=== PATIENT | male | born 1965 | race American Indian/Alaskan Native ===

== ENCOUNTER 2016-11-20 08:35 | Emergency (ER) | payer MEDICARE, OTHER ==
[2016-11-20 08:35] VITALS: BMI 3319.7
--- NOTE | 2016-11-20 09:48 | RAD ---
HISTORY: r/o infiltrate COMPARISON: Comparison is made to 09/11/2016 TECHNIQUE: Chest PA and lateral FINDINGS: LUNGS: Mild pulmonary vascular congestion. PLEURA: Small bilateral pleural effusions larger on the right. CARDIOVASCULAR: Moderate cardiomegaly is again noted. OSSEOUS STRUCTURES: No significant abnormalities. VISUALIZED UPPER ABDOMEN: Normal. OTHER FINDINGS: None. IMPRESSION: Cardiomegaly and mild pulmonary vascular congestion. Small bilateral pleural effusions.
--- NOTE | 2016-11-20 09:53 | C.PDOC ---
History Of Present Illness 51-year-old male, PMHx includes ESRD (last dialysis two days ago), presents to the emergency department with complaints of intermittent cough x3 weeks, that is mildly productive at times and associated with occasional post-tussive vomiting. Denies fevers, chills, chest pain or shortness of breath. No other complaints at this time. Chief Complaint (Nursing): GI Problem History Per: Patient History/Exam Limitations: no limitations Onset/Duration Of Symptoms: Days Current Symptoms Are (Timing): Still Present Severity: Moderate Past Medical History Reviewed: Historical Data, Nursing Documentation, Vital Signs Vital Signs: Last Vital Signs Temp 98 F 11/20/16 08:47 Pulse 86 11/20/16 08:47 Resp 22 11/20/16 09:07 BP 123/83 11/20/16 08:47 Pulse Ox 95 11/20/16 09:53 - Medical History PMH: Anemia, Anxiety, HTN, Hyperthyroidism, End Stage Renal Disease Surgical History: Appendectomy Family History: States: Unknown Family Hx - Social History Hx Tobacco Use: No Hx Alcohol Use: No Hx Substance Use: No - Immunization History Hx Tetanus Toxoid Vaccination: No Hx Influenza Vaccination: Yes Hx Pneumococcal Vaccination: Yes Review Of Systems Except As Marked, All Systems Reviewed And Found Negative. Constitutional: Negative for: Fever, Chills Cardiovascular: Negative for: Chest Pain, Palpitations Respiratory: Positive for: Cough, Sputum Gastrointestinal: Positive for: Vomiting Genitourinary: Negative for: Dysuria, Frequency Musculoskeletal: Negative for: Back Pain Skin: Negative for: Rash Neurological: Negative for: Weakness, Numbness, Headache, Dizziness Physical Exam - Physical Exam Appears: Non-toxic, No Acute Distress Skin: Warm, Dry, No Rash Head: Atraumatic, Normacephalic Eye(s): bilateral: Normal Inspection, PERRL Nose: Normal Oral Mucosa: Moist Lips: Normal Appearing Neck: Normal ROM Chest: Symmetrical Cardiovascular: Rhythm Regular Respiratory: No Accessory Muscle Use, Rales (bases B/L) Gastrointestinal/Abdominal: Soft, No Tenderness Extremity: Normal ROM, Other ((+) Bruit Left upper extremity) Neurological/Psych: Oriented x3, Normal Speech ED Course And Treatment O2 Sat by Pulse Oximetry: 95 Medical Decision Making Medical Decision Making: Plan: * Chest X-Ray * Reassess/Disposition Disposition - Disposition Referrals: [facility], [Non-Staff] - Disposition: HOME/ ROUTINE Disposition Time: 10:00 Condition: GOOD Additional Instructions: Thank you for letting us take care of you today. Your provider was Dr. Padilla. You were treated for a persistent cough. The emergency medical care you received today was directed at your acute symptoms. If you were prescribed any medication, please fill it and take as directed. It may take several days for your symptoms to resolve. Return to the Emergency Department if your symptoms worsen, do not improve, or if you have any other problems. Please contact your doctor or call one of the physicians/clinics you have been referred to that are listed on the Patient Visit Information form that is included in your discharge packet. Bring any paperwork you were given at discharge with you along with any medications you are taking to your follow up visit. Our treatment cannot replace ongoing medical care by a primary care provider (PCP) outside of the emergency department. Thank you for allowing the [facility] team to be part of your care today. Follow up with your doctor in 2-3 days for re-evaluation. Prescriptions: levoFLOXacin [Levaquin] 750 mg PO DAILY #5 tab Acetaminophen/Codeine NO 2 [Tylenol/Cod 300 MG-15 MG] 1 tab PO Q6 PRN #15 tab PRN Reason: Cough Instructions: Upper Respiratory Infection (ED) - Clinical Impression Clinical Impression: Bronchitis - Scribe Statement The provider has reviewed the documentation as recorded by the Muna Mathews All medical record entries made by the Tresibmargie were at my direction and personally dictated by me. I have reviewed the chart and agree that the record accurately reflects my personal performance of the history, physical exam, medical decision making, and the department course for this patient. I have also personally directed, reviewed, and agree with the discharge instructions and disposition.
[2016-11-20 10:33] VITALS: BP 130/76; PULSE 78; RESP 18; TEMP 99.1; O2SAT 96
== END 2016-11-20 10:45 | disposition home or self-care (01) ==
LOC: C.ER 08:35
DX: J40 Bronchitis, not specified as acute or chronic (principal)

== ENCOUNTER 2016-11-24 04:35 | Inpatient (IN) | payer MEDICARE, OTHER ==
[2016-11-24 04:36] VITALS: BMI 3319.7
--- NOTE | 2016-11-24 05:43 | C.PDOC ---
History Of Present Illness <Renetta Mayorga - Last Filed: 11/24/16 06:54> <Alan Cleary Jr. 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 S/P hemodialysis 11/23 pt states " it went fine". Pt is unable to coordinate hands, walk, nor dress himself due to weakness and poor coordination. Pt denies dizziness, headache, change in speech , visual changes, nausea, vomiting, diarrhea, fever, chills, or any other complaints. 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 ON LEVAQUIN X 3 DAYS, ONSET 3 HRS AFTER TAKING DOSE. S/P HD 11/23 "IT WENT FINE". PS UNABLE TO COORDINATE HANDS , WALK, DRESS HIMSELF DUE TO GEN WEAKNESS AND POOR COORDINATION. NO FEVER, NV EXAM HEENT NEG LUNGS CLEAR NEURO GEN WEAKNESS, NO SUSTAINED DYSKINESIA (DISTRACTABLE) PSYCH ANXIOUS (MukeshRenetta) History Per: Patient History/Exam Limitations: no limitations Onset/Duration Of Symptoms: Hrs Current Symptoms Are (Timing): Still Present Severity: Mild <Renetta Mayorga - Last Filed: 11/24/16 06:54> <Alan Cleary Jr. - Last Filed: 11/24/16 07:47> Time Seen by Provider: 11/24/16 05:17 Chief Complaint (Nursing): Weakness/Neurological Deficit Past Medical History Reviewed: Historical Data, Nursing Documentation, Vital Signs - Medical History PMH: Anemia, Anxiety, HTN, Hyperthyroidism, End Stage Renal Disease (on Hemodialysis), Chronic Kidney Disease Surgical History: Appendectomy Family History: States: Unknown Family Hx - Social History Hx Tobacco Use: No Hx Alcohol Use: No Hx Substance Use: No - Immunization History Hx Tetanus Toxoid Vaccination: No Hx Influenza Vaccination: Yes Hx Pneumococcal Vaccination: Yes <Renetta Mayorga - Last Filed: 11/24/16 06:54> Vital Signs: Last Vital Signs Temp 99.7 F H 11/24/16 05:00 Pulse 79 11/24/16 07:20 Resp 18 11/24/16 07:20 BP 112/74 11/24/16 07:20 Pulse Ox 99 11/24/16 07:25 Review Of Systems Except As Marked, All Systems Reviewed And Found Negative. Constitutional: Negative for: Fever, Chills Eyes: Negative for: Vision Change Gastrointestinal: Negative for: Nausea, Vomiting, Diarrhea Neurological: Positive for: Weakness, Incoordination (Abnormal movements). Negative for: Change in Speech, Headache, Dizziness <Renetta Mayorga - Last Filed: 11/24/16 06:54> Physical Exam - Physical Exam Appears: Non-toxic, No Acute Distress Skin: Warm, Dry Head: Atraumatic, Normacephalic Eye(s): bilateral: Normal Inspection, PERRL, EOMI Ear(s): Bilateral: Normal Nose: Normal, No Discharge Throat: Normal, No Erythema, No Exudate Respiratory: Normal Breath Sounds, No Rales, No Rhonchi, No Wheezing Gastrointestinal/Abdominal: Soft, No Tenderness Neurological/Psych: Oriented x3, No Normal Motor (General weakness), No Other ( No sustained dyskinesia (distractable) ) Other Neurological Findings: Other (Anxious) <Renetta Mayorga - Last Filed: 11/24/16 06:54> ED Course And Treatment - Laboratory Results Result Diagrams: 11/24/16 05:54 11/24/16 05:54 Lab Interpretation: No Acute Changes O2 Sat by Pulse Oximetry: 97 (Room air) Pulse Ox Interpretation: Normal <Renetta Mayorga - Last Filed: 11/24/16 06:54> - Laboratory Results Result Diagrams: 11/24/16 05:54 11/24/16 05:54 <Alan Cleary Jr. - Last Filed: 11/24/16 07:47> Progress - Data Reviewed Data Reviewed: Lab, Diagnostic imaging, EKG, Old records <MukeshRenetta - Last Filed: 11/24/16 06:54> - Time Time: 07:28 <Alan Cleary Jr. - Last Filed: 11/24/16 07:47> - Re-Evaluation Re-evaluation Note: 11/24/16 06:21 VSS NARD. NO OBSERVED DYSKINETIC MOVEMENTS. (Renetta Mayorga) 11/24/16 07:28 Pt s/o to me by Dr. Renetta Mayorga. Pt is c/o losing coordination of his muscles in his UE and LE about 3-4 hrs after taking Levaquin. I called [place] [facility] and they state that Levaquin traditionally does not cause these symptoms but that anything is possible. Poison Control recommends supportive care and to send CPK level and LFTs. (Alan Cleary Jr.) Medical Decision Making <Renetta aMyorga - Last Filed: 11/24/16 06:54> <Alan Cleary Jr. - Last Filed: 11/24/16 07:47> Medical Decision Making: Plans: -CT head -EKG -Blood labs -CXR -IV fluids -Reassess and disposition (Renetta Mayorga) 7:46 AM - Case d/w Dr. Silver. He agrees with need for additional work up and for hospitalization. Pt has been endorsed to Dr. Alan Silver. (Alan Cleary Jr. ) Disposition <Renetta Mayorga - Last Filed: 11/24/16 06:54> - Disposition Disposition Time: 07:47 <Alan Cleary Jr. - Last Filed: 11/24/16 07:47> - Disposition Disposition: HOSPITALIZED Condition: FAIR - Clinical Impression Clinical Impression: Muscle weakness, Pneumonia, Muscle spasms of both lower extremities, Muscle spasm, Weakness of limb - Scribe Statement The provider has reviewed the documentation as recorded by the Scribe <Renetta Mayorga - Last Filed: 11/24/16 06:54> <Alan Cleary Jr. - Last Filed: 11/24/16 07:47> - Scribe Statement Ann guadalupe All medical record entries made by the Scribe were at my direction and personally dictated by me. I have reviewed the chart and agree that the record accurately reflects my personal performance of the history, physical exam, medical decision making, and the department course for this patient. I have also personally directed, reviewed, and agree with the discharge instructions and disposition. (Renetta Mayorga) Physician Patient Turnover Patient Signed Over To: Alan Cleary Jr. Handoff Comments: fu ct, dispo <Renetta Mayorga - Last Filed: 11/24/16 06:54> Decision To Admit <Renetta Mayorga - Last Filed: 11/24/16 06:54> - Pt Status Changed To: Hospital Disposition Of: Inpatient - Admit Certification Admit to Inpatient:: After my assessment, the patient will require hospitalization for at least two midnights. This is because of the severity of symptoms shown, intensity of services needed, and/or the medical risk in this patient being treated as an outpatient. - InPatient: Physician Admission Certification: I certify that this patient requires 2 or more midnights of care for the following reason:: Patient has lost coordination of his muscles and this will require an extensive inpatient work up. - . Bed Request Type: Regular Admitting Physician: Alan Silver <Alan Cleary Jr. - Last Filed: 11/24/16 07:47> - . Patient Diagnosis: Muscle weakness, Pneumonia, Muscle spasms of both lower extremities, Muscle spasm
[2016-11-24 05:58] LABS: BASO % 0.8 % (0.0-2.0); EOS % 0.3 % (0.0-4.0); HEMATOCRIT 33.8 % (35.0-51.0); LYMPH % 21.6 % (20.0-40.0); MEAN CELL VOLUME 86.6 fL (80.0-94.0); MEAN CORPUSCULAR HEMOGLOBIN 26.6 pg (27.0-31.0); MEAN CORPUSCULAR HGB CONC 30.7 g/dL (33.0-37.0); MEAN PLATELET VOLUME 7.9 fL (7.2-11.7); MONO # 0.5 K/uL (0.0-0.8); MONO % 11.2 % (0.0-10.0); NRBC % 0.1 % (0.0-2.0); RED CELL DISTRIBUTION WIDTH 18.3 % (11.5-14.5); WHITE BLOOD COUNT 4.6 K/uL (4.8-10.8)
[2016-11-24 06:05] LABS: POTASSIUM 4.3 mmol/L (3.6-5.2)
[2016-11-24 06:09] LABS: CALCIUM 8.2 mg/dl (8.6-10.4); MAGNESIUM 2.1 mg/dL (1.6-2.3)
--- NOTE | 2016-11-24 06:53 | CT ---
EXAM: CT Head Without Intravenous Contrast CLINICAL HISTORY: 51 years old, male; Pain; Headache; Additional info: Dyskinesia TECHNIQUE: Axial computed tomography images of the head/brain without intravenous contrast. This CT exam was performed using one or more of the following dose reduction techniques: automated exposure control, adjustment of the mA and/or kV according to patient size, and/or use of iterative reconstruction technique. EXAM DATE/TIME: 11/24/2016 5:44 AM COMPARISON: No relevant prior studies available. FINDINGS: There are tiny punctate subcutaneous calcifications in the frontal region. Trace mucosal thickening of the ethmoid sinuses. There is atrophy. There is chronic small vessel ischemic disease. Small pineal calcification is noted. There is no hemorrhage or edema. IMPRESSION: No acute findings.
--- NOTE | 2016-11-24 07:07 | CT ---
EXAM: CT Chest Without Intravenous Contrast CLINICAL HISTORY: 51 years old, male; Pain; Other: SOB, ho. Upper chest infection as per patient; Additional info: Abnormal cxr TECHNIQUE: Axial computed tomography images of the chest without intravenous contrast. This CT exam was performed using one or more of the following dose reduction techniques: automated exposure control, adjustment of the mA and/or kV according to patient size, and/or use of iterative reconstruction technique. Coronal and sagittal reformatted images were created and reviewed. EXAM DATE/TIME: 11/24/2016 6:17 AM COMPARISON: CR - CHEST TWO VIEWS (PA/LAT) 11/03/2015 10:39:51 AM FINDINGS: There is a moderate right pleural effusion and small left pleural effusion. There is a paracardial effusion measuring up to 20 mm in width. There is a septated air collection to the right of the trachea esophagus and the lower neck/upper chest. I do not see a tract extending from either the trachea or esophagus to the complex septated air collection. Scattered faint hazy peripheral opacities are present in the upper lungs. There is a moderate-sized area of consolidation in the right lower lung and a small area of consolidation in the left lower lung. Pulmonary nodule image 96 in the right lower lung measuring 4 mm. Recommend correlation with prior study to assess for stability and followup based on Fleischner criteria. Multiple mediastinal lymph nodes are present. The ascending aorta measures up to 4 cm in diameter. The liver appears enlarged and heterogeneous although is incompletely imaged. There is periportal edema and a small amount of perihepatic fluid. A small amount of perisplenic fluid is present. Kidneys are incompletely imaged however. Hypotrophic with areas of calcification as well as perinephric stranding. Possible hyper attenuating lesion left upper kidney. IMPRESSION: Bilateral pleural effusions greater on the right. Bilateral lower lung consolidations greater on the right. Pericardial effusion. Complex septated air collection to the right of the trachea and esophagus as discussed above. Small ascites upper abdomen. Suboptimal evaluation of enlarged heterogeneous liver. Hypotrophic kidneys incompletely imaged as discussed above.
[2016-11-24 08:07] LABS: VENOUS BLOOD GAS BASE EXCESS 9.3 mmol/L (0.0-2.0); VENOUS BLOOD GAS PCO2 55 mmHg (40-60); VENOUS BLOOD PH 7.42 (7.32-7.43)
[2016-11-24 08:18] LABS: ALB/GLOB RATIO 0.9 (1.0-2.1); BILIRUBIN,TOTAL 0.9 mg/dL (0.2-1.3); TOTAL PROTEIN 6.4 g/dL (6.3-8.3)
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
--- NOTE | 2016-11-24 10:55 | RAD ---
PROCEDURE: CHEST RADIOGRAPH, 1 VIEW HISTORY: Shortness of breath COMPARISON: 11/20/2016 FINDINGS: LUNGS: Worsening somewhat ill-defined airspace opacifications in the right mid to lower lung zone with associated moderate loculated right pleural effusion. Venous congestion. Milder patchy left basilar airspace opacity with trace left pleural effusion. Linear consolidative changes in the left midlung zone. PLEURA: As above. CARDIOVASCULAR: Cardiomegaly. Calcification at the aortic knob. OSSEOUS STRUCTURES: No significant abnormalities. VISUALIZED UPPER ABDOMEN: Normal. OTHER FINDINGS: None. IMPRESSION: Worsening somewhat ill-defined airspace opacifications in the right mid to lower lung zone with associated moderate loculated right pleural effusion. Venous congestion. Milder patchy left basilar airspace opacity with trace left pleural effusion. Linear consolidative changes in the left midlung zone.
--- NOTE | 2016-11-24 10:58 | CP.PCM.CON ---
History of Present Illness - History of Present Illness History of Present Illness: CC: 51 year old male pt presents with a c/o new onset general weakness and "abnormal movements" [employer]. 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 S/P hemodialysis / pt states " it went fine". Pt is unable to coordinate hands, walk, nor dress himself due to weakness and poor coordination. Pt denies dizziness, headache, change in speech , visual changes, nausea, vomiting, diarrhea, fever, chills, or any other complaints. HPI:As above; XRs consistent with likely pneumonia, possible fluid overload PMHx: Anemia, Anxiety, HTN, End Stage Renal Disease (on Hemodialysis), DM 2, DL , failed renal transplant, 2008 to 2015 PSHx: Appendectomy, renal transplant, AV fistula Meds:see MAR Allergies: Penicillin FamHx: Father ; h/o CKD Sco hx:neg for smoking, ETOH, illicits CONSULT DICTATED WILL ARRANGE FOR DIALYSIS WILL NEED ECHO, EVALUATION OF NEW PLEURAL EFFUSIONS Past Patient History - Past Social History Smoking Status: Never Smoked - CARDIAC Hx Hypertension: Yes - PULMONARY Hx Respiratory Disorders: No - NEUROLOGICAL Hx Neurological Disorder: No - HEENT Hx HEENT Problems: No - RENAL Hx Chronic Kidney Disease: Yes - ENDOCRINE/METABOLIC Hx Hyperthyroidism: Yes - HEMATOLOGICAL/ONCOLOGICAL Hx Anemia: Yes - INTEGUMENTARY Hx Dermatological Problems: No - MUSCULOSKELETAL/RHEUMATOLOGICAL Hx Musculoskeletal Disorders: Yes Hx Back Pain: Yes Hx Herniated Disk: Yes Other/Comment: TORN ROTATOR CUFF LEFT-REPAIRED - GASTROINTESTINAL Hx Gastrointestinal Disorders: No - GENITOURINARY/GYNECOLOGICAL Hx Genitourinary Disorders: Yes Other/Comment: HAD LEFT KIDNEY TRANSPLANT 2009 - PSYCHIATRIC Hx Anxiety: Yes Hx Substance Use: No - SURGICAL HISTORY Hx Appendectomy: Yes - ANESTHESIA Hx Anesthesia: Yes Hx Anesthesia Reactions: No Hx Malignant Hyperthermia: No Meds Allergies/Adverse Reactions: Allergies Allergy/AdvReac Type Severity Reaction Status Date / Time Penicillins Allergy Verified 11/24/16 04:53 - Medications Medications: Current Medications Calcium Acetate (Phoslo) 667 mg PO ACTID JOSE Carvedilol (Coreg) 2 mg PO BID [facility] Home Med (Hydralazine Hcl [Hydralazine Hcl]) 50 mg PO BID [facility] Azithromycin 500 mg/ Sodium (Chloride) 250 mls @ 250 mls/hr IVPB Q24H JOSE Insulin Aspart (Novolog) 0 unit SC ACHS JOSE PRN Reason: Protocol Rosuvastatin Calcium (Crestor) 20 mg PO HS JOSE Results - Vital Signs Recent Vital Signs: Last Vital Signs Temp 99.7 F H 11/24/16 05:00 Pulse 79 11/24/16 07:20 Resp 18 11/24/16 07:20 BP 112/74 11/24/16 07:20 Pulse Ox 99 11/24/16 08:34 - Labs Result Diagrams: 11/24/16 05:54 11/24/16 05:54 Labs: Laboratory Results - last 24 hr 11/24/16 11/24/16 07:53 08:02 pO2 25 L VBG pH 7.42 VBG pCO2 55 VBG HCO3 30.8 VBG Total CO2 37.4 H VBG O2 Sat (Calc) 41.0 VBG Base Excess 9.3 H VBG Potassium 4.6 Sodium 137.0 Chloride 101.0 Glucose 89 Lactate 1.1 Total Bilirubin 0.9 Direct Bilirubin 0.0 AST 88 H D ALT 45 Alkaline Phosphatase 127 H D Total Creatine Kinase 174 H Total Protein 6.4 Albumin 3.0 L D Globulin 3.4 Albumin/Globulin Ratio 0.9 L Venous Blood Potassium 4.6
--- NOTE | 2016-11-24 11:33 | CON ---
DATE: 11/24/2016 The patient is a 51-year-old man who presents to the wanted of general weakness, thien bility to stand due to shakes. He was felt to have a reaction to a new medication, and he was sent t o the ER and was admitted. He was found to have new pleural effusion due to possible pneumonia, and he is being admitted for treatment of pneumonia and evaluation of inability to ambulate. The patient has a past medical history of end-stage renal disease, has been on maintenance hemodialys is for several years prior to his kidney transplant in 2008. His kidney transplant eventually failed in 2015. He had had a good kidney function up to the failure of his transplant, for approximately 7 years. His past medical history therefore is that of hypertension, nephrosclerosis, diabetes mellit us type 2, dyslipidemia, and a failed kidney transplant. PAST SURGICAL HISTORY: AV fistula in the left arm, appendectomy in the remote past, and kidney trans plant in 2008. MEDICATIONS: Include hydralazine, carvedilol for hypertension, Crestor, PhosLo, and now he is on Zit hromax for the possible pneumonia. SOCIAL HISTORY: Negative for smoking, alcohol abuse, or illicit drug use. He claims he exposure to secondhand smoke. FAMILY HISTORY: Significant for father with chronic kidney disease. REVIEW OF SYSTEMS: Significant for, as mentioned, inability to walk in the last day approximately, a bnormal tremors and shakes. He has been more short of breath, dyspneic on exertion approximately a b lock, and only the last few days he had a dry cough. He had no weight changes, though he had gained weight previously after starting dialysis. He had fevers several days ago, and he has had chills. N o nausea, vomiting, no diarrhea. No new rashes. No hearing deficits or visual disturbances. No akila st pain. Other review of systems are negative. On physical exam he is a well-developed man in no acute distress. His blood pressure was 112/74, pulse 79, temperature was 99.7 on admission. Anicteric. Mouth was clear. No JVD. LUNG ORTIZ: Clear; had decreased breath sounds at the bases. HEART: Regular rhythm, no murmur appreciated. ABDOMEN: Soft, benign. He had an allograft right lower quadrant which was nontender. There are no masses or organomegaly. No peripheral edema. NEUROLOGICALLY: He has no focal deficits. He had tremors in the left upper extremity. AV fistula w as patent with a thrill. BLOOD WORK: Showed hemoglobin 10.4, white count 4.6. Sodium 136, potassium 4.3, creatinine 8.1, alb umin of 3.0. CT of the chest showed bilateral effusions--moderate on the right, small on the left, and pericardial effusion as well. There was a right complex septated air collection paratracheal and paraesophageal . IMPRESSION: The patient has probable pneumonia, possible fluid overload, end-stage renal disease, hy pertension, nephrosclerosis, diabetes mellitus type 2, dyslipidemia, and secondary hyperparathyroidis m. PLAN: He is getting IV antibiotics. For the pneumonia he would need an echocardiogram and evaluatio n of the new pleural effusions. We will schedule for dialysis in the a.m. as is his regular schedule . Will follow up. Man Joyce MD cc: [id number] TT: 11/24/2016 11:33:15 Confirmation # [id number] Dictation # [id number] jn
[2016-11-24] MEDS: (Novolog) Insulin Aspart, Recombinant 100 u/ml 10 ml vial SC SCH ×3 (13:02→22:25)
[2016-11-24 15:33] LABS: THYROID STIMULATING HORMONE 2.58 mIU/L (0.46-4.68)
[2016-11-24] MEDS ORDERED: Azithromycin 500 MG in Sodium Chloride 0.9% 250 ML IVPB SCH (17:39)
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
--- NOTE | 2016-11-25 07:42 | CP.PCM.PN ---
Addendum entered and electronically signed by Alan Morgan DO 11/25/16 20:07: Added Lisinopril 2.5mg PO daily Original Note: <Alan Morgan - Last Filed: 11/25/16 20:07> Subjective - Date & Time of Evaluation Date of Evaluation: 11/25/16 Time of Evaluation: 07:40 - Subjective Subjective: PGY1 Medicine Note - Dr. Silver Patient seen and examined. No acute overnight events, resting comfortably. He feels better today but notes that his movements are still uncoordinated and this causes his anxiety to increase. He had difficulty sleeping last night and did not respond to benadryl but fell asleep after getting restoril. Currently he denies fever, abdominal pain, nausea, vomiting, diarrhea, constipation, and any other acute complaints at this time. Objective - Vital Signs/Intake and Output Vital Signs (last 24 hours): Temp Pulse Resp BP Pulse Ox 98.4 F 79 20 113/75 96 11/25/16 01:50 11/25/16 01:50 11/25/16 01:50 11/25/16 01:50 11/25/16 01:50 Intake and Output: 11/25/16 11/25/16 06:59 18:59 Intake Total 120 Balance 120 - Medications Medications: Current Medications Alprazolam (Xanax) 0.25 mg PO TID PRN PRN Reason: Anxiety Stop: 12/01/16 17:39 Last Admin: 11/24/16 18:51 Dose: 0.25 mg Calcium Acetate (Phoslo) 667 mg PO ACTID [facility] Last Admin: 11/24/16 17:14 Dose: 667 mg Carvedilol (Coreg) 25 mg PO BID [facility] Last Admin: 11/24/16 17:18 Dose: Not Given Hydralazine HCl (Apresoline) 50 mg PO BID [facility] Last Admin: 11/24/16 17:17 Dose: Not Given Azithromycin 500 mg/ Sodium (Chloride) 250 mls @ 250 mls/hr IVPB Q24H [facility] Last Admin: 11/24/16 19:28 Dose: 250 mls/hr Insulin Aspart (Novolog) 0 unit SC ACHS [facility] PRN Reason: Protocol Last Admin: 11/24/16 22:25 Dose: Not Given Rosuvastatin Calcium (Crestor) 10 mg PO HS [facility] Last Admin: 11/24/16 21:26 Dose: 10 mg - Additional Findings Additional findings: - Constitutional Appears: Non-toxic, No Acute Distress - Head Exam Head Exam: ATRAUMATIC, NORMAL INSPECTION - Eye Exam Eye Exam: EOMI, Normal appearance, PERRL - ENT Exam ENT Exam: Mucous Membranes Moist - Neck Exam Neck exam: Negative for: Tenderness - Respiratory Exam Respiratory Exam: Clear to Auscultation Bilateral, NORMAL BREATHING PATTERN. absent: Wheezes - Cardiovascular Exam Cardiovascular Exam: REGULAR RHYTHM, +S1, +S2. absent: Gallop, Rubs Additional comments: +murmur - GI/Abdominal Exam GI & Abdominal Exam: Normal Bowel Sounds, Soft. absent: Tenderness - Extremities Exam Extremities exam: Positive for: normal inspection, pedal pulses present. Negative for: pedal edema, tenderness - Back Exam Back exam: paraspinal tenderness (improving) absent: CVA tenderness (L), CVA tenderness (R) - Neurological Exam Neurological exam: Alert, CN II-XII Intact, Oriented x3 Additional comments: -Sensation intact b/l; gait instability; coordinated movements improving today ( able to use his phone); generalized weakness (persists) - Psychiatric Exam Psychiatric exam: Normal mood, Normal Affect - Skin Skin Exam: Dry, Intact, Normal Color, Warm Assessment and Plan - Assessment and Plan (Free Text) Assessment: Muscle weakness, acute -CT head negative -Stop home med Levaquin 500mg PO daily -> pt may be having a reaction. -CPK 174 H -f/u repeat CPK in am Influenza Type B swab for influenza B positive Administer Tamiflu on dialysis days. Pneumonia, acute 11/25: Dr. Reynolds consulted. recommended IR for thoracentesis. f/u pleural fluid results. -Patient recently in ED 11/20 for Bronchitis - CT chest- b/l pleural effusions, lower lung consolidation, pericardial effusion (20mm), ascites of abdomen. see full report. -Stop home med Levaquin 500mg PO daily -> pt may be having a reaction. -Start Azithromycin 500mg IVPB Q24H -ProBNP 394,000 -f/u BC negative x1d ESRD on HD, chronic -Consult Nephrology, Dr. Joyce, f/u recs -HD schedule MWF -awaiting kidney transplant. -Phoslo 667 mg PO ACTID [facility] Pericardial Effusion, acute 11/25: Dr. Pierce does not recommend draining pericardial effusion as it is mild and risks outweight benefits. Recs-> Add ACEI or ARBs to the regimen; Can add Lasix may benefit by decreasing the pre load - CT chest- b/l pleural effusions, lower lung consolidation, pericardial effusion (20mm), ascites of abdomen. see full report. - Pulm/Crit Care consult - Dr. Reynolds -> for possible thoracentesis. Will evaluate patient in am. - Cardiology consult, Dr. Pierce, f/u recs - EKG: Normal sinus rhythm; Left axis deviation;Anterior infarct, age undetermined; No QT prolongation. - f/u repeat EKG on 4/6 pm (not performed) - monitor for QT prolongation -f/u echo (pending read) HTN, chronic Coreg 25 mg PO BID [facility] Apresoline 50 mg PO BID [facility] Crestor 10 mg PO HS [facility] Diabetes, chronic Novolog ACHS - ISS Hx of Anxiety Xanax 0.25 mg PO TID PRN -pt only uses Xanax 0.5mg 1-2x per week. Hx of Hyperthyroidism -untreated -monitor -TSH/free T4 - WNL Prophylaxis SCDs PT/OT <Alan Silver - Last Filed: 11/26/16 08:27> Objective - Vital Signs/Intake and Output Vital Signs (last 24 hours): Temp Pulse Resp BP Pulse Ox 98.2 F 75 20 119/77 97 11/26/16 07:54 11/26/16 07:54 11/26/16 07:54 11/26/16 07:54 11/26/16 07:54 - Medications Medications: Current Medications Alprazolam (Xanax) 0.25 mg PO TID PRN PRN Reason: Anxiety Stop: 12/01/16 17:39 Last Admin: 11/25/16 18:38 Dose: 0.25 mg Calcium Acetate (Phoslo) 667 mg PO ACTID [facility] Last Admin: 11/25/16 15:49 Dose: 667 mg Carvedilol (Coreg) 6.25 mg PO BID [facility] Last Admin: 11/25/16 18:34 Dose: Not Given Hydralazine HCl (Apresoline) 25 mg PO BID [facility] Last Admin: 11/25/16 18:34 Dose: Not Given Moxifloxacin HCl (Avelox Iv 400mg/250ml Ns) 250 mls @ 167 mls/hr IVPB Q24H [facility] Last Admin: 11/25/16 15:47 Dose: 167 mls/hr Insulin Aspart (Novolog) 0 unit SC ACHS [facility] PRN Reason: Protocol Last Admin: 11/25/16 22:01 Dose: Not Given Lisinopril (Zestril) 2.5 mg PO DAILY [facility] Last Admin: 11/25/16 10:40 Dose: Not Given Oseltamivir Phosphate (Tamiflu Susp) 30 mg PO MWF [facility] Stop: 12/02/16 09:01 Last Admin: 11/25/16 15:45 Dose: 30 mg Rosuvastatin Calcium (Crestor) 10 mg PO HS [facility] Last Admin: 11/25/16 21:35 Dose: 10 mg - Labs Labs: 11/26/16 07:29 11/25/16 07:37 PT 13.6 SECONDS (9.7-12.2) H 11/25/16 20:01 INR 1.2 11/25/16 20:01 APTT 39 SECONDS (21-34) H 11/25/16 20:01 Attending/Attestation - Attestation I have personally seen and examined this patient.: Yes I have fully participated in the care of the patient.: Yes I have reviewed all pertinent clinical information, including history, physical exam and plan: Yes Notes (Text): 11/26/16 08:24 Medical attending: Patient was seen and examined by me, agrees the above note by medical transcription. The patient reported that he wasn't feeling as terrible as he was before, however he still does feel exhausted week and some body aches he is now with isolation contact precaution due to positive flu study. Regular try to give the Tamiflu with dialysis while the patient is here. I discussed with cardiology with regards to the pericardial effusion, as per cardiology nothing needs to be done at this time will have to watch and monitor. Also need to touch base again with pulmonology with regards to the bilateral pleural effusions, one side is greater than the other. He may or he may not need a thoracentesis. Alan Silver
[2016-11-25 08:06] LABS: BASO % 0.5 % (0.0-2.0); EOS # 0.1 K/uL (0.0-0.7); EOS % 2.4 % (0.0-4.0); HEMATOCRIT 33.4 % (35.0-51.0); LYMPH # 1.4 K/uL (1.0-4.3); LYMPH % 35.9 % (20.0-40.0); MEAN CORPUSCULAR HEMOGLOBIN 26.8 pg (27.0-31.0); MEAN CORPUSCULAR HGB CONC 31.2 g/dL (33.0-37.0); MEAN PLATELET VOLUME 8.5 fL (7.2-11.7); MONO # 0.4 K/uL (0.0-0.8); MONO % 10.1 % (0.0-10.0); NRBC % 0.5 % (0.0-2.0); RED CELL DISTRIBUTION WIDTH 18.2 % (11.5-14.5); WHITE BLOOD COUNT 3.8 K/uL (4.8-10.8)
[2016-11-25] MEDS: (Novolog) Insulin Aspart, Recombinant 100 u/ml 10 ml vial SC SCH ×4 (08:10→22:01)
[2016-11-25 08:28] LABS: POTASSIUM 4.8 mmol/L (3.6-5.2)
[2016-11-25 08:30] LABS: ALB/GLOB RATIO 0.9 (1.0-2.1); BILIRUBIN,TOTAL 0.9 mg/dL (0.2-1.3); TOTAL PROTEIN 6.4 g/dL (6.3-8.3)
[2016-11-25 08:31] LABS: CALCIUM 8.2 mg/dl (8.6-10.4); MAGNESIUM 2.1 mg/dL (1.6-2.3)
[2016-11-25] MEDS ORDERED: Azithromycin 500 MG in Sodium Chloride 0.9% 250 ML IVPB SCH (11:00)
--- NOTE | 2016-11-25 14:03 | CP.PCM.CON ---
History of Present Illness - History of Present Illness History of Present Illness: 51 y/o male with pmhx significant for HTN and ERSD on HD presented to hospital for inability to coordinate muscle movements. He was here previously on Monday for complaint of URI and was discharged home on levaquin and Tylenol w/ codeine. He returned to hospital when he lost the ability hold fork to feed himself. He s/p kidney transplant in 2008 which failed in 2016 and he was restarted on HD. He reports that he is compliant with dialysis, medications, and fluid restriction. He believes that his kidney failure was secondary to hypertension. Pulmonology was consulted for pericardial effusion, large pleural effusion and thoracentesis evaluation. Reports associated cough, runny nose, glassy eyes with associated shortness of breath and orthopnea starting last week. He denies ever smoking and has no prior diagnosis of COPD or pleural effusions. Pmhx: HTN, ESRD on HD, hyperthyroidism, anemia, anxiety, and DMII PSHx: appendectomy, kidney transplant (2008) FamHx: father from ESRD Socialhx: denies smoking history, drugs, alcohol. 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 [facility] Aide: Dr. Joyce Review of Systems - Constitutional Constitutional: absent: Chills, Fever - Cardiovascular Cardiovascular: Dyspnea, Orthopnea. absent: Chest Pain - Respiratory Respiratory: Cough, Dyspnea, Dyspnea on Exertion - Gastrointestinal Gastrointestinal: Diarrhea. absent: Constipation - Genitourinary Genitourinary: absent: Urinary Incontinence, Urinary Frequency - Neurological Neurological: Abnormal Gait, Abnormal Movements - Endocrine Endocrine: absent: Fatigue Past Patient History - Past Medical History & Family History Past Medical History?: Yes - Past Social History Smoking Status: Never Smoked - CARDIAC Hx Hypertension: Yes - PULMONARY Hx Respiratory Disorders: No - NEUROLOGICAL Hx Neurological Disorder: No - HEENT Hx HEENT Problems: No - RENAL Hx Chronic Kidney Disease: Yes - ENDOCRINE/METABOLIC Hx Hyperthyroidism: Yes - HEMATOLOGICAL/ONCOLOGICAL Hx Anemia: Yes - INTEGUMENTARY Hx Dermatological Problems: No - MUSCULOSKELETAL/RHEUMATOLOGICAL Hx Musculoskeletal Disorders: Yes Hx Back Pain: Yes Hx Herniated Disk: Yes Other/Comment: TORN ROTATOR CUFF LEFT-REPAIRED - GASTROINTESTINAL Hx Gastrointestinal Disorders: No - GENITOURINARY/GYNECOLOGICAL Hx Genitourinary Disorders: Yes Other/Comment: HAD LEFT KIDNEY TRANSPLANT 2009 - PSYCHIATRIC Hx Anxiety: Yes Hx Substance Use: No - SURGICAL HISTORY Hx Appendectomy: Yes - ANESTHESIA Hx Anesthesia: Yes Hx Anesthesia Reactions: No Hx Malignant Hyperthermia: No Meds Allergies/Adverse Reactions: Allergies Allergy/AdvReac Type Severity Reaction Status Date / Time Penicillins Allergy Verified 11/24/16 04:53 - Medications Medications: Current Medications Alprazolam (Xanax) 0.25 mg PO TID PRN PRN Reason: Anxiety Stop: 12/01/16 17:39 Last Admin: 11/24/16 18:51 Dose: 0.25 mg Calcium Acetate (Phoslo) 667 mg PO ACTID [facility] Last Admin: 11/25/16 12:40 Dose: Not Given Carvedilol (Coreg) 25 mg PO BID [facility] Last Admin: 11/25/16 10:41 Dose: Not Given Hydralazine HCl (Apresoline) 50 mg PO BID [facility] Last Admin: 11/25/16 10:41 Dose: Not Given Moxifloxacin HCl (Avelox Iv 400mg/250ml Ns) 250 mls @ 167 mls/hr IVPB Q24H [facility] Insulin Aspart (Novolog) 0 unit SC ACHS [facility] PRN Reason: Protocol Last Admin: 11/25/16 12:40 Dose: Not Given Lisinopril (Zestril) 2.5 mg PO DAILY [facility] Last Admin: 11/25/16 10:40 Dose: Not Given Oseltamivir Phosphate (Tamiflu Susp) 30 mg PO MWF [facility] Stop: 12/02/16 09:01 Rosuvastatin Calcium (Crestor) 10 mg PO HS [facility] Last Admin: 11/24/16 21:26 Dose: 10 mg Physical Exam - Head Exam Head Exam: ATRAUMATIC, NORMOCEPHALIC - Eye Exam Eye Exam: Normal appearance, PERRL Pupil Exam: NORMAL ACCOMODATION - ENT Exam ENT Exam: Mucous Membranes Moist - Neck Exam Neck exam: Positive for: Normal Inspection - Respiratory Exam Respiratory Exam: Decreased Breath Sounds, NORMAL BREATHING PATTERN. absent: Rales, Rhonchi, Wheezes - Cardiovascular Exam Cardiovascular Exam: REGULAR RHYTHM, +S1, +S2, Systolic Murmur (heard best 3 intercostal on left ). absent: JVD - GI/Abdominal Exam GI & Abdominal Exam: Normal Bowel Sounds, Soft. absent: Tenderness - Back Exam Back exam: NORMAL INSPECTION Additional comments: tenderness of posterior rib 7 on left - Neurological Exam Neurological exam: Alert, Oriented x3 - Psychiatric Exam Psychiatric exam: Anxious, Normal Affect, Normal Mood - Skin Skin Exam: Dry, Intact, Warm Results - Vital Signs Recent Vital Signs: Last Vital Signs Temp 98.8 F 11/25/16 10:25 Pulse 75 11/25/16 10:00 Resp 20 11/25/16 10:00 BP 121/79 11/25/16 12:55 Pulse Ox 98 11/25/16 10:25 - Labs Result Diagrams: 11/25/16 07:37 11/25/16 07:37 Labs: Laboratory Results - last 24 hr 11/24/16 11/24/16 11/24/16 14:26 16:39 21:15 WBC RBC Hgb Hct MCV MCH MCHC RDW Plt Count MPV Neut % (Auto) Lymph % (Auto) Blount % (Auto) Eos % (Auto) Baso % (Auto) Neut # Lymph # Blount # Eos # Baso # Sodium Potassium Chloride Carbon Dioxide Anion Gap BUN Creatinine Est GFR ( Amer) Est GFR (Non-Af Amer) POC Glucose (mg/dL) 123 H Random Glucose Calcium Phosphorus Magnesium Total Bilirubin AST ALT Alkaline Phosphatase Total Creatine Kinase NT-Pro-B Natriuret Pep 912879 H Total Protein Albumin Globulin Albumin/Globulin Ratio Free T4 1.63 TSH 3rd Generation 2.58 Influenza Typ A,B (EIA) Pos for influenza b H 11/24/16 11/25/16 11/25/16 21:43 06:56 07:37 WBC 3.8 L RBC 3.89 L Hgb 10.4 L Hct 33.4 L MCV 86.0 MCH 26.8 L MCHC 31.2 L RDW 18.2 H Plt Count 136 MPV 8.5 Neut % (Auto) 51.1 Lymph % (Auto) 35.9 Blount % (Auto) 10.1 H Eos % (Auto) 2.4 Baso % (Auto) 0.5 Neut # 1.9 Lymph # 1.4 Blount # 0.4 Eos # 0.1 Baso # 0.0 Sodium 134 Potassium 4.8 Chloride 92 L Carbon Dioxide 27 Anion Gap 20 BUN 71 H Creatinine 10.6 H* D Est GFR ( Amer) 6 Est GFR (Non-Af Amer) 5 POC Glucose (mg/dL) 111 H 81 Random Glucose 76 Calcium 8.2 L Phosphorus 5.0 H Magnesium 2.1 Total Bilirubin 0.9 AST 80 H ALT 52 Alkaline Phosphatase 124 Total Creatine Kinase 134 NT-Pro-B Natriuret Pep Total Protein 6.4 Albumin 3.0 L Globulin 3.4 Albumin/Globulin Ratio 0.9 L Free T4 TSH 3rd Generation Influenza Typ A,B (EIA) Assessment & Plan - Assessment and Plan (Free Text) Assessment: Bilateral pleural effusion greater on right than left Plan: Thoracentesis recommended for right pleural effusion. In setting of large unilateral pleural effusion, thoracentesis is recommended to assess pleural fluid. Element of severe systolic heart failure as source of pleural effusion. BNP = 394,000 Optimize CHF as per cardiology Pericardial effusion management as per cardiology. Not currently recommended for drainage per Dr. Pierce. Consult placed to IR for thoracentesis. Influenza type B serology positive. Start tamiflu and supportive management. F/u pleural fluid results
--- NOTE | 2016-11-25 14:03 | CP.PCM.PN ---
Subjective - Date & Time of Evaluation Date of Evaluation: 11/25/16 Time of Evaluation: 14:01 - Subjective Subjective: Seen on dialysis- finishing now UF 1800ml- well tolerated Positive test for influenza B BP well controlled- patient refusing BP meds Motor skills improving Consideration for thoracentesis noted Less dyspneic; no other complaints Objective - Vital Signs/Intake and Output Vital Signs (last 24 hours): Temp Pulse Resp BP Pulse Ox 98.8 F 75 20 121/79 98 11/25/16 10:25 11/25/16 10:00 11/25/16 10:00 11/25/16 12:55 11/25/16 10:25 Intake and Output: 11/25/16 11/25/16 06:59 18:59 Intake Total 120 Balance 120 - Medications Medications: Current Medications Alprazolam (Xanax) 0.25 mg PO TID PRN PRN Reason: Anxiety Stop: 12/01/16 17:39 Last Admin: 11/24/16 18:51 Dose: 0.25 mg Calcium Acetate (Phoslo) 667 mg PO ACTID [facility] Last Admin: 11/25/16 12:40 Dose: Not Given Carvedilol (Coreg) 25 mg PO BID [facility] Last Admin: 11/25/16 10:41 Dose: Not Given Moxifloxacin HCl (Avelox Iv 400mg/250ml Ns) 250 mls @ 167 mls/hr IVPB Q24H [facility] Insulin Aspart (Novolog) 0 unit SC ACHS [facility] PRN Reason: Protocol Last Admin: 11/25/16 12:40 Dose: Not Given Lisinopril (Zestril) 2.5 mg PO DAILY [facility] Last Admin: 11/25/16 10:40 Dose: Not Given Oseltamivir Phosphate (Tamiflu Susp) 30 mg PO MWF [facility] Stop: 12/02/16 09:01 Rosuvastatin Calcium (Crestor) 10 mg PO HS [facility] Last Admin: 11/24/16 21:26 Dose: 10 mg - Labs Labs: 11/25/16 07:37 11/25/16 07:37 - Constitutional Appears: No Acute Distress, Chronically Ill - Head Exam Head Exam: ATRAUMATIC, NORMAL INSPECTION - Eye Exam Eye Exam: EOMI, Normal appearance - Neck Exam Neck Exam: Normal Inspection. absent: Tenderness - Respiratory Exam Respiratory Exam: Decreased Breath Sounds, NORMAL BREATHING PATTERN - Cardiovascular Exam Cardiovascular Exam: REGULAR RHYTHM, +S1 - GI/Abdominal Exam GI & Abdominal Exam: Soft. absent: Tenderness - Extremities Exam Extremities Exam: Normal Inspection. absent: Tenderness - Neurological Exam Neurological Exam: Awake, CN II-XII Intact - Skin Skin Exam: Dry, Warm Assessment and Plan - Assessment and Plan (Free Text) Assessment: ESRD HTN DM 2 Acute influenza Viral pneumonia Plan: Dialysis MWF Tamiflu Possible thoracentesis Monitor BP
--- NOTE | 2016-11-25 15:08 | PCM.SURG1 ---
Surgeon's Initial Post Op Note - Surgeon's Notes Surgeon: Bayron Moise MD Cruise Director: NONE Type of Anesthesia: Local Pre-Operative Diagnosis: Right pleural effusion, pneumonia Operative Findings: US showed moderate right effusion. Post-Operative Diagnosis: Right pleural effusion, pneumonia Operation Performed: US guided right thoracentesis. Specimen/Specimens Removed: 800 cc of clear fluid. Estimated Blood Loss: EBL {In ML}: 0 Blood Products Given: N/A Drains Used: No Drains Post-Op Condition: Fair Date of Surgery/Procedure: 11/25/16 Time of Surgery/Procedure: 15:05
[2016-11-25] MEDS: Oseltamivir 6 MG/ML PO SCH (15:45)
[2016-11-25] MEDS: Moxifloxacin IV 400mg/250ml NS 250 ML IVPB SCH (15:47)
--- NOTE | 2016-11-25 16:07 | US ---
PROCEDURE: Date of procedure: 11/25/2016 Procedure: 1. Ultrasound-guided Right thoracentesis, CPT 93804 Medications: 1% Lidocaine HISTORY: Right pleural effusion, shortness of breath TECHNIQUE: Following informed consent ,the Patients' right chest was marked. Procedure time-out was called, and the patient was placed in the sitting position and limited ultrasound showed a large right effusion. The patient's right back was prepped and draped in the usual sterile fashion. After the skin was anesthetized with lidocaine, a drainage catheter was advanced under ultrasound guidance into the pleural space. Ultrasound-guided thoracentesis was performed. A total of 800 cubic centimeters of straw-colored fluid removed without complication. A Xeroform dressing was applied. IMPRESSION: Ultrasound guided Right thoracentesis. There were no immediate complications.
--- NOTE | 2016-11-25 16:17 | RAD ---
HISTORY: Status post right thoracentesis. COMPARISON: 11/24/2016 FINDINGS: LUNGS: Linear atelectasis at right base adjacent to left PLEURA: Hilum. Small bilateral pleural effusion with decreased on right compared to prior chest radiograph. No pneumothorax. CARDIOVASCULAR: Cardiomegaly. OSSEOUS STRUCTURES: No significant abnormalities. VISUALIZED UPPER ABDOMEN: Normal. OTHER FINDINGS: None. IMPRESSION: No pneumothorax status post right thoracentesis. Small bilateral pleural effusion. Bilateral linear atelectasis.
[2016-11-25 20:17] LABS: INR 1.2
[2016-11-26 07:42] LABS: BASO % 0.7 % (0.0-2.0); EOS # 0.1 K/uL (0.0-0.7); EOS % 2.4 % (0.0-4.0); HEMATOCRIT 33.7 % (35.0-51.0); LYMPH # 1.1 K/uL (1.0-4.3); LYMPH % 32.3 % (20.0-40.0); MEAN CELL VOLUME 85.2 fL (80.0-94.0); MEAN CORPUSCULAR HEMOGLOBIN 26.6 pg (27.0-31.0); MEAN CORPUSCULAR HGB CONC 31.2 g/dL (33.0-37.0); MEAN PLATELET VOLUME 8.4 fL (7.2-11.7); MONO # 0.3 K/uL (0.0-0.8); MONO % 8.6 % (0.0-10.0); NRBC % 0.5 % (0.0-2.0); RED CELL DISTRIBUTION WIDTH 18.5 % (11.5-14.5); WHITE BLOOD COUNT 3.5 K/uL (4.8-10.8)
[2016-11-26 08:31] LABS: POTASSIUM 4.6 mmol/L (3.6-5.2)
[2016-11-26 08:33] LABS: ALB/GLOB RATIO 0.8 (1.0-2.1)
[2016-11-26 08:34] LABS: CALCIUM 7.9 mg/dl (8.6-10.4); MAGNESIUM 1.9 mg/dL (1.6-2.3); PHOSPHOROUS 4.2 mg/dL (2.5-4.5)
[2016-11-26] MEDS: (Novolog) Insulin Aspart, Recombinant 100 u/ml 10 ml vial SC SCH ×4 (08:48→22:48)
--- NOTE | 2016-11-26 09:24 | CP.PCM.PN ---
<Alan Morgan - Last Filed: 11/26/16 22:03> Subjective - Date & Time of Evaluation Date of Evaluation: 11/26/16 Time of Evaluation: 07:10 - Subjective Subjective: PGY1 Medicine Note - Dr. Silver Patient seen and examined. No acute overnight events, resting comfortably. He feels much better today, his much strength has improved, and he is able to perform coordinated movements. Currently he denies fever, abdominal pain, nausea , vomiting, diarrhea, constipation, and any other acute complaints at this time. Objective - Vital Signs/Intake and Output Vital Signs (last 24 hours): Temp Pulse Resp BP Pulse Ox 98.2 F 75 20 119/77 97 11/26/16 07:54 11/26/16 08:30 11/26/16 07:54 11/26/16 07:54 11/26/16 07:54 - Medications Medications: Current Medications Alprazolam (Xanax) 0.25 mg PO TID PRN PRN Reason: Anxiety Stop: 12/01/16 17:39 Last Admin: 11/25/16 18:38 Dose: 0.25 mg Calcium Acetate (Phoslo) 667 mg PO ACTID [facility] Last Admin: 11/26/16 08:47 Dose: 667 mg Carvedilol (Coreg) 6.25 mg PO BID [facility] Last Admin: 11/25/16 18:34 Dose: Not Given Hydralazine HCl (Apresoline) 25 mg PO BID [facility] Last Admin: 11/25/16 18:34 Dose: Not Given Moxifloxacin HCl (Avelox Iv 400mg/250ml Ns) 250 mls @ 167 mls/hr IVPB Q24H [facility] Last Admin: 11/25/16 15:47 Dose: 167 mls/hr Insulin Aspart (Novolog) 0 unit SC ACHS [facility] PRN Reason: Protocol Last Admin: 11/26/16 08:48 Dose: Not Given Lisinopril (Zestril) 2.5 mg PO DAILY [facility] Last Admin: 11/25/16 10:40 Dose: Not Given Oseltamivir Phosphate (Tamiflu Susp) 30 mg PO MWF [facility] Stop: 12/02/16 09:01 Last Admin: 11/25/16 15:45 Dose: 30 mg Rosuvastatin Calcium (Crestor) 10 mg PO HS [facility] Last Admin: 11/25/16 21:35 Dose: 10 mg - Labs Labs: 11/26/16 07:29 11/26/16 07:29 PT 13.6 SECONDS (9.7-12.2) H 11/25/16 20:01 INR 1.2 11/25/16 20:01 APTT 39 SECONDS (21-34) H 11/25/16 20:01 - Additional Findings Additional findings: - Constitutional Appears: Non-toxic, No Acute Distress - Head Exam Head Exam: ATRAUMATIC, NORMAL INSPECTION - Eye Exam Eye Exam: EOMI, Normal appearance, PERRL - ENT Exam ENT Exam: Mucous Membranes Moist - Neck Exam Neck exam: Negative for: Tenderness - Respiratory Exam Respiratory Exam: Clear to Auscultation Bilateral, NORMAL BREATHING PATTERN. absent: Wheezes - Cardiovascular Exam Cardiovascular Exam: REGULAR RHYTHM, +S1, +S2. absent: Gallop, Rubs Additional comments: +murmur - GI/Abdominal Exam GI & Abdominal Exam: Normal Bowel Sounds, Soft. absent: Tenderness - Extremities Exam Extremities exam: Positive for: normal inspection, pedal pulses present. Negative for: pedal edema, tenderness - Back Exam Back exam: absent: CVA tenderness (L), CVA tenderness (R) - Neurological Exam Neurological exam: Alert, CN II-XII Intact, Oriented x3 Additional comments: -Sensation intact b/l; coordinated movements further improving today (able to use his phone); generalized weakness (much improved) - Psychiatric Exam Psychiatric exam: Normal mood, Normal Affect - Skin Skin Exam: Dry, Intact, Normal Color, Warm Assessment and Plan - Assessment and Plan (Free Text) Assessment: Muscle weakness, acute -CT head negative -Stop home med Levaquin 500mg PO daily -> pt may be having a reaction. -CPK 174 H -> 134 N Influenza Type B swab for influenza B positive Administer Tamiflu on dialysis days. Pneumonia, acute 11/26: pleural fluid results - no organisms, +WBC, f/u body fluid pending 11/25: Dr. Reynolds consulted. recommended IR for thoracentesis - 800cc of straw colored fluid drawn. -Patient recently in ED 11/20 for Bronchitis - CT chest- b/l pleural effusions, lower lung consolidation, pericardial effusion (20mm), ascites of abdomen. see full report. -Stop home med Levaquin 500mg PO daily -> pt may be having a reaction. -Start Azithromycin 500mg IVPB Q24H -ProBNP 394,000 -f/u BC negative x1d ESRD on HD, chronic -Consult Nephrology, Dr. Joyce, f/u recs -HD schedule MWF -awaiting kidney transplant. -Phoslo 667 mg PO ACTID [facility] Pericardial Effusion, acute 11/26: Echo - EF 15%, Diastolic dysfunction, L/R atrium mod dilated, mod/severe MR , mild TR, PA dilated, IVC dilated. 11/25: Dr. Pierce does not recommend draining pericardial effusion as it is mild and risks outweight benefits. Recs-> Add ACEI or ARBs to the regimen; Can add Lasix may benefit by decreasing the pre load - CT chest- b/l pleural effusions, lower lung consolidation, pericardial effusion (20mm), ascites of abdomen. see full report. - Pulm/Crit Care consult - Dr. Reynolds -> for possible thoracentesis. Will evaluate patient in am. - Cardiology consult, Dr. Pierce, f/u recs - EKG: Normal sinus rhythm; Left axis deviation;Anterior infarct, age undetermined; No QT prolongation. - f/u repeat EKG on 4/6 pm (not performed) - monitor for QT prolongation HTN, chronic Coreg 25 mg PO BID [facility] Apresoline 50 mg PO BID [facility] Crestor 10 mg PO HS [facility] Lisinopril 2.5mg PO daily Diabetes, chronic Novolog ACHS - ISS Hx of Anxiety Xanax 0.25 mg PO TID PRN -pt only uses Xanax 0.5mg 1-2x per week. Hx of Hyperthyroidism -untreated -monitor -TSH/free T4 - WNL Prophylaxis SCDs PT/OT <Alan Silver - Last Filed: 11/27/16 07:52> Objective - Vital Signs/Intake and Output Vital Signs (last 24 hours): Temp Pulse Resp BP Pulse Ox 99.3 F 84 20 123/76 98 11/27/16 00:00 11/27/16 00:00 11/27/16 00:00 11/27/16 00:00 11/27/16 00:00 - Medications Medications: Current Medications Alprazolam (Xanax) 0.25 mg PO TID PRN PRN Reason: Anxiety Stop: 12/01/16 17:39 Last Admin: 11/26/16 23:59 Dose: 0.25 mg Benzocaine/Menthol (Cepacol Sore Throat) 1 [place] MT Q4H PRN PRN Reason: Sore Throat Last Admin: 11/27/16 02:09 Dose: 1 asia Calcium Acetate (Phoslo) 667 mg PO ACTID [facility] Last Admin: 11/26/16 17:34 Dose: 667 mg Carvedilol (Coreg) 6.25 mg PO BID [facility] Last Admin: 11/26/16 17:35 Dose: 6.25 mg Guaifenesin (Robitussin) 200 mg PO Q8H PRN PRN Reason: Cough and congestion Last Admin: 11/26/16 17:35 Dose: 200 mg Moxifloxacin HCl (Avelox Iv 400mg/250ml Ns) 250 mls @ 167 mls/hr IVPB Q24H [facility] Last Admin: 11/26/16 12:22 Dose: 167 mls/hr Insulin Aspart (Novolog) 0 unit SC ACHS [facility] PRN Reason: Protocol Last Admin: 11/26/16 22:48 Dose: Not Given Oseltamivir Phosphate (Tamiflu Susp) 30 mg PO MWF [facility] Stop: 12/02/16 09:01 Last Admin: 11/25/16 15:45 Dose: 30 mg Rosuvastatin Calcium (Crestor) 10 mg PO HS [facility] Last Admin: 11/26/16 21:01 Dose: 10 mg - Labs Labs: 11/26/16 07:29 11/26/16 07:29 PT 13.6 SECONDS (9.7-12.2) H 11/25/16 20:01 INR 1.2 11/25/16 20:01 APTT 39 SECONDS (21-34) H 11/25/16 20:01 Attending/Attestation - Attestation I have personally seen and examined this patient.: Yes I have fully participated in the care of the patient.: Yes I have reviewed all pertinent clinical information, including history, physical exam and plan: Yes Notes (Text): 11/27/16 07:44 Medical attending: Patient was seen and examined by me, agrees the above note by medical field representative. The patient reports that he's feeling somewhat better than when he came in. As documented before and as well as in the resident note above the patient has tested positive for flu and were currently administering the Tamiflu whenever he gets dialysis. He also had 800 mL removed via IR from the left pleural effusion. Her currently waiting on some of the cultures and studies from that fluid sample. Also of note is the very low ejection fraction, the echo returned suggested that EF 15-20% a lot of hypokinesis. Will mention this to the patient's artist suspect very likely the patient will need an EP evaluation to device such as a AICD or BiV device. At this time most of what we are doing is supportive care, in the meantime should continue to monitor his blood work and also his blood cultures as well. Thank you very much, Alan Silver
--- NOTE | 2016-11-26 10:21 | CP.PCM.PN ---
Subjective - Date & Time of Evaluation Date of Evaluation: 11/19/16 Time of Evaluation: 10:19 - Subjective Subjective: Feels much better- ambulating now; eating well s/p thoracentesis- 800ml fluid drained stable dialysis 11/25 No fevers, N, V, diarrhea, dyspnea Objective - Vital Signs/Intake and Output Vital Signs (last 24 hours): Temp Pulse Resp BP Pulse Ox 98.2 F 75 20 119/77 97 11/26/16 07:54 11/26/16 08:30 11/26/16 07:54 11/26/16 07:54 11/26/16 07:54 - Medications Medications: Current Medications Alprazolam (Xanax) 0.25 mg PO TID PRN PRN Reason: Anxiety Stop: 12/01/16 17:39 Last Admin: 11/25/16 18:38 Dose: 0.25 mg Calcium Acetate (Phoslo) 667 mg PO ACTID [facility] Last Admin: 11/26/16 08:47 Dose: 667 mg Carvedilol (Coreg) 6.25 mg PO BID [facility] Last Admin: 11/26/16 09:50 Dose: 6.25 mg Hydralazine HCl (Apresoline) 25 mg PO BID [facility] Last Admin: 11/26/16 09:48 Dose: Not Given Moxifloxacin HCl (Avelox Iv 400mg/250ml Ns) 250 mls @ 167 mls/hr IVPB Q24H [facility] Last Admin: 11/25/16 15:47 Dose: 167 mls/hr Insulin Aspart (Novolog) 0 unit SC ACHS [facility] PRN Reason: Protocol Last Admin: 11/26/16 08:48 Dose: Not Given Lisinopril (Zestril) 2.5 mg PO DAILY [facility] Last Admin: 11/26/16 09:48 Dose: Not Given Oseltamivir Phosphate (Tamiflu Susp) 30 mg PO MWF [facility] Stop: 12/02/16 09:01 Last Admin: 11/25/16 15:45 Dose: 30 mg Rosuvastatin Calcium (Crestor) 10 mg PO HS [facility] Last Admin: 11/25/16 21:35 Dose: 10 mg - Labs Labs: 11/26/16 07:29 11/26/16 07:29 PT 13.6 SECONDS (9.7-12.2) H 11/25/16 20:01 INR 1.2 11/25/16 20:01 APTT 39 SECONDS (21-34) H 11/25/16 20:01 - Constitutional Appears: No Acute Distress, Chronically Ill - Head Exam Head Exam: ATRAUMATIC, NORMAL INSPECTION - Eye Exam Eye Exam: EOMI, Normal appearance - Neck Exam Neck Exam: Normal Inspection. absent: Tenderness - Respiratory Exam Respiratory Exam: Decreased Breath Sounds, NORMAL BREATHING PATTERN - Cardiovascular Exam Cardiovascular Exam: REGULAR RHYTHM, +S1 - GI/Abdominal Exam GI & Abdominal Exam: Soft. absent: Tenderness - Extremities Exam Extremities Exam: Normal Inspection. absent: Tenderness - Neurological Exam Neurological Exam: Alert, CN II-XII Intact - Skin Skin Exam: Dry, Warm Assessment and Plan (1) ESRD (end stage renal disease) on dialysis Status: Acute (2) HTN (hypertension) Status: Acute (3) Influenza Status: Acute (4) Pneumonia and influenza Status: Acute - Assessment and Plan (Free Text) Plan: Continue dialysis MWF IV ABs await pleural fluid results
[2016-11-26] MEDS: Moxifloxacin IV 400mg/250ml NS 250 ML IVPB SCH (12:22)
--- NOTE | 2016-11-26 17:28 | CARD ---
APPROVED REPORT EXAM: Two-dimensional and M-mode echocardiogram with Doppler and color Doppler. Other Information Quality : GoodRhythm : NSR INDICATION Pericardial Effusion Dyspnea Chest Pain ESRD, DIALYSIS, PNEUMONIA LOSS OF MUSCLE COORD POSS SIDE RISK FACTORS Hypertension Hyperlipidemia M-Mode DIMENSIONS RVDd2.52 (2.1-3.2cm)Left Atrium (MM)3.77 (2.5-4.0cm) IVSd1.56 (0.7-1.1cm)Aortic Root3.73 (2.2-3.7cm) LVDd7.12 (4.0-5.6cm)Aortic Cusp Exc.2.30 (1.5-2.0cm) PWd1.08 (0.7-1.1cm)FS (%) 13 % LVDs6.16 (2.0-3.8cm)LVEF (%)28 (>50%) Mitral Valve MV E Vmmxcurt136.5cm/sMV A Rlbmgnzr87.3cm/sE/A ratio3.5 TDI E/Lateral E'0.0E/Medial E'0.0 Tricuspid Valve TR Peak [id number]/sTR Peak Gr.[id number] LEFT VENTRICLE The Left Ventricle is mildly dilated. There is normal left ventricular wall thickness. The ejection fraction is severely impaired. There is global hypokinesis of the left ventricle. Transmitral Doppler flow pattern is Grade IV-fixed restrictive diastolic dysfunction. No left ventricle thrombus noted on this study. There is no ventricular septal defect visualized. There is no left ventricular aneurysm. RIGHT VENTRICLE The right ventricle is normal size. There is normal right ventricular wall thickness. The right ventricular systolic function is normal. ATRIA The left atrium is moderately dilated. The right atrium is moderately dilated. The interatrial septum is intact with no evidence for an atrial septal defect. AORTIC VALVE The aortic valve is normal in structure. No aortic regurgitation is present. There is no aortic valvular stenosis. There is no aortic valvular vegetation. MITRAL VALVE The mitral valve is normal in structure. There is no evidence of mitral valve prolapse. There is no mitral valve stenosis. Mitral regurgitation is moderate to severe. TRICUSPID VALVE The tricuspid valve is normal in structure. There is mild tricuspid regurgitation. PAP is 45-50 mmHg There is no tricuspid valve prolapse or vegetation. PULMONIC VALVE The pulmonary valve is normal in structure. There is mild pulmonic valvular regurgitation. GREAT VESSELS The aortic root is normal in size. The ascending aorta is normal in size. The PA is dilated The IVC is dilated with no collapse with inspiration. RAP of 20 or greater. PERICARDIAL EFFUSION There is are multiple large loculated pericardial effusions, both anteriorly and posteriorly. There is no evidence of systolic atrial collapse, however elevated RAP and PAP may preclude this finding. <Conclusion> The Left Ventricle is mildly dilated. The ejection fraction is severely impaired. Estimated EF of 15% Transmitral Doppler flow pattern is Grade IV-fixed restrictive diastolic dysfunction. There is global hypokinesis of the left ventricle. The left atrium is moderately dilated. The right atrium is moderately dilated. Mitral regurgitation is moderate to severe. There is mild tricuspid regurgitation. PAP is 45-50 mmHg The PA is dilated The IVC is dilated with no collapse with inspiration. RAP of 20 or greater. There is are multiple large loculated pericardial effusions, both anteriorly and posteriorly. There is no evidence of systolic atrial collapse, however elevated RAP and PAP may preclude this finding.
[2016-11-26] MEDS: guaiFENesin 200 mg/10 ml Syrup UD PO PRN (17:35)
--- NOTE | 2016-11-26 19:12 | CP.PCM.PN ---
Subjective - Date & Time of Evaluation Date of Evaluation: 11/25/16 Time of Evaluation: 09:00 - Subjective Subjective: patient with improved breathing Acute CHF Continue current meds Review of Systems - Constitutional Constitutional: Weakness. absent: Chills, Excessive Sweating, Fever - EENT Eyes: absent: Blurred Vision, Change in Vision Ears: absent: Decreased Hearing Nose/Mouth/Throat: absent: Nasal Congestion, Nasal Discharge - Cardiovascular Cardiovascular: absent: Chest Pain, Dyspnea - Respiratory Respiratory: Cough, Dyspnea - Gastrointestinal Gastrointestinal: absent: Abdominal Pain, Constipation, Diarrhea, Nausea, Vomiting - Genitourinary Genitourinary: absent: Change in Urinary Stream, Difficulty Urinating, Dysuria - Musculoskeletal Musculoskeletal: Back Pain, Muscle Weakness. absent: Numbness, Radiating Pain into Limb, Stiffness, Tingling - Integumentary Integumentary: absent: Bleeding Lesions - Neurological Neurological: absent: Abnormal Gait, Abnormal Hearing Physical Exam - Constitutional Appears: Non-toxic, No Acute Distress - Head Exam Head Exam: ATRAUMATIC, NORMAL INSPECTION - Eye Exam Eye Exam: EOMI, Normal appearance, PERRL - ENT Exam ENT Exam: Mucous Membranes Moist - Neck Exam Neck exam: Negative for: Tenderness - Respiratory Exam Respiratory Exam: Clear to Auscultation Bilateral, NORMAL BREATHING PATTERN. absent: Wheezes - Cardiovascular Exam Cardiovascular Exam: REGULAR RHYTHM, +S1, +S2. absent: Gallop, Rubs Additional comments: +murmur - GI/Abdominal Exam GI & Abdominal Exam: Normal Bowel Sounds, Soft. absent: Tenderness - Extremities Exam Extremities exam: Positive for: normal inspection, pedal pulses present. Negative for: pedal edema, tenderness - Back Exam Back exam: paraspinal tenderness. absent: CVA tenderness (L), CVA tenderness (R ) - Neurological Exam Neurological exam: Alert, CN II-XII Intact, Oriented x3 Additional comments: -Sensation intact b/l; gait instability; difficulty with coordinated movements; generalized weakness. - Psychiatric Exam Psychiatric exam: Anxious, Normal Affect - Skin Skin Exam: Dry, Intact, Normal Color, Warm Objective - Vital Signs/Intake and Output Vital Signs (last 24 hours): Temp Pulse Resp BP Pulse Ox 98.4 F 74 20 114/70 100 11/26/16 15:27 11/26/16 15:27 11/26/16 15:27 11/26/16 15:27 11/26/16 15:27 Intake and Output: 11/26/16 11/27/16 18:59 06:59 Intake Total 480 Balance 480 - Medications Medications: Current Medications Alprazolam (Xanax) 0.25 mg PO TID PRN PRN Reason: Anxiety Stop: 12/01/16 17:39 Last Admin: 11/25/16 18:38 Dose: 0.25 mg Calcium Acetate (Phoslo) 667 mg PO ACTID [facility] Last Admin: 11/26/16 17:34 Dose: 667 mg Carvedilol (Coreg) 6.25 mg PO BID [facility] Last Admin: 11/26/16 17:35 Dose: 6.25 mg Guaifenesin (Robitussin) 200 mg PO Q8H PRN PRN Reason: Cough and congestion Last Admin: 11/26/16 17:35 Dose: 200 mg Moxifloxacin HCl (Avelox Iv 400mg/250ml Ns) 250 mls @ 167 mls/hr IVPB Q24H [facility] Last Admin: 11/26/16 12:22 Dose: 167 mls/hr Insulin Aspart (Novolog) 0 unit SC ACHS [facility] PRN Reason: Protocol Last Admin: 11/26/16 17:22 Dose: Not Given Oseltamivir Phosphate (Tamiflu Susp) 30 mg PO MWF [facility] Stop: 12/02/16 09:01 Last Admin: 11/25/16 15:45 Dose: 30 mg Rosuvastatin Calcium (Crestor) 10 mg PO HS [facility] Last Admin: 11/25/16 21:35 Dose: 10 mg - Labs Labs: 11/26/16 07:29 11/26/16 07:29 PT 13.6 SECONDS (9.7-12.2) H 11/25/16 20:01 INR 1.2 11/25/16 20:01 APTT 39 SECONDS (21-34) H 11/25/16 20:01 Assessment and Plan - Assessment and Plan (Free Text) Assessment: Acute Systolic CHF Acute Systolic CHF ? Viral cardiomyopathy Pneumonia, acute -Patient recently in ED 11/20 for Bronchitis - CT chest- b/l pleural effusions, lower lung consolidation, pericardial effusion (20mm), ascites of abdomen. see full report. -Stop home med Levaquin 500mg PO daily -> pt may be having a reaction. -Start Azithromycin 500mg IVPB Q24H -ProBNP 394,000 -f/u BC ESRD on HD, chronic -Consult Nephrology, Dr. Joyce, f/u recs -HD schedule MWF -awaiting kidney transplant. -Phoslo 667 mg PO ACTID [facility] HTN, chronic Coreg 25 mg PO BID [facility] Apresoline 50 mg PO BID [facility] Crestor 10 mg PO HS [facility] Diabetes, chronic Novolog ACHS - ISS Hx of Anxiety Xanax 0.25 mg PO TID PRN Hx of Hyperthyroidism -untreated -monitor -TSH/free T4 - WNL Prophylaxis SCDs PT/OT
--- NOTE | 2016-11-26 19:13 | CP.PCM.PN ---
Subjective - Date & Time of Evaluation Date of Evaluation: 11/26/16 Time of Evaluation: 18:00 - Subjective Subjective: Patient seen and evaluated In isolation room for flue Symptoms much better Acute CHF Review of Systems - Constitutional Constitutional: Weakness. absent: Chills, Excessive Sweating, Fever - EENT Eyes: absent: Blurred Vision, Change in Vision Ears: absent: Decreased Hearing Nose/Mouth/Throat: absent: Nasal Congestion, Nasal Discharge - Cardiovascular Cardiovascular: absent: Chest Pain, Dyspnea - Respiratory Respiratory: Cough, Dyspnea - Gastrointestinal Gastrointestinal: absent: Abdominal Pain, Constipation, Diarrhea, Nausea, Vomiting - Genitourinary Genitourinary: absent: Change in Urinary Stream, Difficulty Urinating, Dysuria - Musculoskeletal Musculoskeletal: Back Pain, Muscle Weakness. absent: Numbness, Radiating Pain into Limb, Stiffness, Tingling - Integumentary Integumentary: absent: Bleeding Lesions - Neurological Neurological: absent: Abnormal Gait, Abnormal Hearing Physical Exam - Constitutional Appears: Non-toxic, No Acute Distress - Head Exam Head Exam: ATRAUMATIC, NORMAL INSPECTION - Eye Exam Eye Exam: EOMI, Normal appearance, PERRL - ENT Exam ENT Exam: Mucous Membranes Moist - Neck Exam Neck exam: Negative for: Tenderness - Respiratory Exam Respiratory Exam: Clear to Auscultation Bilateral, NORMAL BREATHING PATTERN. absent: Wheezes - Cardiovascular Exam Cardiovascular Exam: REGULAR RHYTHM, +S1, +S2. absent: Gallop, Rubs Additional comments: +murmur - GI/Abdominal Exam GI & Abdominal Exam: Normal Bowel Sounds, Soft. absent: Tenderness - Extremities Exam Extremities exam: Positive for: normal inspection, pedal pulses present. Negative for: pedal edema, tenderness - Back Exam Back exam: paraspinal tenderness. absent: CVA tenderness (L), CVA tenderness (R ) - Neurological Exam Neurological exam: Alert, CN II-XII Intact, Oriented x3 Additional comments: -Sensation intact b/l; gait instability; difficulty with coordinated movements; generalized weakness. - Psychiatric Exam Psychiatric exam: Anxious, Normal Affect - Skin Skin Exam: Dry, Intact, Normal Color, Warm Objective - Vital Signs/Intake and Output Vital Signs (last 24 hours): Temp Pulse Resp BP Pulse Ox 98.4 F 74 20 114/70 100 11/26/16 15:27 11/26/16 15:27 11/26/16 15:27 11/26/16 15:27 11/26/16 15:27 Intake and Output: 11/26/16 11/27/16 18:59 06:59 Intake Total 480 Balance 480 - Medications Medications: Current Medications Alprazolam (Xanax) 0.25 mg PO TID PRN PRN Reason: Anxiety Stop: 12/01/16 17:39 Last Admin: 11/25/16 18:38 Dose: 0.25 mg Calcium Acetate (Phoslo) 667 mg PO ACTID [facility] Last Admin: 11/26/16 17:34 Dose: 667 mg Carvedilol (Coreg) 6.25 mg PO BID [facility] Last Admin: 11/26/16 17:35 Dose: 6.25 mg Guaifenesin (Robitussin) 200 mg PO Q8H PRN PRN Reason: Cough and congestion Last Admin: 11/26/16 17:35 Dose: 200 mg Moxifloxacin HCl (Avelox Iv 400mg/250ml Ns) 250 mls @ 167 mls/hr IVPB Q24H [facility] Last Admin: 11/26/16 12:22 Dose: 167 mls/hr Insulin Aspart (Novolog) 0 unit SC ACHS [facility] PRN Reason: Protocol Last Admin: 11/26/16 17:22 Dose: Not Given Oseltamivir Phosphate (Tamiflu Susp) 30 mg PO MWF [facility] Stop: 12/02/16 09:01 Last Admin: 11/25/16 15:45 Dose: 30 mg Rosuvastatin Calcium (Crestor) 10 mg PO HS [facility] Last Admin: 11/25/16 21:35 Dose: 10 mg - Labs Labs: 11/26/16 07:29 11/26/16 07:29 PT 13.6 SECONDS (9.7-12.2) H 11/25/16 20:01 INR 1.2 11/25/16 20:01 APTT 39 SECONDS (21-34) H 11/25/16 20:01 Assessment and Plan - Assessment and Plan (Free Text) Assessment: Acute Systolic CHF Acute Systolic CHF ? Viral cardiomyopathy Pneumonia, acute -Patient recently in ED 11/20 for Bronchitis - CT chest- b/l pleural effusions, lower lung consolidation, pericardial effusion (20mm), ascites of abdomen. see full report. -Stop home med Levaquin 500mg PO daily -> pt may be having a reaction. -Start Azithromycin 500mg IVPB Q24H -ProBNP 394,000 -f/u BC ESRD on HD, chronic -Consult Nephrology, Dr. Joyce, f/u recs -HD schedule MWF -awaiting kidney transplant. -Phoslo 667 mg PO ACTID [facility] HTN, chronic Coreg 25 mg PO BID [facility] Apresoline 50 mg PO BID [facility] Crestor 10 mg PO HS [facility] Diabetes, chronic Novolog ACHS - ISS Hx of Anxiety Xanax 0.25 mg PO TID PRN Hx of Hyperthyroidism -untreated -monitor -TSH/free T4 - WNL Prophylaxis SCDs PT/OT
--- NOTE | 2016-11-26 20:19 | CP.PCM.PN ---
Subjective - Date & Time of Evaluation Date of Evaluation: 11/26/16 Time of Evaluation: 20:15 - Subjective Subjective: Patient seen and examined. Remained in respiratory isolation for flu Complaining of slight cough and shortness of breath Objective - Vital Signs/Intake and Output Vital Signs (last 24 hours): Temp Pulse Resp BP Pulse Ox 98.4 F 74 20 114/70 100 11/26/16 15:27 11/26/16 15:27 11/26/16 15:27 11/26/16 15:27 11/26/16 15:27 Intake and Output: 11/26/16 11/27/16 18:59 06:59 Intake Total 480 Balance 480 - Medications Medications: Current Medications Alprazolam (Xanax) 0.25 mg PO TID PRN PRN Reason: Anxiety Stop: 12/01/16 17:39 Last Admin: 11/26/16 19:47 Dose: 0.25 mg Benzocaine/Menthol (Cepacol Sore Throat) 1 asia MT Q4H PRN PRN Reason: Sore Throat Calcium Acetate (Phoslo) 667 mg PO ACTID [facility] Last Admin: 11/26/16 17:34 Dose: 667 mg Carvedilol (Coreg) 6.25 mg PO BID [facility] Last Admin: 11/26/16 17:35 Dose: 6.25 mg Guaifenesin (Robitussin) 200 mg PO Q8H PRN PRN Reason: Cough and congestion Last Admin: 11/26/16 17:35 Dose: 200 mg Moxifloxacin HCl (Avelox Iv 400mg/250ml Ns) 250 mls @ 167 mls/hr IVPB Q24H [facility] Last Admin: 11/26/16 12:22 Dose: 167 mls/hr Insulin Aspart (Novolog) 0 unit SC ACHS [facility] PRN Reason: Protocol Last Admin: 11/26/16 17:22 Dose: Not Given Oseltamivir Phosphate (Tamiflu Susp) 30 mg PO MWF [facility] Stop: 12/02/16 09:01 Last Admin: 11/25/16 15:45 Dose: 30 mg Rosuvastatin Calcium (Crestor) 10 mg PO HS [facility] Last Admin: 11/25/16 21:35 Dose: 10 mg - Labs Labs: 11/26/16 07:29 11/26/16 07:29 PT 13.6 SECONDS (9.7-12.2) H 11/25/16 20:01 INR 1.2 11/25/16 20:01 APTT 39 SECONDS (21-34) H 11/25/16 20:01 - Head Exam Head Exam: ATRAUMATIC, NORMOCEPHALIC - Eye Exam Eye Exam: Normal appearance - ENT Exam ENT Exam: Mucous Membranes Moist - Neck Exam Neck Exam: Normal Inspection - Respiratory Exam Respiratory Exam: Decreased Breath Sounds - GI/Abdominal Exam GI & Abdominal Exam: Soft, Normal Bowel Sounds Assessment and Plan (1) Pneumonia Assessment & Plan: Pneumonia, acute -Patient recently in ED 11/20 for Bronchitis - CT chest- b/l pleural effusions, lower lung consolidation, pericardial effusion (20mm), ascites of abdomen. see full report. -Stop home med Levaquin 500mg PO daily -> pt may be having a reaction. -Start Azithromycin 500mg IVPB Q24H -ProBNP 394,000 Status: Acute (2) Cardiomyopathy Status: Acute
[2016-11-26] MEDS: Benzocaine/Menthol (Cepacol) Lozenge MT PRN (21:01)
[2016-11-27] MEDS: Benzocaine/Menthol (Cepacol) Lozenge MT PRN ×3 (02:09→21:35)
[2016-11-27 07:28] LABS: BASO % 0.4 % (0.0-2.0); EOS # 0.2 K/uL (0.0-0.7); EOS % 4.4 % (0.0-4.0); HEMATOCRIT 33.1 % (35.0-51.0); LYMPH # 1.2 K/uL (1.0-4.3); LYMPH % 34.1 % (20.0-40.0); MEAN CELL VOLUME 85.1 fL (80.0-94.0); MEAN CORPUSCULAR HEMOGLOBIN 26.8 pg (27.0-31.0); MEAN CORPUSCULAR HGB CONC 31.4 g/dL (33.0-37.0); MEAN PLATELET VOLUME 8.7 fL (7.2-11.7); MONO # 0.3 K/uL (0.0-0.8); MONO % 7.9 % (0.0-10.0); NRBC % 0.3 % (0.0-2.0); RED CELL DISTRIBUTION WIDTH 18.7 % (11.5-14.5); WHITE BLOOD COUNT 3.6 K/uL (4.8-10.8)
[2016-11-27 07:48] LABS: POTASSIUM 4.7 mmol/L (3.6-5.2)
[2016-11-27 07:50] LABS: ALB/GLOB RATIO 0.9 (1.0-2.1); BILIRUBIN,TOTAL 0.9 mg/dL (0.2-1.3); TOTAL PROTEIN 5.8 g/dL (6.3-8.3)
[2016-11-27 07:51] LABS: CALCIUM 7.8 mg/dl (8.6-10.4)
[2016-11-27] MEDS: (Novolog) Insulin Aspart, Recombinant 100 u/ml 10 ml vial SC SCH ×4 (08:55→21:35)
[2016-11-27] MEDS: Moxifloxacin IV 400mg/250ml NS 250 ML IVPB SCH (12:31)
--- NOTE | 2016-11-27 13:38 | CP.PCM.PN ---
<Alan Morgan - Last Filed: 11/27/16 16:46> Subjective - Date & Time of Evaluation Date of Evaluation: 11/27/16 Time of Evaluation: 07:10 - Subjective Subjective: PGY1 Medicine Note - Dr. Silver Patient seen and examined. No acute overnight events, resting comfortably. He continues to feel better, strength has improved, and he is able to perform coordinated movements with minimal trembling. He has been ambulating in his room today. Denies fever, abdominal pain, nausea, vomiting, diarrhea, constipation, and any other acute complaints at this time. Objective - Vital Signs/Intake and Output Vital Signs (last 24 hours): Temp Pulse Resp BP Pulse Ox 98.6 F 84 20 120/78 99 11/27/16 08:40 11/27/16 08:46 11/27/16 08:40 11/27/16 08:40 11/27/16 08:40 - Medications Medications: Current Medications Alprazolam (Xanax) 0.25 mg PO TID PRN PRN Reason: Anxiety Stop: 12/01/16 17:39 Last Admin: 11/26/16 23:59 Dose: 0.25 mg Aspirin (Aspirin Chewable) 81 mg PO DAILY [facility] Benzocaine/Menthol (Cepacol Sore Throat) 1 asia MT Q4H PRN PRN Reason: Sore Throat Last Admin: 11/27/16 02:09 Dose: 1 asia Calcium Acetate (Phoslo) 667 mg PO ACTID [facility] Last Admin: 11/27/16 12:29 Dose: 667 mg Carvedilol (Coreg) 6.25 mg PO BID [facility] Last Admin: 11/27/16 10:34 Dose: 6.25 mg Guaifenesin (Robitussin) 200 mg PO Q8H PRN PRN Reason: Cough and congestion Last Admin: 11/26/16 17:35 Dose: 200 mg Moxifloxacin HCl (Avelox Iv 400mg/250ml Ns) 250 mls @ 167 mls/hr IVPB Q24H [facility] Last Admin: 11/27/16 12:31 Dose: 167 mls/hr Insulin Aspart (Novolog) 0 unit SC ACHS [facility] PRN Reason: Protocol Last Admin: 11/27/16 12:30 Dose: Not Given Lisinopril (Zestril) 5 mg PO DAILY [facility] Oseltamivir Phosphate ([facility] Susp) [facility] Stop: 12/02/16 09:01 Last Admin: 11/25/16 15:45 Dose: 30 mg Rosuvastatin Calcium (Crestor) 10 mg PO [facility] Last Admin: 11/26/16 21:01 Dose: 10 mg - Labs Labs: 11/27/16 07:15 11/27/16 07:15 PT 13.6 SECONDS (9.7-12.2) H 11/25/16 20:01 INR 1.2 11/25/16 20:01 APTT 39 SECONDS (21-34) H 11/25/16 20:01 - Additional Findings Additional findings: - Constitutional Appears: Non-toxic, No Acute Distress - Head Exam Head Exam: ATRAUMATIC, NORMAL INSPECTION - Eye Exam Eye Exam: EOMI, Normal appearance, PERRL - ENT Exam ENT Exam: Mucous Membranes Moist - Neck Exam Neck exam: Negative for: Tenderness - Respiratory Exam Respiratory Exam: Clear to Auscultation Bilateral, NORMAL BREATHING PATTERN. absent: Wheezes - Cardiovascular Exam Cardiovascular Exam: REGULAR RHYTHM, +S1, +S2. absent: Gallop, Rubs Additional comments: +murmur - GI/Abdominal Exam GI & Abdominal Exam: Normal Bowel Sounds, Soft. absent: Tenderness - Extremities Exam Extremities exam: Positive for: normal inspection, pedal pulses present. Negative for: pedal edema, tenderness - Back Exam Back exam: absent: CVA tenderness (L), CVA tenderness (R) - Neurological Exam Neurological exam: Alert, CN II-XII Intact, Oriented x3 Additional comments: -Sensation intact b/l; coordinated movements further improving today (able to use his phone); generalized weakness (much improved) - Psychiatric Exam Psychiatric exam: Normal mood, Normal Affect - Skin Skin Exam: Dry, Intact, Normal Color, Warm Assessment and Plan - Assessment and Plan (Free Text) Assessment: Influenza Type B -swab for influenza B positive -Administer Tamiflu on dialysis days. Muscle weakness, acute 11/27: improved, patient seen ambulating in room today. -CT head negative -Stop home med Levaquin 500mg PO daily -> pt may be having a reaction. -CPK 174 H -> 134 N Pneumonia, acute 11/26-11/27: pleural fluid results: +WBC, no growth x2d; Blood culture negative x2d 4/7: Dr. Reynolds consulted. recommended IR for thoracentesis - 800cc of straw colored fluid drawn. -Patient recently in ED 11/20 for Bronchitis - CT chest- b/l pleural effusions, lower lung consolidation, pericardial effusion (20mm), ascites of abdomen. see full report. -Stop home med Levaquin 500mg PO daily -> pt may be having a reaction. -Start Azithromycin 500mg IVPB Q24H -ProBNP 394,000 ESRD on HD, chronic -HD schedule MWF -Consult Nephrology, Dr. Joyce, f/u recs -awaiting kidney transplant. 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 Dr. Pierce (cardio ) is considering EP consult for life vest. -2 runs of [place] today at 2pm and 4pm. Dr. Pierce notified. Patient stable, no chest pain, no acute distress. 11/26: Echo - EF 15%, Diastolic dysfunction, L/R atrium mod dilated, mod/severe MR , mild TR, PA dilated, IVC dilated. 11/25: Dr. Pierce does not recommend draining pericardial effusion as it is mild and risks outweight benefits. Recs-> Add ACEI or ARBs to the regimen; Can add Lasix may benefit by decreasing the pre load - CT chest- b/l pleural effusions, lower lung consolidation, pericardial effusion (20mm), ascites of abdomen. see full report. - Pulm/Crit Care consult - Dr. Reynolds -> for possible thoracentesis. Will evaluate patient in am. - Cardiology consult, Dr. Pierce, f/u recs - EKG: Normal sinus rhythm; Left axis deviation;Anterior infarct, age undetermined; No QT prolongation. - f/u repeat EKG on 4/6 pm (not performed) - monitor for QT prolongation Pericardial Effusion, acute 11/26: Echo - EF 15%, Diastolic dysfunction, L/R atrium mod dilated, mod/severe MR , mild TR, PA dilated, IVC dilated. 11/25: Dr. Pierce does not recommend draining pericardial effusion as it is mild and risks outweight benefits. Recs-> Add ACEI or ARBs to the regimen; Can add Lasix may benefit by decreasing the pre load - CT chest- b/l pleural effusions, lower lung consolidation, pericardial effusion (20mm), ascites of abdomen. see full report. - Cardiology consult, Dr. Pierce, f/u recs - EKG: Normal sinus rhythm; Left axis deviation;Anterior infarct, age undetermined; No QT prolongation. - f/u repeat EKG on 4/6 pm (not performed) - monitor for QT prolongation HTN, chronic Coreg 25 mg PO BID [facility] Apresoline 50 mg PO BID [facility] Crestor 10 mg PO HS [facility] Lisinopril 2.5mg PO daily Diabetes, chronic Novolog ACHS - ISS Hx of Anxiety Xanax 0.25 mg PO TID PRN -pt only uses Xanax 0.5mg 1-2x per week. Hx of Hyperthyroidism -untreated -monitor -TSH/free T4 - WNL Prophylaxis SCDs PT/OT <Alan Silver - Last Filed: 11/27/16 17:11> Objective - Vital Signs/Intake and Output Vital Signs (last 24 hours): Temp Pulse Resp BP Pulse Ox 97.9 F 70 20 125/81 97 11/27/16 15:00 11/27/16 16:21 11/27/16 15:00 11/27/16 15:00 11/27/16 15:00 Intake and Output: 11/27/16 11/27/16 06:59 18:59 Intake Total 480 Balance 480 - Medications Medications: Current Medications Alprazolam (Xanax) 0.25 mg PO TID PRN PRN Reason: Anxiety Stop: 12/01/16 17:39 Last Admin: 11/26/16 23:59 Dose: 0.25 mg Aspirin (Aspirin Chewable) 81 mg PO DAILY [facility] Benzocaine/Menthol (Cepacol Sore Throat) 1 asia MT Q4H PRN PRN Reason: Sore Throat Last Admin: 11/27/16 02:09 Dose: 1 asia Calcium Acetate (Phoslo) 667 mg PO ACTID [facility] Last Admin: 11/27/16 12:29 Dose: 667 mg Carvedilol (Coreg) 6.25 mg PO BID [facility] Last Admin: 11/27/16 10:34 Dose: 6.25 mg Guaifenesin (Robitussin) 200 mg PO Q8H PRN PRN Reason: Cough and congestion Last Admin: 11/26/16 17:35 Dose: 200 mg Moxifloxacin HCl (Avelox Iv 400mg/250ml Ns) 250 mls @ 167 mls/hr IVPB Q24H [facility] Last Admin: 11/27/16 12:31 Dose: 167 mls/hr Insulin Aspart (Novolog) 0 unit SC ACHS [facility] PRN Reason: Protocol Last Admin: 11/27/16 12:30 Dose: Not Given Lisinopril (Zestril) 5 mg PO DAILY [facility] Oseltamivir Phosphate (Tamiflu Susp) 30 mg PO MWF [facility] Stop: 12/02/16 09:01 Last Admin: 11/25/16 15:45 Dose: 30 mg Rosuvastatin Calcium (Crestor) 10 mg PO HS [facility] Last Admin: 11/26/16 21:01 Dose: 10 mg - Labs Labs: 11/27/16 07:15 11/27/16 07:15 PT 13.6 SECONDS (9.7-12.2) H 11/25/16 20:01 INR 1.2 11/25/16 20:01 APTT 39 SECONDS (21-34) H 11/25/16 20:01 Attending/Attestation - Attestation I have personally seen and examined this patient.: Yes I have fully participated in the care of the patient.: Yes I have reviewed all pertinent clinical information, including history, physical exam and plan: Yes Notes (Text): Medical Attending: Patient was seen and examined by me. Agree with the above note by the resident. The patient reported feeling better with his breathing as he has had HD as well as a thoracentesis, The pleural fluid from the thoracentesis has been negative for 48hrs and the serum blood cultures negative 72hrs. Afebrile, WBC stable. As mentioned before he is receiving Tamiflu during days he get HD. Overall he reports breathing is better. Also reports that the weakness and generalized malaise has resolved as well. However he was depressed about the recent echo results showing a very low EF. We explained to the patient that such a low EF does put him at risk for arrhythmias. Will need to restart telemetry monitoring. He explains he saw his solar sales rep several months ago and he believes at that time he had an echo done and his EF was not this low before. He says he has never worn a life vest before. Coreg, Lisinopril.
--- NOTE | 2016-11-27 21:02 | CP.PCM.PN ---
Subjective - Date & Time of Evaluation Date of Evaluation: 11/27/16 Time of Evaluation: 17:00 - Subjective Subjective: Patient had episodes of Non sustained runs V tach Continue current meds Acute systolic CHF likely secondary to viral illness CRF on HD Likely needs LifeVest Will consult Dr. Veloz for further cardiac management I will sign off for now Review of Systems - Constitutional Constitutional: Weakness. absent: Chills, Excessive Sweating, Fever - EENT Eyes: absent: Blurred Vision, Change in Vision Ears: absent: Decreased Hearing Nose/Mouth/Throat: absent: Nasal Congestion, Nasal Discharge - Cardiovascular Cardiovascular: absent: Chest Pain, Dyspnea - Respiratory Respiratory: Cough, Dyspnea - Gastrointestinal Gastrointestinal: absent: Abdominal Pain, Constipation, Diarrhea, Nausea, Vomiting - Genitourinary Genitourinary: absent: Change in Urinary Stream, Difficulty Urinating, Dysuria - Musculoskeletal Musculoskeletal: Back Pain, Muscle Weakness. absent: Numbness, Radiating Pain into Limb, Stiffness, Tingling - Integumentary Integumentary: absent: Bleeding Lesions - Neurological Neurological: absent: Abnormal Gait, Abnormal Hearing Physical Exam - Constitutional Appears: Non-toxic, No Acute Distress - Head Exam Head Exam: ATRAUMATIC, NORMAL INSPECTION - Eye Exam Eye Exam: EOMI, Normal appearance, PERRL - ENT Exam ENT Exam: Mucous Membranes Moist - Neck Exam Neck exam: Negative for: Tenderness - Respiratory Exam Respiratory Exam: Clear to Auscultation Bilateral, NORMAL BREATHING PATTERN. absent: Wheezes - Cardiovascular Exam Cardiovascular Exam: REGULAR RHYTHM, +S1, +S2. absent: Gallop, Rubs Additional comments: +murmur - GI/Abdominal Exam GI & Abdominal Exam: Normal Bowel Sounds, Soft. absent: Tenderness - Extremities Exam Extremities exam: Positive for: normal inspection, pedal pulses present. Negative for: pedal edema, tenderness - Back Exam Back exam: paraspinal tenderness. absent: CVA tenderness (L), CVA tenderness (R ) - Neurological Exam Neurological exam: Alert, CN II-XII Intact, Oriented x3 Additional comments: -Sensation intact b/l; gait instability; difficulty with coordinated movements; generalized weakness. - Psychiatric Exam Psychiatric exam: Anxious, Normal Affect - Skin Skin Exam: Dry, Intact, Normal Color, Warm Objective - Vital Signs/Intake and Output Vital Signs (last 24 hours): Temp Pulse Resp BP Pulse Ox 97.9 F 70 20 125/81 97 11/27/16 15:00 11/27/16 16:21 11/27/16 15:00 11/27/16 15:00 11/27/16 15:00 Intake and Output: 11/27/16 11/28/16 18:59 06:59 Intake Total 480 Balance 480 - Medications Medications: Current Medications Alprazolam (Xanax) 0.25 mg PO TID PRN PRN Reason: Anxiety Stop: 12/01/16 17:39 Last Admin: 11/26/16 23:59 Dose: 0.25 mg Aspirin (Aspirin Chewable) 81 mg PO DAILY [facility] Benzocaine/Menthol (Cepacol Sore Throat) 1 asia MT Q4H PRN PRN Reason: Sore Throat Last Admin: 11/27/16 02:09 Dose: 1 asia Calcium Acetate (Phoslo) 667 mg PO ACTID [facility] Last Admin: 11/27/16 17:53 Dose: 667 mg Carvedilol (Coreg) 6.25 mg PO BID [facility] Last Admin: 11/27/16 17:53 Dose: 6.25 mg Guaifenesin (Robitussin) 200 mg PO Q8H PRN PRN Reason: Cough and congestion Last Admin: 11/26/16 17:35 Dose: 200 mg Moxifloxacin HCl (Avelox Iv 400mg/250ml Ns) 250 mls @ 167 mls/hr IVPB Q24H [facility] Last Admin: 11/27/16 12:31 Dose: 167 mls/hr Insulin Aspart (Novolog) 0 unit SC ACHS [facility] PRN Reason: Protocol Last Admin: 11/27/16 17:54 Dose: Not Given Lisinopril (Zestril) 5 mg PO DAILY [facility] Oseltamivir Phosphate (Tamiflu Susp) 30 mg PO MWF [facility] Stop: 12/02/16 09:01 Last Admin: 11/25/16 15:45 Dose: 30 mg Rosuvastatin Calcium (Crestor) 10 mg PO HS [facility] Last Admin: 11/26/16 21:01 Dose: 10 mg - Labs Labs: 11/27/16 07:15 11/27/16 07:15 PT 13.6 SECONDS (9.7-12.2) H 11/25/16 20:01 INR 1.2 11/25/16 20:01 APTT 39 SECONDS (21-34) H 11/25/16 20:01 Assessment and Plan - Assessment and Plan (Free Text) Assessment: Acute Systolic CHF Acute Systolic CHF ? Viral cardiomyopathy Pneumonia, acute -Patient recently in ED 11/20 for Bronchitis - CT chest- b/l pleural effusions, lower lung consolidation, pericardial effusion (20mm), ascites of abdomen. see full report. -Stop home med Levaquin 500mg PO daily -> pt may be having a reaction. -Start Azithromycin 500mg IVPB Q24H -ProBNP 394,000 -f/u BC ESRD on HD, chronic -Consult Nephrology, Dr. Joyce, f/u recs -HD schedule MWF -awaiting kidney transplant. -Phoslo 667 mg PO ACTID [facility] HTN, chronic Coreg 25 mg PO BID [facility] Apresoline 50 mg PO BID [facility] Crestor 10 mg PO HS [facility] Diabetes, chronic Novolog ACHS - ISS Hx of Anxiety Xanax 0.25 mg PO TID PRN Hx of Hyperthyroidism -untreated -monitor -TSH/free T4 - WNL Prophylaxis SCDs PT/OT Patient had episodes of Non sustained runs V tach Continue current meds Acute systolic CHF likely secondary to viral illness CRF on HD Likely needs LifeVest Will consult Dr. Veloz for further cardiac management I will sign off for now
[2016-11-28 07:41] LABS: BASO # 0.1 K/uL (0.0-0.2); BASO % 2.3 % (0.0-2.0); EOS # 0.3 K/uL (0.0-0.7); EOS % 6.7 % (0.0-4.0); HEMATOCRIT 34.7 % (35.0-51.0); LYMPH # 1.2 K/uL (1.0-4.3); LYMPH % 29.3 % (20.0-40.0); MEAN CELL VOLUME 85.2 fL (80.0-94.0); MEAN CORPUSCULAR HEMOGLOBIN 26.1 pg (27.0-31.0); MEAN CORPUSCULAR HGB CONC 30.7 g/dL (33.0-37.0); MEAN PLATELET VOLUME 9.1 fL (7.2-11.7); MONO # 0.3 K/uL (0.0-0.8); MONO % 6.6 % (0.0-10.0); NRBC % 0.4 % (0.0-2.0); RED CELL DISTRIBUTION WIDTH 18.8 % (11.5-14.5); WHITE BLOOD COUNT 4.1 K/uL (4.8-10.8)
[2016-11-28 07:51] LABS: BILIRUBIN,TOTAL 0.7 mg/dL (0.2-1.3); TOTAL PROTEIN 5.7 g/dL (6.3-8.3)
[2016-11-28 07:52] LABS: CALCIUM 7.6 mg/dl (8.6-10.4); MAGNESIUM 2.1 mg/dL (1.6-2.3); PHOSPHOROUS 5.1 mg/dL (2.5-4.5)
--- NOTE | 2016-11-28 08:21 | CP.PCM.PN ---
<SebastienGinger ortiz - Last Filed: 11/28/16 13:57> Subjective - Date & Time of Evaluation Date of Evaluation: 11/28/16 Time of Evaluation: :17 - Subjective Subjective: Patient seen and examined at bedside. Per nursing, no acute events overnight. Patient states he feels improved but admits to mild weakness and fatigue. He denies fever, chills, chest pain, palpitations, shortness of breath, abdominal pain, nausea, vomiting, lower extremity edema, diarrhea, and dysuria. Patient states he was able to have a normal bowel movement today but was suffering from constipation over the weekend. Objective - Vital Signs/Intake and Output Vital Signs (last 24 hours): Temp Pulse Resp BP Pulse Ox 98.2 F 75 20 127/81 98 11/28/16 00:00 11/28/16 01:32 11/28/16 00:00 11/28/16 00:00 11/28/16 00:00 Intake and Output: 11/28/16 11/28/16 06:59 18:59 Intake Total 400 Balance 400 - Medications Medications: Current Medications Alprazolam (Xanax) 0.25 mg PO TID PRN PRN Reason: Anxiety Stop: 12/01/16 17:39 Last Admin: 11/28/16 00:29 Dose: 0.25 mg Aspirin (Aspirin Chewable) 81 mg PO DAILY [facility] Benzocaine/Menthol (Cepacol Sore Throat) 1 asia MT Q4H PRN PRN Reason: Sore Throat Last Admin: 11/27/16 21:35 Dose: 1 asia Calcium Acetate (Phoslo) 667 mg PO ACTID [facility] Last Admin: 11/27/16 17:53 Dose: 667 mg Carvedilol (Coreg) 6.25 mg PO BID [facility] Last Admin: 11/27/16 17:53 Dose: 6.25 mg Guaifenesin (Robitussin) 200 mg PO Q8H PRN PRN Reason: Cough and congestion Last Admin: 11/26/16 17:35 Dose: 200 mg Moxifloxacin HCl (Avelox Iv 400mg/250ml Ns) 250 mls @ 167 mls/hr IVPB Q24H [facility] Last Admin: 11/27/16 12:31 Dose: 167 mls/hr Insulin Aspart (Novolog) 0 unit SC ACHS [facility] PRN Reason: Protocol Last Admin: 11/27/16 21:35 Dose: Not Given Lisinopril (Zestril) 5 mg PO DAILY [facility] Oseltamivir Phosphate (Tamiflu Susp) 30 mg PO MWF [facility] Stop: 12/02/16 09:01 Last Admin: 11/25/16 15:45 Dose: 30 mg Rosuvastatin Calcium (Crestor) 10 mg PO HS [facility] Last Admin: 11/27/16 21:35 Dose: 10 mg - Labs Labs: 11/28/16 07:30 11/28/16 07:30 PT 13.6 SECONDS (9.7-12.2) H 11/25/16 20:01 INR 1.2 11/25/16 20:01 APTT 39 SECONDS (21-34) H 11/25/16 20:01 - Constitutional Appears: Non-toxic, No Acute Distress - Head Exam Head Exam: ATRAUMATIC, NORMAL INSPECTION, NORMOCEPHALIC - Eye Exam Eye Exam: EOMI, Normal appearance, PERRL - ENT Exam ENT Exam: Mucous Membranes Moist, Normal Exam - Neck Exam Neck Exam: Full ROM, Normal Inspection - Respiratory Exam Respiratory Exam: Clear to Ausculation Bilateral, NORMAL BREATHING PATTERN. absent: Rales, Rhonchi, Wheezes - Cardiovascular Exam Cardiovascular Exam: +S1, +S2. absent: Tachycardia, Murmur - GI/Abdominal Exam GI & Abdominal Exam: Soft, Normal Bowel Sounds. absent: Distended, Firm, Guarding, Tenderness - Extremities Exam Extremities Exam: Normal Inspection. absent: Pedal Edema, Tenderness - Back Exam Back Exam: NORMAL INSPECTION - Neurological Exam Neurological Exam: Alert, Awake, Oriented x3 - Psychiatric Exam Psychiatric exam: Normal Affect, Normal Mood - Skin Skin Exam: Intact, Normal Color, Warm Assessment and Plan - Assessment and Plan (Free Text) Assessment: Influenza Type B -Swab for influenza B positive -Administer Tamiflu on dialysis days. Muscle weakness, acute 11/28: improved, patient seen ambulating in room today. -CT head negative -Stop home med Levaquin 500mg PO daily -> pt may be having a reaction. -CPK 174 H -> 134 N Pneumonia, acute 11/28: Avelox discontinued due to risk of QT prolongation as patient had runs of non-sustained ventricular tachycardia on telemetry. Per portal architect, Dr. Reynolds , patient does not need to be continued on antibiotics for pneumonia. 11/26-11/27: pleural fluid results: +WBC, no growth x2d; Blood culture negative x2d 11/25: Dr. Reynolds consulted. recommended IR for thoracentesis - 800cc of straw colored fluid drawn. -Patient recently in ED 11/20 for Bronchitis - CT chest- b/l pleural effusions, lower lung consolidation, pericardial effusion (20mm), ascites of abdomen. see full report. -Stop home med Levaquin 500mg PO daily -> pt may be having a reaction. -Start Azithromycin 500mg IVPB Q24H -ProBNP 394,000 ESRD on HD, chronic 11/28: Creatinine 10.9, for hemodialysis today -HD schedule MWF -Consult Nephrology, Dr. Joyce, f/u recs -awaiting kidney transplant. -Phoslo 667 mg PO ACTID JOSE Acute CHF 11/28: Patient evaluated by Dr. Veloz. He notes chronic LV dysfunction that possibly was exacerbated by acute H. flu. He also notes severely abnormal diastolic filling, type III. Patient to have AICD placed. Patient to be continued on Carvedilol 6.25 mg po BID, ASA 81 mg po daily, Lisinopril 5 mg po daily, Crestor 10 mg po HS. 11/27: Cardiology Dr. Veloz consulted (pts home rotary adjuster). Dr. Pierce (cardio ) is considering EP consult for life vest. -2 runs of Vtach today at 2pm and 4pm. Dr. Pierce notified. Patient stable, no chest pain, no acute distress. 11/26: Echo - EF 15%, Diastolic dysfunction, L/R atrium mod dilated, mod/severe MR , mild TR, PA dilated, IVC dilated. 11/25: Dr. Pierce does not recommend draining pericardial effusion as it is mild and risks outweight benefits. Recs-> Add ACEI or ARBs to the regimen; Can add Lasix may benefit by decreasing the pre load - CT chest- b/l pleural effusions, lower lung consolidation, pericardial effusion (20mm), ascites of abdomen. see full report. - Pulm/Crit Care consult - Dr. Reynolds -> for possible thoracentesis. Will evaluate patient in am. - Cardiology consult, Dr. Pierce, f/u recs - EKG: Normal sinus rhythm; Left axis deviation;Anterior infarct, age undetermined; No QT prolongation. - f/u repeat EKG on 6 pm (not performed) - monitor for QT prolongation Pericardial Effusion, acute 11/28: Per Dr. Veloz, dialysis is best treatment for small pericardial effusion. 11/26: Echo - EF 15%, Diastolic dysfunction, L/R atrium mod dilated, mod/severe MR , mild TR, PA dilated, IVC dilated. 11/25: Dr. Pierce does not recommend draining pericardial effusion as it is mild and risks outweight benefits. Recs-> Add ACEI or ARBs to the regimen; Can add Lasix may benefit by decreasing the pre load - CT chest- b/l pleural effusions, lower lung consolidation, pericardial effusion (20mm), ascites of abdomen. see full report. - Cardiology consult, Dr. Pierce, f/u recs - EKG: Normal sinus rhythm; Left axis deviation;Anterior infarct, age undetermined; No QT prolongation. - f/u repeat EKG on 11/24 pm (not performed) - monitor for QT prolongation Pancytopenia 11/28: WBC 4.1, hemoglobin 10.7, hematocrit 34.7, platelets 110. Could be secondary to Avelox. HTN, chronic 11/28: normotensive Coreg 25 mg PO BID JOSE Lisinopril 2.5mg PO daily Diabetes, chronic Blood sugar 85 Continue on Novolog ACHS - ISS Hx of Anxiety Xanax 0.25 mg PO TID PRN -pt only uses Xanax 0.5mg 1-2x per week. Hx of Hyperthyroidism -untreated -monitor -TSH/free T4 - WNL Prophylaxis SCDs PT/OT Dispo Patient to be discharged to [facility]. <Xochitl Mirza V - Last Filed: 11/28/16 16:04> Objective - Vital Signs/Intake and Output Vital Signs (last 24 hours): Temp Pulse Resp BP Pulse Ox 97.3 F L 80 16 133/86 97 11/28/16 10:10 11/28/16 10:10 11/28/16 09:45 11/28/16 12:00 11/28/16 07:00 Intake and Output: 11/28/16 11/28/16 06:59 18:59 Intake Total 400 Balance 400 - Medications Medications: Current Medications Alprazolam (Xanax) 0.25 mg PO TID PRN PRN Reason: Anxiety Stop: 12/01/16 17:39 Last Admin: 11/28/16 00:29 Dose: 0.25 mg Aspirin (Aspirin Chewable) 81 mg PO DAILY [facility] Last Admin: 11/28/16 14:34 Dose: 81 mg Benzocaine/Menthol (Cepacol Sore Throat) 1 asia MT Q4H PRN PRN Reason: Sore Throat Last Admin: 11/27/16 21:35 Dose: 1 asia Calcium Acetate (Phoslo) 667 mg PO ACTID [facility] Last Admin: 11/28/16 14:34 Dose: 667 mg Carvedilol (Coreg) 6.25 mg PO BID [facility] Last Admin: 11/28/16 10:00 Dose: Not Given Guaifenesin (Robitussin) 200 mg PO Q8H PRN PRN Reason: Cough and congestion Last Admin: 11/26/16 17:35 Dose: 200 mg Insulin Aspart (Novolog) 0 unit SC ACHS [facility] PRN Reason: Protocol Last Admin: 11/28/16 11:30 Dose: Not Given Lisinopril (Zestril) 5 mg PO DAILY [facility] Last Admin: 11/28/16 14:34 Dose: 5 mg Oseltamivir Phosphate (Tamiflu Susp) 30 mg PO MWF [facility] Stop: 12/02/16 09:01 Last Admin: 11/28/16 14:33 Dose: 30 mg Rosuvastatin Calcium (Crestor) 10 mg PO HS [facility] Last Admin: 11/27/16 21:35 Dose: 10 mg - Labs Labs: 11/28/16 07:30 11/28/16 07:30 PT 13.6 SECONDS (9.7-12.2) H 11/25/16 20:01 INR 1.2 11/25/16 20:01 APTT 39 SECONDS (21-34) H 11/25/16 20:01 Attending/Attestation - Attestation I have personally seen and examined this patient.: Yes I have fully participated in the care of the patient.: Yes I have reviewed all pertinent clinical information, including history, physical exam and plan: Yes Notes (Text): Patient seen, examined and case discussed with day time resident. Patient seen at bedside this morning, undergoing dialysis. Patient reports he feels tired. patient seen by his rotary adjuster this morning. Patient seen at bedside with nephrology. Discussed with pulm, discontinue Avelox; cover with Doxycyline for pneumonia Reviewed cardiology noted: will discuss EP-Cardiology for AICD/Lifevest. Patient is on telemetry about HR:77 on the monitor. Assessment/Plan Acute on Chronic Systolic CHF exacerbation * Private rotary adjuster (Dr. Veloz): on the case help appreciated-->EP for possible lifevest or AICD? * Aspirin 81mg PO daily * Coreg 6.25mg PO bid * Lisinopril 5mg PO daily * Crestor 10mg POqHS * Echo (11/24/16) - EF 15%, Diastolic dysfunction, L/R atrium mod dilated, mod/ severe MR, mild TR, PA dilated, IVC dilated. * discontinued Alveox secondary to runs of V-tach overnight * Patient has dialysis on M// Influenza Type B * Droplet precaution * Tamiflu 30mg PO MWF (active since 11/25/16) Pneumonia * 11/24/16 CT Chest: bilateral pleural effusion greater on the right, bilateral lower lung consolidations greater on the right, pericardial effusion, complex septated air collection to the right of trace and esophagua, small asictes, hypotrophic kidneys incompletely imaged as discussed above * 11/25/16: No pneumothroax status post right thoracentesis. small bilateral pleural effusion. bilateral linear atelectasis * Pulmonary (Dr. Reynolds) on board-->help appreciated * IR (11/25/16): ultrasound guided right thoracentesis; 800 cc straw colored fluid removed * Discontinue Alveox given runs of v-tach overnight; per uptodate started on Doxycylcine in known QT prolongation * Repeat Chest xray today * f/u fluid studies from thoracentensis Pericardial effusion * Echocardiogram (11/26/16): LV ventricle is mildy dilated. ejection fraction is severely imparied. EF: 15%, Grade IV dixed restrictive diastolic dysfunction. glpbal hypokinesis of the left ventricle left atrium moderately dilated. right atrium is moderate dilated. mitral regurgitation is moderate to severe. mild tricupsid regurgitation PAP: 45-50mmHG, PA is dilated, IVC dilated with no collapse with inspiration. RAP of 20 or greater. Multiple large loculated pericardial effusions both anterior and posteriolroy no evidence of systolic atrial collapse * Per cardiology note: dialysis best option for small pericardial effusion; will discussed with EP regarding AICD/Lifevest ESRD * Nephrology (Dr. Joyce) * Patient is Monday/Monday/Monday dialysis * patient is awaiting renal transplant Hypertension * Coreg 6.25 mg PO BID JOSE * Crestor 10 mg PO HS JOSE * Lisinopril 5 mg PO daily Diabetes, chronic * Novolog insulin sliding scale subq * ordered for [id number] Hx of Anxiety * Xanax 0.25 mg PO TID PRN Hx of Hyperthyroidism * prior history per H&P * thyroid studies within normal range Non-sustained VT * d/c Avelox today; started on Doxycycline 100mg IV qdaily Prophylaxis * SCDs * PT/OT eval * Subacute rehab eval
[2016-11-28] MEDS: (Novolog) Insulin Aspart, Recombinant 100 u/ml 10 ml vial SC SCH ×4 (08:43→22:32)
--- NOTE | 2016-11-28 09:33 | CP.PCM.CON ---
History of Present Illness - History of Present Illness History of Present Illness: The pt is a 51 year old man with HTN, kidney failure on dialysis (kidney transplant 2008, failed 2015). Pt has had resistant HTN, last echo in 11/2015 had showed some improved LV EF, but still not normal. Pt now has URI symptoms, sent home from the ER with levoquin, came back after being very weak. CXR showed chf, echo showed severe lv dysfunction, much worse than last susan, with small pericardial effusion. Pt had green sputum and has positive serology for influenza. Non sustained vtach is noted on telemetry. pt had a cardiac cath years ago in [facility], no CAD then. Pt has not been seen in the office for about a year. Review of Systems - Review of Systems All systems: reviewed and no additional remarkable complaints except (as abov.e) Past Patient History - Past Medical History & Family History Past Medical History?: Yes - Past Social History Smoking Status: Never Smoked - CARDIAC Hx Hypertension: Yes - PULMONARY Hx Respiratory Disorders: No - NEUROLOGICAL Hx Neurological Disorder: No - HEENT Hx HEENT Problems: No - RENAL Hx Chronic Kidney Disease: Yes - ENDOCRINE/METABOLIC Hx Hyperthyroidism: Yes - HEMATOLOGICAL/ONCOLOGICAL Hx Anemia: Yes - INTEGUMENTARY Hx Dermatological Problems: No - MUSCULOSKELETAL/RHEUMATOLOGICAL Hx Musculoskeletal Disorders: Yes Hx Back Pain: Yes Hx Herniated Disk: Yes Other/Comment: TORN ROTATOR CUFF LEFT-REPAIRED - GASTROINTESTINAL Hx Gastrointestinal Disorders: No - GENITOURINARY/GYNECOLOGICAL Hx Genitourinary Disorders: Yes Other/Comment: HAD LEFT KIDNEY TRANSPLANT 2008 - PSYCHIATRIC Hx Anxiety: Yes Hx Substance Use: No - SURGICAL HISTORY Hx Appendectomy: Yes - ANESTHESIA Hx Anesthesia: Yes Hx Anesthesia Reactions: No Hx Malignant Hyperthermia: No Meds Allergies/Adverse Reactions: Allergies Allergy/AdvReac Type Severity Reaction Status Date / Time Penicillins Allergy Verified 11/24/16 04:53 - Medications Medications: Current Medications Alprazolam (Xanax) 0.25 mg PO TID PRN PRN Reason: Anxiety Stop: 12/01/16 17:39 Last Admin: 11/28/16 00:29 Dose: 0.25 mg Aspirin (Aspirin Chewable) 81 mg PO DAILY [facility] Benzocaine/Menthol (Cepacol Sore Throat) 1 asia MT Q4H PRN PRN Reason: Sore Throat Last Admin: 11/27/16 21:35 Dose: 1 asia Calcium Acetate (Phoslo) 667 mg PO ACTID COUNTS [facility]CLUDE [facility] BEDS AT [facility] Last Admin: 11/28/16 08:36 Dose: 667 mg Carvedilol (Coreg) 6.25 mg PO BID COUNTS INCLUDE 234 BEDS AT THE [facility] Last Admin: 11/27/16 17:53 Dose: 6.25 mg Guaifenesin (Robitussin) 200 mg PO Q8H PRN PRN Reason: Cough and congestion Last Admin: 11/26/16 17:35 Dose: 200 mg Moxifloxacin HCl (Avelox Iv 400mg/250ml Ns) 250 mls @ 167 mls/hr IVPB Q24H COUNTS INCLUDE 234 BEDS AT [facility] Last Admin: 11/27/16 12:31 Dose: 167 mls/hr Insulin Aspart (Novolog) 0 unit SC ACHS COUNTS INCLUDE 234 BEDS AT [facility] PRN Reason: Protocol Last Admin: 11/28/16 08:43 Dose: Not Given Lisinopril (Zestril) 5 mg PO DAILY COUNTS INCLUDE 234 BEDS AT [facility] Oseltamivir Phosphate (Tamiflu Susp) 30 [facility] Stop: 12/02/16 09:01 Last Admin: 11/25/16 15:45 Dose: 30 mg Rosuvastatin Calcium (Crestor) 10 mg PO HS COUNTS INCLUDE 234 BEDS AT [facility] Last Admin: 11/27/16 21:35 Dose: 10 mg Physical Exam - Constitutional Appears: Well - Head Exam Head Exam: ATRAUMATIC - Eye Exam Eye Exam: EOMI - ENT Exam ENT Exam: Mucous Membranes Moist - Neck Exam Neck exam: Positive for: Normal Inspection - Respiratory Exam Respiratory Exam: Decreased Breath Sounds - Cardiovascular Exam Cardiovascular Exam: REGULAR RHYTHM - GI/Abdominal Exam GI & Abdominal Exam: Normal Bowel Sounds - Exam External exam: NORMAL EXTERNAL EXAM - Back Exam Back exam: NORMAL INSPECTION - Neurological Exam Neurological exam: Alert, CN II-XII Intact, Oriented x3 - Psychiatric Exam Psychiatric exam: Depressed - Skin Skin Exam: Normal Color Results - Vital Signs Recent Vital Signs: Last Vital Signs Temp 98.2 F 11/28/16 00:00 Pulse 75 11/28/16 01:32 Resp 20 11/28/16 00:00 BP 127/81 11/28/16 00:00 Pulse Ox 98 11/28/16 00:00 - Labs Result Diagrams: 11/28/16 07:30 11/28/16 07:30 Labs: Laboratory Results - last 24 hr 11/27/16 11/27/16 11/27/16 11:38 16:26 21:12 WBC RBC Hgb Hct MCV MCH MCHC RDW Plt Count MPV Neut % (Auto) Lymph % (Auto) [place] % (Auto) Eos % (Auto) Baso % (Auto) Neut # Lymph # [place] # Eos # Baso # Sodium Potassium Chloride Carbon Dioxide Anion Gap BUN Creatinine Est GFR ( Amer) Est GFR (Non-Af Amer) POC Glucose (mg/dL) 150 H 84 112 H Random Glucose Calcium Phosphorus Magnesium Total Bilirubin AST ALT Alkaline Phosphatase Total Protein Albumin Globulin Albumin/Globulin Ratio 11/28/16 11/28/16 06:51 07:30 WBC 4.1 L RBC 4.08 L Hgb 10.7 L Hct 34.7 L MCV 85.2 MCH 26.1 L MCHC 30.7 L RDW 18.8 H Plt Count 110 L MPV 9.1 Neut % (Auto) 55.1 Lymph % (Auto) 29.3 [place] % (Auto) 6.6 Eos % (Auto) 6.7 H Baso % (Auto) 2.3 H Neut # 2.2 Lymph # 1.2 [place] # 0.3 Eos # 0.3 Baso # 0.1 Sodium 132 Potassium 5.0 Chloride 88 L Carbon Dioxide 24 Anion Gap 25 H BUN 81 H Creatinine 10.9 H* Est GFR ( Amer) 6 Est GFR (Non-Af Amer) 5 POC Glucose (mg/dL) 71 Random Glucose 85 Calcium 7.6 L Phosphorus 5.1 H Magnesium 2.1 Total Bilirubin 0.7 AST 52 ALT 38 Alkaline Phosphatase 118 Total Protein 5.7 L Albumin 2.8 L Globulin 2.9 Albumin/Globulin Ratio 1.0 - EKG Data EKG Interpreted by: Myself (nsr, afb, mild st changes)
--- NOTE | 2016-11-28 11:08 | CP.PCM.PN ---
Subjective - Date & Time of Evaluation Date of Evaluation: 11/28/16 Time of Evaluation: 11:05 - Subjective Subjective: Cardiology notes reviewed New drop in EF noted- ICD to be considered SOPHIE I re-added due to low EF No dyspnea, mCPs, N, V, fevers, chills For dialysis now Need to keep K>4 due to NSVT Objective - Vital Signs/Intake and Output Vital Signs (last 24 hours): Temp Pulse Resp BP Pulse Ox 97.9 F 75 20 127/82 97 11/28/16 07:00 11/28/16 07:00 11/28/16 07:00 11/28/16 07:00 11/28/16 07:00 Intake and Output: 11/28/16 11/28/16 06:59 18:59 Intake Total 400 Balance 400 - Medications Medications: Current Medications Alprazolam (Xanax) 0.25 mg PO TID PRN PRN Reason: Anxiety Stop: 12/01/16 17:39 Last Admin: 11/28/16 00:29 Dose: 0.25 mg Aspirin (Aspirin Chewable) 81 mg PO DAILY [facility] Benzocaine/Menthol (Cepacol Sore Throat) 1 asia MT Q4H PRN PRN Reason: Sore Throat Last Admin: 11/27/16 21:35 Dose: 1 asia Calcium Acetate (Phoslo) 667 mg PO ACTID [facility] Last Admin: 11/28/16 08:36 Dose: 667 mg Carvedilol (Coreg) 6.25 mg PO BID [facility] Last Admin: 11/27/16 17:53 Dose: 6.25 mg Guaifenesin (Robitussin) 200 mg PO Q8H PRN PRN Reason: Cough and congestion Last Admin: 11/26/16 17:35 Dose: 200 mg Doxycycline Hyclate 100 mg/ (Sodium Chloride) 100 mls @ 100 mls/hr IVPB Q12H [facility] Insulin Aspart (Novolog) 0 unit SC ACHS [facility] PRN Reason: Protocol Last Admin: 11/28/16 08:43 Dose: Not Given Lisinopril (Zestril) 5 mg PO DAILY [facility] Oseltamivir Phosphate (Tamiflu Susp) 30 mg PO MWF [facility] Stop: 12/02/16 09:01 Last Admin: 11/25/16 15:45 Dose: 30 mg Rosuvastatin Calcium (Crestor) [address] [facility] Last Admin: 11/27/16 21:35 Dose: 10 mg Saccharomyces Boulardii (Florastor) 250 mg PO BID [facility] - Labs Labs: 11/28/16 07:30 11/28/16 07:30 PT 13.6 SECONDS (9.7-12.2) H 11/25/16 20:01 INR 1.2 11/25/16 20:01 APTT 39 SECONDS (21-34) H 11/25/16 20:01 - Constitutional Appears: No Acute Distress, Chronically Ill - Head Exam Head Exam: ATRAUMATIC, NORMAL INSPECTION - Eye Exam Eye Exam: EOMI, Normal appearance - Neck Exam Neck Exam: Normal Inspection. absent: Tenderness - Respiratory Exam Respiratory Exam: Clear to Ausculation Bilateral, NORMAL BREATHING PATTERN - Cardiovascular Exam Cardiovascular Exam: REGULAR RHYTHM, +S1 - GI/Abdominal Exam GI & Abdominal Exam: Soft. absent: Tenderness - Extremities Exam Extremities Exam: Normal Inspection. absent: Tenderness - Neurological Exam Neurological Exam: Awake, CN II-XII Intact - Skin Skin Exam: Dry, Warm Assessment and Plan (1) ESRD (end stage renal disease) on dialysis Status: Acute (2) HTN (hypertension) Status: Acute (3) Influenza Status: Acute (4) Pneumonia and influenza Status: Acute - Assessment and Plan (Free Text) Plan: Dialysis now- UF 2200ml; then MWF SOPHIE I restarted Monitor BP Eventually repeat echo- check EF for any changes Likely will need ICD
--- NOTE | 2016-11-28 12:35 | CARD ---
APPROVED REPORT EKG Measurement Heart [id number] <Conclusion> Normal sinus rhythm Left axis deviation Anterior infarct, age undetermined Abnormal ECG
--- NOTE | 2016-11-28 12:39 | CP.PCM.PN ---
Subjective - Date & Time of Evaluation Date of Evaluation: 11/28/16 Time of Evaluation: 09:00 - Subjective Subjective: Patient seen and examined while receiving dialysis. Patient offers no new acute complaints. He is beginning to feel more like normal self. Improved spastic movements. Denies headache, chest pain, dyspnea, orthopnea, abdominal pain, constipation, diarrhea. Objective - Vital Signs/Intake and Output Vital Signs (last 24 hours): Temp Pulse Resp BP Pulse Ox 97.3 F L 80 16 133/86 97 11/28/16 10:10 11/28/16 10:10 11/28/16 09:45 11/28/16 12:00 11/28/16 07:00 Intake and Output: 11/28/16 11/28/16 06:59 18:59 Intake Total 400 Balance 400 - Medications Medications: Current Medications Alprazolam (Xanax) 0.25 mg PO TID PRN PRN Reason: Anxiety Stop: 12/01/16 17:39 Last Admin: 11/28/16 00:29 Dose: 0.25 mg Aspirin (Aspirin Chewable) 81 mg PO DAILY [facility] Benzocaine/Menthol (Cepacol Sore Throat) 1 asia MT Q4H PRN PRN Reason: Sore Throat Last Admin: 11/27/16 21:35 Dose: 1 asia Calcium Acetate (Phoslo) 667 mg PO ACTID [facility] Last Admin: 11/28/16 08:36 Dose: 667 mg Carvedilol (Coreg) 6.25 mg PO BID [facility] Last Admin: 11/27/16 17:53 Dose: 6.25 mg Guaifenesin (Robitussin) 200 mg PO Q8H PRN PRN Reason: Cough and congestion Last Admin: 11/26/16 17:35 Dose: 200 mg Doxycycline Hyclate 100 mg/ (Sodium Chloride) 100 mls @ 100 mls/hr IVPB Q12H [facility] Insulin Aspart (Novolog) 0 unit SC ACHS [facility] PRN Reason: Protocol Last Admin: 11/28/16 08:43 Dose: Not Given Lisinopril (Zestril) 5 mg PO DAILY [facility] Oseltamivir Phosphate (Tamiflu Susp) 30 mg PO MWF [facility] Stop: 12/02/16 09:01 Last Admin: 11/25/16 15:45 Dose: 30 mg Rosuvastatin Calcium (Crestor) 10 mg PO HS [facility] Last Admin: 11/27/16 21:35 Dose: 10 mg Saccharomyces Boulardii (Florastor) 250 mg PO BID [facility] - Labs Labs: 11/28/16 07:30 11/28/16 07:30 PT 13.6 SECONDS (9.7-12.2) H 11/25/16 20:01 INR 1.2 11/25/16 20:01 APTT 39 SECONDS (21-34) H 11/25/16 20:01 - Constitutional Appears: Non-toxic, No Acute Distress - Head Exam Head Exam: ATRAUMATIC, NORMOCEPHALIC - Eye Exam Eye Exam: Normal appearance Pupil Exam: NORMAL ACCOMODATION - ENT Exam ENT Exam: Mucous Membranes Moist - Neck Exam Neck Exam: Full ROM, Normal Inspection - Respiratory Exam Respiratory Exam: Clear to Ausculation Bilateral, NORMAL BREATHING PATTERN. absent: Accessory Muscle Use, Rales, Rhonchi, Wheezes - Cardiovascular Exam Cardiovascular Exam: REGULAR RHYTHM, RRR, +S1, +S2. absent: Tachycardia, Gallop - GI/Abdominal Exam GI & Abdominal Exam: Soft, Normal Bowel Sounds. absent: Tenderness - Extremities Exam Extremities Exam: Full ROM, Normal Inspection Additional comments: A/V fistula in LUE - Back Exam Back Exam: NORMAL INSPECTION - Neurological Exam Neurological Exam: Alert, Awake - Psychiatric Exam Psychiatric exam: Normal Mood - Skin Skin Exam: Intact, Normal Color, Warm. absent: Rash Assessment and Plan - Assessment and Plan (Free Text) Assessment: Right pleural effusion Plan: s/p day 3 right thoracentesis for moderate-large pleural effusion. Pleural fluid cx negative at 3 days. Cytology, protein, LDH, and glucose not ordered for fluid. Will attempt to order today if fluid has been retained and is viable. Run of V. tach overnight. Discontinue avelox and start doxycycline due to QT prolongation risk. CHF optimization per cardiology. Dr. Veloz is following patient. Influenza type B serology positive. Continue tamiflu and supportive management.
[2016-11-28] MEDS: Oseltamivir 6 MG/ML PO SCH (14:33)
--- NOTE | 2016-11-28 16:46 | RAD ---
HISTORY: Pleural effusions, pneumonia. Technique: Single view portable semi erect @ 16:15. COMPARISON: November 25, 2016. FINDINGS: LUNGS: Worsening pulmonary edema. PLEURA: Progressive pleural effusions. CARDIOVASCULAR: Cardiomegaly/acute CHF worse compared to the prior study. OSSEOUS STRUCTURES: No significant abnormalities. VISUALIZED UPPER ABDOMEN: Normal. OTHER FINDINGS: None. IMPRESSION: Congestive heart failure/ worsening pulmonary edema.
[2016-11-28] MEDS ORDERED: Saccharomyces Boulardi 250 mg Cap PO SCH (18:00)
[2016-11-28] MEDS: guaiFENesin 200 mg/10 ml Syrup UD PO PRN (21:25)
[2016-11-29 07:48] LABS: BASO % 0.4 % (0.0-2.0); EOS # 0.2 K/uL (0.0-0.7); EOS % 3.7 % (0.0-4.0); HEMATOCRIT 33.1 % (35.0-51.0); LYMPH # 0.8 K/uL (1.0-4.3); LYMPH % 20.1 % (20.0-40.0); MEAN CELL VOLUME 84.6 fL (80.0-94.0); MEAN CORPUSCULAR HEMOGLOBIN 26.7 pg (27.0-31.0); MEAN CORPUSCULAR HGB CONC 31.6 g/dL (33.0-37.0); MEAN PLATELET VOLUME 8.5 fL (7.2-11.7); MONO # 0.4 K/uL (0.0-0.8); MONO % 9.3 % (0.0-10.0); NRBC % 0.2 % (0.0-2.0); RED CELL DISTRIBUTION WIDTH 18.7 % (11.5-14.5)
[2016-11-29 08:25] LABS: POTASSIUM 4.5 mmol/L (3.6-5.2)
[2016-11-29 08:28] LABS: BILIRUBIN,TOTAL 0.8 mg/dL (0.2-1.3); TOTAL PROTEIN 5.8 g/dL (6.3-8.3)
[2016-11-29 08:29] LABS: ALB/GLOB RATIO 0.8 (1.0-2.1); CALCIUM 7.8 mg/dl (8.6-10.4); MAGNESIUM 2.1 mg/dL (1.6-2.3); PHOSPHOROUS 4.3 mg/dL (2.5-4.5)
[2016-11-29] MEDS: (Novolog) Insulin Aspart, Recombinant 100 u/ml 10 ml vial SC SCH ×4 (08:36→22:00)
--- NOTE | 2016-11-29 09:21 | CP.PCM.PN ---
<MinnieGinger - Last Filed: 11/29/16 16:14> Subjective - Date & Time of Evaluation Date of Evaluation: 11/29/16 Time of Evaluation: 09:16 - Subjective Subjective: Patient seen and examined at bedside. No acute events overnight per nursing. Patient states he is feeling improved from yesterday. He is ambulating within room. Patient denies fever, chills, chest pain, palpitations, cough, shortness of breath, wheezing, abdominal pain, nausea, vomiting, constipation, diarrhea, and urinary symptoms. Objective - Vital Signs/Intake and Output Vital Signs (last 24 hours): Temp Pulse Resp BP Pulse Ox 98 F 76 18 127/79 98 11/29/16 00:00 11/29/16 08:55 11/29/16 00:00 11/29/16 00:00 11/29/16 00:00 Intake and Output: 11/29/16 11/29/16 06:59 18:59 Intake Total 240 Balance 240 - Medications Medications: Current Medications Alprazolam (Xanax) 0.25 mg PO TID PRN PRN Reason: Anxiety Stop: 12/01/16 17:39 Last Admin: 11/28/16 21:25 Dose: 0.25 mg Aspirin (Aspirin Chewable) 81 mg PO DAILY [facility] Last Admin: 11/28/16 14:34 Dose: 81 mg Benzocaine/Menthol (Cepacol Sore Throat) 1 asia MT Q4H PRN PRN Reason: Sore Throat Last Admin: 11/27/16 21:35 Dose: 1 asia Calcium Acetate (Phoslo) 667 mg PO ACTID [facility] Last Admin: 11/28/16 18:06 Dose: 667 mg Carvedilol (Coreg) 6.25 mg PO BID [facility] Last Admin: 11/28/16 18:05 Dose: 6.25 mg Guaifenesin (Robitussin) 200 mg PO Q8H PRN PRN Reason: Cough and congestion Last Admin: 11/28/16 21:25 Dose: 200 mg Insulin Aspart (Novolog) 0 unit SC ACHS [facility] PRN Reason: Protocol Last Admin: 11/29/16 08:36 Dose: Not Given Lisinopril (Zestril) 5 mg PO DAILY [facility] Last Admin: 11/28/16 14:34 Dose: 5 mg Oseltamivir Phosphate ([facility] Susp) [facility] Stop: 12/02/16 09:01 Last Admin: 11/28/16 14:33 Dose: 30 mg Rosuvastatin Calcium (Crestor) 10 mg PO [facility] Last Admin: 11/28/16 21:25 Dose: 10 mg - Labs Labs: 11/29/16 07:35 11/29/16 07:35 PT 13.6 SECONDS (9.7-12.2) H 11/25/16 20:01 INR 1.2 11/25/16 20:01 APTT 39 SECONDS (21-34) H 11/25/16 20:01 - Constitutional Appears: Non-toxic, No Acute Distress - Head Exam Head Exam: ATRAUMATIC, NORMAL INSPECTION, NORMOCEPHALIC - Eye Exam Eye Exam: EOMI, Normal appearance, PERRL - ENT Exam ENT Exam: Mucous Membranes Moist - Neck Exam Neck Exam: Full ROM, Normal Inspection - Respiratory Exam Respiratory Exam: Rales, NORMAL BREATHING PATTERN - Cardiovascular Exam Cardiovascular Exam: +S1, +S2. absent: Tachycardia, Murmur - GI/Abdominal Exam GI & Abdominal Exam: Soft, Normal Bowel Sounds. absent: Distended, Firm, Guarding, Tenderness - Extremities Exam Extremities Exam: Normal Inspection. absent: Pedal Edema, Tenderness - Neurological Exam Neurological Exam: Alert, Awake, Oriented x3 - Psychiatric Exam Psychiatric exam: Normal Affect, Normal Mood - Skin Skin Exam: Intact, Normal Color, Warm Assessment and Plan - Assessment and Plan (Free Text) Assessment: Influenza Type B -Swab for influenza B positive -Continue Tamiflu on dialysis days and supportive care. -Will discontinue droplet precautions after second dose of Tamiflu tomorrow. Muscle weakness, acute 11/29: improved, patient seen ambulating in room today. -CT head negative -Stop home med Levaquin 500mg PO daily -> pt may be having a reaction. -CPK 174 H -> 134 N Pneumonia, acute 11/29: Avelox discontinued due to risk of QT prolongation as patient had runs of non-sustained ventricular tachycardia on telemetry. Per bread oven operator, Dr. Reynolds , patient does not need to be continued on antibiotics for pneumonia. 11/26-11/27: pleural fluid results: +WBC, no growth x2d; Blood culture negative x2d 11/25: Dr. Reynolds consulted. recommended IR for thoracentesis - 800cc of straw colored fluid drawn. -Patient recently in ED 11/20 for Bronchitis - CT chest- b/l pleural effusions, lower lung consolidation, pericardial effusion (20mm), ascites of abdomen. see full report. -Stop home med Levaquin 500mg PO daily -> pt may be having a reaction. -Start Azithromycin 500mg IVPB Q24H -ProBNP 394,000 Acute on chronic Diastolic CHF 11/29: Per Dr. Veloz, patient was offered an ICD, but wishes to wear a life vest for 3-4 months and will consent to an ICD if ejection fraction does not improve. Dr. Veloz will call life vest junior sales representative so patient is fitted for a vest during hospitalization. Patient given Lasix 20 mg IVP stat Started patient on Lasix 20 mg po BID Lisinpril increased to 5 mg po BID. Continue Carvedilol, Aspirin and Crestor. CXR: Left pleural effusion noted. Vascular congestion noted. Will follow-up official report. 11/28: Patient evaluated by Dr. Veloz. He notes chronic LV dysfunction that possibly was exacerbated by acute H. flu. He also notes severely abnormal diastolic filling, type III. Patient to have AICD placed. Patient to be continued on Carvedilol 6.25 mg po BID, ASA 81 mg po daily, Lisinopril 5 mg po daily, Crestor 10 mg po HS. 11/27: Cardiology Dr. Veloz consulted (pts home manager product marketing). Dr. Pierce (cardio ) is considering EP consult for life vest. -2 runs of [employer]utenberg[employer] today at 2pm and 4pm. Dr. Pierce notified. Patient stable, no chest pain, no acute distress. 11/26: Echo - EF 15%, Diastolic dysfunction, L/R atrium mod dilated, mod/severe MR , mild TR, PA dilated, IVC dilated. 11/25: Dr. Pierce does not recommend draining pericardial effusion as it is mild and risks outweight benefits. Recs-> Add ACEI or ARBs to the regimen; Can add Lasix may benefit by decreasing the pre load - CT chest- b/l pleural effusions, lower lung consolidation, pericardial effusion (20mm), ascites of abdomen. see full report. - Pulm/Crit Care consult - Dr. Rodolfo -> for possible thoracentesis. Will evaluate patient in am. - Cardiology consult, Dr. Pierce, f/u recs - EKG: Normal sinus rhythm; Left axis deviation;Anterior infarct, age undetermined; No QT prolongation. - f/u repeat EKG on 6 pm (not performed) - monitor for QT prolongation Pleural Effusion, acute -s/p Thoracentesis on 11/25/16 -Pleural fluid sent for cytology, protein and LDH -Pleural fluid cx negative Pericardial Effusion, acute 11/28: Per Dr. Veloz, dialysis is best treatment for small pericardial effusion. 11/26: Echo - EF 15%, Diastolic dysfunction, L/R atrium mod dilated, mod/severe MR , mild TR, PA dilated, IVC dilated. 11/25: Dr. Pierce does not recommend draining pericardial effusion as it is mild and risks outweight benefits. Recs-> Add ACEI or ARBs to the regimen; Can add Lasix may benefit by decreasing the pre load - CT chest- b/l pleural effusions, lower lung consolidation, pericardial effusion (20mm), ascites of abdomen. see full report. - Cardiology consult, Dr. Pierce, f/u recs - EKG: Normal sinus rhythm; Left axis deviation;Anterior infarct, age undetermined; No QT prolongation. - f/u repeat EKG on 11/24 pm (not performed) - monitor for QT prolongation ESRD on HD, chronic 11/29: Creatinine 8.7 UF 2200ml with HD 11/28 -Maintain potassium >4.0 as patient was having runs of V tach -HD schedule MWF -Consult Nephrology, Dr. Joyce, f/u recs -awaiting kidney transplant. -Phoslo 667 mg PO ACTID [facility] Pancytopenia 11/29: WBC 4.0, hemoglobin 10.5, hematocrit 33.1, platelets 113. Could be secondary to Avelox. HTN, chronic 11/29: normotensive Coreg 25 mg PO BID [facility] Lisinopril 2.5mg PO daily Diabetes, chronic Blood sugar 71 Continue on Novolog ACHS - ISS Hx of Anxiety Xanax 0.25 mg PO TID PRN -pt only uses Xanax 0.5mg 1-2x per week. Hx of Hyperthyroidism untreated monitor TSH/free T4 - WNL Prophylaxis SCDs PT/OT Dispo Patient to be discharged to [facility], [place]. <Borker,Xochitl V - Last Filed: 12/01/16 16:09> Objective - Vital Signs/Intake and Output Vital Signs (last 24 hours): Temp Pulse Resp BP Pulse Ox 98.1 F 88 20 135/78 99 12/01/16 08:00 12/01/16 09:02 12/01/16 08:00 12/01/16 09:46 12/01/16 08:00 Intake and Output: 12/01/16 12/01/16 06:59 18:59 Intake Total 50 300 Balance 50 300 - Medications Medications: Current Medications Alprazolam (Xanax) 0.25 mg PO TID PRN PRN Reason: Anxiety Stop: 12/01/16 17:39 Last Admin: 12/01/16 03:19 Dose: 0.25 mg Aspirin (Aspirin Chewable) 81 mg PO DAILY [facility] Last Admin: 12/01/16 09:45 Dose: 81 mg Benzocaine/Menthol (Cepacol Sore Throat) 1 asia MT Q4H PRN PRN Reason: Sore Throat Last Admin: 11/30/16 17:48 Dose: 1 asia Calcium Acetate (Phoslo) 667 mg PO ACTID [facility] Last Admin: 12/01/16 13:10 Dose: 667 mg Carvedilol (Coreg) 12.5 mg PO BID [facility] Last Admin: 12/01/16 09:46 Dose: 12.5 mg Guaifenesin/Dextromethorphan (Robitussin Dm) 5 ml PO Q4H PRN PRN Reason: Cough Last Admin: 11/30/16 19:38 Dose: 5 ml Hydrocortisone (Anusol-Hc) 2.5 gm TN BID [facility] Aztreonam 1 gm/ Sodium (Chloride) 100 mls @ 200 mls/hr IVPB Q8H [facility] Last Admin: 12/01/16 08:41 Dose: 200 mls/hr Azithromycin 500 mg/ Sodium (Chloride) 250 mls @ 167 mls/hr IVPB Q24H [facility] Last Admin: 11/30/16 18:10 Dose: 167 mls/hr Insulin Aspart (Novolog) 0 unit SC ACHS [facility] PRN Reason: Protocol Last Admin: 12/01/16 13:11 Dose: Not Given Lisinopril (Zestril) 5 mg PO BID [facility] Last Admin: 12/01/16 09:44 Dose: 5 mg Loperamide HCl (Imodium) 2 mg PO QID PRN PRN Reason: Diarrhea Ondansetron HCl (Zofran Inj) 4 mg IVP Q6 PRN PRN Reason: Nausea/Vomiting Last Admin: 12/01/16 13:07 Dose: 4 mg Oseltamivir Phosphate (Tamiflu Susp) 30 mg PO MWF [facility] Stop: 12/02/16 09:01 Last Admin: 11/30/16 15:41 Dose: Not Given Rosuvastatin Calcium (Crestor) 10 mg PO HS [facility] Last Admin: 11/30/16 21:07 Dose: 10 mg Saccharomyces Boulardii (Florastor) 250 mg PO BID [facility] - Labs Labs: 12/01/16 07:22 12/01/16 07:22 PT 13.6 SECONDS (9.7-12.2) H 11/25/16 20:01 INR 1.2 11/25/16 20:01 APTT 39 SECONDS (21-34) H 11/25/16 20:01 Attending/Attestation - Attestation I have personally seen and examined this patient.: Yes I have fully participated in the care of the patient.: Yes I have reviewed all pertinent clinical information, including history, physical exam and plan: Yes Notes (Text): This is late computer entry for 11/29/16. Patient seen, examined, and case discussed with day-time resident. Patient awaiting Lifevest given conversation with cardiology. Patient continues to be on droplet precautions for influenza. Follow-up chest xray report. Assessment/Plan Acute on Chronic Systolic CHF exacerbation * Private manager product marketing (Dr. Veloz): on the case help appreciated--> Per Dr. Veloz, patient was offered an ICD, but wishes to wear a life vest for 3-4 months and will consent to an ICD if ejection fraction does not improve. Dr. Veloz will call life vest junior sales representative so patient is fitted for a vest during hospitalization. * Aspirin 81mg PO daily * Coreg 6.25 mg PO bid * Lisinopril 5mg PO bid * Crestor 10mg POqHS * Echo (11/24/16) - EF 15%, Diastolic dysfunction, L/R atrium mod dilated, mod/ severe MR, mild TR, PA dilated, IVC dilated * Patient has dialysis on // * Start Lasix 20mg PO bid Influenza Type B * Droplet precaution * Tamiflu 30mg PO MWF (active since 11/25/16) Pneumonia * 11/24/16 CT Chest: bilateral pleural effusion greater on the right, bilateral lower lung consolidations greater on the right, pericardial effusion, complex septated air collection to the right of trace and esophagua, small asictes, hypotrophic kidneys incompletely imaged as discussed above * 11/25/16: No pneumothroax status post right thoracentesis. small bilateral pleural effusion. bilateral linear atelectasis * Pulmonary (Dr. Reynolds) on board-->help appreciated * IR (11/25/16): ultrasound guided right thoracentesis; 800 cc straw colored fluid removed * Follow-up chest xray Pericardial effusion * Echocardiogram (11/26/16): LV ventricle is mildy dilated. ejection fraction is severely imparied. EF: 15%, Grade IV dixed restrictive diastolic dysfunction. glpbal hypokinesis of the left ventricle left atrium moderately dilated. right atrium is moderate dilated. mitral regurgitation is moderate to severe. mild tricupsid regurgitation PAP: 45-50mmHG, PA is dilated, IVC dilated with no collapse with inspiration. RAP of 20 or greater. Multiple large loculated pericardial effusions both anterior and posteriolroy no evidence of systolic atrial collapse * Per cardiology note: dialysis best option for small pericardial effusion ESRD * Nephrology (Dr. Joyce) * Patient is Monday/Monday/Monday dialysis * patient is awaiting renal transplant Hypertension * Coreg 6.25 mg PO BID [facility] * Crestor 10 mg PO HS [facility] * Lisinopril 5 mg PO bid Diabetes, chronic * Novolog insulin sliding scale subq * [id number]: 6.5 Hx of Anxiety * Xanax 0.25 mg PO TID PRN Hx of Hyperthyroidism * prior history per H&P * thyroid studies within normal range Non-sustained VT * d/c Avelox; monitor Prophylaxis * SCDs * PT/OT eval * Subacute rehab eval
--- NOTE | 2016-11-29 10:52 | CP.PCM.PN ---
Subjective - Date & Time of Evaluation Date of Evaluation: 11/29/16 Time of Evaluation: 10:48 - Subjective Subjective: Pt feels ok, a bit better, ambulated in room Objective - Vital Signs/Intake and Output Vital Signs (last 24 hours): Temp Pulse Resp BP Pulse Ox 98.6 F 76 18 126/82 98 11/29/16 07:00 11/29/16 08:55 11/29/16 07:00 11/29/16 07:00 11/29/16 07:00 Intake and Output: 11/29/16 11/29/16 06:59 18:59 Intake Total 240 Balance 240 - Medications Medications: Current Medications Alprazolam (Xanax) 0.25 mg PO TID PRN PRN Reason: Anxiety Stop: 12/01/16 17:39 Last Admin: 11/28/16 21:25 Dose: 0.25 mg Aspirin (Aspirin Chewable) 81 mg PO DAILY [facility] Last Admin: 11/28/16 14:34 Dose: 81 mg Benzocaine/Menthol (Cepacol Sore Throat) 1 asia MT Q4H PRN PRN Reason: Sore Throat Last Admin: 11/27/16 21:35 Dose: 1 asia Calcium Acetate (Phoslo) 667 mg PO ACTID [facility] Last Admin: 11/28/16 18:06 Dose: 667 mg Carvedilol (Coreg) 6.25 mg PO BID [facility] Last Admin: 11/28/16 18:05 Dose: 6.25 mg Guaifenesin (Robitussin) 200 mg PO Q8H PRN PRN Reason: Cough and congestion Last Admin: 11/28/16 21:25 Dose: 200 mg Insulin Aspart (Novolog) 0 unit SC [facility] PRN Reason: Protocol Last Admin: 11/29/16 08:36 Dose: Not Given Oseltamivir Phosphate (Tamiflu Susp) 30 mg PO MWF [facility] Stop: 12/02/16 09:01 Last Admin: 11/28/16 14:33 Dose: 30 mg Rosuvastatin Calcium (Crestor) 10 mg PO HS [facility] Last Admin: 11/28/16 21:25 Dose: 10 mg - Labs Labs: 11/29/16 07:35 11/29/16 07:35 PT 13.6 SECONDS (9.7-12.2) H 11/25/16 20:01 INR 1.2 11/25/16 20:01 APTT 39 SECONDS (21-34) H 11/25/16 20:01 - Constitutional Appears: Well - Head Exam Head Exam: NORMAL INSPECTION - Eye Exam Eye Exam: EOMI - ENT Exam ENT Exam: Mucous Membranes Moist - Respiratory Exam Additional comments: rales right base - Cardiovascular Exam Cardiovascular Exam: REGULAR RHYTHM - GI/Abdominal Exam GI & Abdominal Exam: Normal Bowel Sounds - Exam External exam: NORMAL EXTERNAL EXAM - Extremities Exam Extremities Exam: Full ROM, Normal Inspection - Neurological Exam Neurological Exam: Alert, Awake, CN II-XII Intact, Normal Gait, Oriented x3 - Skin Skin Exam: Dry Assessment and Plan - Assessment and Plan (Free Text) Assessment: 1. I reviewd the echo from last year. EF was about 40%, with type I diastolic filling. Now EF 15%, and more advanced type II diastolic filling. Its hard to say if Barrington Silva has done this. Pt has had non sustained Vt. he is offered an ICD, but wishes to defer for medical treatment for now and will wear a life vest for 3-4 months and will consent to an ICD if his ef does not improve., 2. Increase lisinopril to bid, 3,. Stop avelox. 4. Will call life vest people to fit him for a vest here at [facility] 5. CXR today.
--- NOTE | 2016-11-29 11:36 | CP.PCM.PN ---
Subjective - Date & Time of Evaluation Date of Evaluation: 11/29/16 Time of Evaluation: 11:33 - Subjective Subjective: Appreciate cardio note UF 2200ml with HD 11/28- adequate rx Patient concerned about BFRs at HD- will decrease mildly BP well controlled now Agree with SOPHIE I Objective - Vital Signs/Intake and Output Vital Signs (last 24 hours): Temp Pulse Resp BP Pulse Ox 98.6 F 76 18 126/82 98 11/29/16 07:00 11/29/16 08:55 11/29/16 07:00 11/29/16 07:00 11/29/16 07:00 Intake and Output: 11/29/16 11/29/16 06:59 18:59 Intake Total 240 Balance 240 - Medications Medications: Current Medications Alprazolam (Xanax) 0.25 mg PO TID PRN PRN Reason: Anxiety Stop: 12/01/16 17:39 Last Admin: 11/28/16 21:25 Dose: 0.25 mg Aspirin (Aspirin Chewable) 81 mg PO DAILY [facility] Last Admin: 11/28/16 14:34 Dose: 81 mg Benzocaine/Menthol (Cepacol Sore Throat) 1 asia MT Q4H PRN PRN Reason: Sore Throat Last Admin: 11/27/16 21:35 Dose: 1 asia Calcium Acetate (Phoslo) 667 mg PO ACTID [facility] Last Admin: 11/28/16 18:06 Dose: 667 mg Carvedilol (Coreg) 6.25 mg PO BID [facility] Last Admin: 11/28/16 18:05 Dose: 6.25 mg Guaifenesin (Robitussin) 200 mg PO Q8H PRN PRN Reason: Cough and congestion Last Admin: 11/28/16 21:25 Dose: 200 mg Insulin Aspart (Novolog) 0 unit SC [facility] PRN Reason: Protocol Last Admin: 11/29/16 08:36 Dose: Not Given Lisinopril (Zestril) 5 mg PO BID [facility] Oseltamivir Phosphate (Tamiflu Susp) 30 mg PO MWF [facility] Stop: 12/02/16 09:01 Last Admin: 11/28/16 14:33 Dose: 30 mg Rosuvastatin Calcium (Crestor) 10 mg PO [facility] Last Admin: 11/28/16 21:25 Dose: 10 mg - Labs Labs: 11/29/16 07:35 11/29/16 07:35 PT 13.6 SECONDS (9.7-12.2) H 11/25/16 20:01 INR 1.2 11/25/16 20:01 APTT 39 SECONDS (21-34) H 11/25/16 20:01 - Constitutional Appears: No Acute Distress, Chronically Ill - Head Exam Head Exam: ATRAUMATIC, NORMAL INSPECTION - Eye Exam Eye Exam: EOMI, Normal appearance - Neck Exam Neck Exam: Full ROM. absent: Tenderness - Respiratory Exam Respiratory Exam: Clear to Ausculation Bilateral, NORMAL BREATHING PATTERN - Cardiovascular Exam Cardiovascular Exam: REGULAR RHYTHM, +S1 - GI/Abdominal Exam GI & Abdominal Exam: Soft. absent: Tenderness - Extremities Exam Extremities Exam: Normal Inspection. absent: Tenderness - Neurological Exam Neurological Exam: Alert, CN II-XII Intact - Skin Skin Exam: Dry, Warm Assessment and Plan (1) ESRD (end stage renal disease) on dialysis Status: Acute (2) HTN (hypertension) Status: Acute (3) Influenza Status: Acute (4) Pneumonia and influenza Status: Acute - Assessment and Plan (Free Text) Plan: Dialysis MWF Same BP meds CXR repeat
[2016-11-29] MEDS ORDERED: POLYETHYLENE GLYCOL 3350 17 GM/Dose PACKET PO STA (21:53)
[2016-11-29] MEDS: Benzocaine/Menthol (Cepacol) Lozenge MT PRN (22:28)
[2016-11-30 07:26] LABS: BASO % 0.4 % (0.0-2.0); EOS # 0.2 K/uL (0.0-0.7); EOS % 5.1 % (0.0-4.0); HEMATOCRIT 33.5 % (35.0-51.0); LYMPH # 0.9 K/uL (1.0-4.3); LYMPH % 22.9 % (20.0-40.0); MEAN CELL VOLUME 85.3 fL (80.0-94.0); MEAN CORPUSCULAR HEMOGLOBIN 26.5 pg (27.0-31.0); MEAN CORPUSCULAR HGB CONC 31.1 g/dL (33.0-37.0); MEAN PLATELET VOLUME 9.1 fL (7.2-11.7); MONO # 0.3 K/uL (0.0-0.8); MONO % 9.3 % (0.0-10.0); NRBC % 0.1 % (0.0-2.0); RED CELL DISTRIBUTION WIDTH 18.4 % (11.5-14.5); WHITE BLOOD COUNT 3.7 K/uL (4.8-10.8)
[2016-11-30 07:33] LABS: POTASSIUM 5.2 mmol/L (3.6-5.2)
[2016-11-30 07:36] LABS: ALB/GLOB RATIO 0.9 (1.0-2.1); CALCIUM 7.9 mg/dl (8.6-10.4); MAGNESIUM 2.1 mg/dL (1.6-2.3); PHOSPHOROUS 4.8 mg/dL (2.5-4.5); TOTAL PROTEIN 5.9 g/dL (6.3-8.3)
--- NOTE | 2016-11-30 08:25 | CP.PCM.PN ---
Subjective - Date & Time of Evaluation Date of Evaluation: 11/30/16 Time of Evaluation: 08:23 - Subjective Subjective: Pt feels the same. . Not worse. Objective - Vital Signs/Intake and Output Vital Signs (last 24 hours): Temp Pulse Resp BP Pulse Ox 98.4 F 87 20 138/97 H 96 11/30/16 00:00 11/30/16 01:13 11/30/16 00:00 11/30/16 00:00 11/30/16 00:00 - Medications Medications: Current Medications Alprazolam (Xanax) 0.25 mg PO TID PRN PRN Reason: Anxiety Stop: 12/01/16 17:39 Last Admin: 11/29/16 22:19 Dose: 0.25 mg Aspirin (Aspirin Chewable) 81 mg PO DAILY [facility] Last Admin: 11/29/16 11:52 Dose: 81 mg Benzocaine/Menthol (Cepacol Sore Throat) 1 asia MT Q4H PRN PRN Reason: Sore Throat Last Admin: 11/29/16 22:28 Dose: 1 asia Calcium Acetate (Phoslo) 667 mg PO ACTID [facility] Last Admin: 11/29/16 18:01 Dose: 667 mg Carvedilol (Coreg) 6.25 mg PO BID [facility] Last Admin: 11/29/16 17:57 Dose: 6.25 mg Furosemide (Lasix) 20 mg PO BID [facility] Last Admin: 11/29/16 17:57 Dose: 20 mg Guaifenesin (Robitussin) 200 mg PO Q8H PRN PRN Reason: Cough and congestion Last Admin: 11/28/16 21:25 Dose: 200 mg Insulin Aspart (Novolog) 0 unit SC [facility] PRN Reason: Protocol Last Admin: 11/29/16 22:00 Dose: Not Given Lisinopril (Zestril) 5 mg PO BID [facility] Last Admin: 11/29/16 17:59 Dose: 5 mg Oseltamivir Phosphate (Tamiflu Susp) 30 mg PO MWF [facility] Stop: 12/02/16 09:01 Last Admin: 11/28/16 14:33 Dose: 30 mg Rosuvastatin Calcium (Crestor) 10 mg PO HS [facility] Last Admin: 11/29/16 21:49 Dose: 10 mg - Labs Labs: 11/30/16 07:07 11/30/16 07:07 PT 13.6 SECONDS (9.7-12.2) H 11/25/16 20:01 INR 1.2 11/25/16 20:01 APTT 39 SECONDS (21-34) H 11/25/16 20:01 - Constitutional Appears: Well - Head Exam Head Exam: ATRAUMATIC, NORMAL INSPECTION - Eye Exam Eye Exam: EOMI, Normal appearance - ENT Exam ENT Exam: Mucous Membranes Dry - Neck Exam Neck Exam: Normal Inspection - Respiratory Exam Additional comments: Mild rales right base - Cardiovascular Exam Cardiovascular Exam: REGULAR RHYTHM - GI/Abdominal Exam GI & Abdominal Exam: Soft, Normal Bowel Sounds - Exam External exam: NORMAL EXTERNAL EXAM - Extremities Exam Extremities Exam: Full ROM, Normal Inspection - Back Exam Back Exam: NORMAL INSPECTION - Neurological Exam Neurological Exam: Alert, Awake, Normal Gait, Oriented x3 - Psychiatric Exam Psychiatric exam: Depressed - Skin Skin Exam: Normal Color Assessment and Plan - Assessment and Plan (Free Text) Assessment: 1. CHF: cxr still mildly congested. Dialysis today. 2. [employer] contacted and forms faxes. Awaiting insurance approval 3. Increase coreg to 12.5 bid
--- NOTE | 2016-11-30 10:11 | RAD ---
HISTORY: CHF COMPARISON: 11/28/2016 TECHNIQUE: Chest PA and lateral FINDINGS: LUNGS: There is right lower lobe airspace disease with air bronchogram. There is discoid atelectasis/ scarring in the left mid lung. There is mild pulmonary venous congestion and fluid in the minor fissure. PLEURA: Suspect small right pleural effusion. Small left pleural effusion. No pneumothorax with there is also fluid in the major fissure. CARDIOVASCULAR: Again seen is severe cardiomegaly. Atherosclerotic aortic arch calcifications are present. . OSSEOUS STRUCTURES: No significant abnormalities. VISUALIZED UPPER ABDOMEN: Normal. OTHER FINDINGS: None. IMPRESSION: Interval improved aeration in both lungs with improvement in congestive heart failure. Right lower lobe airspace disease with air bronchogram could represent developing pneumonia. Follow-up after medical management is recommended to ensure complete resolution.
--- NOTE | 2016-11-30 10:14 | CP.PCM.PN ---
Subjective - Date & Time of Evaluation Date of Evaluation: 11/30/16 Time of Evaluation: 09:15 - Subjective Subjective: Patient seen and examined at dialysis. Pt feels the same as yesterday. Has a mild productive cough with clear sputum. Pt denies chest pain, shortness of breath, fever, chills, nausea, vomiting, constipation, and diarrhea. Objective - Vital Signs/Intake and Output Vital Signs (last 24 hours): Temp Pulse Resp BP Pulse Ox 98.0 F 76 20 157/95 H 95 11/30/16 09:30 11/30/16 09:30 11/30/16 09:30 11/30/16 09:30 11/30/16 09:30 - Medications Medications: Current Medications Alprazolam (Xanax) 0.25 mg PO TID PRN PRN Reason: Anxiety Stop: 12/01/16 17:39 Last Admin: 11/29/16 22:19 Dose: 0.25 mg Aspirin (Aspirin Chewable) 81 mg PO DAILY [facility] Last Admin: 11/29/16 11:52 Dose: 81 mg Benzocaine/Menthol (Cepacol Sore Throat) 1 asia MT Q4H PRN PRN Reason: Sore Throat Last Admin: 11/29/16 22:28 Dose: 1 asia Calcium Acetate (Phoslo) 667 mg PO ACTID [facility] Last Admin: 11/30/16 08:54 Dose: 667 mg Carvedilol (Coreg) 12.5 mg PO BID [facility] Guaifenesin (Robitussin) 200 mg PO Q8H PRN PRN Reason: Cough and congestion Last Admin: 11/28/16 21:25 Dose: 200 mg Insulin Aspart (Novolog) 0 unit SC [facility] PRN Reason: Protocol Last Admin: 11/29/16 22:00 Dose: Not Given Lisinopril (Zestril) 5 mg PO BID [facility] Last Admin: 11/29/16 17:59 Dose: 5 mg Oseltamivir Phosphate (Tamiflu Susp) 30 mg PO MWF [facility] Stop: 12/02/16 09:01 Last Admin: 11/28/16 14:33 Dose: 30 mg Rosuvastatin Calcium (Crestor) 10 mg PO [facility] Last Admin: 11/29/16 21:49 Dose: 10 mg - Labs Labs: 11/30/16 07:07 11/30/16 07:07 PT 13.6 SECONDS (9.7-12.2) H 11/25/16 20:01 INR 1.2 11/25/16 20:01 APTT 39 SECONDS (21-34) H 11/25/16 20:01 - Constitutional Appears: Non-toxic, No Acute Distress, Chronically Ill - Head Exam Head Exam: NORMAL INSPECTION - Eye Exam Eye Exam: Normal appearance, PERRL Pupil Exam: NORMAL ACCOMODATION - ENT Exam ENT Exam: Mucous Membranes Moist - Neck Exam Neck Exam: Normal Inspection - Respiratory Exam Respiratory Exam: Clear to Ausculation Bilateral, NORMAL BREATHING PATTERN. absent: Rales, Rhonchi, Wheezes - Cardiovascular Exam Cardiovascular Exam: REGULAR RHYTHM, +S1, +S2, Murmur (Mitral regurg). absent: Gallop, Rubs - GI/Abdominal Exam GI & Abdominal Exam: Soft, Normal Bowel Sounds. absent: Tenderness - Extremities Exam Extremities Exam: Full ROM. absent: Pedal Edema - Neurological Exam Neurological Exam: Alert, Awake, Oriented x3 - Psychiatric Exam Psychiatric exam: Normal Affect, Normal Mood - Skin Skin Exam: Dry, Intact, Warm Assessment and Plan - Assessment and Plan (Free Text) Assessment: Influenza B Infection Plan: Pt is clinically improving. Continues to be afebrile without leukocytosis. Continue on tamiflu.started on Azactam and azithromycin with developing infiltrate, check procalcitonin level CXR 11/30/16 shows air bronchogram on RLL with interval improvement in opacity. Improving clinical status without occult symptoms of bacterial pneumonia. Plan for life vest if approved by insurance and follow up for further CHF management in outpatient office and possible AICD placement in future. CHF management as per Dr. Veloz.
--- NOTE | 2016-11-30 13:07 | CP.PCM.PN ---
Addendum entered and electronically signed by Ginger Hartman DO 11/30/16 14: 38: Diarrhea f/u Stool culture f/u Stool leukocytes f/u C. diff toixin Original Note: <Ginger Hartman - Last Filed: 11/30/16 13:03> Subjective - Date & Time of Evaluation Date of Evaluation: 11/30/16 Time of Evaluation: 13:03 - Subjective Subjective: Patient seen and examined at bedside. Patient states he feels his condition is improved. He admits to cough with white sputum production. He also complains of intermittent left lower flank pain exacerbated with deep palpation. Patient denies chest pain, palpitations, shortness of breath, abdominal pain, nausea, vomiting. Patient states he is incontinent of urine. He notes two episodes of watery diarrhea prior to hemodialysis. Objective - Vital Signs/Intake and Output Vital Signs (last 24 hours): Temp Pulse Resp BP Pulse Ox 97.9 F 85 16 126/90 99 11/30/16 10:21 11/30/16 10:21 11/30/16 10:21 11/30/16 10:35 11/30/16 10:21 - Medications Medications: Current Medications Alprazolam (Xanax) 0.25 mg PO TID PRN PRN Reason: Anxiety Stop: 12/01/16 17:39 Last Admin: 11/29/16 22:19 Dose: 0.25 mg Aspirin (Aspirin Chewable) 81 mg PO DAILY [facility] Last Admin: 11/29/16 11:52 Dose: 81 mg Benzocaine/Menthol (Cepacol Sore Throat) 1 asia MT Q4H PRN PRN Reason: Sore Throat Last Admin: 11/29/16 22:28 Dose: 1 asia Calcium Acetate (Phoslo) 667 mg PO ACTID [facility] Last Admin: 11/30/16 08:54 Dose: 667 mg Carvedilol (Coreg) 12.5 mg PO BID [facility] Guaifenesin (Robitussin) 200 mg PO Q8H PRN PRN Reason: Cough and congestion Last Admin: 11/28/16 21:25 Dose: 200 mg Insulin Aspart (Novolog) 0 unit SC [facility] PRN Reason: Protocol Last Admin: 11/29/16 22:00 Dose: Not Given Lisinopril (Zestril) 5 mg PO BID [facility] Last Admin: 11/29/16 17:59 Dose: 5 mg Oseltamivir Phosphate (Tamiflu Susp) 30 mg PO MWF [facility] Stop: 12/02/16 09:01 Last Admin: 11/28/16 14:33 Dose: 30 mg Rosuvastatin Calcium (Crestor) 10 mg PO [facility] Last Admin: 11/29/16 21:49 Dose: 10 mg - Labs Labs: 11/30/16 07:07 11/30/16 07:07 PT 13.6 SECONDS (9.7-12.2) H 11/25/16 20:01 INR 1.2 11/25/16 20:01 APTT 39 SECONDS (21-34) H 11/25/16 20:01 - Constitutional Appears: Non-toxic, No Acute Distress - Head Exam Head Exam: ATRAUMATIC, NORMAL INSPECTION, NORMOCEPHALIC - Eye Exam Eye Exam: EOMI, Normal appearance, PERRL - ENT Exam ENT Exam: Mucous Membranes Moist - Neck Exam Neck Exam: Full ROM, Normal Inspection - Respiratory Exam Respiratory Exam: Rales, NORMAL BREATHING PATTERN Additional comments: mild rales to lower left lobe on auscultation - Cardiovascular Exam Cardiovascular Exam: +S1, +S2. absent: Tachycardia, Murmur - GI/Abdominal Exam GI & Abdominal Exam: Soft, Tenderness, Normal Bowel Sounds Additional comments: tenderness to palpation to right lower abdominal quadrant - Extremities Exam Extremities Exam: Full ROM. absent: Pedal Edema, Tenderness - Back Exam Back Exam: NORMAL INSPECTION - Neurological Exam Neurological Exam: Alert, Awake, Oriented x3 - Psychiatric Exam Psychiatric exam: Normal Affect, Normal Mood - Skin Skin Exam: Intact, Normal Color, Warm Assessment and Plan - Assessment and Plan (Free Text) Assessment: Influenza Type B -Swab for influenza B positive -Continue Tamiflu on dialysis days and supportive care. -Droplet precautions discontinued Muscle weakness, acute 11/29: improved, patient seen ambulating in room today. -CT head negative -Stop home med Levaquin 500mg PO daily -> pt may be having a reaction. -CPK 174 H -> 134 N Pneumonia, acute 11/30: Repeat CXR: Right lower love airspace disease with air bronchogram. There is discoid atelctasis/scarring in left mid lung. There is mild pulmonary venous congestion and fluid in the minor fissure. Severe cardiomegaly seen. Athersclerotic aortic arch calcifications are present. 11/29: Avelox discontinued due to risk of QT prolongation as patient had runs of non-sustained ventricular tachycardia on telemetry. Per field insurance sales manager, Dr. Reynolds , patient does not need to be continued on antibiotics for pneumonia. 11/26-11/27: pleural fluid results: +WBC, no growth x2d; Blood culture negative x2d 11/25: Dr. Reynolds consulted. recommended IR for thoracentesis - 800cc of straw colored fluid drawn. -Patient recently in ED 11/20 for Bronchitis - CT chest- b/l pleural effusions, lower lung consolidation, pericardial effusion (20mm), ascites of abdomen. see full report. -Stop home med Levaquin 500mg PO daily -> pt may be having a reaction. -Start Azithromycin 500mg IVPB Q24H -ProBNP 394,000 Acute on chronic Diastolic CHF 11/30: Per Dr. Veloz, [employer] was contacted and forms faxes. Awaiting insurance approval. Coreg increased to 12.5 mg po BID. Discontinued lasix as patient incontinent of urine. Continue Lisinopril 5 mg po BID, Aspirin 81 mg po daily, and Crestor 10 mg po HS. 11/29: Per Dr. Veloz, patient was offered an ICD, but wishes to wear a life vest for 3-4 months and will consent to an ICD if ejection fraction does not improve. Dr. Veloz will call life vest car sales representative so patient is fitted for a vest during hospitalization. Patient given Lasix 20 mg IVP stat Started patient on Lasix 20 mg po BID Lisinpril increased to 5 mg po BID. Continue Carvedilol, Aspirin and Crestor. CXR: Left pleural effusion noted. Vascular congestion noted. Will follow-up official report. 11/28: Patient evaluated by Dr. Veloz. He notes chronic LV dysfunction that possibly was exacerbated by acute H. flu. He also notes severely abnormal diastolic filling, type III. Patient to have AICD placed. Patient to be continued on Carvedilol 6.25 mg po BID, ASA 81 mg po daily, Lisinopril 5 mg po daily, Crestor 10 mg po HS. 11/27: Cardiology Dr. Veloz consulted (pts home sack lifter). Dr. Pierce (cardio ) is considering EP consult for life vest. -2 runs of Vtach today at 2pm and 4pm. Dr. Pierce notified. Patient stable, no chest pain, no acute distress. 11/26: Echo - EF 15%, Diastolic dysfunction, L/R atrium mod dilated, mod/severe MR , mild TR, PA dilated, IVC dilated. 11/25: Dr. Pierce does not recommend draining pericardial effusion as it is mild and risks outweight benefits. Recs-> Add ACEI or ARBs to the regimen; Can add Lasix may benefit by decreasing the pre load - CT chest- b/l pleural effusions, lower lung consolidation, pericardial effusion (20mm), ascites of abdomen. see full report. - Pulm/Crit Care consult - Dr. Reynolds -> for possible thoracentesis. Will evaluate patient in am. - Cardiology consult, Dr. Pierce, f/u recs - EKG: Normal sinus rhythm; Left axis deviation;Anterior infarct, age undetermined; No QT prolongation. - f/u repeat EKG on 46 pm (not performed) - monitor for QT prolongation Pleural Effusion, acute -s/p Thoracentesis on 11/25/16 -Pleural fluid sent for cytology, protein and LDH - pending results -Pleural fluid cx negative Pericardial Effusion, acute 11/28: Per Dr. Veloz, dialysis is best treatment for small pericardial effusion. 11/26: Echo - EF 15%, Diastolic dysfunction, L/R atrium mod dilated, mod/severe MR , mild TR, PA dilated, IVC dilated. 11/25: Dr. Pierce does not recommend draining pericardial effusion as it is mild and risks outweight benefits. Recs-> Add ACEI or ARBs to the regimen; Can add Lasix may benefit by decreasing the pre load - CT chest- b/l pleural effusions, lower lung consolidation, pericardial effusion (20mm), ascites of abdomen. see full report. - Cardiology consult, Dr. Pierce, f/u recs - EKG: Normal sinus rhythm; Left axis deviation;Anterior infarct, age undetermined; No QT prolongation. - f/u repeat EKG on 4/6 pm (not performed) - monitor for QT prolongation ESRD on HD, chronic 11/30: BUN/Creatinine 68/9.6 Hemodialysis today. UF 2200ml with HD 11/28 -Maintain potassium >4.0 as patient was having runs of V tach -HD schedule MWF -Consult Nephrology, Dr. Joyce, f/u recs -awaiting kidney transplant. -Phoslo 667 mg PO ACTID [facility] Pancytopenia 11/30: pancytopenia improving 11/29: WBC 4.0, hemoglobin 10.5, hematocrit 33.1, platelets 113. Could be secondary to Avelox. HTN, chronic 11/29: normotensive Coreg 12.5 mg PO BID Lisinopril 5 mg po BID Diabetes, chronic Blood sugar 91 Continue on Novolog ACHS - ISS Hx of Anxiety Xanax 0.25 mg PO TID PRN -pt only uses Xanax 0.5mg 1-2x per week. Hx of Hyperthyroidism untreated monitor TSH/free T4 - WNL Prophylaxis SCDs PT/OT Dispo Patient to be discharged to [facility]. <Xochitl Mirza V - Last Filed: 12/01/16 15:58> Objective - Vital Signs/Intake and Output Vital Signs (last 24 hours): Temp Pulse Resp BP Pulse Ox 98.1 F 88 20 135/78 99 12/01/16 08:00 12/01/16 09:02 12/01/16 08:00 12/01/16 09:46 12/01/16 08:00 Intake and Output: 12/01/16 12/01/16 06:59 18:59 Intake Total 50 Balance 50 - Medications Medications: Current Medications Alprazolam (Xanax) 0.25 mg PO TID PRN PRN Reason: Anxiety Stop: 12/01/16 17:39 Last Admin: 12/01/16 03:19 Dose: 0.25 mg Aspirin (Aspirin Chewable) 81 mg PO DAILY [facility] Last Admin: 12/01/16 09:45 Dose: 81 mg Benzocaine/Menthol (Cepacol Sore Throat) 1 asia MT Q4H PRN PRN Reason: Sore Throat Last Admin: 11/30/16 17:48 Dose: 1 asia Calcium Acetate (Phoslo) 667 mg PO ACTID [facility] Last Admin: 12/01/16 13:10 Dose: 667 mg Carvedilol (Coreg) 12.5 mg PO BID [facility] Last Admin: 12/01/16 09:46 Dose: 12.5 mg Guaifenesin/Dextromethorphan (Robitussin Dm) 5 ml PO Q4H PRN PRN Reason: Cough Last Admin: 11/30/16 19:38 Dose: 5 ml Hydrocortisone (Anusol-Hc) 2.5 gm AL BID [facility] Aztreonam 1 gm/ Sodium (Chloride) 100 mls @ 200 mls/hr IVPB Q8H [facility] Last Admin: 12/01/16 08:41 Dose: 200 mls/hr Azithromycin 500 mg/ Sodium (Chloride) 250 mls @ 167 mls/hr IVPB Q24H [facility] Last Admin: 11/30/16 18:10 Dose: 167 mls/hr Insulin Aspart (Novolog) 0 unit SC [facility] PRN Reason: Protocol Last Admin: 12/01/16 13:11 Dose: Not Given Lisinopril (Zestril) 5 mg PO BID [facility] Last Admin: 12/01/16 09:44 Dose: 5 mg Loperamide HCl (Imodium) 2 mg PO QID PRN PRN Reason: Diarrhea Ondansetron HCl (Zofran Inj) 4 mg IVP Q6 PRN PRN Reason: Nausea/Vomiting Last Admin: 12/01/16 13:07 Dose: 4 mg Oseltamivir Phosphate (Tamiflu Susp) 30 mg PO MWF [facility] Stop: 12/02/16 09:01 Last Admin: 11/30/16 15:41 Dose: Not Given Rosuvastatin Calcium (Crestor) 10 mg PO [facility] Last Admin: 11/30/16 21:07 Dose: 10 mg Saccharomyces Boulardii (Florastor) 250 mg PO BID [facility] - Labs Labs: 12/01/16 07:22 12/01/16 07:22 PT 13.6 SECONDS (9.7-12.2) H 11/25/16 20:01 INR 1.2 11/25/16 20:01 APTT 39 SECONDS (21-34) H 11/25/16 20:01 Attending/Attestation - Attestation I have personally seen and examined this patient.: Yes I have fully participated in the care of the patient.: Yes I have reviewed all pertinent clinical information, including history, physical exam and plan: Yes Notes (Text): This is late computer entry for 11/30/16. Patient seen, examined, and case discussed with day-time resident. Patient seen in dialysis today. Reporting flank pain. Patient seen by cardiology this morning. [employer] contacted; patient to be fitted for Lifevest today. Patient's coreg adjusted today by cardiology Discontinue droplet precautions. Patient receiving 3rd dose of Tamiflu today. Patient reports diarrhea; order for stool studies. Patient started on IV abx given chest xray result of developing pneumonia in light of flu considered high risk, and produce a severe pneumonia, follow-up procalcitonin. Follow-up with cardiology, pulmonary, nephrology for further recommendations. Assessment/Plan Acute on Chronic Systolic CHF exacerbation * Private sack lifter (Dr. Veloz): on the case help appreciated-->for lifevest * Aspirin 81mg PO daily * Coreg 12.5mg PO bid * Lisinopril 5mg PO daily * Crestor 10mg POqHS * Echo (11/24/16) - EF 15%, Diastolic dysfunction, L/R atrium mod dilated, mod/ severe MR, mild TR, PA dilated, IVC dilated * Patient has dialysis on // Influenza Type B * Discontinued Droplet precaution 11/30/16 (received 3 doses of Tamiflu) * Tamiflu 30mg PO MWF (active since 11/25/16) Pneumonia * 11/24/16 CT Chest: bilateral pleural effusion greater on the right, bilateral lower lung consolidations greater on the right, pericardial effusion, complex septated air collection to the right of trace and esophagua, small asictes, hypotrophic kidneys incompletely imaged as discussed above * 11/25/16: No pneumothroax status post right thoracentesis. small bilateral pleural effusion. bilateral linear atelectasis * Chest xray (11/30/16): interval improved aeration in both lungs with improvement in congestive heart failure; right lower love airspace disease with airbroncogram could represent developing pneumonia. Follow-up after medical management is recommended to ensure complete resolution * Pulmonary (Dr. Reynolds) on board-->help appreciated * IR (11/25/16): ultrasound guided right thoracentesis; 800 cc straw colored fluid removed * Pleural growth: no growth * Started on Aztreonam 1gram Iv Q8 hours and Azithromycin 500mg IV q daily ( active 11/30/16) to cover for hospital acquired pneumonia in light of influenza, ordered for procalcitonin Pericardial effusion * Echocardiogram (11/26/16): LV ventricle is mildy dilated. ejection fraction is severely imparied. EF: 15%, Grade IV dixed restrictive diastolic dysfunction. glpbal hypokinesis of the left ventricle left atrium moderately dilated. right atrium is moderate dilated. mitral regurgitation is moderate to severe. mild tricupsid regurgitation PAP: 45-50mmHG, PA is dilated, IVC dilated with no collapse with inspiration. RAP of 20 or greater. Multiple large loculated pericardial effusions both anterior and posteriolroy no evidence of systolic atrial collapse * Per cardiology note: dialysis best option for small pericardial effusion ESRD * Nephrology (Dr. Joyce) * Patient is Monday/Monday/Monday dialysis * patient is awaiting renal transplant Hypertension * Coreg 12.5 mg PO BID [facility] * Crestor 10 mg PO HS [facility] * Lisinopril 5 mg PO daily Diabetes, chronic * Novolog insulin sliding scale subq * [id number]: 6.5 Hx of Anxiety * Xanax 0.25 mg PO TID PRN Hx of Hyperthyroidism * prior history per H&P * thyroid studies within normal range Non-sustained VT * d/c Avelox today; monitor * started Aztreonam 1gram Iv Q8 hours and Azithromycin 500mg IV q daily; monitor Prophylaxis * SCDs * PT/OT eval * Subacute rehab eval
--- NOTE | 2016-11-30 14:19 | CP.PCM.PN ---
Subjective - Date & Time of Evaluation Date of Evaluation: 11/30/16 Time of Evaluation: 14:16 - Subjective Subjective: Stable dialysis now- UF 2200ml CXR with less CHF BP stable- carvedilol increased by cardio 1 episode diarrhea No other complaints- has been feeling better overall Objective - Vital Signs/Intake and Output Vital Signs (last 24 hours): Temp Pulse Resp BP Pulse Ox 97.9 F 85 16 136/88 99 11/30/16 10:21 11/30/16 10:21 11/30/16 10:21 11/30/16 13:00 11/30/16 10:21 - Medications Medications: Current Medications Alprazolam (Xanax) 0.25 mg PO TID PRN PRN Reason: Anxiety Stop: 12/01/16 17:39 Last Admin: 11/29/16 22:19 Dose: 0.25 mg Aspirin (Aspirin Chewable) 81 mg PO DAILY [facility] Last Admin: 11/29/16 11:52 Dose: 81 mg Benzocaine/Menthol (Cepacol Sore Throat) 1 asia MT Q4H PRN PRN Reason: Sore Throat Last Admin: 11/29/16 22:28 Dose: 1 asia Calcium Acetate (Phoslo) 667 mg PO ACTID [facility] Last Admin: 11/30/16 13:58 Dose: 667 mg Carvedilol (Coreg) 12.5 mg PO BID [facility] Guaifenesin (Robitussin) 200 mg PO Q8H PRN PRN Reason: Cough and congestion Last Admin: 11/28/16 21:25 Dose: 200 mg Insulin Aspart (Novolog) 0 unit SC [facility] PRN Reason: Protocol Last Admin: 11/29/16 22:00 Dose: Not Given Lisinopril (Zestril) 5 mg PO BID [facility] Last Admin: 11/29/16 17:59 Dose: 5 mg Oseltamivir Phosphate (Tamiflu Susp) 30 mg PO MWF [facility] Stop: 12/02/16 09:01 Last Admin: 11/28/16 14:33 Dose: 30 mg Rosuvastatin Calcium (Crestor) 10 mg PO [facility] Last Admin: 11/29/16 21:49 Dose: 10 mg - Labs Labs: 11/30/16 07:07 11/30/16 07:07 PT 13.6 SECONDS (9.7-12.2) H 11/25/16 20:01 INR 1.2 11/25/16 20:01 APTT 39 SECONDS (21-34) H 11/25/16 20:01 - Constitutional Appears: No Acute Distress, Chronically Ill - Head Exam Head Exam: ATRAUMATIC, NORMAL INSPECTION - Eye Exam Eye Exam: EOMI, Normal appearance - Neck Exam Neck Exam: Normal Inspection. absent: Tenderness - Respiratory Exam Respiratory Exam: Clear to Ausculation Bilateral, NORMAL BREATHING PATTERN - Cardiovascular Exam Cardiovascular Exam: REGULAR RHYTHM, +S1 - GI/Abdominal Exam GI & Abdominal Exam: Soft. absent: Tenderness - Extremities Exam Extremities Exam: Normal Inspection. absent: Tenderness - Neurological Exam Neurological Exam: Alert, CN II-XII Intact - Skin Skin Exam: Dry, Warm Assessment and Plan (1) ESRD (end stage renal disease) on dialysis Status: Acute (2) HTN (hypertension) Status: Acute (3) Influenza Status: Acute (4) Pneumonia and influenza Status: Acute - Assessment and Plan (Free Text) Plan: BP meds as per cardio f/u cardio recs Dialysis MWF- same UF rate check c.diff
[2016-11-30] MEDS: (Novolog) Insulin Aspart, Recombinant 100 u/ml 10 ml vial SC SCH ×4 (15:40→21:09)
[2016-11-30] MEDS: Oseltamivir 6 MG/ML PO SCH (15:41)
[2016-11-30] MEDS: Aztreonam 1 GM in Sodium Chloride 0.9% 100 ML IVPB SCH ×2 (16:41→23:54)
[2016-11-30] MEDS: Benzocaine/Menthol (Cepacol) Lozenge MT PRN (17:48)
[2016-11-30] MEDS ORDERED: guaiFENesin DM 100 mg-10 mg/5 ml UD PO PRN (18:00)
[2016-11-30] MEDS: Azithromycin 500 MG in Sodium Chloride 0.9% 250 ML IVPB SCH (18:10)
[2016-12-01 07:41] LABS: BASO % 0.5 % (0.0-2.0); EOS # 0.1 K/uL (0.0-0.7); EOS % 3.4 % (0.0-4.0); LYMPH # 0.8 K/uL (1.0-4.3); LYMPH % 21.2 % (20.0-40.0); MEAN CELL VOLUME 84.7 fL (80.0-94.0); MEAN CORPUSCULAR HEMOGLOBIN 26.3 pg (27.0-31.0); MEAN CORPUSCULAR HGB CONC 31.1 g/dL (33.0-37.0); MEAN PLATELET VOLUME 8.9 fL (7.2-11.7); MONO # 0.5 K/uL (0.0-0.8); MONO % 13.2 % (0.0-10.0); NRBC % 0.1 % (0.0-2.0); RED CELL DISTRIBUTION WIDTH 18.4 % (11.5-14.5); WHITE BLOOD COUNT 3.9 K/uL (4.8-10.8)
[2016-12-01] MEDS: (Novolog) Insulin Aspart, Recombinant 100 u/ml 10 ml vial SC SCH ×4 (08:00→21:40)
[2016-12-01 08:03] LABS: ALB/GLOB RATIO 0.8 (1.0-2.1); TOTAL PROTEIN 6.1 g/dL (6.3-8.3)
[2016-12-01 08:04] LABS: CALCIUM 8.1 mg/dl (8.6-10.4); MAGNESIUM 2.1 mg/dL (1.6-2.3)
[2016-12-01] MEDS: Aztreonam 1 GM in Sodium Chloride 0.9% 100 ML IVPB SCH ×3 (08:41→23:30)
--- NOTE | 2016-12-01 11:07 | CP.PCM.PN ---
Subjective - Date & Time of Evaluation Date of Evaluation: 12/01/16 Time of Evaluation: 11:04 - Subjective Subjective: Alert; depressed but feels better Still with diarrhea- c.diff pending No dyspnea, N, V, fevers, chills, CPs Stable dialysis course BP controlled Objective - Vital Signs/Intake and Output Vital Signs (last 24 hours): Temp Pulse Resp BP Pulse Ox 98.1 F 88 20 135/78 99 12/01/16 08:00 12/01/16 09:02 12/01/16 08:00 12/01/16 09:46 12/01/16 08:00 Intake and Output: 12/01/16 12/01/16 06:59 18:59 Intake Total 50 Balance 50 - Medications Medications: Current Medications Alprazolam (Xanax) 0.25 mg PO TID PRN PRN Reason: Anxiety Stop: 12/01/16 17:39 Last Admin: 12/01/16 03:19 Dose: 0.25 mg Aspirin (Aspirin Chewable) 81 mg PO DAILY [facility] Last Admin: 12/01/16 09:45 Dose: 81 mg Benzocaine/Menthol (Cepacol Sore Throat) 1 asia MT Q4H PRN PRN Reason: Sore Throat Last Admin: 11/30/16 17:48 Dose: 1 asia Calcium Acetate (Phoslo) 667 mg PO ACTID [facility] Last Admin: 12/01/16 08:41 Dose: 667 mg Carvedilol (Coreg) 12.5 mg PO BID [facility] Last Admin: 12/01/16 09:46 Dose: 12.5 mg Guaifenesin/Dextromethorphan (Robitussin Dm) 5 ml PO Q4H PRN PRN Reason: Cough Last Admin: 11/30/16 19:38 Dose: 5 ml Hydrocortisone (Anusol-Hc) 2.5 gm LA BID [facility] Aztreonam 1 gm/ Sodium (Chloride) 100 mls @ 200 mls/hr IVPB Q8H [facility] Last Admin: 12/01/16 08:41 Dose: 200 mls/hr Azithromycin 500 mg/ Sodium (Chloride) 250 mls @ 167 mls/hr IVPB Q24H [facility] Last Admin: 11/30/16 18:10 Dose: 167 mls/hr Insulin Aspart (Novolog) 0 unit SC ACHS [facility] PRN Reason: Protocol Last Admin: 12/01/16 08:00 Dose: Not Given Lisinopril (Zestril) 5 mg PO BID [facility] Last Admin: 12/01/16 09:44 Dose: 5 mg Oseltamivir Phosphate (Tamiflu Susp) 30 mg PO MWF [facility] Stop: 12/02/16 09:01 Last Admin: 11/30/16 15:41 Dose: Not Given Rosuvastatin Calcium (Crestor) 10 mg PO HS [facility] Last Admin: 11/30/16 21:07 Dose: 10 mg Saccharomyces Boulardii (Florastor) 250 mg PO BID [facility] - Labs Labs: 12/01/16 07:22 12/01/16 07:22 PT 13.6 SECONDS (9.7-12.2) H 11/25/16 20:01 INR 1.2 11/25/16 20:01 APTT 39 SECONDS (21-34) H 11/25/16 20:01 - Constitutional Appears: No Acute Distress, Chronically Ill - Head Exam Head Exam: ATRAUMATIC, NORMAL INSPECTION - Eye Exam Eye Exam: EOMI, Normal appearance - Neck Exam Neck Exam: Normal Inspection. absent: Tenderness - Respiratory Exam Respiratory Exam: Clear to Ausculation Bilateral, NORMAL BREATHING PATTERN - Cardiovascular Exam Cardiovascular Exam: REGULAR RHYTHM, +S1 - GI/Abdominal Exam GI & Abdominal Exam: Soft. absent: Tenderness - Extremities Exam Extremities Exam: Normal Inspection. absent: Tenderness - Neurological Exam Neurological Exam: Alert, CN II-XII Intact - Skin Skin Exam: Dry, Warm Assessment and Plan (1) ESRD (end stage renal disease) on dialysis Status: Acute (2) HTN (hypertension) Status: Acute (3) Influenza Status: Acute (4) Pneumonia and influenza Status: Acute - Assessment and Plan (Free Text) Plan: Same ABs Check c.diff Dialysis in AM Cardiology follow up- continue SOPHIE I, carvedilol Eventual repeat EF
--- NOTE | 2016-12-01 12:02 | CP.PCM.PN ---
<SebastienchristineGinger - Last Filed: 12/01/16 11:51> Subjective - Date & Time of Evaluation Date of Evaluation: 12/01/16 Time of Evaluation: 11:51 - Subjective Subjective: Patient seen and examined at bedside. No acute events over-night per nursing. Patient was fitted for a life vest yesterday with [employer] and will be receiving it today. Patient continues to complain of daily diarrhea and notes 3 episodes today. He denies fever, chills, chest pain, palpitations, abdominal pain, nausea , vomiting, and flank pain. Patient states he wants to ambulate today and has no difficulty ambulating in room. Droplet precautions were discontinued. Objective - Vital Signs/Intake and Output Vital Signs (last 24 hours): Temp Pulse Resp BP Pulse Ox 98.1 F 88 20 135/78 99 12/01/16 08:00 12/01/16 09:02 12/01/16 08:00 12/01/16 09:46 12/01/16 08:00 Intake and Output: 12/01/16 12/01/16 06:59 18:59 Intake Total 50 Balance 50 - Medications Medications: Current Medications Alprazolam (Xanax) 0.25 mg PO TID PRN PRN Reason: Anxiety Stop: 12/01/16 17:39 Last Admin: 12/01/16 03:19 Dose: 0.25 mg Aspirin (Aspirin Chewable) 81 mg PO DAILY [facility] Last Admin: 12/01/16 09:45 Dose: 81 mg Benzocaine/Menthol (Cepacol Sore Throat) 1 asia MT Q4H PRN PRN Reason: Sore Throat Last Admin: 11/30/16 17:48 Dose: 1 asia Calcium Acetate (Phoslo) 667 mg PO ACTID [facility] Last Admin: 12/01/16 08:41 Dose: 667 mg Carvedilol (Coreg) 12.5 mg PO BID [facility] Last Admin: 12/01/16 09:46 Dose: 12.5 mg Guaifenesin/Dextromethorphan (Robitussin Dm) 5 ml PO Q4H PRN PRN Reason: Cough Last Admin: 11/30/16 19:38 Dose: 5 ml Hydrocortisone (Anusol-Hc) 2.5 gm IN BID [facility] Aztreonam 1 gm/ Sodium (Chloride) 100 mls @ 200 mls/hr IVPB Q8H [facility] Last Admin: 12/01/16 08:41 Dose: 200 mls/hr Azithromycin 500 mg/ Sodium (Chloride) 250 mls @ 167 mls/hr IVPB Q24H [facility] Last Admin: 11/30/16 18:10 Dose: 167 mls/hr Insulin Aspart (Novolog) 0 unit SC ACHS [facility] PRN Reason: Protocol Last Admin: 12/01/16 08:00 Dose: Not Given Lisinopril (Zestril) 5 mg PO BID [facility] Last Admin: 12/01/16 09:44 Dose: 5 mg Oseltamivir Phosphate (Tamiflu Susp) 30 mg PO [facility] Stop: 12/02/16 09:01 Last Admin: 11/30/16 15:41 Dose: Not Given Rosuvastatin Calcium (Crestor) 10 mg PO [facility] Last Admin: 11/30/16 21:07 Dose: 10 mg Saccharomyces Boulardii (Florastor) 250 mg PO BID [facility] - Labs Labs: 12/01/16 07:22 12/01/16 07:22 PT 13.6 SECONDS (9.7-12.2) H 11/25/16 20:01 INR 1.2 11/25/16 20:01 APTT 39 SECONDS (21-34) H 11/25/16 20:01 - Constitutional Appears: Non-toxic, No Acute Distress - Head Exam Head Exam: ATRAUMATIC, NORMAL INSPECTION, NORMOCEPHALIC - Eye Exam Eye Exam: EOMI, Normal appearance, PERRL - ENT Exam ENT Exam: Mucous Membranes Moist, Normal Exam - Neck Exam Neck Exam: Full ROM, Normal Inspection - Respiratory Exam Respiratory Exam: Clear to Ausculation Bilateral, NORMAL BREATHING PATTERN. absent: Rales, Rhonchi, Wheezes - Cardiovascular Exam Cardiovascular Exam: +S1, +S2. absent: Tachycardia, Murmur - GI/Abdominal Exam GI & Abdominal Exam: Soft, Normal Bowel Sounds. absent: Distended, Firm, Tenderness - Extremities Exam Extremities Exam: Normal Inspection. absent: Pedal Edema, Tenderness - Neurological Exam Neurological Exam: Alert, Awake, Oriented x3 - Psychiatric Exam Psychiatric exam: Normal Affect, Normal Mood - Skin Skin Exam: Intact, Normal Color, Warm Assessment and Plan - Assessment and Plan (Free Text) Assessment: Influenza Type B -Swab for influenza B positive -Continue Tamiflu on dialysis days and supportive care. -Droplet precautions discontinued Muscle weakness, acute 12/01: Patient to ambulate hospital halls today under supervision 11/29: improved, patient seen ambulating in room today. -CT head negative -Stop home med Levaquin 500mg PO daily -> pt may be having a reaction. -CPK 174 H -> 134 N Hospital Acquired Pneumonia, acute 12/01: Procalcitonin resulted elevated (1.63). Patient being treated for bacterial hospital acquired pneumonia. Per heddle machine operator, Dr. Reynolds, started on Azithromycin 500 mg IVPB q24h and Aztreonam 1 gm IVPB q8h (11/30/16). 11/30: Repeat CXR: Right lower love airspace disease with air bronchogram. There is discoid atelctasis/scarring in left mid lung. There is mild pulmonary venous congestion and fluid in the minor fissure. Severe cardiomegaly seen. Athersclerotic aortic arch calcifications are present. 11/29: Avelox discontinued due to risk of QT prolongation as patient had runs of non-sustained ventricular tachycardia on telemetry. Per heddle machine operator, Dr. Reynolds , patient does not need to be continued on antibiotics for pneumonia. 11/26-11/27: pleural fluid results: +WBC, no growth x2d; Blood culture negative x2d 11/25: Dr. Reynolds consulted. recommended IR for thoracentesis - 800cc of straw colored fluid drawn. -Patient recently in ED 11/20 for Bronchitis - CT chest- b/l pleural effusions, lower lung consolidation, pericardial effusion (20mm), ascites of abdomen. see full report. -Stop home med Levaquin 500mg PO daily -> pt may be having a reaction. -Start Azithromycin 500mg IVPB Q24H -ProBNP 394,000 Acute on chronic Diastolic CHF 12/01: Patient fitted for life vest yesterday. Will receive life vest today and [employer] to provide more information to patient. 11/30: Per Dr. Veloz, [employer] was contacted and forms faxes. Awaiting insurance approval. Coreg increased to 12.5 mg po BID. Discontinued lasix as patient incontinent of urine. Continue Lisinopril 5 mg po BID, Aspirin 81 mg po daily, and Crestor 10 mg po HS. 11/29: Per Dr. Veloz, patient was offered an ICD, but wishes to wear a life vest for 3-4 months and will consent to an ICD if ejection fraction does not improve. Dr. Veloz will call life vest sales and merchandising representative so patient is fitted for a vest during hospitalization. Patient given Lasix 20 mg IVP stat Started patient on Lasix 20 mg po BID Lisinpril increased to 5 mg po BID. Continue Carvedilol, Aspirin and Crestor. CXR: Left pleural effusion noted. Vascular congestion noted. Will follow-up official report. 11/28: Patient evaluated by Dr. Veloz. He notes chronic LV dysfunction that possibly was exacerbated by acute H. flu. He also notes severely abnormal diastolic filling, type III. Patient to have AICD placed. Patient to be continued on Carvedilol 6.25 mg po BID, ASA 81 mg po daily, Lisinopril 5 mg po daily, Crestor 10 mg po HS. 11/27: Cardiology Dr. 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 Dr. Pierce (cardio ) is considering EP consult for life vest. -2 runs of Vtach today at 2pm and 4pm. Dr. Pierce notified. Patient stable, no chest pain, no acute distress. 11/26: Echo - EF 15%, Diastolic dysfunction, L/R atrium mod dilated, mod/severe MR , mild TR, PA dilated, IVC dilated. 11/25: Dr. Pierce does not recommend draining pericardial effusion as it is mild and risks outweight benefits. Recs-> Add ACEI or ARBs to the regimen; Can add Lasix may benefit by decreasing the pre load - CT chest- b/l pleural effusions, lower lung consolidation, pericardial effusion (20mm), ascites of abdomen. see full report. - Pulm/Crit Care consult - Dr. Reynolds -> for possible thoracentesis. Will evaluate patient in am. - Cardiology consult, Dr. Pierce, f/u recs - EKG: Normal sinus rhythm; Left axis deviation;Anterior infarct, age undetermined; No QT prolongation. - f/u repeat EKG on 4/6 pm (not performed) - monitor for QT prolongation Diarrhea, Acute -Pt complaining of daily episodes of diarrhea -C.diff toxin resulted negative -Will follow-up stool studies stool culture, fecal leukocytes, Clostridium Pleural Effusion, acute -s/p Thoracentesis on 11/25/16 -Pleural fluid sent for cytology, protein and LDH - pending results -Pleural fluid cx negative Pericardial Effusion, acute 11/28: Per Dr. Veloz, dialysis is best treatment for small pericardial effusion. 11/26: Echo - EF 15%, Diastolic dysfunction, L/R atrium mod dilated, mod/severe MR , mild TR, PA dilated, IVC dilated. 11/25: Dr. Pierce does not recommend draining pericardial effusion as it is mild and risks outweight benefits. Recs-> Add ACEI or ARBs to the regimen; Can add Lasix may benefit by decreasing the pre load - CT chest- b/l pleural effusions, lower lung consolidation, pericardial effusion (20mm), ascites of abdomen. see full report. - Cardiology consult, Dr. Pierce, f/u recs - EKG: Normal sinus rhythm; Left axis deviation;Anterior infarct, age undetermined; No QT prolongation. - f/u repeat EKG on 11/24 pm (not performed) - monitor for QT prolongation ESRD on HD, chronic 12/01: BUN/Creatinine 46/7.7 Pt tolerated Hemodialysis well yesterday UF 2200ml with HD 11/28 -Maintain potassium >4.0 as patient was having runs of V tach -HD schedule MWF -Consult Nephrology, Dr. Joyce, f/u recs -awaiting kidney transplant. -Phoslo 667 mg PO ACTID [facility] Pancytopenia 11/30: pancytopenia improving 11/29: WBC 4.0, hemoglobin 10.5, hematocrit 33.1, platelets 113. Could be secondary to Avelox. HTN, chronic 11/29: normotensive Coreg 12.5 mg PO BID Lisinopril 5 mg po BID Diabetes, chronic Blood sugar 72 Continue on Novolog ACHS - ISS Hx of Anxiety Xanax 0.25 mg PO TID PRN -pt only uses Xanax 0.5mg 1-2x per week. Hx of Hyperthyroidism untreated monitor TSH/free T4 - WNL Prophylaxis SCDs PT/OT Dispo Patient to be discharged to [facility]. <Xochitl Mirza V - Last Filed: 12/01/16 15:45> Objective - Vital Signs/Intake and Output Vital Signs (last 24 hours): Temp Pulse Resp BP Pulse Ox 98.1 F 88 20 135/78 99 12/01/16 08:00 12/01/16 09:02 12/01/16 08:00 12/01/16 09:46 12/01/16 08:00 Intake and Output: 12/01/16 12/01/16 06:59 18:59 Intake Total 50 Balance 50 - Medications Medications: Current Medications Alprazolam (Xanax) 0.25 mg PO TID PRN PRN Reason: Anxiety Stop: 12/01/16 17:39 Last Admin: 12/01/16 03:19 Dose: 0.25 mg Aspirin (Aspirin Chewable) 81 mg PO DAILY [facility] [place] Last Admin: 12/01/16 09:45 Dose: 81 mg Benzocaine/Menthol (Cepacol Sore Throat) 1 asia MT Q4H PRN PRN Reason: Sore Throat Last Admin: 11/30/16 17:48 Dose: 1 asia Calcium Acetate (Phoslo) 667 mg PO ACTID [facility] Last Admin: 12/01/16 13:10 Dose: 667 mg Carvedilol (Coreg) 12.5 mg PO BID [facility] Last Admin: 12/01/16 09:46 Dose: 12.5 mg Guaifenesin/Dextromethorphan (Robitussin Dm) 5 ml PO Q4H PRN PRN Reason: Cough Last Admin: 11/30/16 19:38 Dose: 5 ml Hydrocortisone (Anusol-Hc) 2.5 gm IN BID [facility] [place] Aztreonam 1 gm/ Sodium (Chloride) 100 mls @ 200 mls/hr IVPB Q8H [facility] [place] Last Admin: 12/01/16 08:41 Dose: 200 mls/hr Azithromycin 500 mg/ Sodium (Chloride) 250 mls @ 167 mls/hr IVPB Q24H [facility] [place] Last Admin: 11/30/16 18:10 Dose: 167 mls/hr Insulin Aspart (Novolog) 0 unit SC ACHS [facility] PRN Reason: Protocol Last Admin: 12/01/16 13:11 Dose: Not Given Lisinopril (Zestril) 5 mg PO BID [facility] Last Admin: 12/01/16 09:44 Dose: 5 mg Loperamide HCl (Imodium) 2 mg PO QID PRN PRN Reason: Diarrhea Ondansetron HCl (Zofran Inj) 4 mg IVP Q6 PRN PRN Reason: Nausea/Vomiting Last Admin: 12/01/16 13:07 Dose: 4 mg Oseltamivir Phosphate (Tamiflu Susp) 30 mg PO MWF [facility] [place] Stop: 12/02/16 09:01 Last Admin: 11/30/16 15:41 Dose: Not Given Rosuvastatin Calcium (Crestor) 10 mg PO HS [facility] [place] Last Admin: 11/30/16 21:07 Dose: 10 mg Saccharomyces Boulardii (Florastor) 250 mg PO BID [facility] - Labs Labs: 12/01/16 07:22 12/01/16 07:22 PT 13.6 SECONDS (9.7-12.2) H 11/25/16 20:01 INR 1.2 11/25/16 20:01 APTT 39 SECONDS (21-34) H 11/25/16 20:01 Attending/Attestation - Attestation I have personally seen and examined this patient.: Yes I have fully participated in the care of the patient.: Yes I have reviewed all pertinent clinical information, including history, physical exam and plan: Yes Notes (Text): Patient seen, examined and case discussed with day-time resident. Patient resumed on IV antibiotics for hospital acquired pneumonia, elevated procalcitonin came back yesterday, discussed personally with pulmonary, patient has severe pneumonia, in light of procalcitonin (marker for high probability for bacterial source correlated for sepsis), leukopenic, and in renal dialysis, and needs further monitoring, on IV antibiotics before he considered for discharge. Patient had previous non-sustained V-tach while getting Azithromycin initially at the beginning of the week, but in light of procalcitonin, likely hospital acquired pneumonia. Patient reports diarrhea today, about 3 episodes today. C. Dif negative. Pending other stool studies. Patient was visited by [employer] sales and merchandising representative yesterday and hopefully receive [employer] soon. Assessment/Plan Acute on Chronic Systolic CHF exacerbation * Private self storage manager (Dr. Veloz): on the case help appreciated-->for [employer] * Aspirin 81mg PO daily * Coreg 12.5mg PO bid * Lisinopril 5mg PO daily * Crestor 10mg POqHS * Echo (11/24/16) - EF 15%, Diastolic dysfunction, L/R atrium mod dilated, mod/ severe MR, mild TR, PA dilated, IVC dilated * Patient has dialysis on // Influenza Type B * Discontinued Droplet precaution 11/30/16 (received 3 doses of Tamiflu) * Tamiflu 30mg PO MWF (active since 11/25/16) Pneumonia * 11/24/16 CT Chest: bilateral pleural effusion greater on the right, bilateral lower lung consolidations greater on the right, pericardial effusion, complex septated air collection to the right of trace and esophagua, small asictes, hypotrophic kidneys incompletely imaged as discussed above * 11/25/16: No pneumothroax status post right thoracentesis. small bilateral pleural effusion. bilateral linear atelectasis * Chest xray (11/30/16): interval improved aeration in both lungs with improvement in congestive heart failure; right lower love airspace disease with airbroncogram could represent developing pneumonia. Follow-up after medical management is recommended to ensure complete resolution * Pulmonary (Dr. Reynolds) on board-->help appreciated * IR (11/25/16): ultrasound guided right thoracentesis; 800 cc straw colored fluid removed * Pleural growth: no growth * Aztreonam 1gram Iv Q8 hours and Azithromycin 500mg IV q daily to cover for hospital acquired pneumonia in light of elevated procalcitonin, esrd, leukopenia * Discussed with pulmonary, patient is not stable from discharge per pulmonary Pericardial effusion * Echocardiogram (11/26/16): LV ventricle is mildy dilated. ejection fraction is severely imparied. EF: 15%, Grade IV dixed restrictive diastolic dysfunction. glpbal hypokinesis of the left ventricle left atrium moderately dilated. right atrium is moderate dilated. mitral regurgitation is moderate to severe. mild tricupsid regurgitation PAP: 45-50mmHG, PA is dilated, IVC dilated with no collapse with inspiration. RAP of 20 or greater. Multiple large loculated pericardial effusions both anterior and posteriolroy no evidence of systolic atrial collapse * Per cardiology note: dialysis best option for small pericardial effusion ESRD * Nephrology (Dr. Joyce) * Patient is Monday/Monday/Monday dialysis * patient is awaiting renal transplant Hypertension * Coreg 12.5 mg PO BID [facility] * Crestor 10 mg PO HS [facility] * Lisinopril 5 mg PO daily Diabetes, chronic * Novolog insulin sliding scale subq * [id number]: 6.5 Hx of Anxiety * Xanax 0.25 mg PO TID PRN Hx of Hyperthyroidism * prior history per H&P * thyroid studies within normal range Non-sustained VT * d/c Avelox today; monitor * Aztreonam 1gram Iv Q8 hours and Azithromycin 500mg IV q daily monitor Prophylaxis * SCDs * PT/OT eval * Subacute rehab eval
--- NOTE | 2016-12-01 13:13 | CP.PCM.PN ---
Subjective - Date & Time of Evaluation Date of Evaluation: 12/01/16 Time of Evaluation: 11:30 - Subjective Subjective: Pt seen and examined sitting in bed. Pt is comfortable. He has a mild cough bringing up clear mucous and have intermittent sharp abdominal pain in the LLQ that is relieved partially by defecation. Pt denies chest pain, shortness of breath, fever, and chills. Objective - Vital Signs/Intake and Output Vital Signs (last 24 hours): Temp Pulse Resp BP Pulse Ox 98.1 F 88 20 135/78 99 12/01/16 08:00 12/01/16 09:02 12/01/16 08:00 12/01/16 09:46 12/01/16 08:00 Intake and Output: 12/01/16 12/01/16 06:59 18:59 Intake Total 50 Balance 50 - Medications Medications: Current Medications Alprazolam (Xanax) 0.25 mg PO TID PRN PRN Reason: Anxiety Stop: 12/01/16 17:39 Last Admin: 12/01/16 03:19 Dose: 0.25 mg Aspirin (Aspirin Chewable) 81 mg PO DAILY [facility] Last Admin: 12/01/16 09:45 Dose: 81 mg Benzocaine/Menthol (Cepacol Sore Throat) 1 asia MT Q4H PRN PRN Reason: Sore Throat Last Admin: 11/30/16 17:48 Dose: 1 asia Calcium Acetate (Phoslo) 667 mg PO ACTID [facility] Last Admin: 12/01/16 08:41 Dose: 667 mg Carvedilol (Coreg) 12.5 mg PO BID [facility] Last Admin: 12/01/16 09:46 Dose: 12.5 mg Guaifenesin/Dextromethorphan (Robitussin Dm) 5 ml PO Q4H PRN PRN Reason: Cough Last Admin: 11/30/16 19:38 Dose: 5 ml Hydrocortisone (Anusol-Hc) 2.5 gm [place] BID [facility] Aztreonam 1 gm/ Sodium (Chloride) 100 mls @ 200 mls/hr IVPB Q8H [facility] Last Admin: 12/01/16 08:41 Dose: 200 mls/hr Azithromycin 500 mg/ Sodium (Chloride) 250 mls @ 167 mls/hr IVPB Q24H [facility] Last Admin: 11/30/16 18:10 Dose: 167 mls/hr Insulin Aspart (Novolog) 0 unit SC ACHS [facility] PRN Reason: Protocol Last Admin: 12/01/16 08:00 Dose: Not Given Lisinopril (Zestril) 5 mg PO BID [facility] Last Admin: 12/01/16 09:44 Dose: 5 mg Loperamide HCl (Imodium) 2 mg PO QID PRN PRN Reason: Diarrhea Ondansetron HCl (Zofran Inj) 4 mg IVP Q6 PRN PRN Reason: Nausea/Vomiting Oseltamivir Phosphate (Tamiflu Susp) 30 mg PO [facility] Stop: 12/02/16 09:01 Last Admin: 11/30/16 15:41 Dose: Not Given Rosuvastatin Calcium (Crestor) 10 mg PO [facility] Last Admin: 11/30/16 21:07 Dose: 10 mg Saccharomyces Boulardii (Florastor) 250 mg PO BID [facility] - Labs Labs: 12/01/16 07:22 12/01/16 07:22 PT 13.6 SECONDS (9.7-12.2) H 11/25/16 20:01 INR 1.2 11/25/16 20:01 APTT 39 SECONDS (21-34) H 11/25/16 20:01 - Constitutional Appears: Non-toxic, No Acute Distress - Head Exam Head Exam: NORMOCEPHALIC - Eye Exam Eye Exam: Normal appearance Pupil Exam: NORMAL ACCOMODATION - ENT Exam ENT Exam: Mucous Membranes Moist - Neck Exam Neck Exam: Normal Inspection - Respiratory Exam Respiratory Exam: Wheezes, NORMAL BREATHING PATTERN. absent: Accessory Muscle Use, Respiratory Distress - Cardiovascular Exam Cardiovascular Exam: REGULAR RHYTHM, +S1, +S2, Murmur (MR) - GI/Abdominal Exam GI & Abdominal Exam: Soft, Tenderness (LLQ), Normal Bowel Sounds - Extremities Exam Extremities Exam: Normal Inspection - Back Exam Back Exam: NORMAL INSPECTION - Neurological Exam Neurological Exam: Alert, Awake, Oriented x3 - Psychiatric Exam Psychiatric exam: Normal Affect, Normal Mood - Skin Skin Exam: Intact, Warm Assessment and Plan - Assessment and Plan (Free Text) Assessment: Influenza B with Hospital Acquired Pneumonia Plan: Procalcitonin = 1.63 suggestive of bacterial pneumonia Continue azetreonam & azithromycin Influenza B present and receiving tamiflu. F/u CXR on 12/02/16 F/u pleural fluid results. CHF management per Dr. Veloz. Patient has received [employer] LifeVest today.
[2016-12-01 16:16] LABS: LDH PLEURAL FLUID 138 U/L (())
[2016-12-01] MEDS: Saccharomyces Boulardi 250 mg Cap PO SCH (18:06)
[2016-12-01] MEDS: Azithromycin 500 MG in Sodium Chloride 0.9% 250 ML IVPB SCH (18:12)
[2016-12-02 07:29] LABS: BASO % 0.9 % (0.0-2.0); EOS # 0.2 K/uL (0.0-0.7); EOS % 4.4 % (0.0-4.0); HEMATOCRIT 32.8 % (35.0-51.0); LYMPH # 0.7 K/uL (1.0-4.3); LYMPH % 21.4 % (20.0-40.0); MEAN CELL VOLUME 84.9 fL (80.0-94.0); MEAN CORPUSCULAR HEMOGLOBIN 26.4 pg (27.0-31.0); MEAN CORPUSCULAR HGB CONC 31.1 g/dL (33.0-37.0); MEAN PLATELET VOLUME 9.1 fL (7.2-11.7); MONO # 0.4 K/uL (0.0-0.8); MONO % 12.8 % (0.0-10.0); NRBC % 0.1 % (0.0-2.0); RED CELL DISTRIBUTION WIDTH 18.2 % (11.5-14.5); WHITE BLOOD COUNT 3.5 K/uL (4.8-10.8)
[2016-12-02] MEDS: (Novolog) Insulin Aspart, Recombinant 100 u/ml 10 ml vial SC SCH ×4 (07:54→21:11)
[2016-12-02 08:05] LABS: POTASSIUM 5.9 mmol/L (3.6-5.2)
[2016-12-02] MEDS: Aztreonam 1 GM in Sodium Chloride 0.9% 100 ML IVPB SCH ×2 (08:06→15:42)
[2016-12-02 08:08] LABS: ALB/GLOB RATIO 0.8 (1.0-2.1); CALCIUM 8.2 mg/dl (8.6-10.4); MAGNESIUM 2.3 mg/dL (1.6-2.3); TOTAL PROTEIN 6.2 g/dL (6.3-8.3)
[2016-12-02] MEDS: Saccharomyces Boulardi 250 mg Cap PO SCH ×2 (09:00→17:52)
--- NOTE | 2016-12-02 09:01 | CP.PCM.PN ---
<Jersey Hernandes - Last Filed: 12/02/16 13:25> Subjective - Date & Time of Evaluation Date of Evaluation: 12/02/16 Time of Evaluation: 07:40 - Subjective Subjective: PGY-1 Medicine Progress Note for Dr. Mirza Patient seen and examined at bedside. No acute events overnight. Patient going for dialysis today. Patient continues to complain of diarrhea. He denies fever, chills, chest pain, palpitations, abdominal pain, nausea, vomiting, and flank pain. Objective - Vital Signs/Intake and Output Vital Signs (last 24 hours): Temp Pulse Resp BP Pulse Ox 98.1 F 77 20 115/75 100 12/02/16 07:00 12/02/16 07:00 12/02/16 07:00 12/02/16 07:00 12/02/16 07:00 - Medications Medications: Current Medications Aspirin (Aspirin Chewable) 81 mg PO DAILY [facility] Last Admin: 12/01/16 09:45 Dose: 81 mg Benzocaine/Menthol (Cepacol Sore Throat) 1 asia MT Q4H PRN PRN Reason: Sore Throat Last Admin: 11/30/16 17:48 Dose: 1 asia Calcium Acetate (Phoslo) 667 mg PO ACTID [facility] Last Admin: 12/02/16 08:06 Dose: 667 mg Carvedilol (Coreg) 12.5 mg PO BID [facility] Last Admin: 12/01/16 18:08 Dose: 12.5 mg Guaifenesin/Dextromethorphan (Robitussin Dm) 5 ml PO Q4H PRN PRN Reason: Cough Last Admin: 11/30/16 19:38 Dose: 5 ml Hydrocortisone (Anusol-Hc) 2.5 gm [place] BID [facility] Aztreonam 1 gm/ Sodium (Chloride) 100 mls @ 200 mls/hr IVPB Q8H [facility] Last Admin: 12/02/16 08:06 Dose: 200 mls/hr Azithromycin 500 mg/ Sodium (Chloride) 250 mls @ 167 mls/hr IVPB Q24H [facility] Last Admin: 12/01/16 18:12 Dose: 167 mls/hr Insulin Aspart (Novolog) 0 unit SC ACHS [facility] PRN Reason: Protocol Last Admin: 12/02/16 07:54 Dose: Not Given Lisinopril (Zestril) 5 mg PO BID [facility] Last Admin: 12/01/16 18:13 Dose: 5 mg Loperamide HCl (Imodium) 2 mg PO QID PRN PRN Reason: Diarrhea Ondansetron HCl (Zofran Inj) 4 mg IVP Q6 PRN PRN Reason: Nausea/Vomiting Last Admin: 12/01/16 13:07 Dose: 4 mg Rosuvastatin Calcium (Crestor) 10 mg PO HS [facility] Last Admin: 12/01/16 21:41 Dose: 10 mg Saccharomyces Boulardii (Florastor) 250 mg PO BID [facility] Last Admin: 12/01/16 18:06 Dose: 250 mg - Labs Labs: 12/02/16 07:01 12/02/16 07:01 PT 13.6 SECONDS (9.7-12.2) H 11/25/16 20:01 INR 1.2 11/25/16 20:01 APTT 39 SECONDS (21-34) H 11/25/16 20:01 - Constitutional Appears: No Acute Distress - Head Exam Head Exam: ATRAUMATIC, NORMOCEPHALIC - Eye Exam Eye Exam: EOMI, Normal appearance Pupil Exam: PERRL - ENT Exam ENT Exam: Mucous Membranes Moist - Neck Exam Neck Exam: Normal Inspection - Respiratory Exam Respiratory Exam: Clear to Ausculation Bilateral, NORMAL BREATHING PATTERN - Cardiovascular Exam Cardiovascular Exam: REGULAR RHYTHM, +S1, +S2 - GI/Abdominal Exam GI & Abdominal Exam: Soft, Normal Bowel Sounds. absent: Tenderness - Extremities Exam Extremities Exam: Normal Capillary Refill - Back Exam Back Exam: absent: CVA tenderness (L), CVA tenderness (R) - Neurological Exam Neurological Exam: Alert, Awake, CN II-XII Intact, Oriented x3 - Psychiatric Exam Psychiatric exam: Normal Affect, Normal Mood - Skin Skin Exam: Dry, Intact, Normal Color, Warm Assessment and Plan - Assessment and Plan (Free Text) Plan: Influenza Type B -Swab for influenza B positive -Continue Tamiflu on dialysis days and supportive care. -Droplet precautions discontinued Muscle weakness, acute 12/01: Patient to ambulate hospital halls today under supervision 11/29: improved, patient seen ambulating in room today. -CT head negative -Stop home med Levaquin 500mg PO daily -> pt may be having a reaction. -CPK 174 H -> 134 N Hospital Acquired Pneumonia, acute 12/02: Continue current management 12/01: Procalcitonin resulted elevated (1.63). Patient being treated for bacterial hospital acquired pneumonia. Per director of financial reporting, Dr. Reynolds, started on Azithromycin 500 mg IVPB q24h and Aztreonam 1 gm IVPB q8h (11/30/16). 11/30: Repeat CXR: Right lower love airspace disease with air bronchogram. There is discoid atelctasis/scarring in left mid lung. There is mild pulmonary venous congestion and fluid in the minor fissure. Severe cardiomegaly seen. Athersclerotic aortic arch calcifications are present. 11/29: Avelox discontinued due to risk of QT prolongation as patient had runs of non-sustained ventricular tachycardia on telemetry. Per director of financial reporting, Dr. Reynolds , patient does not need to be continued on antibiotics for pneumonia. 11/26-11/27: pleural fluid results: +WBC, no growth x2d; Blood culture negative x2d 11/25: Dr. Reynolds consulted. recommended IR for thoracentesis - 800cc of straw colored fluid drawn. -Patient recently in ED 11/20 for Bronchitis - CT chest- b/l pleural effusions, lower lung consolidation, pericardial effusion (20mm), ascites of abdomen. see full report. -Stop home med Levaquin 500mg PO daily -> pt may be having a reaction. -Start Azithromycin 500mg IVPB Q24H -ProBNP 394,000 Acute on chronic Diastolic CHF 12/02: Continue current management 12/01: Patient fitted for life vest yesterday. Will receive life vest today and [employer] to provide more information to patient. 11/30: Per Dr. Veloz, [employer] was contacted and forms faxes. Awaiting insurance approval. Coreg increased to 12.5 mg po BID. Discontinued lasix as patient incontinent of urine. Continue Lisinopril 5 mg po BID, Aspirin 81 mg po daily, and Crestor 10 mg po HS. 11/29: Per Dr. Veloz, patient was offered an ICD, but wishes to wear a life vest for 3-4 months and will consent to an ICD if ejection fraction does not improve. Dr. Veloz will call life vest [employer] representative so patient is fitted for a vest during hospitalization. Patient given Lasix 20 mg IVP stat Started patient on Lasix 20 mg po BID Lisinpril increased to 5 mg po BID. Continue Carvedilol, Aspirin and Crestor. CXR: Left pleural effusion noted. Vascular congestion noted. Will follow-up official report. 11/28: Patient evaluated by Dr. Veloz. He notes chronic LV dysfunction that possibly was exacerbated by acute H. flu. He also notes severely abnormal diastolic filling, type III. Patient to have AICD placed. Patient to be continued on Carvedilol 6.25 mg po BID, ASA 81 mg po daily, Lisinopril 5 mg po daily, Crestor 10 mg po HS. 11/27: Cardiology Dr. Veloz consulted (pts home enterprise systems manager). Dr. Pierce (cardio ) is considering EP consult for life vest. -2 runs of Vtach today at 2pm and 4pm. Dr. Pierce notified. Patient stable, no chest pain, no acute distress. 11/26: Echo - EF 15%, Diastolic dysfunction, L/R atrium mod dilated, mod/severe MR , mild TR, PA dilated, IVC dilated. 11/25: Dr. Pierce does not recommend draining pericardial effusion as it is mild and risks outweight benefits. Recs-> Add ACEI or ARBs to the regimen; Can add Lasix may benefit by decreasing the pre load - CT chest- b/l pleural effusions, lower lung consolidation, pericardial effusion (20mm), ascites of abdomen. see full report. - Pulm/Crit Care consult - Dr. Reynolds -> for possible thoracentesis. Will evaluate patient in am. - Cardiology consult, Dr. Pierce, f/u recs - EKG: Normal sinus rhythm; Left axis deviation;Anterior infarct, age undetermined; No QT prolongation. - f/u repeat EKG on 4/6 pm (not performed) - monitor for QT prolongation Diarrhea, Acute -Pt complaining of daily episodes of diarrhea -C.diff toxin resulted negative -Will follow-up stool studies stool culture, fecal leukocytes, Clostridium Pleural Effusion, acute -s/p Thoracentesis on 11/25/16 -Pleural fluid sent for cytology, protein and LDH - pending results -Pleural fluid cx negative Pericardial Effusion, acute 11/28: Per Dr. Veloz, dialysis is best treatment for small pericardial effusion. 11/26: Echo - EF 15%, Diastolic dysfunction, L/R atrium mod dilated, mod/severe MR , mild TR, PA dilated, IVC dilated. 11/25: Dr. Pierce does not recommend draining pericardial effusion as it is mild and risks outweight benefits. Recs-> Add ACEI or ARBs to the regimen; Can add Lasix may benefit by decreasing the pre load - CT chest- b/l pleural effusions, lower lung consolidation, pericardial effusion (20mm), ascites of abdomen. see full report. - Cardiology consult, Dr. Pierce, f/u recs - EKG: Normal sinus rhythm; Left axis deviation;Anterior infarct, age undetermined; No QT prolongation. - f/u repeat EKG on 4/6 pm (not performed) - monitor for QT prolongation ESRD on HD, chronic BUN/Creatinine 60/9.4 Pt tolerated Hemodialysis well yesterday UF 2200ml with HD 11/28 -Maintain potassium >4.0 as patient was having runs of V tach -HD schedule MWF -Consult Nephrology, Dr. Joyce, f/u recs -awaiting kidney transplant. -Phoslo 667 mg PO ACTID [facility] Pancytopenia 11/30: pancytopenia improving 11/29: WBC 4.0, hemoglobin 10.5, hematocrit 33.1, platelets 113. Could be secondary to Avelox. HTN, chronic normotensive Coreg 12.5 mg PO BID Lisinopril 5 mg po BID Diabetes, chronic Continue on Novolog ACHS - ISS Hx of Anxiety Xanax 0.25 mg PO TID PRN -pt only uses Xanax 0.5mg 1-2x per week. Hx of Hyperthyroidism untreated monitor TSH/free T4 - WNL Prophylaxis SCDs PT/OT Dispo Patient to be discharged to [facility] <Xochitl Mirza V - Last Filed: 12/02/16 19:46> Objective - Vital Signs/Intake and Output Vital Signs (last 24 hours): Temp Pulse Resp BP Pulse Ox 97.8 F 86 20 125/84 100 12/02/16 09:15 12/02/16 12:20 12/02/16 09:15 12/02/16 12:20 12/02/16 07:00 Intake and Output: 12/02/16 12/02/16 06:59 18:59 Intake Total 100 Balance 100 - Medications Medications: Current Medications Aspirin (Aspirin Chewable) 81 mg PO DAILY [facility] Last Admin: 12/02/16 13:52 Dose: 81 mg Benzocaine/Menthol (Cepacol Sore Throat) 1 asia MT Q4H PRN PRN Reason: Sore Throat Last Admin: 11/30/16 17:48 Dose: 1 asia Calcium Acetate (Phoslo) 667 mg PO ACTID [facility] Last Admin: 12/02/16 13:53 Dose: 667 mg Carvedilol (Coreg) 12.5 mg PO BID [facility] Last Admin: 12/02/16 09:00 Dose: Not Given Guaifenesin/Dextromethorphan (Robitussin Dm) 5 ml PO Q4H PRN PRN Reason: Cough Last Admin: 11/30/16 19:38 Dose: 5 ml Hydrocortisone (Anusol-Hc) 2.5 gm [place] BID [facility] Last Admin: 12/02/16 10:34 Dose: Not Given Aztreonam 1 gm/ Sodium (Chloride) 100 mls @ 200 mls/hr IVPB Q8H [facility] Last Admin: 12/02/16 08:06 Dose: 200 mls/hr Azithromycin 500 mg/ Sodium (Chloride) 250 mls @ 167 mls/hr IVPB Q24H [facility] Last Admin: 12/01/16 18:12 Dose: 167 mls/hr Insulin Aspart (Novolog) 0 unit SC ACHS [facility] PRN Reason: Protocol Last Admin: 12/02/16 12:33 Dose: Not Given Lisinopril (Zestril) 5 mg PO BID [facility] Last Admin: 12/02/16 10:29 Dose: Not Given Loperamide HCl (Imodium) 2 mg PO QID PRN PRN Reason: Diarrhea Last Admin: 12/02/16 14:56 Dose: 2 mg Ondansetron HCl (Zofran Inj) 4 mg IVP Q6 PRN PRN Reason: Nausea/Vomiting Last Admin: 12/01/16 13:07 Dose: 4 mg Rosuvastatin Calcium (Crestor) 10 mg PO HS [facility] Last Admin: 12/01/16 21:41 Dose: 10 mg Saccharomyces Boulardii (Florastor) 250 mg PO BID [facility] Last Admin: 12/02/16 09:00 Dose: Not Given - Labs Labs: 12/02/16 07:01 12/02/16 07:01 PT 13.6 SECONDS (9.7-12.2) H 11/25/16 20:01 INR 1.2 11/25/16 20:01 APTT 39 SECONDS (21-34) H 11/25/16 20:01 Attending/Attestation - Attestation I have personally seen and examined this patient.: Yes I have fully participated in the care of the patient.: Yes I have reviewed all pertinent clinical information, including history, physical exam and plan: Yes Notes (Text): Patient seen, examined, and case discussed with day-time resident. Patient seen in dialysis. Patient reports constant productive coughing, unremitting, and diarrhea. Discussed with pulmonary, patient not stable from pulmonary at this time. Note: repeat procalcitonin is increasing. Chest xray completed today: mild central pulmonary vascular congestive changes with bilateral lower lobe alveolar type infiltrates and bilateral effusions. Appears to segmental atelectatic changes in the left mid to lower lung field, Marked cardiomegaly. Patient reports he was fitted for Lifevest but had not received? Patient's potassium was high, repeat potassium post-dialysis shows it has normalized. Disposition: patient has severe pneumonia with chronic medical conditions including renal transplant, diabetic, hypertension, and current influenza which requiring further hospitalization and monitoring; discussed with pulmonary Assessment/Plan Acute on Chronic Systolic CHF exacerbation * Private enterprise systems manager (Dr. Veloz): on the case help appreciated-->for lifevest * Aspirin 81mg PO daily * Coreg 12.5mg PO bid * Lisinopril 5mg PO daily * Crestor 10mg POqHS * Echo (11/24/16) - EF 15%, Diastolic dysfunction, L/R atrium mod dilated, mod/ severe MR, mild TR, PA dilated, IVC dilated * Patient has dialysis on M// Influenza Type B * Discontinued Droplet precaution 11/30/16 (received 3 doses of Tamiflu) * Tamiflu 30mg PO MWF (active since 11/25/16) Pneumonia * Pulmonary (Dr. Reynolds) on board-->help appreciated * 11/24/16 CT Chest: bilateral pleural effusion greater on the right, bilateral lower lung consolidations greater on the right, pericardial effusion, complex septated air collection to the right of trace and esophagua, small asictes, hypotrophic kidneys incompletely imaged as discussed above * 11/25/16: No pneumothroax status post right thoracentesis. small bilateral pleural effusion. bilateral linear atelectasis * Chest xray (11/30/16): interval improved aeration in both lungs with improvement in congestive heart failure; right lower love airspace disease with airbroncogram could represent developing pneumonia. Follow-up after medical management is recommended to ensure complete resolution * Chest xray 12/02/16: mild central pulmonary vascular congestive changes with bilateral lower lobe alveolar type infiltrates and bilateral effusions. Appears to segmental atelectatic changes in the left mid to lower lung field, Marked cardiomegaly. * Pulmonary (Dr. Reynolds) on board-->help appreciated * IR (11/25/16): ultrasound guided right thoracentesis; 800 cc straw colored fluid removed * Pleural growth: no growth * Aztreonam 1gram Iv Q8 hours and Azithromycin 500mg IV q daily to cover for hospital acquired pneumonia in light of elevated procalcitonin, esrd, renal transplant leukopenia * Discussed with pulmonary, patient is not stable from discharge per pulmonary * persistent procalcitonin Pericardial effusion * Echocardiogram (11/26/16): LV ventricle is mildy dilated. ejection fraction is severely imparied. EF: 15%, Grade IV dixed restrictive diastolic dysfunction. glpbal hypokinesis of the left ventricle left atrium moderately dilated. right atrium is moderate dilated. mitral regurgitation is moderate to severe. mild tricupsid regurgitation PAP: 45-50mmHG, PA is dilated, IVC dilated with no collapse with inspiration. RAP of 20 or greater. Multiple large loculated pericardial effusions both anterior and posteriolroy no evidence of systolic atrial collapse * Per cardiology note: dialysis best option for small pericardial effusion ESRD * Nephrology (Dr. Joyce) * Patient is Monday/Monday/Monday dialysis * History of renal transplant Hypertension * Coreg 12.5 mg PO BID [facility] * Crestor 10 mg PO HS [facility] * Lisinopril 5 mg PO daily Diabetes, chronic * Novolog insulin sliding scale subq * Xsiwyefausv2m: 6.5 Hx of Anxiety * Xanax 0.25 mg PO TID PRN Hx of Hyperthyroidism * prior history per H&P * thyroid studies within normal range Non-sustained VT * d/c Avelox today; monitor * Aztreonam 1gram Iv Q8 hours and Azithromycin 500mg IV q daily monitor Prophylaxis * SCDs * PT/OT eval * Subacute rehab eval
[2016-12-02] MEDS: Oseltamivir 6 MG/ML PO SCH (09:34)
[2016-12-02] MEDS: Hydrocortisone 2.5% Rectal Cream(30 gm) PR SCH ×2 (10:34→21:10)
--- NOTE | 2016-12-02 12:46 | CP.PCM.PN ---
Subjective - Date & Time of Evaluation Date of Evaluation: 12/02/16 Time of Evaluation: 12:43 - Subjective Subjective: On dialysis now- to UF 2500ml BP well controlled Life vest to be placed today K elevated- advised pt on diet- repeat K in AM Feels better overall Objective - Vital Signs/Intake and Output Vital Signs (last 24 hours): Temp Pulse Resp BP Pulse Ox 97.8 F 86 20 125/84 100 12/02/16 09:15 12/02/16 12:20 12/02/16 09:15 12/02/16 12:20 12/02/16 07:00 - Medications Medications: Current Medications Aspirin (Aspirin Chewable) 81 mg PO DAILY [facility] Last Admin: 12/02/16 10:34 Dose: Not Given Benzocaine/Menthol (Cepacol Sore Throat) 1 asia MT Q4H PRN PRN Reason: Sore Throat Last Admin: 11/30/16 17:48 Dose: 1 asia Calcium Acetate (Phoslo) 667 mg PO ACTID [facility] Last Admin: 12/02/16 12:34 Dose: Not Given Carvedilol (Coreg) 12.5 mg PO BID [facility] Last Admin: 12/02/16 09:00 Dose: Not Given Guaifenesin/Dextromethorphan (Robitussin Dm) 5 ml PO Q4H PRN PRN Reason: Cough Last Admin: 11/30/16 19:38 Dose: 5 ml Hydrocortisone (Anusol-Hc) 2.5 gm [place] BID [facility] Last Admin: 12/02/16 10:34 Dose: Not Given Aztreonam 1 gm/ Sodium (Chloride) 100 mls @ 200 mls/hr IVPB Q8H [facility] Last Admin: 12/02/16 08:06 Dose: 200 mls/hr Azithromycin 500 mg/ Sodium (Chloride) 250 mls @ 167 mls/hr IVPB Q24H [facility] Last Admin: 12/01/16 18:12 Dose: 167 mls/hr Insulin Aspart (Novolog) 0 unit SC ACHS [facility] PRN Reason: Protocol Last Admin: 12/02/16 12:33 Dose: Not Given Lisinopril (Zestril) 5 mg PO BID [facility] Last Admin: 12/01/16 18:13 Dose: 5 mg Loperamide HCl (Imodium) 2 mg PO QID PRN PRN Reason: Diarrhea Ondansetron HCl (Zofran Inj) 4 mg IVP Q6 PRN PRN Reason: Nausea/Vomiting Last Admin: 12/01/16 13:07 Dose: 4 mg Rosuvastatin Calcium (Crestor) 10 mg PO HS [facility] Last Admin: 12/01/16 21:41 Dose: 10 mg Saccharomyces Boulardii (Florastor) 250 mg PO BID [facility] Last Admin: 12/02/16 09:00 Dose: Not Given - Labs Labs: 12/02/16 07:01 12/02/16 07:01 PT 13.6 SECONDS (9.7-12.2) H 11/25/16 20:01 INR 1.2 11/25/16 20:01 APTT 39 SECONDS (21-34) H 11/25/16 20:01 - Constitutional Appears: No Acute Distress, Chronically Ill - Head Exam Head Exam: ATRAUMATIC, NORMAL INSPECTION - Eye Exam Eye Exam: EOMI, Normal appearance - Neck Exam Neck Exam: Normal Inspection. absent: Tenderness - Respiratory Exam Respiratory Exam: Clear to Ausculation Bilateral, NORMAL BREATHING PATTERN - Cardiovascular Exam Cardiovascular Exam: REGULAR RHYTHM, +S1 - GI/Abdominal Exam GI & Abdominal Exam: Soft. absent: Tenderness - Extremities Exam Extremities Exam: Normal Inspection. absent: Tenderness - Neurological Exam Neurological Exam: Alert, CN II-XII Intact - Skin Skin Exam: Dry, Warm Assessment and Plan (1) ESRD (end stage renal disease) on dialysis Status: Acute (2) HTN (hypertension) Status: Acute (3) Influenza Status: Acute (4) Pneumonia and influenza Status: Acute - Assessment and Plan (Free Text) Plan: Low K diet; f/u level Dialysis MWF with adequate UF Lifevest placement
--- NOTE | 2016-12-02 15:49 | RAD ---
PROCEDURE: CHEST RADIOGRAPH, 1 VIEW HISTORY: pleural effusion COMPARISON: Comparison made with prior study dated 11/29/2016 FINDINGS: LUNGS: Mild central pulmonary vascular congestive changes with bilateral lower lobe alveolar-type infiltrates and bilateral effusions. . Note that the possibility of underlying pneumonia cannot be excluded. There also appears to be subsegmental atelectatic changes in the left mid to lower lung field. PLEURA: As above CARDIOVASCULAR: Heart appears markedly enlarged. OSSEOUS STRUCTURES: No significant abnormalities. VISUALIZED UPPER ABDOMEN: Normal. OTHER FINDINGS: None. IMPRESSION: Mild central pulmonary vascular congestive changes with bilateral lower lobe alveolar-type infiltrates and bilateral effusions. . Note that the possibility of underlying pneumonia cannot be excluded. There also appears to be subsegmental atelectatic changes in the left mid to lower lung field. Marked cardiomegaly.
[2016-12-02 16:40] LABS: CALCIUM 7.3 mg/dl (8.6-10.4)
[2016-12-02] MEDS: Azithromycin 500 MG in Sodium Chloride 0.9% 250 ML IVPB SCH (17:09)
[2016-12-03] MEDS: Aztreonam 1 GM in Sodium Chloride 0.9% 100 ML IVPB SCH ×3 (00:34→16:06)
--- NOTE | 2016-12-03 00:59 | CP.PCM.PN ---
Addendum entered and electronically signed by Ap Boothe DO 12/03/16 15:47: Called down to evaluate patient, had about 12 beat run of V tach around 3:15pm today. Instructed patient and nurse that Lifevest needs to be worn at all times. Obtained EKG. Reviewed with Dr. Mirza, compared to November 24, no significant acute changes. Spoke to Dr. Veloz's associate, , he said no additional intervention needed at this time. Original Note: <Ginger Hartman - Last Filed: 12/03/16 00:56> Subjective - Date & Time of Evaluation Date of Evaluation: 12/03/16 Time of Evaluation: 00:56 - Subjective Subjective: Patient seen and examined at bedside. Patient resting comfortable. He admits to ambulating without difficulty yesterday. He states he tolerated dialysis well yesterday. Patient notes persistent cough and diarrhea. He denies fever, chills , chest pain, palpitations, abdominal pain, nausea, vomiting, and flank pain. Objective - Vital Signs/Intake and Output Vital Signs (last 24 hours): Temp Pulse Resp BP Pulse Ox 99.5 F 88 18 128/70 95 12/02/16 16:00 12/02/16 16:30 12/02/16 16:00 12/02/16 22:00 12/02/16 16:00 Intake and Output: 12/02/16 12/03/16 18:59 06:59 Intake Total 200 200 Balance 200 200 - Medications Medications: Current Medications Aspirin (Aspirin Chewable) 81 mg PO DAILY [facility] Last Admin: 12/02/16 13:52 Dose: 81 mg Benzocaine/Menthol (Cepacol Sore Throat) 1 asia MT Q4H PRN PRN Reason: Sore Throat Last Admin: 11/30/16 17:48 Dose: 1 asia Calcium Acetate (Phoslo) 667 mg PO ACTID [facility] Last Admin: 12/02/16 17:12 Dose: 667 mg Carvedilol (Coreg) 12.5 mg PO BID [facility] Last Admin: 12/02/16 17:52 Dose: 12.5 mg Guaifenesin/Dextromethorphan (Robitussin Dm) 5 ml PO Q4H PRN PRN Reason: Cough Last Admin: 11/30/16 19:38 Dose: 5 ml Hydrocortisone (Anusol-Hc) 2.5 gm VT BID [facility] Last Admin: 12/02/16 21:10 Dose: Not Given Aztreonam 1 gm/ Sodium (Chloride) 100 mls @ 200 mls/hr IVPB Q8H [facility] Last Admin: 12/03/16 00:34 Dose: 200 mls/hr Azithromycin 500 mg/ Sodium (Chloride) 250 mls @ 167 mls/hr IVPB Q24H [facility] Last Admin: 12/02/16 17:09 Dose: 167 mls/hr Insulin Aspart (Novolog) 0 unit SC ACHS [facility] PRN Reason: Protocol Last Admin: 12/02/16 21:11 Dose: Not Given Lisinopril (Zestril) 5 mg PO BID [facility] Last Admin: 12/02/16 17:52 Dose: 5 mg Loperamide HCl (Imodium) 2 mg PO QID PRN PRN Reason: Diarrhea Last Admin: 12/03/16 00:42 Dose: 2 mg Ondansetron HCl (Zofran Inj) 4 mg IVP Q6 PRN PRN Reason: Nausea/Vomiting Last Admin: 12/01/16 13:07 Dose: 4 mg Rosuvastatin Calcium (Crestor) 10 mg PO HS [facility] Last Admin: 12/02/16 21:32 Dose: 10 mg Saccharomyces Boulardii (Florastor) 250 mg PO BID [facility] Last Admin: 12/02/16 17:52 Dose: 250 mg - Labs Labs: 12/02/16 07:01 12/02/16 16:24 PT 13.6 SECONDS (9.7-12.2) H 11/25/16 20:01 INR 1.2 11/25/16 20:01 APTT 39 SECONDS (21-34) H 11/25/16 20:01 - Constitutional Appears: Non-toxic, No Acute Distress - Head Exam Head Exam: ATRAUMATIC, NORMAL INSPECTION, NORMOCEPHALIC - Eye Exam Eye Exam: EOMI, Normal appearance, PERRL - ENT Exam ENT Exam: Mucous Membranes Moist - Neck Exam Neck Exam: Full ROM, Normal Inspection - Respiratory Exam Respiratory Exam: Clear to Ausculation Bilateral, NORMAL BREATHING PATTERN - Cardiovascular Exam Cardiovascular Exam: +S1, +S2 - GI/Abdominal Exam GI & Abdominal Exam: Soft, Normal Bowel Sounds. absent: Tenderness - Extremities Exam Extremities Exam: Full ROM, Normal Capillary Refill - Back Exam Back Exam: NORMAL INSPECTION - Neurological Exam Neurological Exam: Alert, Awake, Oriented x3 - Psychiatric Exam Psychiatric exam: Normal Affect, Normal Mood - Skin Skin Exam: Intact, Normal Color, Warm Assessment and Plan - Assessment and Plan (Free Text) Assessment: Influenza Type B -Swab for influenza B positive -Tamiflu 30 mg PO MWF (active since 11/25/16) -Droplet precautions discontinued Muscle weakness, acute 12/03: Continues to ambulate 12/01: Patient to ambulate hospital halls today under supervision 11/29: improved, patient seen ambulating in room today. -CT head negative -Stop home med Levaquin 500mg PO daily -> pt may be having a reaction. -CPK 174 H -> [address] Hospital Acquired Pneumonia, acute 12/03: Chest xray (12/02): mild central pulmonary vascular congestive changes with bilateral lower lobe alveolar type infiltrates and bilateral effusions. Appears to segmental atelectatic changes in the left mid to lower lung field, Marked cardiomegaly. Increased procalcitonin to 1.69 from 1.63. Mycoplasma pneumonia IgM negative. 12/02: Continue current management 12/01: Procalcitonin resulted elevated (1.63). Patient being treated for bacterial hospital acquired pneumonia. Per option trader, Dr. Reynolds, started on Azithromycin 500 mg IVPB q24h and Aztreonam 1 gm IVPB q8h (11/30/16). 11/30: Repeat CXR: Right lower love airspace disease with air bronchogram. There is discoid atelctasis/scarring in left mid lung. There is mild pulmonary venous congestion and fluid in the minor fissure. Severe cardiomegaly seen. Athersclerotic aortic arch calcifications are present. 11/29: Avelox discontinued due to risk of QT prolongation as patient had runs of non-sustained ventricular tachycardia on telemetry. Per option trader, Dr. Reynolds , patient does not need to be continued on antibiotics for pneumonia. 11/26-11/27: pleural fluid results: +WBC, no growth x2d; Blood culture negative x2d 11/25: Dr. Reynolds consulted. recommended IR for thoracentesis - 800cc of straw colored fluid drawn. -Patient recently in ED 11/20 for Bronchitis - CT chest- b/l pleural effusions, lower lung consolidation, pericardial effusion (20mm), ascites of abdomen. see full report. -Stop home med Levaquin 500mg PO daily -> pt may be having a reaction. -Start Azithromycin 500mg IVPB Q24H -ProBNP 394,000 Acute on chronic Diastolic CHF 12/03: follow-up when life vest will be received. Continue monitoring on telemetry. 12/02: Continue current management 12/01: Patient fitted for life vest yesterday. Will receive life vest today and [employer] to provide more information to patient. 11/30: Per Dr. Veloz, VE[employer] company [employer] was contacted and forms faxes. Awaiting insurance approval. Coreg increased to 12.5 mg po BID. Discontinued lasix as patient incontinent of urine. Continue Lisinopril 5 mg po BID, Aspirin 81 mg po daily, and Crestor 10 mg po HS. 11/29: Per Dr. Veloz, patient was offered an ICD, but wishes to wear a life vest for 3-4 months and will consent to an ICD if ejection fraction does not improve. Dr. Veloz will call life vest automotive leasing sales representative so patient is fitted for a vest during hospitalization. Patient given Lasix 20 mg IVP stat Started patient on Lasix 20 mg po BID Lisinpril increased to 5 mg po BID. Continue Carvedilol, Aspirin and Crestor. CXR: Left pleural effusion noted. Vascular congestion noted. Will follow-up official report. 11/28: Patient evaluated by Dr. Veloz. He notes chronic LV dysfunction that possibly was exacerbated by acute H. flu. He also notes severely abnormal diastolic filling, type III. Patient to have AICD placed. Patient to be continued on Carvedilol 6.25 mg po BID, ASA 81 mg po daily, Lisinopril 5 mg po daily, Crestor 10 mg po HS. 11/27: Cardiology Dr. Veloz consulted (pts home calender wind up helper). Dr. Pierce (cardio ) is considering EP consult for life vest. -2 runs of Vtach today at 2pm and 4pm. Dr. Pierce notified. Patient stable, no chest pain, no acute distress. 11/26: Echo - EF 15%, Diastolic dysfunction, L/R atrium mod dilated, mod/severe MR , mild TR, PA dilated, IVC dilated. 11/25: Dr. Pierce does not recommend draining pericardial effusion as it is mild and risks outweight benefits. Recs-> Add ACEI or ARBs to the regimen; Can add Lasix may benefit by decreasing the pre load - CT chest- b/l pleural effusions, lower lung consolidation, pericardial effusion (20mm), ascites of abdomen. see full report. - Pulm/Crit Care consult - Dr. Reynolds -> for possible thoracentesis. Will evaluate patient in am. - Cardiology consult, Dr. Pierce, f/u recs - EKG: Normal sinus rhythm; Left axis deviation;Anterior infarct, age undetermined; No QT prolongation. - f/u repeat EKG on 11/24 pm (not performed) - monitor for QT prolongation Diarrhea, Acute -Pt complaining of daily episodes of diarrhea -C.diff toxin resulted negative -Stool Leukocytes negative. Pleural Effusion, acute -s/p Thoracentesis on 11/25/16 -Pleural fluid sent for cytology: Protein <3.0, LDH 138 -Pleural fluid cx negative Pericardial Effusion, acute 11/28: Per Dr. Veloz, dialysis is best treatment for small pericardial effusion. 11/26: Echo - EF 15%, Diastolic dysfunction, L/R atrium mod dilated, mod/severe MR , mild TR, PA dilated, IVC dilated. 11/25: Dr. Pierce does not recommend draining pericardial effusion as it is mild and risks outweight benefits. Recs-> Add ACEI or ARBs to the regimen; Can add Lasix may benefit by decreasing the pre load - CT chest- b/l pleural effusions, lower lung consolidation, pericardial effusion (20mm), ascites of abdomen. see full report. - Cardiology consult, Dr. Pierce, f/u recs - EKG: Normal sinus rhythm; Left axis deviation;Anterior infarct, age undetermined; No QT prolongation. - f/u repeat EKG on 11/24 pm (not performed) - monitor for QT prolongation ESRD on HD, chronic BUN/Creatinine 33/5.1 Potassium decreased post hemodialysis Pt tolerated Hemodialysis well yesterday UF 2200ml with HD 11/28 -Maintain potassium >4.0 as patient was having runs of V tach -HD schedule MWF -Consult Nephrology, Dr. Joyce, f/u recs -awaiting kidney transplant. -Phoslo 667 mg PO ACTID [facility] Pancytopenia 11/30: pancytopenia improving 11/29: WBC 4.0, hemoglobin 10.5, hematocrit 33.1, platelets 113. Could be secondary to Avelox. HTN, chronic normotensive Coreg 12.5 mg PO BID Lisinopril 5 mg po BID Diabetes, chronic Continue on Novolog ACHS - ISS Hx of Anxiety Xanax 0.25 mg PO TID PRN -pt only uses Xanax 0.5mg 1-2x per week. Hx of Hyperthyroidism untreated monitor TSH/free T4 - WNL Prophylaxis SCDs PT/OT Dispo Patient to be discharged to [facility] <Xochitl Mirza V - Last Filed: 12/03/16 17:52> Objective - Vital Signs/Intake and Output Vital Signs (last 24 hours): Temp Pulse Resp BP Pulse Ox 97.7 F 87 18 156/72 H 96 12/03/16 16:00 12/03/16 16:00 12/03/16 16:00 12/03/16 17:01 12/03/16 16:00 Intake and Output: 12/03/16 12/03/16 06:59 18:59 Intake Total 400 580 Balance 400 580 - Medications Medications: Current Medications Aspirin (Aspirin Chewable) 81 mg PO DAILY [facility] Last Admin: 12/03/16 10:22 Dose: 81 mg Benzocaine/Menthol (Cepacol Sore Throat) 1 asia MT Q4H PRN PRN Reason: Sore Throat Last Admin: 12/03/16 10:22 Dose: 1 asia Calcium Acetate (Phoslo) 667 mg PO ACTID [facility] Last Admin: 12/03/16 17:01 Dose: 667 mg Carvedilol (Coreg) 12.5 mg PO BID [facility] Last Admin: 12/03/16 17:01 Dose: 12.5 mg Guaifenesin/Dextromethorphan (Robitussin Dm) 5 ml PO Q4H PRN PRN Reason: Cough Last Admin: 11/30/16 19:38 Dose: 5 ml Hydrocortisone (Anusol-Hc) 2.5 gm VT BID [facility] Last Admin: 12/03/16 17:25 Dose: Not Given Tigecycline 50 mg/ Dextrose 100 mls @ 100 mls/hr IV Q12H [facility] Aztreonam 1 gm/ Sodium (Chloride) 100 mls @ 200 mls/hr IVPB Q24H [facility] Insulin Aspart (Novolog) 0 unit SC ACHS [facility] PRN Reason: Protocol Last Admin: 12/03/16 17:01 Dose: 2 unit Lisinopril (Zestril) 5 mg PO BID [facility] Last Admin: 12/03/16 17:24 Dose: 5 mg Loperamide HCl (Imodium) 2 mg PO QID PRN PRN Reason: Diarrhea Last Admin: 12/03/16 00:42 Dose: 2 mg Ondansetron HCl (Zofran Inj) 4 mg IVP Q6 PRN PRN Reason: Nausea/Vomiting Last Admin: 12/01/16 13:07 Dose: 4 mg Rosuvastatin Calcium (Crestor) 10 mg PO HS [facility] Last Admin: 12/02/16 21:32 Dose: 10 mg Saccharomyces Boulardii (Florastor) 250 mg PO BID [facility] Last Admin: 12/03/16 17:01 Dose: 250 mg - Labs Labs: 12/03/16 06:28 12/03/16 06:28 PT 13.6 SECONDS (9.7-12.2) H 11/25/16 20:01 INR 1.2 11/25/16 20:01 APTT 39 SECONDS (21-34) H 11/25/16 20:01 Attending/Attestation - Attestation I have personally seen and examined this patient.: Yes I have fully participated in the care of the patient.: Yes I have reviewed all pertinent clinical information, including history, physical exam and plan: Yes Notes (Text): Patient seen, examined, and case discussed with day-time resident. Patient seen in dialysis. Patient reports constant productive coughing, unremitting, and diarrhea. Discussed with pulmonary, patient not stable from pulmonary at this time. Note: repeat procalcitonin is increasing. Chest xray completed yesterday mild central pulmonary vascular congestive changes with bilateral lower lobe alveolar type infiltrates and bilateral effusions. Appears to segmental atelectatic changes in the left mid to lower lung field, Marked cardiomegaly. Pulmonary to follow-up this afternoon. Patient had V-tachycardia on telemetry observed, discussed with cardiology, Azithryomycin d/c; and strongly advocated for patient to wear his Lifevest. Disposition: patient has severe pneumonia with chronic medical conditions including renal transplant, diabetic, hypertension, and current influenza which requiring further hospitalization and monitoring; patient has v-tach on the monitoring symptomatic with palpitations, which resolved, antibiotic was discontinued. infectious disease consulted. Patient has adverse reactions to both Levaquin and Azithromycin. Assessment/Plan Acute on Chronic Systolic CHF exacerbation * Private calender wind up helper (Dr. Veloz): on the case help appreciated-->for lifevest * Aspirin 81mg PO daily * Coreg 12.5mg PO bid * Lisinopril 5mg PO daily * Crestor 10mg POqHS * Echo (11/24/16) - EF 15%, Diastolic dysfunction, L/R atrium mod dilated, mod/ severe MR, mild TR, PA dilated, IVC dilated * Patient has dialysis on // Influenza Type B * Discontinued Droplet precaution 11/30/16 (received 3 doses of Tamiflu) * Tamiflu 30mg PO MWF (active since 11/25/16) Pneumonia * Pulmonary (Dr. Reynolds) on board-->help appreciated * 11/24/16 CT Chest: bilateral pleural effusion greater on the right, bilateral lower lung consolidations greater on the right, pericardial effusion, complex septated air collection to the right of trace and esophagua, small asictes, hypotrophic kidneys incompletely imaged as discussed above * 11/25/16: No pneumothroax status post right thoracentesis. small bilateral pleural effusion. bilateral linear atelectasis * Chest xray (11/30/16): interval improved aeration in both lungs with improvement in congestive heart failure; right lower love airspace disease with airbroncogram could represent developing pneumonia. Follow-up after medical management is recommended to ensure complete resolution * Chest xray 12/02/16: mild central pulmonary vascular congestive changes with bilateral lower lobe alveolar type infiltrates and bilateral effusions. Appears to segmental atelectatic changes in the left mid to lower lung field, Marked cardiomegaly. * Pulmonary (Dr. Reynolds) on board-->help appreciated * IR (11/25/16): ultrasound guided right thoracentesis; 800 cc straw colored fluid removed * Pleural growth: no growth * Aztreonam 1gram Iv Q8 hours currently hospital acquired pneumonia in light of elevated procalcitonin, esrd, renal transplant leukopenia * Infectious disease (Dr. Flanagan) consulted given patient has had reactions to both Levaquin and Azithromycin * Discussed with pulmonary, patient is not stable from discharge per pulmonary * persistent procalcitonin * Today patient had v-tachycardic. Azithromycin discontinued. Pericardial effusion * Echocardiogram (11/26/16): LV ventricle is mildy dilated. ejection fraction is severely imparied. EF: 15%, Grade IV dixed restrictive diastolic dysfunction. glpbal hypokinesis of the left ventricle left atrium moderately dilated. right atrium is moderate dilated. mitral regurgitation is moderate to severe. mild tricupsid regurgitation PAP: 45-50mmHG, PA is dilated, IVC dilated with no collapse with inspiration. RAP of 20 or greater. Multiple large loculated pericardial effusions both anterior and posteriolroy no evidence of systolic atrial collapse * Per cardiology note: dialysis best option for small pericardial effusion ESRD * Nephrology (Dr. Joyce) * Patient is Monday/Monday/Monday dialysis * History of renal transplant Hypertension * Coreg 12.5 mg PO BID [facility] * Crestor 10 mg PO HS [facility] * Lisinopril 5 mg PO daily Diabetes, chronic * Novolog insulin sliding scale subq * [id number]: 6.5 Hx of Anxiety * Xanax 0.25 mg PO TID PRN Hx of Hyperthyroidism * prior history per H&P * thyroid studies within normal range Non-sustained VT * d/c Avelox; d/c Azithromycin * Aztreonam 1gram Iv Q8 hours and Azithromycin 500mg IV q daily monitor * Episode of v-tach noted on the monitor; repeat EKG unchanged from prior EKG * Patient strongly advocated to wear his Lifevest Prophylaxis * SCDs * PT/OT eval * Subacute rehab eval
[2016-12-03 07:01] LABS: POTASSIUM 4.6 mmol/L (3.6-5.2)
[2016-12-03 07:04] LABS: ALB/GLOB RATIO 0.8 (1.0-2.1); CALCIUM 7.8 mg/dl (8.6-10.4); TOTAL PROTEIN 5.9 g/dL (6.3-8.3)
[2016-12-03 07:05] LABS: MAGNESIUM 2.1 mg/dL (1.6-2.3)
[2016-12-03 07:09] LABS: BASO % 0.6 % (0.0-2.0); EOS # 0.2 K/uL (0.0-0.7); EOS % 4.5 % (0.0-4.0); LYMPH # 0.8 K/uL (1.0-4.3); LYMPH % 21.5 % (20.0-40.0); MEAN CELL VOLUME 85.2 fL (80.0-94.0); MEAN CORPUSCULAR HEMOGLOBIN 26.4 pg (27.0-31.0); MEAN CORPUSCULAR HGB CONC 30.9 g/dL (33.0-37.0); MEAN PLATELET VOLUME 9.1 fL (7.2-11.7); MONO # 0.5 K/uL (0.0-0.8); MONO % 13.6 % (0.0-10.0); NRBC % 0.1 % (0.0-2.0); RED CELL DISTRIBUTION WIDTH 18.3 % (11.5-14.5); WHITE BLOOD COUNT 3.6 K/uL (4.8-10.8)
[2016-12-03] MEDS: (Novolog) Insulin Aspart, Recombinant 100 u/ml 10 ml vial SC SCH ×5 (07:56→22:01)
--- NOTE | 2016-12-03 08:54 | CP.PCM.PN ---
Subjective - Date & Time of Evaluation Date of Evaluation: 12/03/16 Time of Evaluation: 09:00 - Subjective Subjective: comfortable in bed ate some breakfast afebrile bp stable ROS no headache,chest or abdomenal pain no nauseau vomitng diarrhea cough productive of yellow sputum anuric no sob at rest with oxygen Objective - Vital Signs/Intake and Output Vital Signs (last 24 hours): Temp Pulse Resp BP Pulse Ox 98.4 F 86 20 128/84 96 12/03/16 07:00 12/03/16 07:00 12/03/16 07:00 12/03/16 07:00 12/03/16 07:00 Intake and Output: 12/03/16 12/03/16 06:59 18:59 Intake Total 400 Balance 400 - Medications Medications: Current Medications Aspirin (Aspirin Chewable) 81 mg PO DAILY [facility] Last Admin: 12/02/16 13:52 Dose: 81 mg Benzocaine/Menthol (Cepacol Sore Throat) 1 asia MT Q4H PRN PRN Reason: Sore Throat Last Admin: 11/30/16 17:48 Dose: 1 asia Calcium Acetate (Phoslo) 667 mg PO ACTID [facility] Last Admin: 12/03/16 07:32 Dose: 667 mg Carvedilol (Coreg) 12.5 mg PO BID [facility] Last Admin: 12/02/16 17:52 Dose: 12.5 mg Guaifenesin/Dextromethorphan (Robitussin Dm) 5 ml PO Q4H PRN PRN Reason: Cough Last Admin: 11/30/16 19:38 Dose: 5 ml Hydrocortisone (Anusol-Hc) 2.5 gm DC BID [facility] Last Admin: 12/02/16 21:10 Dose: Not Given Aztreonam 1 gm/ Sodium (Chloride) 100 mls @ 200 mls/hr IVPB Q8H [facility] Last Admin: 12/03/16 07:33 Dose: 200 mls/hr Azithromycin 500 mg/ Sodium (Chloride) 250 mls @ 167 mls/hr IVPB Q24H [facility] Last Admin: 12/02/16 17:09 Dose: 167 mls/hr Insulin Aspart (Novolog) 0 unit SC ACHS [facility] PRN Reason: Protocol Last Admin: 12/03/16 07:56 Dose: Not Given Lisinopril (Zestril) 5 mg PO BID [facility] Last Admin: 12/02/16 17:52 Dose: 5 mg Loperamide HCl (Imodium) 2 mg PO QID PRN PRN Reason: Diarrhea Last Admin: 12/03/16 00:42 Dose: 2 mg Ondansetron HCl (Zofran Inj) 4 mg IVP Q6 PRN PRN Reason: Nausea/Vomiting Last Admin: 12/01/16 13:07 Dose: 4 mg Rosuvastatin Calcium (Crestor) 10 mg PO HS [facility] Last Admin: 12/02/16 21:32 Dose: 10 mg Saccharomyces Boulardii (Florastor) 250 mg PO BID [facility] Last Admin: 12/02/16 17:52 Dose: 250 mg - Labs Labs: 12/03/16 06:28 12/03/16 06:28 PT 13.6 SECONDS (9.7-12.2) H 11/25/16 20:01 INR 1.2 11/25/16 20:01 APTT 39 SECONDS (21-34) H 11/25/16 20:01 - Constitutional Appears: No Acute Distress - ENT Exam ENT Exam: Mucous Membranes Moist - Respiratory Exam Respiratory Exam: Clear to Ausculation Bilateral, NORMAL BREATHING PATTERN. absent: Accessory Muscle Use - Cardiovascular Exam Cardiovascular Exam: REGULAR RHYTHM - GI/Abdominal Exam GI & Abdominal Exam: Soft. absent: Distended, Tenderness Additional comments: graft rlq not enlarged or tender - Extremities Exam Extremities Exam: absent: Calf Tenderness - Psychiatric Exam Psychiatric exam: absent: Agitated - Skin Skin Exam: Dry Assessment and Plan - Assessment and Plan (Free Text) Assessment: ESRD Failed kidney transplant Cardiomyopathy Plan: follow cardiology recommendations next dialysis 12/05
[2016-12-03] MEDS: Benzocaine/Menthol (Cepacol) Lozenge MT PRN (10:22)
[2016-12-03] MEDS: Saccharomyces Boulardi 250 mg Cap PO SCH ×2 (10:34→17:01)
[2016-12-03] MEDS: Hydrocortisone 2.5% Rectal Cream(30 gm) PR SCH ×2 (10:34→17:25)
[2016-12-03] MEDS ORDERED: POLYETHYLENE GLYCOL 3350 17 GM/Dose PACKET PO ONE (16:33)
[2016-12-03] MEDS ORDERED: Tigecycline 100 MG in Dextrose 5% In Water 100 ML IV ONE (16:34)
[2016-12-03] MEDS ORDERED: Tigecycline 50 MG in Dextrose 5% In Water 100 ML IV SCH (16:45)
[2016-12-03] MEDS ORDERED: Aztreonam 1 GM in Sodium Chloride 0.9% 100 ML IVPB SCH (16:45)
--- NOTE | 2016-12-03 20:01 | CP.PCM.PN ---
Subjective - Date & Time of Evaluation Date of Evaluation: 12/03/16 Time of Evaluation: 19:00 - Subjective Subjective: Patient seen and examined. Sitting comfortably in no acute distress Complaining of constipation and concerned about drinking too much fluid Denies fevers or chills, denies chest pain but complaining of slight cough pro Calcitonin level remains elevated Short run of V. tach today and patient on LifeVest Objective - Vital Signs/Intake and Output Vital Signs (last 24 hours): Temp Pulse Resp BP Pulse Ox 97.7 F 87 18 156/72 H 96 12/03/16 16:00 12/03/16 16:00 12/03/16 16:00 12/03/16 17:01 12/03/16 16:00 Intake and Output: 12/03/16 12/04/16 18:59 06:59 Intake Total 580 Balance 580 - Medications Medications: Current Medications Aspirin (Aspirin Chewable) 81 mg PO DAILY [facility] Last Admin: 12/03/16 10:22 Dose: 81 mg Benzocaine/Menthol (Cepacol Sore Throat) 1 asia MT Q4H PRN PRN Reason: Sore Throat Last Admin: 12/03/16 10:22 Dose: 1 asia Calcium Acetate (Phoslo) 667 mg PO ACTID [facility] Last Admin: 12/03/16 17:01 Dose: 667 mg Carvedilol (Coreg) 12.5 mg PO BID [facility] Last Admin: 12/03/16 17:01 Dose: 12.5 mg Guaifenesin/Dextromethorphan (Robitussin Dm) 5 ml PO Q4H PRN PRN Reason: Cough Last Admin: 11/30/16 19:38 Dose: 5 ml Hydrocortisone (Anusol-Hc) 2.5 gm SD BID [facility] Last Admin: 12/03/16 17:25 Dose: Not Given Tigecycline 50 mg/ Dextrose 100 mls @ 100 mls/hr IV Q12H [facility] Aztreonam 1 gm/ Sodium (Chloride) 100 mls @ 200 mls/hr IVPB Q24H [facility] Insulin Aspart (Novolog) 0 unit SC ACHS [facility] PRN Reason: Protocol Last Admin: 12/03/16 17:01 Dose: 2 unit Lisinopril (Zestril) 5 mg PO BID [facility] Last Admin: 04/15/17 17:24 Dose: 5 mg Loperamide HCl (Imodium) 2 mg PO QID PRN PRN Reason: Diarrhea Last Admin: 12/03/16 00:42 Dose: 2 mg Ondansetron HCl (Zofran Inj) 4 mg IVP Q6 PRN PRN Reason: Nausea/Vomiting Last Admin: 12/01/16 13:07 Dose: 4 mg Rosuvastatin Calcium (Crestor) 10 mg PO HS [facility] Last Admin: 12/02/16 21:32 Dose: 10 mg Saccharomyces Boulardii (Florastor) 250 mg PO BID [facility] Last Admin: 12/03/16 17:01 Dose: 250 mg - Labs Labs: 12/03/16 06:28 12/03/16 06:28 PT 13.6 SECONDS (9.7-12.2) H 11/25/16 20:01 INR 1.2 11/25/16 20:01 APTT 39 SECONDS (21-34) H 11/25/16 20:01 - Head Exam Head Exam: ATRAUMATIC, NORMOCEPHALIC - Eye Exam Eye Exam: Normal appearance - ENT Exam ENT Exam: Mucous Membranes Moist - Respiratory Exam Respiratory Exam: Decreased Breath Sounds - Cardiovascular Exam Cardiovascular Exam: REGULAR RHYTHM - GI/Abdominal Exam GI & Abdominal Exam: Soft, Normal Bowel Sounds Assessment and Plan (1) Pneumonia Assessment & Plan: Started on tigecycline by infectious disease Continue present treatment and follow-up chest x-ray on Monday Follow up culture and sensitivity Status: Acute (2) ESRD (end stage renal disease) on dialysis Status: Acute
--- NOTE | 2016-12-04 02:38 | CP.PCM.PN ---
<Ginger Hartman - Last Filed: 12/04/16 02:34> Subjective - Date & Time of Evaluation Date of Evaluation: 12/04/16 Time of Evaluation: 02:34 - Subjective Subjective: Patient seen and examined at bedside. Resting comfortably. He states diarrhea has resolved but complaining of constipation x1 day. Patient notes he is concerned to drink because he will not have dialysis until Monday. He continues to suffer from cough productive of white phlegm. He is wearing his life vest and reports he is comfortable. Patient had short run of ventricular tachycardia yesterday. Objective - Vital Signs/Intake and Output Vital Signs (last 24 hours): Temp Pulse Resp BP Pulse Ox 98.3 F 90 20 123/83 95 12/03/16 23:45 12/03/16 23:45 12/03/16 23:45 12/03/16 23:45 12/03/16 23:45 Intake and Output: 12/03/16 12/04/16 18:59 06:59 Intake Total 580 550 Balance 580 550 - Medications Medications: Current Medications Aspirin (Aspirin Chewable) 81 mg PO DAILY [facility] Last Admin: 12/03/16 10:22 Dose: 81 mg Benzocaine/Menthol (Cepacol Sore Throat) 1 asia MT Q4H PRN PRN Reason: Sore Throat Last Admin: 12/03/16 10:22 Dose: 1 asia Calcium Acetate (Phoslo) 667 mg PO ACTID [facility] Last Admin: 12/03/16 17:01 Dose: 667 mg Carvedilol (Coreg) 12.5 mg PO BID [facility] Last Admin: 12/03/16 17:01 Dose: 12.5 mg Guaifenesin/Dextromethorphan (Robitussin Dm) 5 ml PO Q4H PRN PRN Reason: Cough Last Admin: 11/30/16 19:38 Dose: 5 ml Hydrocortisone (Anusol-Hc) 2.5 gm ME BID [facility] Last Admin: 12/03/16 17:25 Dose: Not Given Tigecycline 50 mg/ Dextrose 100 mls @ 100 mls/hr IV Q12H [facility] Aztreonam 1 gm/ Sodium (Chloride) 100 mls @ 200 mls/hr IVPB Q24H [facility] Insulin Aspart (Novolog) 0 unit SC ACHS [facility] PRN Reason: Protocol Last Admin: 12/03/16 22:01 Dose: Not Given Lisinopril (Zestril) 5 mg PO BID [facility] Last Admin: 12/03/16 17:24 Dose: 5 mg Loperamide HCl (Imodium) 2 mg PO QID PRN PRN Reason: Diarrhea Last Admin: 12/03/16 00:42 Dose: 2 mg Ondansetron HCl (Zofran Inj) 4 mg IVP Q6 PRN PRN Reason: Nausea/Vomiting Last Admin: 12/01/16 13:07 Dose: 4 mg Rosuvastatin Calcium (Crestor) 10 mg PO HS [facility] Last Admin: 12/03/16 22:15 Dose: 10 mg Saccharomyces Boulardii (Florastor) 250 mg PO BID [facility] Last Admin: 12/03/16 17:01 Dose: 250 mg - Labs Labs: 12/03/16 06:28 12/03/16 06:28 PT 13.6 SECONDS (9.7-12.2) H 11/25/16 20:01 INR 1.2 11/25/16 20:01 APTT 39 SECONDS (21-34) H 11/25/16 20:01 - Constitutional Appears: Non-toxic, No Acute Distress - Head Exam Head Exam: ATRAUMATIC, NORMAL INSPECTION, NORMOCEPHALIC - Eye Exam Eye Exam: EOMI, Normal appearance, PERRL - ENT Exam ENT Exam: Mucous Membranes Moist - Neck Exam Neck Exam: Normal Inspection - Respiratory Exam Respiratory Exam: Decreased Breath Sounds, NORMAL BREATHING PATTERN. absent: Rales, Rhonchi, Wheezes - Cardiovascular Exam Cardiovascular Exam: +S1, +S2. absent: Tachycardia - GI/Abdominal Exam GI & Abdominal Exam: Soft, Normal Bowel Sounds - Extremities Exam Extremities Exam: Normal Inspection. absent: Tenderness - Neurological Exam Neurological Exam: Alert, Awake, Oriented x3 - Psychiatric Exam Psychiatric exam: Normal Affect, Normal Mood - Skin Skin Exam: Intact, Normal Color, Warm Assessment and Plan - Assessment and Plan (Free Text) Assessment: Influenza Type B -Swab for influenza B positive -Tamiflu 30 mg PO MWF (active since 11/25/16) -Droplet precautions discontinued Muscle weakness, acute 12/03: Continues to ambulate 12/01: Patient to ambulate hospital halls today under supervision 11/29: improved, patient seen ambulating in room today. -CT head negative -Stop home med Levaquin 500mg PO daily -> pt may be having a reaction. -CPK 174 H -> [address] Hospital Acquired Pneumonia, acute 12/04: Started on Tigecycline 50 mg IV Q12h (12/04/16) by ID, Dr. Flanagan. Repeat CXR on Monday. 12/03: Chest xray (12/02): mild central pulmonary vascular congestive changes with bilateral lower lobe alveolar type infiltrates and bilateral effusions. Appears to segmental atelectatic changes in the left mid to lower lung field, Marked cardiomegaly. Increased procalcitonin to 1.69 from 1.63. Mycoplasma pneumonia IgM negative. 12/02: Continue current management 12/01: Procalcitonin resulted elevated (1.63). Patient being treated for bacterial hospital acquired pneumonia. Per human resources benefits specialist, Dr. Reynolds, started on Azithromycin 500 mg IVPB q24h and Aztreonam 1 gm IVPB q8h (11/30/16). 11/30: Repeat CXR: Right lower love airspace disease with air bronchogram. There is discoid atelctasis/scarring in left mid lung. There is mild pulmonary venous congestion and fluid in the minor fissure. Severe cardiomegaly seen. Athersclerotic aortic arch calcifications are present. 11/29: Avelox discontinued due to risk of QT prolongation as patient had runs of non-sustained ventricular tachycardia on telemetry. Per human resources benefits specialist, Dr. Reynolds , patient does not need to be continued on antibiotics for pneumonia. 11/26-11/27: pleural fluid results: +WBC, no growth x2d; Blood culture negative x2d 11/25: Dr. Reynolds consulted. recommended IR for thoracentesis - 800cc of straw colored fluid drawn. -Patient recently in ED 11/20 for Bronchitis - CT chest- b/l pleural effusions, lower lung consolidation, pericardial effusion (20mm), ascites of abdomen. see full report. -Stop home med Levaquin 500mg PO daily -> pt may be having a reaction. -Start Azithromycin 500mg IVPB Q24H -ProBNP 394,000 Acute on chronic Diastolic CHF 12/04: Patient observed wearing life vest. Approximately 12 beat run of V tach around 3:15pm on 12/03/16. Patient instructed Lifevest needs to be worn at all times.Repeat EKG, compared to November 24, no significant acute changes. Per Dr. Veloz's associate, , no additional intervention needed at this time. 12/03: follow-up when life vest will be received. Continue monitoring on telemetry. 12/02: Continue current management 12/01: Patient fitted for life vest yesterday. Will receive life vest today and [employer] to provide more information to patient. 11/30: Per Dr. Veloz, VEST company [employer] was contacted and forms faxes. Awaiting insurance approval. Coreg increased to 12.5 mg po BID. Discontinued lasix as patient incontinent of urine. Continue Lisinopril 5 mg po BID, Aspirin 81 mg po daily, and Crestor 10 mg po HS. 11/29: Per Dr. Veloz, patient was offered an ICD, but wishes to wear a life vest for 3-4 months and will consent to an ICD if ejection fraction does not improve. Dr. Veloz will call life vest client account representative so patient is fitted for a vest during hospitalization. Patient given Lasix 20 mg IVP stat Started patient on Lasix 20 mg po BID Lisinpril increased to 5 mg po BID. Continue Carvedilol, Aspirin and Crestor. CXR: Left pleural effusion noted. Vascular congestion noted. Will follow-up official report. 11/28: Patient evaluated by Dr. Veloz. He notes chronic LV dysfunction that possibly was exacerbated by acute H. flu. He also notes severely abnormal diastolic filling, type III. Patient to have AICD placed. Patient to be continued on Carvedilol 6.25 mg po BID, ASA 81 mg po daily, Lisinopril 5 mg po daily, Crestor 10 mg po HS. 11/27: Cardiology Dr. Veloz consulted (pts home development and planning engineer). Dr. Pierce (cardio ) is considering EP consult for life vest. -2 runs of Vtach today at 2pm and 4pm. Dr. Pierce notified. Patient stable, no chest pain, no acute distress. 11/26: Echo - EF 15%, Diastolic dysfunction, L/R atrium mod dilated, mod/severe MR , mild TR, PA dilated, IVC dilated. 11/25: Dr. Pierce does not recommend draining pericardial effusion as it is mild and risks outweight benefits. Recs-> Add ACEI or ARBs to the regimen; Can add Lasix may benefit by decreasing the pre load - CT chest- b/l pleural effusions, lower lung consolidation, pericardial effusion (20mm), ascites of abdomen. see full report. - Pulm/Crit Care consult - Dr. Reynolds -> for possible thoracentesis. Will evaluate patient in am. - Cardiology consult, Dr. Pierce, f/u recs - EKG: Normal sinus rhythm; Left axis deviation;Anterior infarct, age undetermined; No QT prolongation. - f/u repeat EKG on 11/24 pm (not performed) - monitor for QT prolongation Diarrhea, Acute -Resolved -Pt complaining of daily episodes of diarrhea -C.diff toxin resulted negative -Stool Leukocytes negative. Pleural Effusion, acute -s/p Thoracentesis on 11/25/16 -Pleural fluid sent for cytology: Protein <3.0, LDH 138 -Pleural fluid cx negative Pericardial Effusion, acute 11/28: Per Dr. Veloz, dialysis is best treatment for small pericardial effusion. 11/26: Echo - EF 15%, Diastolic dysfunction, L/R atrium mod dilated, mod/severe MR , mild TR, PA dilated, IVC dilated. 11/25: Dr. Pierce does not recommend draining pericardial effusion as it is mild and risks outweight benefits. Recs-> Add ACEI or ARBs to the regimen; Can add Lasix may benefit by decreasing the pre load - CT chest- b/l pleural effusions, lower lung consolidation, pericardial effusion (20mm), ascites of abdomen. see full report. - Cardiology consult, Dr. Pierce, f/u recs - EKG: Normal sinus rhythm; Left axis deviation;Anterior infarct, age undetermined; No QT prolongation. - f/u repeat EKG on 11/24 pm (not performed) - monitor for QT prolongation ESRD on HD, chronic Hemodialysis on Monday BUN/Creatinine 33/5.1 Potassium decreased post hemodialysis Pt tolerated Hemodialysis well yesterday UF 2200ml with HD 11/28 -Maintain potassium >4.0 as patient was having runs of V tach -HD schedule MWF -Consult Nephrology, Dr. Joyce, f/u recs -awaiting kidney transplant. -Phoslo 667 mg PO ACTID [facility] Pancytopenia 11/30: pancytopenia improving 11/29: WBC 4.0, hemoglobin 10.5, hematocrit 33.1, platelets 113. Could be secondary to Avelox. HTN, chronic normotensive Coreg 12.5 mg PO BID Lisinopril 5 mg po BID Diabetes, chronic Continue on Novolog ACHS - ISS Hx of Anxiety Xanax 0.25 mg PO TID PRN -pt only uses Xanax 0.5mg 1-2x per week. Hx of Hyperthyroidism untreated monitor TSH/free T4 - WNL Prophylaxis SCDs PT/OT <Xohcitl Mirza V - Last Filed: 12/04/16 17:04> Objective - Vital Signs/Intake and Output Vital Signs (last 24 hours): Temp Pulse Resp BP Pulse Ox 98.5 F 85 18 124/82 99 12/04/16 15:42 12/04/16 15:42 12/04/16 15:42 12/04/16 15:42 12/04/16 15:42 Intake and Output: 12/04/16 12/04/16 06:59 18:59 Intake Total 890 Balance 890 - Medications Medications: Current Medications Acetaminophen (Tylenol 325mg Tab) 650 mg PO Q6 PRN PRN Reason: Pain, Mild (1-3) Aspirin (Aspirin Chewable) 81 mg PO DAILY [facility] Last Admin: 12/04/16 10:51 Dose: 81 mg Benzocaine/Menthol (Cepacol Sore Throat) 1 asia MT Q4H PRN PRN Reason: Sore Throat Last Admin: 12/03/16 10:22 Dose: 1 asia Calcium Acetate (Phoslo) 667 mg PO ACTID [facility] Last Admin: 12/04/16 12:17 Dose: 667 mg Carvedilol (Coreg) 12.5 mg PO BID [facility] Last Admin: 12/04/16 10:51 Dose: 12.5 mg Guaifenesin/Dextromethorphan (Robitussin Dm) 5 ml PO Q4H PRN PRN Reason: Cough Last Admin: 11/30/16 19:38 Dose: 5 ml Hydrocortisone (Anusol-Hc) 2.5 gm ME BID [facility] Last Admin: 12/04/16 10:52 Dose: Not Given Tigecycline 50 mg/ Dextrose 100 mls @ 100 mls/hr IV Q12H [facility] Last Admin: 12/04/16 16:02 Dose: 100 mls/hr Aztreonam 1 gm/ Sodium (Chloride) 100 mls @ 200 mls/hr IVPB Q24H [facility] Insulin Aspart (Novolog) 0 unit SC ACHS [facility] PRN Reason: Protocol Last Admin: 12/04/16 16:49 Dose: Not Given Lisinopril (Zestril) 5 mg PO BID [facility] Last Admin: 12/04/16 10:50 Dose: 5 mg Morphine Sulfate (Morphine) 2 mg IVP Q4 PRN PRN Reason: Pain, moderate (4-7) Last Admin: 12/04/16 15:52 Dose: 2 mg Ondansetron HCl (Zofran Inj) 4 mg IVP Q6 PRN PRN Reason: Nausea/Vomiting Last Admin: 12/01/16 13:07 Dose: 4 mg Rosuvastatin Calcium (Crestor) 10 mg PO HS [facility] Last Admin: 12/03/16 22:15 Dose: 10 mg Saccharomyces Boulardii (Florastor) 250 mg PO BID [facility] Last Admin: 12/04/16 10:50 Dose: 250 mg - Labs Labs: 12/04/16 11:58 12/04/16 11:58 PT 13.6 SECONDS (9.7-12.2) H 11/25/16 20:01 INR 1.2 11/25/16 20:01 APTT 39 SECONDS (21-34) H 11/25/16 20:01 Attending/Attestation - Attestation I have personally seen and examined this patient.: Yes I have fully participated in the care of the patient.: Yes I have reviewed all pertinent clinical information, including history, physical exam and plan: Yes Notes (Text): Patient seen, examined, and case discussed with day-time resident. Patient seen this morning. Patient reports he is having diarrhea and does not feel his symptoms improving from constant productive coughing. Patient had repeat stool studies today and C.diff toxin given he has been on IV abx to cover to hospital acquired pneumonia Infectous disease-->help appreciated; patient started on Tigecycline and monitor to see if his symptoms improving, given procalcitonin remains elevated. Pulmonary to follow; patient to have a repeat chest xray tomorrow. Patient is wearing his lifevest currently. Disposition: patient has severe pneumonia with chronic medical conditions including renal transplant, diabetic, hypertension, and current influenza which requiring further hospitalization and monitoring; patient has v-tach on IV abx for HAP; switched to new IV abx to cover for pneumonia while monitoring for arrythmia. Infectious disease on board-->help appreciated; f/u pulmonary regarding stable for discharge Assessment/Plan Acute on Chronic Systolic CHF exacerbation * Private development and planning engineer (Dr. Veloz): on the case help appreciated * Aspirin 81mg PO daily * Coreg 12.5mg PO bid * Lisinopril 5mg PO daily * Crestor 10mg POqHS * Echo (11/24/16) - EF 15%, Diastolic dysfunction, L/R atrium mod dilated, mod/ severe MR, mild TR, PA dilated, IVC dilated * Patient has dialysis on // * Patient is currently wearing his lifevest Influenza Type B * Discontinued Droplet precaution 11/30/16 (received 3 doses of Tamiflu) * Tamiflu 30mg PO MWF (active since 11/25/16) * Note: sequela of influenza to monitor is pneumonia Pneumonia * Pulmonary (Dr. Reynolds) on board-->help appreciated * 11/24/16 CT Chest: bilateral pleural effusion greater on the right, bilateral lower lung consolidations greater on the right, pericardial effusion, complex septated air collection to the right of trace and esophagua, small asictes, hypotrophic kidneys incompletely imaged as discussed above * 11/25/16: No pneumothroax status post right thoracentesis. small bilateral pleural effusion. bilateral linear atelectasis * Chest xray (11/30/16): interval improved aeration in both lungs with improvement in congestive heart failure; right lower love airspace disease with airbroncogram could represent developing pneumonia. Follow-up after medical management is recommended to ensure complete resolution * Chest xray 12/02/16: mild central pulmonary vascular congestive changes with bilateral lower lobe alveolar type infiltrates and bilateral effusions. Appears to segmental atelectatic changes in the left mid to lower lung field, Marked cardiomegaly. * Pulmonary (Dr. Reynolds) on board-->help appreciated * IR (11/25/16): ultrasound guided right thoracentesis; 800 cc straw colored fluid removed * Pleural growth: no growth * Infectious disease (Dr. Flanagan) consulted given patient has had adverse reactions to both Levaquin and Azithromycin * Patient received loading dose of Tigecycline 100mg IV yesterday and currently on Tigecycline 50mg IV Q 12hours (active since 12/04/16) * Discussed with pulmonary, patient is not stable from discharge per pulmonary * persistent high procalcitonin Pericardial effusion * Echocardiogram (11/26/16): LV ventricle is mildy dilated. ejection fraction is severely imparied. EF: 15%, Grade IV dixed restrictive diastolic dysfunction. glpbal hypokinesis of the left ventricle left atrium moderately dilated. right atrium is moderate dilated. mitral regurgitation is moderate to severe. mild tricupsid regurgitation PAP: 45-50mmHG, PA is dilated, IVC dilated with no collapse with inspiration. RAP of 20 or greater. Multiple large loculated pericardial effusions both anterior and posteriolroy no evidence of systolic atrial collapse * Per cardiology note: dialysis best option for small pericardial effusion ESRD * Nephrology (Dr. Joyce) * Patient is Monday/Monday/Monday dialysis * History of renal transplant Hypertension * Coreg 12.5 mg PO BID [facility] * Crestor 10 mg PO HS [facility] * Lisinopril 5 mg PO daily Diabetes, chronic * Novolog insulin sliding scale subq * [id number]: 6.5 Hx of Anxiety * Xanax 0.25 mg PO TID PRN Hx of Hyperthyroidism * prior history per H&P * thyroid studies within normal range Non-sustained VT * d/c Avelox; d/c Azithromycin given prolonged QT side effect * Episode of v-tach noted on the monitor; repeat EKG unchanged from prior EKG * Patient is currently wearing his lifevest Prophylaxis * SCDs * PT/OT eval * Subacute rehab eval
[2016-12-04] MEDS: Tigecycline 50 MG in Dextrose 5% In Water 100 ML IV SCH ×2 (03:00→16:02)
[2016-12-04] MEDS: (Novolog) Insulin Aspart, Recombinant 100 u/ml 10 ml vial SC SCH ×4 (08:04→22:13)
[2016-12-04] MEDS: Saccharomyces Boulardi 250 mg Cap PO SCH ×2 (10:50→17:07)
[2016-12-04] MEDS: Hydrocortisone 2.5% Rectal Cream(30 gm) PR SCH ×2 (10:52→17:15)
[2016-12-04 12:27] LABS: HEMATOCRIT 35.1 % (35.0-51.0); MEAN CELL VOLUME 85.3 fL (80.0-94.0); MEAN CORPUSCULAR HEMOGLOBIN 26.4 pg (27.0-31.0); MEAN CORPUSCULAR HGB CONC 30.9 g/dL (33.0-37.0); MEAN PLATELET VOLUME 9.3 fL (7.2-11.7); RED CELL DISTRIBUTION WIDTH 18.6 % (11.5-14.5); WHITE BLOOD COUNT 4.4 K/uL (4.8-10.8)
[2016-12-04 12:47] LABS: POTASSIUM 5.3 mmol/L (3.6-5.2)
[2016-12-04 12:49] LABS: ALB/GLOB RATIO 0.9 (1.0-2.1); BILIRUBIN,TOTAL 0.8 mg/dL (0.2-1.3); PHOSPHOROUS 5.4 mg/dL (2.5-4.5); TOTAL PROTEIN 6.3 g/dL (6.3-8.3)
[2016-12-04 12:50] LABS: CALCIUM 8.3 mg/dl (8.6-10.4); MAGNESIUM 2.4 mg/dL (1.6-2.3)
[2016-12-04] MEDS: Aztreonam 1 GM in Sodium Chloride 0.9% 100 ML IVPB SCH (17:10)
[2016-12-04 20:39] LABS: C DIFF TOXIN A B NEGATIVE (NEGATIVE); FECAL LEUKOCYTES NEGATIVE (NEGATIVE)
[2016-12-05 07:28] LABS: BASO % 0.7 % (0.0-2.0); EOS # 0.1 K/uL (0.0-0.7); LYMPH # 1.2 K/uL (1.0-4.3); LYMPH % 23.9 % (20.0-40.0); MEAN CORPUSCULAR HEMOGLOBIN 26.5 pg (27.0-31.0); MEAN CORPUSCULAR HGB CONC 31.2 g/dL (33.0-37.0); MEAN PLATELET VOLUME 9.2 fL (7.2-11.7); MONO # 0.7 K/uL (0.0-0.8); MONO % 13.4 % (0.0-10.0); NRBC % 0.1 % (0.0-2.0); RED CELL DISTRIBUTION WIDTH 18.1 % (11.5-14.5); WHITE BLOOD COUNT 4.9 K/uL (4.8-10.8)
[2016-12-05 07:45] LABS: ALB/GLOB RATIO 0.9 (1.0-2.1); BILIRUBIN,TOTAL 0.9 mg/dL (0.2-1.3); CALCIUM 8.3 mg/dl (8.6-10.4); PHOSPHOROUS 7.4 mg/dL (2.5-4.5); TOTAL PROTEIN 6.3 g/dL (6.3-8.3)
[2016-12-05 07:46] LABS: MAGNESIUM 2.5 mg/dL (1.6-2.3)
[2016-12-05] MEDS: (Novolog) Insulin Aspart, Recombinant 100 u/ml 10 ml vial SC SCH ×4 (07:51→21:58)
[2016-12-05 08:26] LABS: POTASSIUM 6.5 mmol/L (3.6-5.2)
--- NOTE | 2016-12-05 09:22 | CP.PCM.PN ---
Subjective - Date & Time of Evaluation Date of Evaluation: 12/05/16 Time of Evaluation: 09:18 - Subjective Subjective: Pt is fluid overweight. K is 6.5. In dialysis Objective - Vital Signs/Intake and Output Vital Signs (last 24 hours): Temp Pulse Resp BP Pulse Ox 97.5 F L 73 20 126/83 99 12/05/16 08:53 12/05/16 08:53 12/05/16 08:53 12/05/16 08:53 12/05/16 08:53 - Medications Medications: Current Medications Acetaminophen (Tylenol 325mg Tab) 650 mg PO Q6 PRN PRN Reason: Pain, Mild (1-3) Last Admin: 12/05/16 04:36 Dose: 650 mg Aspirin (Aspirin Chewable) 81 mg PO DAILY [facility] Last Admin: 12/04/16 10:51 Dose: 81 mg Benzocaine/Menthol (Cepacol Sore Throat) 1 asia MT Q4H PRN PRN Reason: Sore Throat Last Admin: 12/03/16 10:22 Dose: 1 asia Calcium Acetate (Phoslo) 667 mg PO ACTID [facility] Last Admin: 12/05/16 08:03 Dose: 667 mg Carvedilol (Coreg) 12.5 mg PO BID [facility] Last Admin: 12/04/16 17:08 Dose: 12.5 mg Guaifenesin/Dextromethorphan (Robitussin Dm) 5 ml PO Q4H PRN PRN Reason: Cough Last Admin: 11/30/16 19:38 Dose: 5 ml Hydrocortisone (Anusol-Hc) 2.5 gm VT BID [facility] Last Admin: 12/04/16 17:15 Dose: Not Given Aztreonam 1 gm/ Sodium (Chloride) 100 mls @ 200 mls/hr IVPB Q24H [facility] Last Admin: 12/04/16 17:10 Dose: 200 mls/hr Tigecycline 50 mg/ Sodium (Chloride) 100 mls @ 100 mls/hr IV Q12H [facility] Last Admin: 12/05/16 04:07 Dose: 100 mls/hr Insulin Aspart (Novolog) 0 unit SC ACHS [facility] PRN Reason: Protocol Last Admin: 12/05/16 07:51 Dose: Not Given Lisinopril (Zestril) 5 mg PO BID [facility] Last Admin: 12/04/16 17:07 Dose: 5 mg Morphine Sulfate (Morphine) 2 mg IVP Q4 PRN PRN Reason: Pain, moderate (4-7) Last Admin: 12/05/16 05:25 Dose: 2 mg Ondansetron HCl (Zofran Inj) 4 mg IVP Q6 PRN PRN Reason: Nausea/Vomiting Last Admin: 12/01/16 13:07 Dose: 4 mg Rosuvastatin Calcium (Crestor) 10 mg PO HS [facility] Last Admin: 12/04/16 22:15 Dose: 10 mg Saccharomyces Boulardii (Florastor) 250 mg PO BID [facility] Last Admin: 12/04/16 17:07 Dose: 250 mg - Labs Labs: 12/05/16 07:08 12/05/16 07:08 PT 13.6 SECONDS (9.7-12.2) H 11/25/16 20:01 INR 1.2 11/25/16 20:01 APTT 39 SECONDS (21-34) H 11/25/16 20:01 - Constitutional Appears: Well - Head Exam Head Exam: NORMAL INSPECTION - Eye Exam Eye Exam: EOMI - ENT Exam ENT Exam: Mucous Membranes Moist - Neck Exam Neck Exam: Full ROM - Respiratory Exam Respiratory Exam: Decreased Breath Sounds - Cardiovascular Exam Cardiovascular Exam: REGULAR RHYTHM - GI/Abdominal Exam GI & Abdominal Exam: Soft, Normal Bowel Sounds - Exam External exam: NORMAL EXTERNAL EXAM - Back Exam Back Exam: NORMAL INSPECTION - Neurological Exam Neurological Exam: Alert, Awake, CN II-XII Intact, Oriented x3 Assessment and Plan - Assessment and Plan (Free Text) Assessment: 1. Pt will benefit from afterload reduction, with sabrina inhibitor. K must be removed in dialysis. Will repeat k this afternoon and if k still high will hold lisinopril. Can add nitrates and hydrazine, especially in [place]. 2. Please review all IV fluids for necessity. Give PO meds when possible, to limit IV fluids. Pt was still congested on cxr 12/02.
[2016-12-05] MEDS: Hydrocortisone 2.5% Rectal Cream(30 gm) PR SCH ×2 (10:00→17:39)
[2016-12-05] MEDS: Saccharomyces Boulardi 250 mg Cap PO SCH ×2 (10:00→17:38)
--- NOTE | 2016-12-05 12:21 | CP.PCM.PN ---
Subjective - Date & Time of Evaluation Date of Evaluation: 12/05/16 Time of Evaluation: 12:18 - Subjective Subjective: Seen on dialysis- to UF 3000ml due to large weight gain K elevated likely due to SOPHIE I Remains on IV ABs Objective - Vital Signs/Intake and Output Vital Signs (last 24 hours): Temp Pulse Resp BP Pulse Ox 97.4 F L 75 18 128/85 99 12/05/16 09:15 12/05/16 09:15 12/05/16 09:15 12/05/16 12:15 12/05/16 09:15 - Medications Medications: Current Medications Acetaminophen (Tylenol 325mg Tab) 650 mg PO Q6 PRN PRN Reason: Pain, Mild (1-3) Last Admin: 12/05/16 04:36 Dose: 650 mg Aspirin (Aspirin Chewable) 81 mg PO DAILY COUNT [facility] Last Admin: 12/04/16 10:51 Dose: 81 mg Benzocaine/Menthol (Cepacol Sore Throat) 1 asia MT Q4H PRN PRN Reason: Sore Throat Last Admin: 12/03/16 10:22 Dose: 1 asia Calcium Acetate (Phoslo) 667 mg PO ACTID COUNT [facility]CLUD[facility] Last Admin: 12/05/16 08:03 Dose: 667 mg Carvedilol (Coreg) 12.5 mg PO BID COUNT [facility]CLUD[facility] Last Admin: 12/04/16 17:08 Dose: 12.5 mg Guaifenesin/Dextromethorphan (Robitussin Dm) 5 ml PO Q4H PRN PRN Reason: Cough Last Admin: 11/30/16 19:38 Dose: 5 ml Hydralazine HCl (Apresoline) 25 mg PO TID COUNT [facility]CLUD[facility] Hydrocortisone (Anusol-Hc) 2.5 gm TX BID COUNT [facility]CLUDES [facility] Last Admin: 12/04/16 17:15 Dose: Not Given Aztreonam 1 gm/ Sodium (Chloride) 100 mls @ 200 mls/hr IVPB Q24H COUNT [facility] Last Admin: 12/04/16 17:10 Dose: 200 mls/hr Tigecycline 50 mg/ Sodium (Chloride) 100 mls @ 100 mls/hr IV Q12H [facility] Last Admin: 12/05/16 04:07 Dose: 100 mls/hr Insulin Aspart (Novolog) 0 unit SC ACHS COUNT [facility]CLUD[facility] PRN Reason: Protocol Last Admin: 12/05/16 07:51 Dose: Not Given Isosorbide Mononitrate (Imdur) 30 mg PO DAILY COUNT [facility]CLUD[facility] Lisinopril (Zestril) 5 mg PO BID COUNT [facility] Last Admin: 12/04/16 17:07 Dose: 5 mg Morphine Sulfate (Morphine) 2 mg IVP Q4 PRN PRN Reason: Pain, moderate (4-7) Last Admin: 12/05/16 05:25 Dose: 2 mg Ondansetron HCl (Zofran Inj) 4 mg IVP Q6 PRN PRN Reason: Nausea/Vomiting Last Admin: 12/01/16 13:07 Dose: 4 mg Rosuvastatin Calcium (Crestor) 10 mg PO HS COUNT [facility]CLUD[facility] Last Admin: 12/04/16 22:15 Dose: 10 mg Saccharomyces Boulardii (Florastor) 250 mg PO BID COUNT [facility]CLUD[facility] Last Admin: 12/04/16 17:07 Dose: 250 mg Sodium Polystyrene Sulfonate (Kayexalate Oral Susp) 15 gm PO TTS COUNT [facility]CLUDES [facility] - Labs Labs: 12/05/16 07:08 12/05/16 07:08 PT 13.6 SECONDS (9.7-12.2) H 11/25/16 20:01 INR 1.2 11/25/16 20:01 APTT 39 SECONDS (21-34) H 11/25/16 20:01 Assessment and Plan (1) ESRD (end stage renal disease) on dialysis Status: Acute (2) HTN (hypertension) Status: Acute (3) Influenza Status: Acute (4) Pneumonia and influenza Status: Acute (5) Cardiomyopathy Status: Acute - Assessment and Plan (Free Text) Plan: Repeat K level in AN; do not want to repeat K post dialysis Add kayexalate for now; non-dialysis days BP controlled Repeat CXR continue aggressive UF MWF at dialysis
--- NOTE | 2016-12-05 12:44 | CARD ---
APPROVED REPORT EKG Measurement Heart [id number] <Conclusion> Sinus rhythm with 1st degree AV block Left axis deviation Incomplete right bundle branch block Septal infarct, age undetermined Abnormal ECG
--- NOTE | 2016-12-05 14:19 | CP.PCM.PN ---
Subjective - Date & Time of Evaluation Date of Evaluation: 12/05/16 Time of Evaluation: 11:00 - Subjective Subjective: Pt was seen and examined at bedside during scheduled dialysis. Pt is concerned about fluid load placing a significant strain on his heart and kidneys (BUN/Cr = 91/10.3; stage 5 CKD). Pt is also concerned about high K of 6.5. Pt complains of SOB, productive cough with white sputum (improved), congestion, and diarrhea. Pt complains of chronic chills due to anemia. Pt denies fevers. Objective - Vital Signs/Intake and Output Vital Signs (last 24 hours): Temp Pulse Resp BP Pulse Ox 97.4 F L 75 18 131/83 99 12/05/16 09:15 12/05/16 09:15 12/05/16 09:15 12/05/16 12:15 12/05/16 09:15 - Medications Medications: Current Medications Acetaminophen (Tylenol 325mg Tab) 650 mg PO Q6 PRN PRN Reason: Pain, Mild (1-3) Last Admin: 12/05/16 04:36 Dose: 650 mg Aspirin (Aspirin Chewable) 81 mg PO DAILY [facility] Last Admin: 12/04/16 10:51 Dose: 81 mg Benzocaine/Menthol (Cepacol Sore Throat) 1 asia MT Q4H PRN PRN Reason: Sore Throat Last Admin: 12/03/16 10:22 Dose: 1 asia Calcium Acetate (Phoslo) 1,334 mg PO TID [facility] Last Admin: 12/05/16 13:41 Dose: 1,334 mg Carvedilol (Coreg) 12.5 mg PO BID [facility] Last Admin: 12/05/16 10:00 Dose: Not Given Guaifenesin/Dextromethorphan (Robitussin Dm) 5 ml PO Q4H PRN PRN Reason: Cough Last Admin: 11/30/16 19:38 Dose: 5 ml Hydralazine HCl (Apresoline) 25 mg PO TID [facility] Last Admin: 12/05/16 10:00 Dose: Not Given Hydrocortisone (Anusol-Hc) 2.5 gm MD BID [facility] Last Admin: 12/05/16 10:00 Dose: Not Given Aztreonam 1 gm/ Sodium (Chloride) 100 mls @ 200 mls/hr IVPB Q24H [facility] Last Admin: 12/04/16 17:10 Dose: 200 mls/hr Tigecycline 50 mg/ Sodium (Chloride) 100 mls @ 100 mls/hr IV Q12H [facility] Last Admin: 12/05/16 04:07 Dose: 100 mls/hr Insulin Aspart (Novolog) 0 unit SC ACHS [facility] PRN Reason: Protocol Last Admin: 12/05/16 11:30 Dose: Not Given Isosorbide Mononitrate (Imdur) 30 mg PO DAILY [facility] Lisinopril (Zestril) 5 mg PO BID [facility] Last Admin: 12/05/16 10:00 Dose: Not Given Morphine Sulfate (Morphine) 2 mg IVP Q4 PRN PRN Reason: Pain, moderate (4-7) Last Admin: 12/05/16 05:25 Dose: 2 mg Ondansetron HCl (Zofran Inj) 4 mg IVP Q6 PRN PRN Reason: Nausea/Vomiting Last Admin: 12/01/16 13:07 Dose: 4 mg Rosuvastatin Calcium (Crestor) 10 mg PO HS [facility] Last Admin: 12/04/16 22:15 Dose: 10 mg Saccharomyces Boulardii (Florastor) 250 mg PO BID [facility] Last Admin: 12/05/16 10:00 Dose: Not Given Sodium Polystyrene Sulfonate (Kayexalate Oral Susp) 15 gm PO TTS [facility] - Labs Labs: 12/05/16 07:08 12/05/16 07:08 PT 13.6 SECONDS (9.7-12.2) H 11/25/16 20:01 INR 1.2 11/25/16 20:01 APTT 39 SECONDS (21-34) H 11/25/16 20:01 - Constitutional Appears: Well, No Acute Distress - Head Exam Head Exam: ATRAUMATIC, NORMOCEPHALIC - Respiratory Exam Respiratory Exam: Rhonchi (R), NORMAL BREATHING PATTERN. absent: Decreased Breath Sounds, Clear to Ausculation Bilateral, Prolonged Expiratory Phase, Rales , Wheezes, Respiratory Distress - Cardiovascular Exam Cardiovascular Exam: +S1, +S2, Murmur - Neurological Exam Neurological Exam: Alert, Awake, Oriented x3 - Psychiatric Exam Psychiatric exam: Normal Affect, Normal Mood - Skin Skin Exam: Dry, Intact, Normal Color, Warm Assessment and Plan (1) Pneumonia Assessment & Plan: CXR 4-17 Central pulmonary congestion vascular markings with bilateral LL alveolar type infiltrates and bilateral effusions, pneumonia possible, L mid to lower lung atelectasis, marked cardiomegaly follow-up repeat CXR Legionella testing ordered; will follow results Continue dialysis Dr. Flanagan from [facility] contacted to inform of concerns regarding fluid load and K elevation possibly related to new medications; recommend optimizing medications Continue tigecycline per infectious disease; follow progress with labs tomorrow Continue present treatment Status: Acute (2) ESRD (end stage renal disease) on dialysis Status: Acute
--- NOTE | 2016-12-05 14:39 | CP.PCM.CON ---
History of Present Illness - History of Present Illness History of Present Illness: dictated Past Patient History - Past Medical History & Family History Past Medical History?: Yes - Past Social History Smoking Status: Never Smoked - CARDIAC Hx Hypertension: Yes - PULMONARY Hx Respiratory Disorders: No - NEUROLOGICAL Hx Neurological Disorder: No - HEENT Hx HEENT Problems: No - RENAL Hx Chronic Kidney Disease: Yes - ENDOCRINE/METABOLIC Hx Hyperthyroidism: Yes - HEMATOLOGICAL/ONCOLOGICAL Hx Anemia: Yes - INTEGUMENTARY Hx Dermatological Problems: No - MUSCULOSKELETAL/RHEUMATOLOGICAL Hx Musculoskeletal Disorders: Yes Hx Back Pain: Yes Hx Herniated Disk: Yes Other/Comment: TORN ROTATOR CUFF LEFT-REPAIRED - GASTROINTESTINAL Hx Gastrointestinal Disorders: No - GENITOURINARY/GYNECOLOGICAL Hx Genitourinary Disorders: Yes Other/Comment: HAD LEFT KIDNEY TRANSPLANT 2008 - PSYCHIATRIC Hx Anxiety: Yes Hx Substance Use: No - SURGICAL HISTORY Hx Appendectomy: Yes - ANESTHESIA Hx Anesthesia: Yes Hx Anesthesia Reactions: No Hx Malignant Hyperthermia: No Meds Allergies/Adverse Reactions: Allergies Allergy/AdvReac Type Severity Reaction Status Date / Time Penicillins Allergy Verified 11/24/16 04:53 - Medications Medications: Current Medications Acetaminophen (Tylenol 325mg Tab) 650 mg PO Q6 PRN PRN Reason: Pain, Mild (1-3) Last Admin: 12/05/16 04:36 Dose: 650 mg Aspirin (Aspirin Chewable) 81 mg PO DAILY [facility] Last Admin: 12/05/16 14:20 Dose: 81 mg Benzocaine/Menthol (Cepacol Sore Throat) 1 asia MT Q4H PRN PRN Reason: Sore Throat Last Admin: 12/03/16 10:22 Dose: 1 asia Calcium Acetate (Phoslo) 1,334 mg PO TID [facility] Last Admin: 12/05/16 13:41 Dose: 1,334 mg Carvedilol (Coreg) 12.5 mg PO BID [facility] Last Admin: 12/05/16 10:00 Dose: Not Given Guaifenesin/Dextromethorphan (Robitussin Dm) 5 ml PO Q4H PRN PRN Reason: Cough Last Admin: 11/30/16 19:38 Dose: 5 ml Hydralazine HCl (Apresoline) 25 mg PO TID [facility] Last Admin: 12/05/16 14:20 Dose: 25 mg Hydrocortisone (Anusol-Hc) 2.5 gm IN BID [facility] Last Admin: 12/05/16 10:00 Dose: Not Given Aztreonam 1 gm/ Sodium (Chloride) 100 mls @ 200 mls/hr IVPB Q24H [facility] Last Admin: 12/04/16 17:10 Dose: 200 mls/hr Tigecycline 50 mg/ Sodium (Chloride) 100 mls @ 100 mls/hr IV Q12H [facility] Last Admin: 12/05/16 04:07 Dose: 100 mls/hr Insulin Aspart (Novolog) 0 unit SC ACHS [facility] PRN Reason: Protocol Last Admin: 12/05/16 11:30 Dose: Not Given Isosorbide Mononitrate (Imdur) 30 mg PO DAILY [facility] Lisinopril (Zestril) 5 mg PO BID [facility] Last Admin: 12/05/16 10:00 Dose: Not Given Morphine Sulfate (Morphine) 2 mg IVP Q4 PRN PRN Reason: Pain, moderate (4-7) Last Admin: 12/05/16 05:25 Dose: 2 mg Ondansetron HCl (Zofran Inj) 4 mg IVP Q6 PRN PRN Reason: Nausea/Vomiting Last Admin: 12/01/16 13:07 Dose: 4 mg Rosuvastatin Calcium (Crestor) 10 mg PO HS [facility] Last Admin: 12/04/16 22:15 Dose: 10 mg Saccharomyces Boulardii (Florastor) 250 mg PO BID [facility] Last Admin: 12/05/16 10:00 Dose: Not Given Sodium Polystyrene Sulfonate (Kayexalate Oral Susp) 15 gm PO TTS [facility] Results - Vital Signs Recent Vital Signs: Last Vital Signs Temp 97.3 F L 12/05/16 12:45 Pulse 83 12/05/16 12:45 Resp 18 12/05/16 12:45 BP 125/85 12/05/16 12:45 Pulse Ox 100 12/05/16 12:45 - Labs Result Diagrams: 12/05/16 07:08 12/05/16 07:08 Labs: Laboratory Results - last 24 hr 12/04/16 12/04/16 12/04/16 16:34 19:17 20:15 WBC RBC Hgb Hct MCV MCH MCHC RDW Plt Count MPV Neut % (Auto) Lymph % (Auto) [place] % (Auto) Eos % (Auto) Baso % (Auto) Neut # Lymph # [place] # Eos # Baso # Sodium Potassium Chloride Carbon Dioxide Anion Gap BUN Creatinine Est GFR ( Amer) Est GFR (Non-Af Amer) POC Glucose (mg/dL) 141 H Random Glucose Calcium Phosphorus Magnesium Total Bilirubin AST ALT Alkaline Phosphatase Total Protein Albumin Globulin Albumin/Globulin Ratio Stool Occult Blood Positive H Stool Leukocytes, Qual Negative C. difficile Ag & Toxin Negative 12/04/16 12/05/16 12/05/16 21:43 06:26 07:08 WBC 4.9 RBC 4.12 L Hgb 10.9 L Hct 35.0 MCV 85.0 MCH 26.5 L MCHC 31.2 L RDW 18.1 H Plt Count 212 MPV 9.2 Neut % (Auto) 59.0 Lymph % (Auto) 23.9 [place] % (Auto) 13.4 H Eos % (Auto) 3.0 Baso % (Auto) 0.7 Neut # 2.9 Lymph # 1.2 [place] # 0.7 Eos # 0.1 Baso # 0.0 Sodium 133 Potassium 6.5 H* D Chloride 95 L Carbon Dioxide 21 L Anion Gap 24 H BUN 91 H Creatinine 10.3 H* Est GFR ( Amer) 6 Est GFR (Non-Af Amer) 5 POC Glucose (mg/dL) 202 H 125 H Random Glucose 110 Calcium 8.3 L Phosphorus 7.4 H Magnesium 2.5 H Total Bilirubin 0.9 AST 33 ALT 22 Alkaline Phosphatase 150 H Total Protein 6.3 Albumin 2.9 L Globulin 3.4 Albumin/Globulin Ratio 0.9 L Stool Occult Blood Stool Leukocytes, Qual C. difficile Ag & Toxin 12/05/16 11:57 WBC RBC Hgb Hct MCV MCH MCHC RDW Plt Count MPV Neut % (Auto) Lymph % (Auto) [place] % (Auto) Eos % (Auto) Baso % (Auto) Neut # Lymph # [place] # Eos # Baso # Sodium Potassium Chloride Carbon Dioxide Anion Gap BUN Creatinine Est GFR ( Amer) Est GFR (Non-Af Amer) POC Glucose (mg/dL) 112 H Random Glucose Calcium Phosphorus Magnesium Total Bilirubin AST ALT Alkaline Phosphatase Total Protein Albumin Globulin Albumin/Globulin Ratio Stool Occult Blood Stool Leukocytes, Qual C. difficile Ag & Toxin
--- NOTE | 2016-12-05 17:06 | CP.PCM.PN ---
<MinnieGinger - Last Filed: 12/05/16 17:03> Subjective - Date & Time of Evaluation Date of Evaluation: 12/05/16 Time of Evaluation: 17:03 - Subjective Subjective: Patient seen and examined at bedside. Patient appears fatigued. He expresses concern regarding fluid overload, hyperkalemia, and progress of current pneumonia. Patient continues to have productive cough. He admits to ambulating frequently without difficulty. Patient notes constipation for the past two days. He states he is being cautious of his fluid intake. Patient compliant with wearing life vest. He denies chest pain and palpitations. Objective - Vital Signs/Intake and Output Vital Signs (last 24 hours): Temp Pulse Resp BP Pulse Ox 97.3 F L 83 18 137/83 100 12/05/16 12:45 12/05/16 12:45 12/05/16 12:45 12/05/16 14:00 12/05/16 12:45 - Medications Medications: Current Medications Acetaminophen (Tylenol 325mg Tab) 650 mg PO Q6 PRN PRN Reason: Pain, Mild (1-3) Last Admin: 12/05/16 04:36 Dose: 650 mg Aspirin (Aspirin Chewable) 81 mg PO DAILY [facility] Last Admin: 12/05/16 14:20 Dose: 81 mg Benzocaine/Menthol (Cepacol Sore Throat) 1 asia MT Q4H PRN PRN Reason: Sore Throat Last Admin: 12/03/16 10:22 Dose: 1 asia Calcium Acetate (Phoslo) 1,334 mg PO TID [facility] Last Admin: 12/05/16 17:00 Dose: 1,334 mg Carvedilol (Coreg) 12.5 mg PO BID [facility] Last Admin: 12/05/16 10:00 Dose: Not Given Guaifenesin/Dextromethorphan (Robitussin Dm) 5 ml PO Q4H PRN PRN Reason: Cough Last Admin: 11/30/16 19:38 Dose: 5 ml Hydralazine HCl (Apresoline) 25 mg PO TID [facility] Last Admin: 12/05/16 14:20 Dose: 25 mg Hydrocortisone (Anusol-Hc) 2.5 gm ME BID [facility] Last Admin: 12/05/16 10:00 Dose: Not Given Aztreonam 1 gm/ Sodium (Chloride) 100 mls @ 200 mls/hr IVPB Q24H [facility] Last Admin: 12/04/16 17:10 Dose: 200 mls/hr Tigecycline 50 mg/ Sodium (Chloride) 100 mls @ 100 mls/hr IV Q12H [facility] Last Admin: 12/05/16 16:58 Dose: 100 mls/hr Insulin Aspart (Novolog) 0 unit SC ACHS [facility] PRN Reason: Protocol Last Admin: 12/05/16 17:00 Dose: Not Given Isosorbide Mononitrate (Imdur) 30 mg PO DAILY [facility] Last Admin: 12/05/16 14:39 Dose: 30 mg Lisinopril (Zestril) 5 mg PO BID [facility] Last Admin: 12/05/16 10:00 Dose: Not Given Morphine Sulfate (Morphine) 2 mg IVP Q4 PRN PRN Reason: Pain, moderate (4-7) Last Admin: 12/05/16 05:25 Dose: 2 mg Ondansetron HCl (Zofran Inj) 4 mg IVP Q6 PRN PRN Reason: Nausea/Vomiting Last Admin: 12/01/16 13:07 Dose: 4 mg Rosuvastatin Calcium (Crestor) 10 mg PO HS [facility] Last Admin: 12/04/16 22:15 Dose: 10 mg Saccharomyces Boulardii (Florastor) 250 mg PO BID [facility] Last Admin: 12/05/16 10:00 Dose: Not Given Sodium Polystyrene Sulfonate (Kayexalate Oral Susp) 15 gm PO TTS [facility] - Labs Labs: 12/05/16 07:08 12/05/16 07:08 PT 13.6 SECONDS (9.7-12.2) H 11/25/16 20:01 INR 1.2 11/25/16 20:01 APTT 39 SECONDS (21-34) H 11/25/16 20:01 - Constitutional Appears: Non-toxic, No Acute Distress, Other (fatigued) - Head Exam Head Exam: ATRAUMATIC, NORMAL INSPECTION, NORMOCEPHALIC - Eye Exam Eye Exam: EOMI, Normal appearance, PERRL - ENT Exam ENT Exam: Mucous Membranes Moist - Respiratory Exam Respiratory Exam: Decreased Breath Sounds, NORMAL BREATHING PATTERN. absent: Rales, Rhonchi, Wheezes - Cardiovascular Exam Cardiovascular Exam: +S1, +S2. absent: Tachycardia Additional comments: wearing life vest - GI/Abdominal Exam GI & Abdominal Exam: Soft, Normal Bowel Sounds - Extremities Exam Extremities Exam: Normal Inspection. absent: Pedal Edema, Tenderness - Neurological Exam Neurological Exam: Alert, Awake, Oriented x3 - Psychiatric Exam Psychiatric exam: Anxious - Skin Skin Exam: Intact, Normal Color, Warm Assessment and Plan - Assessment and Plan (Free Text) Assessment: CXR 12-02-16 Central pulmonary congestion vascular markings with bilateral LL alveolar type infiltrates and bilateral effusions, pneumonia possible, L mid to lower lung atelectasis, marked cardiomegaly Legionella testing ordered; will follow results Continue dialysis Dr. Flanagan from [facility] contacted to inform of concerns regarding fluid load and K elevation possibly related to new medications; recommend optimizing medications Continue tigecycline per infectious disease; follow progress with labs tomorrow Continue present treatment Influenza Type B -Swab for influenza B positive -Completed Tamiflu 30 mg PO MWF (11/25/16) -Droplet precautions discontinued Muscle weakness, acute 12/05: Resolved 12/03: Continues to ambulate 12/01: Patient to ambulate hospital halls today under supervision 11/29: improved, patient seen ambulating in room today. -CT head negative -Stop home med Levaquin 500mg PO daily -> pt may be having a reaction. -CPK 174 H -> 134 N Hospital Acquired Pneumonia, acute 12/05: Follow-up Legionella. Procalcitonin ordered. Infectious disease, Dr. Flanagan, to review new antibiotics in light of hyperkalemia. Will follow-up recommendations. 12/04: Started on Tigecycline 50 mg IV Q12h (12/04/16) by ID, Dr. Flanagan. Repeat CXR on Monday. 12/03: Chest xray (12/02): mild central pulmonary vascular congestive changes with bilateral lower lobe alveolar type infiltrates and bilateral effusions. Appears to segmental atelectatic changes in the left mid to lower lung field, Marked cardiomegaly. Increased procalcitonin to 1.69 from 1.63. Mycoplasma pneumonia IgM negative. 12/02: Continue current management 12/01: Procalcitonin resulted elevated (1.63). Patient being treated for bacterial hospital acquired pneumonia. Per underpresser hand, Dr. Reynolds, started on Azithromycin 500 mg IVPB q24h and Aztreonam 1 gm IVPB q8h (11/30/16). 11/30: Repeat CXR: Right lower love airspace disease with air bronchogram. There is discoid atelctasis/scarring in left mid lung. There is mild pulmonary venous congestion and fluid in the minor fissure. Severe cardiomegaly seen. Athersclerotic aortic arch calcifications are present. 11/29: Avelox discontinued due to risk of QT prolongation as patient had runs of non-sustained ventricular tachycardia on telemetry. Per underpresser hand, Dr. Reynolds , patient does not need to be continued on antibiotics for pneumonia. 11/26-11/27: pleural fluid results: +WBC, no growth x2d; Blood culture negative x2d 11/25: Dr. Reynolds consulted. recommended IR for thoracentesis - 800cc of straw colored fluid drawn. -Patient recently in ED 11/20 for Bronchitis - CT chest- b/l pleural effusions, lower lung consolidation, pericardial effusion (20mm), ascites of abdomen. see full report. -Stop home med Levaquin 500mg PO daily -> pt may be having a reaction. -Start Azithromycin 500mg IVPB Q24H -ProBNP 394,000 Acute on chronic Diastolic CHF 12/05: Compliant with wearing life vest. Per Dr. Veloz, Hydralazine 25 mg po TID and Imdur 30 mg po daily started. Follow-up repeat potassium following hemodialysis as patient hyperkalemic 6.5 this am. 12/04: Patient observed wearing life vest. Approximately 12 beat run of V tach around 3:15pm on 12/03/16. Patient instructed Lifevest needs to be worn at all times.Repeat EKG, compared to November 24, no significant acute changes. Per Dr. Veloz's associate, , no additional intervention needed at this time. 12/03: follow-up when life vest will be received. Continue monitoring on telemetry. 12/02: Continue current management 12/01: Patient fitted for life vest yesterday. Will receive life vest today and [employer] to provide more information to patient. 11/30: Per Dr. Veloz, [employer] was contacted and forms faxes. Awaiting insurance approval. Coreg increased to 12.5 mg po BID. Discontinued lasix as patient incontinent of urine. Continue Lisinopril 5 mg po BID, Aspirin 81 mg po daily, and Crestor 10 mg po HS. 11/29: Per Dr. Veloz, patient was offered an ICD, but wishes to wear a life vest for 3-4 months and will consent to an ICD if ejection fraction does not improve. Dr. Veloz will call life vest sales representative livestock so patient is fitted for a vest during hospitalization. Patient given Lasix 20 mg IVP stat Started patient on Lasix 20 mg po BID Lisinpril increased to 5 mg po BID. Continue Carvedilol, Aspirin and Crestor. CXR: Left pleural effusion noted. Vascular congestion noted. Will follow-up official report. 11/28: Patient evaluated by Dr. Veloz. He notes chronic LV dysfunction that possibly was exacerbated by acute H. flu. He also notes severely abnormal diastolic filling, type III. Patient to have AICD placed. Patient to be continued on Carvedilol 6.25 mg po BID, ASA 81 mg po daily, Lisinopril 5 mg po daily, Crestor 10 mg po HS. 11/27: Cardiology Dr. Veloz consulted (pts home psychological examiner). Dr. Pierce (cardio ) is considering EP consult for life vest. -2 runs of Vtach today at 2pm and 4pm. Dr. Pierce notified. Patient stable, no chest pain, no acute distress. 11/26: Echo - EF 15%, Diastolic dysfunction, L/R atrium mod dilated, mod/severe MR , mild TR, PA dilated, IVC dilated. 11/25: Dr. Pierce does not recommend draining pericardial effusion as it is mild and risks outweight benefits. Recs-> Add ACEI or ARBs to the regimen; Can add Lasix may benefit by decreasing the pre load - CT chest- b/l pleural effusions, lower lung consolidation, pericardial effusion (20mm), ascites of abdomen. see full report. - Pulm/Crit Care consult - Dr. Reynolds -> for possible thoracentesis. Will evaluate patient in am. - Cardiology consult, Dr. Pierce, f/u recs - EKG: Normal sinus rhythm; Left axis deviation;Anterior infarct, age undetermined; No QT prolongation. - f/u repeat EKG on 4/6 pm (not performed) - monitor for QT prolongation Diarrhea, Acute -Resolved -Pt complaining of daily episodes of diarrhea -C.diff toxin resulted negative -Stool Leukocytes negative. Pleural Effusion, acute -s/p Thoracentesis on 11/25/16 -Pleural fluid sent for cytology: Protein <3.0, LDH 138 -Pleural fluid cx negative Pericardial Effusion, acute 11/28: Per Dr. Veloz, dialysis is best treatment for small pericardial effusion. 11/26: Echo - EF 15%, Diastolic dysfunction, L/R atrium mod dilated, mod/severe MR , mild TR, PA dilated, IVC dilated. 11/25: Dr. Pierce does not recommend draining pericardial effusion as it is mild and risks outweight benefits. Recs-> Add ACEI or ARBs to the regimen; Can add Lasix may benefit by decreasing the pre load - CT chest- b/l pleural effusions, lower lung consolidation, pericardial effusion (20mm), ascites of abdomen. see full report. - Cardiology consult, Dr. Pierce, f/u recs - EKG: Normal sinus rhythm; Left axis deviation;Anterior infarct, age undetermined; No QT prolongation. - f/u repeat EKG on 6 pm (not performed) - monitor for QT prolongation ESRD on HD, chronic Hemodialysis today. Potassium 6.5, BUN/CR 91/10.3. Follow-up potassium after hemodialysis. Hold SOPHIE- I if still elevated. Potassium decreased post hemodialysis Pt tolerated Hemodialysis well yesterday UF 2200ml with HD 11/28 -Maintain potassium >4.0 as patient was having runs of V tach -HD schedule MWF -Consult Nephrology, Dr. Joyce, f/u recs -awaiting kidney transplant. -Phoslo 667 mg PO ACTID [facility] Pancytopenia 11/30: pancytopenia improving 11/29: WBC 4.0, hemoglobin 10.5, hematocrit 33.1, platelets 113. Could be secondary to Avelox. HTN, chronic normotensive Coreg 12.5 mg PO BID Lisinopril 5 mg po BID Diabetes, chronic Continue on Novolog ACHS - ISS Hx of Anxiety Xanax 0.25 mg PO TID PRN -pt only uses Xanax 0.5mg 1-2x per week. Hx of Hyperthyroidism untreated monitor TSH/free T4 - WNL Prophylaxis SCDs PT/OT <Alan Silver - Last Filed: 12/05/16 18:09> Objective - Vital Signs/Intake and Output Vital Signs (last 24 hours): Temp Pulse Resp BP Pulse Ox 98.3 F 89 20 137/83 100 12/05/16 16:00 12/05/16 16:00 12/05/16 16:00 12/05/16 17:37 12/05/16 16:00 - Medications Medications: Current Medications Acetaminophen (Tylenol 325mg Tab) 650 mg PO Q6 PRN PRN Reason: Pain, Mild (1-3) Last Admin: 12/05/16 04:36 Dose: 650 mg Aspirin (Aspirin Chewable) 81 mg PO DAILY [facility] Last Admin: 12/05/16 14:20 Dose: 81 mg Benzocaine/Menthol (Cepacol Sore Throat) 1 asia MT Q4H PRN PRN Reason: Sore Throat Last Admin: 12/03/16 10:22 Dose: 1 asia Calcium Acetate (Phoslo) 1,334 mg PO TID [facility] Last Admin: 12/05/16 17:00 Dose: 1,334 mg Carvedilol (Coreg) 12.5 mg PO BID [facility] Last Admin: 12/05/16 17:37 Dose: 12.5 mg Guaifenesin/Dextromethorphan (Robitussin Dm) 5 ml PO Q4H PRN PRN Reason: Cough Last Admin: 11/30/16 19:38 Dose: 5 ml Hydralazine HCl (Apresoline) 25 mg PO TID [facility] Last Admin: 12/05/16 17:36 Dose: 25 mg Hydrocortisone (Anusol-Hc) 2.5 gm ME BID [facility] Last Admin: 12/05/16 17:39 Dose: Not Given Aztreonam 1 gm/ Sodium (Chloride) 100 mls @ 200 mls/hr IVPB Q24H [facility] Last Admin: 12/05/16 17:38 Dose: 200 mls/hr Tigecycline 50 mg/ Sodium (Chloride) 100 mls @ 100 mls/hr IV Q12H [facility] Last Admin: 12/05/16 16:58 Dose: 100 mls/hr Insulin Aspart (Novolog) 0 unit SC ACHS [facility] PRN Reason: Protocol Last Admin: 12/05/16 17:00 Dose: Not Given Isosorbide Mononitrate (Imdur) 30 mg PO DAILY [facility] Last Admin: 12/05/16 14:39 Dose: 30 mg Lisinopril (Zestril) 5 mg PO BID [facility] Last Admin: 12/05/16 17:36 Dose: 5 mg Morphine Sulfate (Morphine) 2 mg IVP Q4 PRN PRN Reason: Pain, moderate (4-7) Last Admin: 12/05/16 05:25 Dose: 2 mg Ondansetron HCl (Zofran Inj) 4 mg IVP Q6 PRN PRN Reason: Nausea/Vomiting Last Admin: 12/01/16 13:07 Dose: 4 mg Rosuvastatin Calcium (Crestor) 10 mg PO HS [facility] Last Admin: 12/04/16 22:15 Dose: 10 mg Saccharomyces Boulardii (Florastor) 250 mg PO BID [facility] Last Admin: 12/05/16 17:38 Dose: 250 mg Sodium Polystyrene Sulfonate (Kayexalate Oral Susp) 15 gm PO TTS [facility] - Labs Labs: 12/05/16 07:08 12/05/16 07:08 PT 13.6 SECONDS (9.7-12.2) H 11/25/16 20:01 INR 1.2 11/25/16 20:01 APTT 39 SECONDS (21-34) H 11/25/16 20:01 Attending/Attestation - Attestation I have personally seen and examined this patient.: Yes I have fully participated in the care of the patient.: Yes I have reviewed all pertinent clinical information, including history, physical exam and plan: Yes Notes (Text): Medical Attending: Patient was seen and examined by me. Agree with the above note by the resident. Last seen the patient he had just recently had a thoracentesis as well as hemodialysis. At that time the LifeVest due to low ejection fraction since then he now has a LifeVest, he is being treated for pneumonia at this time. His white blood cell count has decreased however he still has a positive pro calcitonin. Currently the patient is on aztreonam as well as tigecycline IV. Currently afebrile. When we saw him today the patient said that he does feel better than when he came in, however he still feeling pretty weak and fatigued. Hopefully will be able to discharge the patient soon, will need to review what his recent PT and OT has been like. Thank you Alan Silver
[2016-12-05] MEDS: Aztreonam 1 GM in Sodium Chloride 0.9% 100 ML IVPB SCH (17:38)
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
[2016-12-06 07:20] LABS: BASO % 0.5 % (0.0-2.0); EOS # 0.1 K/uL (0.0-0.7); EOS % 3.4 % (0.0-4.0); HEMATOCRIT 31.8 % (35.0-51.0); LYMPH % 21.8 % (20.0-40.0); MEAN CELL VOLUME 83.9 fL (80.0-94.0); MEAN CORPUSCULAR HEMOGLOBIN 26.6 pg (27.0-31.0); MEAN CORPUSCULAR HGB CONC 31.7 g/dL (33.0-37.0); MEAN PLATELET VOLUME 8.8 fL (7.2-11.7); MONO # 0.5 K/uL (0.0-0.8); MONO % 12.4 % (0.0-10.0); NRBC % 0.1 % (0.0-2.0); RED CELL DISTRIBUTION WIDTH 18.7 % (11.5-14.5); WHITE BLOOD COUNT 4.4 K/uL (4.8-10.8)
[2016-12-06 07:36] LABS: POTASSIUM 5.1 mmol/L (3.6-5.2)
[2016-12-06 07:38] LABS: ALB/GLOB RATIO 0.8 (1.0-2.1); BILIRUBIN,TOTAL 0.7 mg/dL (0.2-1.3); TOTAL PROTEIN 5.9 g/dL (6.3-8.3)
[2016-12-06] MEDS: (Novolog) Insulin Aspart, Recombinant 100 u/ml 10 ml vial SC SCH ×3 (07:38→16:34)
[2016-12-06 07:39] LABS: CALCIUM 8.2 mg/dl (8.6-10.4); MAGNESIUM 2.3 mg/dL (1.6-2.3); PHOSPHOROUS 6.4 mg/dL (2.5-4.5)
--- NOTE | 2016-12-06 09:16 | CP.PCM.PN ---
Subjective - Date & Time of Evaluation Date of Evaluation: 12/06/16 Time of Evaluation: 09:13 - Subjective Subjective: Pt is lying nearly flat, but has SOB without oxygen. K was 4.5 last nigh, 5.1 today. Objective - Vital Signs/Intake and Output Vital Signs (last 24 hours): Temp Pulse Resp BP Pulse Ox 98.4 F 83 20 129/85 97 12/06/16 08:30 12/06/16 08:30 12/06/16 08:30 12/06/16 08:30 12/06/16 08:30 Intake and Output: 12/06/16 12/06/16 06:59 18:59 Intake Total 120 Balance 120 - Medications Medications: Current Medications Acetaminophen (Tylenol 325mg Tab) 650 mg PO Q6 PRN PRN Reason: Pain, Mild (1-3) Last Admin: 12/05/16 04:36 Dose: 650 mg Aspirin (Aspirin Chewable) 81 mg PO DAILY [facility] Last Admin: 12/05/16 14:20 Dose: 81 mg Benzocaine/Menthol (Cepacol Sore Throat) 1 asia MT Q4H PRN PRN Reason: Sore Throat Last Admin: 12/03/16 10:22 Dose: 1 asia Calcium Acetate (Phoslo) 1,334 mg PO TID [facility] Last Admin: 12/06/16 07:44 Dose: 1,334 mg Carvedilol (Coreg) 12.5 mg PO BID [facility] Last Admin: 12/05/16 17:37 Dose: 12.5 mg Guaifenesin/Dextromethorphan (Robitussin Dm) 5 ml PO Q4H PRN PRN Reason: Cough Last Admin: 11/30/16 19:38 Dose: 5 ml Hydralazine HCl (Apresoline) 25 mg PO TID [facility] Last Admin: 12/05/16 17:36 Dose: 25 mg Hydrocortisone (Anusol-Hc) 2.5 gm SC BID [facility] Last Admin: 12/05/16 17:39 Dose: Not Given Aztreonam 1 gm/ Sodium (Chloride) 100 mls @ 200 mls/hr IVPB Q24H [facility] Last Admin: 12/05/16 17:38 Dose: 200 mls/hr Tigecycline 50 mg/ Sodium (Chloride) 100 mls @ 100 mls/hr IV Q12H [facility] Last Admin: 12/06/16 04:46 Dose: 100 mls/hr Insulin Aspart (Novolog) 0 unit SC ACHS [facility] PRN Reason: Protocol Last Admin: 12/06/16 07:38 Dose: Not Given Isosorbide Mononitrate (Imdur) 30 mg PO DAILY [facility] Last Admin: 12/05/16 14:39 Dose: 30 mg Lisinopril (Zestril) 5 mg PO BID [facility] Last Admin: 12/05/16 17:36 Dose: 5 mg Ondansetron HCl (Zofran Inj) 4 mg IVP Q6 PRN PRN Reason: Nausea/Vomiting Last Admin: 12/01/16 13:07 Dose: 4 mg Rosuvastatin Calcium (Crestor) 10 mg PO HS [facility] Last Admin: 12/05/16 21:58 Dose: 10 mg Saccharomyces Boulardii (Florastor) 250 mg PO BID [facility] Last Admin: 12/05/16 17:38 Dose: 250 mg Sodium Polystyrene Sulfonate (Kayexalate Oral Susp) 15 gm PO TTS [facility] - Labs Labs: 12/06/16 07:05 12/06/16 07:05 PT 13.6 SECONDS (9.7-12.2) H 11/25/16 20:01 INR 1.2 11/25/16 20:01 APTT 39 SECONDS (21-34) H 11/25/16 20:01 - Constitutional Appears: Well - Head Exam Head Exam: NORMAL INSPECTION - Eye Exam Eye Exam: EOMI, Normal appearance - ENT Exam ENT Exam: Mucous Membranes Moist - Respiratory Exam Respiratory Exam: Rales - Cardiovascular Exam Cardiovascular Exam: REGULAR RHYTHM - GI/Abdominal Exam GI & Abdominal Exam: Normal Bowel Sounds - Exam Exam: NORMAL INSPECTION - Extremities Exam Extremities Exam: Full ROM - Back Exam Back Exam: NORMAL INSPECTION - Neurological Exam Neurological Exam: Alert, Awake, Oriented x3 - Psychiatric Exam Psychiatric exam: Normal Affect Assessment and Plan - Assessment and Plan (Free Text) Assessment: 1. I discussed this patient with Dr Howard, and he agreed to try more aggressive dialysis for CHF. 2. Will increase hydralazine. 3. Monitor K closely
[2016-12-06] MEDS: Saccharomyces Boulardi 250 mg Cap PO SCH ×2 (09:22→17:09)
[2016-12-06] MEDS: Hydrocortisone 2.5% Rectal Cream(30 gm) PR SCH ×2 (09:50→17:30)
[2016-12-06] MEDS ORDERED: Sod Polystyrene Sulf 15 gm/60 ml Oral Susp PO SCH (10:00)
--- NOTE | 2016-12-06 11:50 | CP.PCM.PN ---
Subjective - Date & Time of Evaluation Date of Evaluation: 12/06/16 Time of Evaluation: 11:48 - Subjective Subjective: Discussed with cardio- pt still with CHF Meds adjusted by cardio - inn agreement Advised pt he will need more UF- will also consider PD No other new sxs Objective - Vital Signs/Intake and Output Vital Signs (last 24 hours): Temp Pulse Resp BP Pulse Ox 98.4 F 83 20 129/85 97 12/06/16 08:30 12/06/16 08:30 12/06/16 08:30 12/06/16 09:24 12/06/16 08:30 Intake and Output: 12/06/16 12/06/16 06:59 18:59 Intake Total 120 Balance 120 - Medications Medications: Current Medications Acetaminophen (Tylenol 325mg Tab) 650 mg PO Q6 PRN PRN Reason: Pain, Mild (1-3) Last Admin: 12/05/16 04:36 Dose: 650 mg Aspirin (Aspirin Chewable) 81 mg PO DAILY [facility] Last Admin: 12/06/16 09:21 Dose: 81 mg Benzocaine/Menthol (Cepacol Sore Throat) 1 asia MT Q4H PRN PRN Reason: Sore Throat Last Admin: 12/03/16 10:22 Dose: 1 asia Calcium Acetate (Phoslo) 1,334 mg PO TID [facility] Last Admin: 12/06/16 07:44 Dose: 1,334 mg Carvedilol (Coreg) 12.5 mg PO BID [facility] Last Admin: 12/06/16 09:24 Dose: 12.5 mg Guaifenesin/Dextromethorphan (Robitussin Dm) 5 ml PO Q4H PRN PRN Reason: Cough Last Admin: 11/30/16 19:38 Dose: 5 ml Hydralazine HCl (Apresoline) 25 mg PO TID [facility] Last Admin: 12/06/16 09:22 Dose: 25 mg Hydrocortisone (Anusol-Hc) 2.5 gm [place] BID [facility] Last Admin: 12/06/16 09:50 Dose: Not Given Aztreonam 1 gm/ Sodium (Chloride) 100 mls @ 200 mls/hr IVPB Q24H [facility] Last Admin: 12/05/16 17:38 Dose: 200 mls/hr Tigecycline 50 mg/ Sodium (Chloride) 100 mls @ 100 mls/hr IV Q12H [facility] Last Admin: 12/06/16 04:46 Dose: 100 mls/hr Insulin Aspart (Novolog) 0 unit SC ACHS [facility] PRN Reason: Protocol Last Admin: 12/06/16 07:38 Dose: Not Given Isosorbide Mononitrate (Imdur) 30 mg PO DAILY [facility] Last Admin: 12/06/16 09:23 Dose: 30 mg Lisinopril (Zestril) 5 mg PO BID [facility] Last Admin: 12/05/16 17:36 Dose: 5 mg Ondansetron HCl (Zofran Inj) 4 mg IVP Q6 PRN PRN Reason: Nausea/Vomiting Last Admin: 12/01/16 13:07 Dose: 4 mg Rosuvastatin Calcium (Crestor) 10 mg PO HS [facility] Last Admin: 12/05/16 21:58 Dose: 10 mg Saccharomyces Boulardii (Florastor) 250 mg PO BID [facility] Last Admin: 12/06/16 09:22 Dose: 250 mg Sodium Polystyrene Sulfonate (Kayexalate Oral Susp) 15 gm PO TTS [facility] Last Admin: 12/06/16 09:23 Dose: 15 gm - Labs Labs: 12/06/16 07:05 12/06/16 07:05 PT 13.6 SECONDS (9.7-12.2) H 11/25/16 20:01 INR 1.2 11/25/16 20:01 APTT 39 SECONDS (21-34) H 11/25/16 20:01 - Constitutional Appears: No Acute Distress, Chronically Ill - Head Exam Head Exam: ATRAUMATIC, NORMAL INSPECTION - Eye Exam Eye Exam: EOMI, Normal appearance - Neck Exam Neck Exam: Normal Inspection. absent: Tenderness - Respiratory Exam Respiratory Exam: Rales, NORMAL BREATHING PATTERN - Cardiovascular Exam Cardiovascular Exam: REGULAR RHYTHM, +S1 - GI/Abdominal Exam GI & Abdominal Exam: Soft. absent: Tenderness - Extremities Exam Extremities Exam: Normal Inspection. absent: Tenderness - Neurological Exam Neurological Exam: Alert, CN II-XII Intact - Skin Skin Exam: Dry, Warm Assessment and Plan (1) ESRD (end stage renal disease) on dialysis Status: Acute (2) HTN (hypertension) Status: Acute (3) Influenza Status: Acute (4) Pneumonia and influenza Status: Acute (5) Cardiomyopathy Status: Acute - Assessment and Plan (Free Text) Plan: Increase UF at dialysis Increase preload meds Consider PD
--- NOTE | 2016-12-06 14:39 | CP.PCM.PN ---
Subjective - Date & Time of Evaluation Date of Evaluation: 12/06/16 Time of Evaluation: 02:05 - Subjective Subjective: dictated Objective - Vital Signs/Intake and Output Vital Signs (last 24 hours): Temp Pulse Resp BP Pulse Ox 98.4 F 86 20 138/82 97 12/06/16 08:30 12/06/16 14:00 12/06/16 08:30 12/06/16 14:00 12/06/16 08:30 Intake and Output: 12/06/16 12/06/16 06:59 18:59 Intake Total 120 Balance 120 - Medications Medications: Current Medications Acetaminophen (Tylenol 325mg Tab) 650 mg PO Q6 PRN PRN Reason: Pain, Mild (1-3) Last Admin: 12/05/16 04:36 Dose: 650 mg Aspirin (Aspirin Chewable) 81 mg PO DAILY [facility] Last Admin: 12/06/16 09:21 Dose: 81 mg Benzocaine/Menthol (Cepacol Sore Throat) 1 asia MT Q4H PRN PRN Reason: Sore Throat Last Admin: 12/03/16 10:22 Dose: 1 asia Calcium Acetate (Phoslo) 1,334 mg PO TID [facility] Last Admin: 12/06/16 12:25 Dose: 1,334 mg Carvedilol (Coreg) 12.5 mg PO BID [facility] Last Admin: 12/06/16 09:24 Dose: 12.5 mg Guaifenesin/Dextromethorphan (Robitussin Dm) 5 ml PO Q4H PRN PRN Reason: Cough Last Admin: 11/30/16 19:38 Dose: 5 ml Hydralazine HCl (Apresoline) 25 mg PO TID [facility] Last Admin: 12/06/16 13:49 Dose: 25 mg Hydrocortisone (Anusol-Hc) 2.5 gm [place] BID [facility] Last Admin: 12/06/16 09:50 Dose: Not Given Tigecycline 50 mg/ Sodium (Chloride) 100 mls @ 100 mls/hr IV Q12H [facility] Last Admin: 12/06/16 04:46 Dose: 100 mls/hr Insulin Aspart (Novolog) 0 unit SC ACHS [facility] PRN Reason: Protocol Last Admin: 12/06/16 07:38 Dose: Not Given Isosorbide Mononitrate (Imdur) 30 mg PO DAILY [facility] Last Admin: 12/06/16 09:23 Dose: 30 mg Lisinopril (Zestril) 5 mg PO BID [facility] Last Admin: 12/05/16 17:36 Dose: 5 mg Ondansetron HCl (Zofran Inj) 4 mg IVP Q6 PRN PRN Reason: Nausea/Vomiting Last Admin: 12/01/16 13:07 Dose: 4 mg Rosuvastatin Calcium (Crestor) 10 mg PO HS [facility] Last Admin: 12/05/16 21:58 Dose: 10 mg Saccharomyces Boulardii (Florastor) 250 mg PO BID [facility] Last Admin: 12/06/16 09:22 Dose: 250 mg Sodium Polystyrene Sulfonate (Kayexalate Oral Susp) 15 gm PO TTS [facility] Last Admin: 12/06/16 09:23 Dose: 15 gm - Labs Labs: 12/06/16 07:05 12/06/16 07:05 PT 13.6 SECONDS (9.7-12.2) H 11/25/16 20:01 INR 1.2 11/25/16 20:01 APTT 39 SECONDS (21-34) H 11/25/16 20:01
--- NOTE | 2016-12-06 15:01 | PN ---
DATE: 12/06/2016 The patient says he is feeling better. He does say he had diarrhea because of Kayexalate. He knows his condition well and he said he gave sputum for checking and he is worried about the numbers. I to ld him number is better and he seems to be doing a little better. PHYSICAL EXAMINATION: VITAL SIGNS: T-max is 98.4, pulse is 86. He says they are going to remove some more fluid on the ne xt dialysis. Blood pressure is 138/82 and respirations are 20. HEENT: Head is atraumatic, normocephalic. GENERAL: He is alert, awake. NECK: Supple. LUNGS: Have coarse breath sounds. HEART: S1, S2 is regular. No murmurs appreciated. ABDOMEN: Soft, nontender, no guarding, no rigidity present. EXTREMITIES: Have no edema, clubbing or cyanosis. LABORATORY DATA: He was started on Tygacil and Azactam, but white count is 4.4, hemoglobin 10.1, hem atocrit 31.8, platelet count is 201. Sodium is 137, potassium 5.1, chloride 96, CO2 is 26, BUN is 69 , creatinine is 8.3. He has end-stage renal disease and is on dialysis. His procalcitonin level cam e 0.05. His chest x-ray was from 12/02. The initial procalcitonin level was 1.63 on 12/03 and it has gone down since I started Tygacil. We will continue with Tygacil, discontinue the Azactam. It is day 2 of it, should give it for 5 days unless he starts to have diarrhea due to some other cause such as C. diff. He did have influenza an d he has severe cardiomyopathy and renal disease, but he is optimistic and I think he should do fine. They are going to remove more fluid and that may make him feel a little better and I would disconti nue Azactam at this time. IMPRESSION: Pneumonia, congestive heart failure, end-stage renal disease, and influenza and severe c ardiomyopathy. Johan Flanagan MD cc: [id number] TT: 12/06/2016 15:01:32 Confirmation # [id number] Dictation # [id number] tn
--- NOTE | 2016-12-06 15:54 | CP.PCM.PN ---
Subjective - Date & Time of Evaluation Date of Evaluation: 12/06/16 Time of Evaluation: 09:50 - Subjective Subjective: Pt seen and examined at bedside not wearing NC but insistent that he needs it. Pt complained of continued diarrhea, SOB, productive cough with white sputum and chronic history of chills due to anemia. Objective - Vital Signs/Intake and Output Vital Signs (last 24 hours): Temp Pulse Resp BP Pulse Ox 98.4 F 86 20 138/82 97 12/06/16 08:30 12/06/16 14:00 12/06/16 08:30 12/06/16 14:00 12/06/16 08:30 Intake and Output: 12/06/16 12/06/16 06:59 18:59 Intake Total 120 480 Balance 120 480 - Medications Medications: Current Medications Acetaminophen (Tylenol 325mg Tab) 650 mg PO Q6 PRN PRN Reason: Pain, Mild (1-3) Last Admin: 12/05/16 04:36 Dose: 650 mg Aspirin (Aspirin Chewable) 81 mg PO DAILY [facility] Last Admin: 12/06/16 09:21 Dose: 81 mg Benzocaine/Menthol (Cepacol Sore Throat) 1 asia MT Q4H PRN PRN Reason: Sore Throat Last Admin: 12/03/16 10:22 Dose: 1 asia Calcium Acetate (Phoslo) 1,334 mg PO TID [facility] Last Admin: 12/06/16 14:59 Dose: Not Given Carvedilol (Coreg) 12.5 mg PO BID [facility] Last Admin: 12/06/16 09:24 Dose: 12.5 mg Guaifenesin/Dextromethorphan (Robitussin Dm) 5 ml PO Q4H PRN PRN Reason: Cough Last Admin: 11/30/16 19:38 Dose: 5 ml Hydralazine HCl (Apresoline) 25 mg PO TID [facility] Last Admin: 12/06/16 13:49 Dose: 25 mg Hydrocortisone (Anusol-Hc) 2.5 gm [place] BID [facility] Last Admin: 12/06/16 09:50 Dose: Not Given Tigecycline 50 mg/ Sodium (Chloride) 100 mls @ 100 mls/hr IV Q12H [facility] Last Admin: 12/06/16 04:46 Dose: 100 mls/hr Insulin Aspart (Novolog) 0 unit SC ACHS [facility] PRN Reason: Protocol Last Admin: 12/06/16 12:00 Dose: Not Given Isosorbide Mononitrate (Imdur) 30 mg PO DAILY [facility] Last Admin: 12/06/16 09:23 Dose: 30 mg Lisinopril (Zestril) 5 mg PO BID [facility] Last Admin: 12/06/16 10:00 Dose: 5 mg Ondansetron HCl (Zofran Inj) 4 mg IVP Q6 PRN PRN Reason: Nausea/Vomiting Last Admin: 12/01/16 13:07 Dose: 4 mg Rosuvastatin Calcium (Crestor) 10 mg PO HS [facility] Last Admin: 12/05/16 21:58 Dose: 10 mg Saccharomyces Boulardii (Florastor) 250 mg PO BID [facility] Last Admin: 12/06/16 09:22 Dose: 250 mg Sodium Polystyrene Sulfonate (Kayexalate Oral Susp) 15 gm PO TTS [facility] Last Admin: 12/06/16 09:23 Dose: 15 gm - Labs Labs: 12/06/16 07:05 12/06/16 07:05 PT 13.6 SECONDS (9.7-12.2) H 11/25/16 20:01 INR 1.2 11/25/16 20:01 APTT 39 SECONDS (21-34) H 11/25/16 20:01 - Constitutional Appears: Well, No Acute Distress - Head Exam Head Exam: ATRAUMATIC, NORMOCEPHALIC - Respiratory Exam Respiratory Exam: Rhonchi, NORMAL BREATHING PATTERN. absent: Decreased Breath Sounds, Clear to Ausculation Bilateral, Prolonged Expiratory Phase, Wheezes, Respiratory Distress - Cardiovascular Exam Cardiovascular Exam: +S1, +S2. absent: Murmur - Neurological Exam Neurological Exam: Alert, Awake, Oriented x3 - Psychiatric Exam Psychiatric exam: Normal Affect, Normal Mood - Skin Skin Exam: Dry, Intact, Normal Color, Warm Assessment and Plan (1) Pneumonia Assessment & Plan: CXR 12-02-16 Central pulmonary congestion vascular markings with bilateral LL alveolar type infiltrates and bilateral effusions, pneumonia possible, L mid to lower lung atelectasis, marked cardiomegaly Pro-graciela 12-05-16 < 0.05 K 12-06-16 = 5.1 follow-up repeat CXR and labs Legionella testing ordered; will follow results Continue antibiotics per ID Continue present treatment Status: Acute (2) ESRD (end stage renal disease) on dialysis Status: Acute
[2016-12-06 16:15] VITALS: BP 131/94; PULSE 87; RESP 18; TEMP 98.2; O2SAT 100
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
== END 2016-12-06 18:30 | DRG 193 ==
LOC: C.ER 04:35 → C.3T 07:42 → C.5T 11-25 02:00 → C.6T 12-02 00:54
PROVIDERS: ADMIT Hospitalist; ATTEND Hospitalist
PROC: 0W993ZZ Drainage of Right Pleural Cavity, Percutaneous Approach (ICD-10-PCS; principal; 2016-11-25)
PROC: 5A1D60Z (ICD-10-PCS; 2016-11-25)
DX: J10.00 Influenza due to other identified influenza virus with unspecified type of pneumonia (principal); N18.6 End stage renal disease; I47.2 Ventricular tachycardia; I50.43 Acute on chronic combined systolic (congestive) and diastolic (congestive) heart failure; D61.818 Other pancytopenia; J91.8 Pleural effusion in other conditions classified elsewhere; T86.12 Kidney transplant failure; I31.3 Pericardial effusion (noninflammatory); I13.2 Hypertensive heart and chronic kidney disease with heart failure and with stage 5 chronic kidney disease, or end stage renal disease; R18.8 Other ascites; N25.81 Secondary hyperparathyroidism of renal origin; Z76.82 Awaiting organ transplant status; M62.838 Other muscle spasm; E11.22 Type 2 diabetes mellitus with diabetic chronic kidney disease; F41.9 Anxiety disorder, unspecified; Z99.2 Dependence on renal dialysis; Z79.4 Long term (current) use of insulin; T37.8X5A Adverse effect of other specified systemic anti-infectives and antiparasitics, initial encounter; M62.81 Muscle weakness (generalized); Y83.0 Surgical operation with transplant of whole organ as the cause of abnormal reaction of the patient, or of later complication, without mention of misadventure at the time of the procedure; B33.24 Viral cardiomyopathy

== ENCOUNTER 2017-03-07 15:30 | Inpatient (IN) | payer MEDICARE, OTHER ==
[2017-03-07 15:31] VITALS: BMI 3319.7
--- NOTE | 2017-03-07 16:05 | C.PDOC ---
History Of Present Illness 51 yo male, hx of esrd, mwf, htn, chf ef 15% with lfie vest, presents with cough /sob worsening with recent d/c. pt states he had pleural and pericardial effusion s/p draiyobani. pt was at another institution for outpt ct, and was "sob ", so came to [facility] er. no fevers, no abdominal pain, cp, leg swelling. Time Seen by Provider: 03/07/17 15:47 Chief Complaint (Nursing): Shortness Of Breath Past Medical History Reviewed: Historical Data, Nursing Documentation, Vital Signs Vital Signs: Last Vital Signs Temp 98.4 F 03/07/17 15:50 Pulse 73 03/07/17 16:46 Resp 19 03/07/17 16:46 BP 128/63 03/07/17 16:46 Pulse Ox 98 03/07/17 16:46 - Medical History PMH: Anemia, Anxiety, HTN, Hyperthyroidism, End Stage Renal Disease (on Hemodialysis), Chronic Kidney Disease Surgical History: Appendectomy - [facility] Procedures DRAINAGE OF RIGHT PLEURAL CAVITY, PERCUTANEOUS APPROACH (11/24/16) PERFORMANCE OF URINARY FILTRATION, MULTIPLE (11/24/16) Family History: States: Unknown Family Hx - Social History Hx Tobacco Use: No Hx Alcohol Use: No Hx Substance Use: No - Immunization History Hx Tetanus Toxoid Vaccination: No Hx Influenza Vaccination: Yes Hx Pneumococcal Vaccination: Yes Review Of Systems Respiratory: Positive for: Cough, Shortness of Breath Physical Exam - Physical Exam Appears: Well, No Acute Distress Skin: Normal Color, Warm, Dry Eye(s): bilateral: Normal Inspection, PERRL, EOMI Nose: Normal Throat: Normal Neck: Normal Cardiovascular: Rhythm Regular Respiratory: Rales (b/l bases) Gastrointestinal/Abdominal: Normal Exam, Soft, No Tenderness, No Guarding, No Rebound Back: Normal Inspection Extremity: Normal ROM ED Course And Treatment - Laboratory Results Result Diagrams: 03/07/17 16:32 03/07/17 16:32 O2 Sat by Pulse Oximetry: 97 Medical Decision Making Medical Decision Making: r/.o chf, pna, labs imaging pending. ekg nsr 81 non specif t wave changes normal intervals. 540: noted cxr, suggestive of chf, fluid overload. pt does not make urine. paged dr hernandez covering dr steele, pending callback. dr kazmmi accepts Disposition - Disposition Disposition: HOSPITALIZED Disposition Time: 17:40 Condition: FAIR - Clinical Impression Clinical Impression: CHF (congestive heart failure), ESRD (end stage renal disease) Decision To Admit - Pt Status Changed To: Hospital Disposition Of: Inpatient - Admit Certification Admit to Inpatient:: After my assessment, the patient will require hospitalization for at least two midnights. This is because of the severity of symptoms shown, intensity of services needed, and/or the medical risk in this patient being treated as an outpatient. - InPatient: Physician Admission Certification: I certify that this patient requires 2 or more midnights of care for the following reason:: pt with fluid overload. will need hd, and possible thoracocentesis. - . Bed Request Type: Telemetry Patient Diagnosis: CHF (congestive heart failure), ESRD (end stage renal disease)
--- NOTE | 2017-03-07 16:34 | RAD ---
HISTORY: chest pain COMPARISON: Chest x-ray performed 12/02/16 TECHNIQUE: Chest, one view. FINDINGS: Examination limited by habitus and hypoinflation. LUNGS: Right greater than left small to moderate bilateral pleural effusions and associated consolidations. Biapical pleural thickening. Linear atelectasis, left mid lung zone. No definite pneumothorax. Please note that chest x-ray has limited sensitivity for the detection of pulmonary masses. CARDIOVASCULAR: Partially obscured cardiomegaly. Atherosclerotic calcifications of the aorta. OSSEOUS STRUCTURES: Degenerative changes. VISUALIZED UPPER ABDOMEN: Unremarkable. OTHER FINDINGS: None. IMPRESSION: Right greater than left small to moderate bilateral pleural effusions and associated consolidations. Biapical pleural thickening. Linear atelectasis, left mid lung zone. Partially obscured cardiomegaly. Atherosclerotic calcifications of the aorta.
[2017-03-07 16:37] LABS: BASO % 0.8 % (0.0-2.0); EOS # 0.4 K/uL (0.0-0.7); EOS % 9.6 % (0.0-4.0); HEMOGLOBIN 12.2 g/dL (12.0-18.0); LYMPH # 0.6 K/uL (1.0-4.3); LYMPH % 15.6 % (20.0-40.0); MEAN CELL VOLUME 88.4 fL (80.0-94.0); MEAN CORPUSCULAR HEMOGLOBIN 28.1 pg (27.0-31.0); MEAN CORPUSCULAR HGB CONC 31.8 g/dL (33.0-37.0); MEAN PLATELET VOLUME 8.7 fL (7.2-11.7); MONO # 0.3 K/uL (0.0-0.8); MONO % 7.8 % (0.0-10.0); NEUT # 2.7 K/uL (1.8-7.0); NEUT % 66.2 % (50.0-75.0); NRBC % 0.1 % (0.0-2.0); RBC 4.33 Mil/uL (4.40-5.90); RED CELL DISTRIBUTION WIDTH 18.8 % (11.5-14.5); WHITE BLOOD COUNT 4.1 K/uL (4.8-10.8)
[2017-03-07 16:38] LABS: VENOUS BLOOD GAS BASE EXCESS 6.4 mmol/L (0.0-2.0); VENOUS BLOOD GAS PCO2 45 mmHg (40-60); VENOUS BLOOD GAS PO2 45 mm/Hg (30-55); VENOUS BLOOD PH 7.45 (7.32-7.43)
[2017-03-07 16:46] LABS: ALBUMIN 3.8 g/dL (3.5-5.0); INR 1.2; PROTHROMBIN TIME 14.3 SECONDS (9.7-12.2)
[2017-03-07 16:48] LABS: GFR AFRICAN-AMERICAN 7; GFR NON-AFRICAN AMERICAN 6
[2017-03-07 16:49] LABS: ALT/SGPT 30 U/L (21-72); AST/SGOT 28 U/L (17-59); BLOOD UREA NITROGEN 51 mg/dL (9-20)
[2017-03-07 16:50] LABS: CALCIUM 9.1 mg/dl (8.6-10.4)
[2017-03-07 17:27] LABS: B-TYPE NATRIURETIC PEPTIDE > 175000 pg/mL (0-900)
[2017-03-07] MEDS ORDERED: Benzocaine/Menthol (Cepacol) Lozenge MT PRN (19:15)
[2017-03-07] MEDS ORDERED: guaiFENesin DM 100 mg-10 mg/5 ml UD PO PRN (19:30)
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
[2017-03-07] MEDS: (Novolin R) Insulin Human Regular 100 units/ml vial SC SCH (23:30)
[2017-03-08 00:52] LABS: CK-MB 0.97 ng/mL (0.0-3.38)
[2017-03-08 07:55] LABS: INR 1.3; PROTHROMBIN TIME 14.2 SECONDS (9.7-12.2)
[2017-03-08 07:57] LABS: ALBUMIN 3.6 g/dL (3.5-5.0)
[2017-03-08 08:01] LABS: BASO % 0.9 % (0.0-2.0); CALCIUM 9.1 mg/dl (8.6-10.4); EOS # 0.2 K/uL (0.0-0.7); EOS % 6.6 % (0.0-4.0); HEMOGLOBIN 11.2 g/dL (12.0-18.0); LYMPH # 0.3 K/uL (1.0-4.3); LYMPH % 9.1 % (20.0-40.0); MEAN CORPUSCULAR HEMOGLOBIN 27.7 pg (27.0-31.0); MEAN CORPUSCULAR HGB CONC 31.9 g/dL (33.0-37.0); MEAN PLATELET VOLUME 8.6 fL (7.2-11.7); MONO # 0.3 K/uL (0.0-0.8); MONO % 7.4 % (0.0-10.0); NEUT # 2.8 K/uL (1.8-7.0); NRBC % 0.1 % (0.0-2.0); PLATELET COUNT 133 K/uL (130-400); RBC 4.06 Mil/uL (4.40-5.90); RED CELL DISTRIBUTION WIDTH 19.1 % (11.5-14.5); WHITE BLOOD COUNT 3.7 K/uL (4.8-10.8)
[2017-03-08 08:09] LABS: CK-MB 0.57 ng/mL (0.0-3.38)
[2017-03-08] MEDS: (Novolin R) Insulin Human Regular 100 units/ml vial SC SCH ×4 (08:15→21:47)
[2017-03-08 09:31] LABS: ANISOCYTOSIS MODERATE; BANDS 1 % (0-2); EOSINOPHIL 10 % (0-4); LYMPHOCYTE 5 % (20-40); MONOCYTE 6 % (0-10); NEUTROPHIL 78 % (50-75); PLATELET ESTIMATE NORMAL (NORMAL); TOTAL CELLS COUNTED 100
[2017-03-08 09:32] LABS: POIKILOCYTOSIS SLIGHT
[2017-03-08 09:33] LABS: OVALOCYTES SLIGHT
[2017-03-08] MEDS ORDERED: LINAGLIPTIN PO SCH (10:00)
--- NOTE | 2017-03-08 12:14 | CARD ---
APPROVED REPORT EKG Measurement Heart [id number] <Conclusion> Sinus rhythm with 1st degree AV block Left axis deviation Possible Anterior infarct, age undetermined T wave abnormality, consider lateral ischemia Abnormal ECG
--- NOTE | 2017-03-08 15:00 | CP.PCM.CON ---
History of Present Illness - History of Present Illness History of Present Illness: Patient is a 52 year old male with history of HTN, ESRD on dialysis M, W, F, kidney transplant failure, cardiomyopathy who presents with complaints of SOB and cough that started at 1:00am this morning. Patient reports that he has been experiencing cough attacks since 1:00am that causes him to gag and spit up. Patient states that his symptoms are worse with strenuous activities and lying flat and sitting up provides some relief. Patient reports that he sleeps in a recliner with two pillows and with elevation of b/l lower extremity. Patient admits to sick contact with his recent cold/flu symptoms. Patient reports that he feels very congested and has been using cough drops which provides no relief. Patient admits to weakness, headache, sore throat, chest pain, SOB, nausea, cough but denies palpitations, diaphoresis, fever, chills, vomiting, abd pain, dizziness, diarrhea, facial pain and leg pain/swelling. Patient states that he is very compliant with his HD schedule. Pt has EF of 25 % and severe mitral regurgitation. He has chronic plerual and pericardial effusions. Pt had chest ct done at [facility] 03/06. Scheduled for pericardiocentesis? at [facility]. S/p HD at on 03/07 and 03/08 Feels better, still with cough Review of Systems - Constitutional Constitutional: Fatigue, Weight Loss. absent: Fever - EENT Eyes: absent: Blurred Vision, Change in Vision - Cardiovascular Cardiovascular: Dyspnea, Dyspnea on Exertion. absent: Chest Pain - Respiratory Respiratory: Cough. absent: Hemoptysis - Gastrointestinal Gastrointestinal: absent: Abdominal Pain, Change in Stool Character - Genitourinary Additional comments: decreased u/o - Musculoskeletal Musculoskeletal: absent: Abnormal Gait, Muscle Weakness - Neurological Neurological: absent: Abnormal Movements, Convulsions - Psychiatric Psychiatric: absent: Anhedonia, Anxiety - Hematologic/Lymphatic Hematologic: absent: Easy Bleeding, Easy Bruising Past Patient History - Past Medical History & Family History Past Medical History?: Yes - Past Social History Smoking Status: Former Smoker - CARDIAC Hx Cardiac Disorders: Yes Hx Hypertension: Yes - PULMONARY Hx Respiratory Disorders: Yes Other/Comment: pleural effusion - NEUROLOGICAL Hx Neurological Disorder: No - HEENT Hx HEENT Problems: No - RENAL Hx Chronic Kidney Disease: Yes Type of Dialysis Access: left av shunt Date of Last Dialysis Treatment: 03/07/17 - ENDOCRINE/METABOLIC Hx Endocrine Disorders: Yes Hx Diabetes Mellitus Type 2: Yes Hx Hyperthyroidism: Yes - HEMATOLOGICAL/ONCOLOGICAL Hx Blood Disorders: Yes Hx Anemia: Yes - INTEGUMENTARY Hx Dermatological Problems: No - MUSCULOSKELETAL/RHEUMATOLOGICAL Hx Musculoskeletal Disorders: Yes Hx Back Pain: Yes Hx Falls: No Hx Herniated Disk: Yes Other/Comment: TORN ROTATOR CUFF LEFT-REPAIRED - GASTROINTESTINAL Hx Gastrointestinal Disorders: No - GENITOURINARY/GYNECOLOGICAL Hx Genitourinary Disorders: Yes Other/Comment: HAD LEFT KIDNEY TRANSPLANT 2009 - PSYCHIATRIC Hx Psychophysiologic Disorder: Yes Hx Anxiety: Yes Hx Substance Use: No - SURGICAL HISTORY Hx Surgeries: Yes Hx Appendectomy: Yes - ANESTHESIA Hx Anesthesia: Yes Hx Anesthesia Reactions: No Hx Malignant Hyperthermia: No Meds Allergies/Adverse Reactions: Allergies Allergy/AdvReac Type Severity Reaction Status Date / Time Penicillins Allergy Verified 03/07/17 15:53 - Medications Medications: Current Medications Aspirin (Aspirin Chewable) 81 mg PO DAILY [facility] Last Admin: 03/08/17 13:29 Dose: 81 mg Benzocaine/Menthol (Cepacol Sore Throat) 1 [place] Q4H PRN PRN Reason: Sore Throat Calcium Acetate (Phoslo) 667 mg PO ACTID [facility] Last Admin: 03/08/17 13:28 Dose: 667 mg Carvedilol (Coreg) 12.5 mg PO BID [facility] Last Admin: 03/08/17 11:00 Dose: Not Given Famotidine (Pepcid) 20 mg PO BID [facility] Last Admin: 03/08/17 11:00 Dose: Not Given Guaifenesin/Dextromethorphan (Robitussin Dm) 5 ml PO Q4H PRN PRN Reason: Cough Last Admin: 03/08/17 11:10 Dose: 5 ml Heparin Sodium (Porcine) (Heparin) 5,000 units SC Q12 [facility] Last Admin: 03/08/17 11:00 Dose: Not Given Home Med (Linagliptin [Tradjenta]) 10 mg PO DAILY [facility] Hydralazine HCl (Apresoline) 25 mg PO TID [facility] Last Admin: 03/08/17 13:29 Dose: 25 mg Insulin Human Regular (Novolin R) 0 unit SC ACHS [facility] PRN Reason: Protocol Last Admin: 03/08/17 11:51 Dose: Not Given Lisinopril (Zestril) 5 mg PO BID [facility] Last Admin: 03/08/17 11:00 Dose: Not Given Rosuvastatin Calcium (Crestor) 20 mg PO HS [facility] Last Admin: 03/07/17 23:10 Dose: 20 mg Physical Exam - Constitutional Appears: Cachectic, Chronically Ill - Head Exam Head Exam: ATRAUMATIC, NORMAL INSPECTION - Eye Exam Eye Exam: EOMI, Normal appearance - ENT Exam ENT Exam: Mucous Membranes Moist - Neck Exam Neck exam: Positive for: Full Rom. Negative for: Lymphadenopathy - Respiratory Exam Respiratory Exam: Rhonchi. absent: Accessory Muscle Use Additional comments: more on left then right - Cardiovascular Exam Cardiovascular Exam: REGULAR RHYTHM, Systolic Murmur. absent: Rubs - GI/Abdominal Exam GI & Abdominal Exam: absent: Distended, Firm - Extremities Exam Extremities exam: Negative for: pedal edema - Neurological Exam Neurological exam: Alert, Oriented x3 Results - Vital Signs Recent Vital Signs: Last Vital Signs Temp 99.2 F 03/08/17 13:14 Pulse 85 03/08/17 13:14 Resp 20 03/08/17 13:14 BP 124/77 03/08/17 13:14 Pulse Ox 98 03/08/17 13:14 - Labs Result Diagrams: 03/08/17 07:39 03/08/17 07:39 Labs: Laboratory Results - last 24 hr 03/07/17 03/07/17 03/08/17 18:57 21:57 00:26 WBC RBC Hgb Hct MCV MCH MCHC RDW Plt Count MPV Neut % (Auto) Lymph % (Auto) [place] % (Auto) Eos % (Auto) Baso % (Auto) Neut # Lymph # [place] # Eos # Baso # Neutrophils % (Manual) Band Neutrophils % Lymphocytes % (Manual) Monocytes % (Manual) Eosinophils % (Manual) Platelet Estimate Poikilocytosis (manual Anisocytosis (manual) Ovalocytes PT INR APTT Sodium Potassium Chloride Carbon Dioxide Anion Gap BUN Creatinine Est GFR ( Amer) Est GFR (Non-Af Amer) POC Glucose (mg/dL) 93 Random Glucose Hemoglobin A1c Calcium Phosphorus Magnesium Total Bilirubin AST ALT Alkaline Phosphatase Total Creatine Kinase 135 CK-MB (Mass) 0.97 Troponin I, Quant 0.0600 Total Protein Albumin Globulin Albumin/Globulin Ratio Influenza Typ A,B (EIA) Negative for flu a/b 03/08/17 03/08/17 03/08/17 02:10 06:14 07:39 WBC 3.7 L RBC 4.06 L Hgb 11.2 L Hct 35.3 MCV 87.0 MCH 27.7 MCHC 31.9 L RDW 19.1 H Plt Count 133 MPV 8.6 Neut % (Auto) 76.0 H Lymph % (Auto) 9.1 L [place] % (Auto) 7.4 Eos % (Auto) 6.6 H Baso % (Auto) 0.9 Neut # 2.8 Lymph # 0.3 L [place] # 0.3 Eos # 0.2 Baso # 0.0 Neutrophils % (Manual) 78 H Band Neutrophils % 1 Lymphocytes % (Manual) 5 L Monocytes % (Manual) 6 Eosinophils % (Manual) 10 H Platelet Estimate Normal Poikilocytosis (manual Slight Anisocytosis (manual) Moderate Ovalocytes Slight PT INR APTT Sodium Potassium Chloride Carbon Dioxide Anion Gap BUN Creatinine Est GFR ( Amer) Est GFR (Non-Af Amer) POC Glucose (mg/dL) 100 103 Random Glucose Hemoglobin A1c Calcium Phosphorus Magnesium Total Bilirubin AST ALT Alkaline Phosphatase Total Creatine Kinase CK-MB (Mass) Troponin I, Quant Total Protein Albumin Globulin Albumin/Globulin Ratio Influenza Typ A,B (EIA) 03/08/17 03/08/17 03/08/17 07:39 07:39 07:39 WBC RBC Hgb Hct MCV MCH MCHC RDW Plt Count MPV Neut % (Auto) Lymph % (Auto) [place] % (Auto) Eos % (Auto) Baso % (Auto) Neut # Lymph # [place] # Eos # Baso # Neutrophils % (Manual) Band Neutrophils % Lymphocytes % (Manual) Monocytes % (Manual) Eosinophils % (Manual) Platelet Estimate Poikilocytosis (manual Anisocytosis (manual) Ovalocytes PT 14.2 H INR 1.3 APTT 34 Sodium 138 Potassium 3.7 Chloride 92 L Carbon Dioxide 28 Anion Gap 22 H BUN 34 H Creatinine 7.0 H Est GFR ( Amer) 10 Est GFR (Non-Af Amer) 8 POC Glucose (mg/dL) Random Glucose 85 Hemoglobin A1c 5.7 Calcium 9.1 Phosphorus 3.7 Magnesium 2.0 Total Bilirubin 1.2 AST 25 ALT 27 Alkaline Phosphatase 147 H Total Creatine Kinase 139 CK-MB (Mass) 0.57 Troponin I, Quant 0.0740 Total Protein 7.3 Albumin 3.6 Globulin 3.7 Albumin/Globulin Ratio 1.0 Influenza Typ A,B (EIA) 03/08/17 11:16 WBC RBC Hgb Hct MCV MCH MCHC RDW Plt Count MPV Neut % (Auto) Lymph % (Auto) [place] % (Auto) Eos % (Auto) Baso % (Auto) Neut # Lymph # [place] # Eos # Baso # Neutrophils % (Manual) Band Neutrophils % Lymphocytes % (Manual) Monocytes % (Manual) Eosinophils % (Manual) Platelet Estimate Poikilocytosis (manual Anisocytosis (manual) Ovalocytes PT INR APTT Sodium Potassium Chloride Carbon Dioxide Anion Gap BUN Creatinine Est GFR ( Amer) Est GFR (Non-Af Amer) POC Glucose (mg/dL) 116 H Random Glucose Hemoglobin A1c Calcium Phosphorus Magnesium Total Bilirubin AST ALT Alkaline Phosphatase Total Creatine Kinase CK-MB (Mass) Troponin I, Quant Total Protein Albumin Globulin Albumin/Globulin Ratio Influenza Typ A,B (EIA) Assessment & Plan - Assessment and Plan (Free Text) Assessment: esrd cardiomyopathy, mr sob pleural and pericardial fluid ?pneumonia suggest thoracentesis suggest Pulmonary, ID, Cardiology f/u maint HD continue binders and cinacalcet
[2017-03-08] MEDS ORDERED: Moxifloxacin IV 400mg/250ml NS 400 MG/250 ML BAG IVPB ONE (16:01)
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
--- NOTE | 2017-03-08 17:23 | CP.PCM.PN ---
<AyushTopher morganic - Last Filed: 03/08/17 21:10> Subjective - Date & Time of Evaluation Date of Evaluation: 03/08/17 Time of Evaluation: 17:23 - Subjective Subjective: PGY-[address] Mirza's service: Pt seen and examined at bedside. Pt is for hemodialysis later this morning. He admits continued cough with productive yellow sputum. The coughing causes him chest/rib pain. He admits sleeping in recliner for last several days because he cannot breathe well when flat. He denies missing HD, and states he watches his fluid intake. He denies making urine for many years. Pt reports history of chronic pleural and pericardial effusions. He reports talking with his clinical unit educator Dr. Veloz about possibility of percardiocentesis at [facility] pending result of CT scan performed at [facility] yesterday. He denies fever, chills, pressure-like chest pain, abdominal pain, nausea, or vomiting. Objective - Vital Signs/Intake and Output Vital Signs (last 24 hours): Temp Pulse Resp BP Pulse Ox 99.5 F 87 18 115/68 100 03/08/17 16:09 03/08/17 16:09 03/08/17 16:09 03/08/17 16:09 03/08/17 16:09 Intake and Output: 03/08/17 03/08/17 06:59 18:59 Intake Total 80 400 Balance 80 400 - Medications Medications: Current Medications Benzocaine/Menthol (Cepacol Sore Throat) 1 asia MT Q4H PRN PRN Reason: Sore Throat Calcium Acetate (Phoslo) 667 mg PO ACTID [facility] Last Admin: 03/08/17 13:28 Dose: 667 mg Carvedilol (Coreg) 12.5 mg PO BID [facility] Last Admin: 03/08/17 11:00 Dose: Not Given Famotidine (Pepcid) 20 mg PO BID [facility] Last Admin: 03/08/17 11:00 Dose: Not Given Guaifenesin/Dextromethorphan (Robitussin Dm) 5 ml PO Q4H PRN PRN Reason: Cough Last Admin: 03/08/17 11:10 Dose: 5 ml Home Med (Linagliptin [Tradjenta]) 10 mg PO DAILY [facility] Hydralazine HCl (Apresoline) 25 mg PO TID [facility] Last Admin: 03/08/17 13:29 Dose: 25 mg Moxifloxacin HCl (Avelox Iv 400mg/250ml Ns) 400 mg in 250 mls @ 167 mls/hr IVPB ONCE ONE Stop: 03/08/17 17:30 Insulin Human Regular (Novolin R) 0 unit SC ACHS [facility] PRN Reason: Protocol Last Admin: 03/08/17 11:51 Dose: Not Given Lisinopril (Zestril) 5 mg PO BID [facility] Last Admin: 03/08/17 11:00 Dose: Not Given Rosuvastatin Calcium (Crestor) 20 mg PO HS [facility] Last Admin: 03/07/17 23:10 Dose: 20 mg - Labs Labs: 03/08/17 07:39 03/08/17 07:39 PT 14.2 SECONDS (9.7-12.2) H 03/08/17 07:39 INR 1.3 03/08/17 07:39 APTT 34 SECONDS (21-34) 03/08/17 07:39 - Constitutional Appears: Non-toxic, No Acute Distress - Head Exam Head Exam: ATRAUMATIC, NORMAL INSPECTION, NORMOCEPHALIC - Eye Exam Eye Exam: EOMI, Normal appearance. absent: Scleral icterus Pupil Exam: PERRL - ENT Exam ENT Exam: Mucous Membranes Moist - Neck Exam Neck Exam: absent: Lymphadenopathy - Respiratory Exam Respiratory Exam: Clear to Ausculation Bilateral, NORMAL BREATHING PATTERN - Cardiovascular Exam Cardiovascular Exam: REGULAR RHYTHM, +S1, +S2 - GI/Abdominal Exam GI & Abdominal Exam: Soft, Normal Bowel Sounds. absent: Tenderness - Extremities Exam Extremities Exam: Pedal Edema (1+ pitting edema) - Neurological Exam Neurological Exam: Alert, Awake, Oriented x3 - Psychiatric Exam Psychiatric exam: Normal Affect - Skin Skin Exam: Normal Color, Warm Assessment and Plan - Assessment and Plan (Free Text) Plan: CHF exacerbation, systolic dysfunction Admit to tele Pt wears life-vest due to Low EF Cardiology consult, Dr. Jamil (help appreciated) On admission: * BNP: 175,000 * Troponin 1: negative x 3 * Emergent Dialysis (03/07/17) Chest X-ray (03/07/17): Right greater than left small to moderate bilateral pleural effusions and associated consolidations. Biapical pleural thickening. Linear atelectasis, left mid lung zone. Partially obscured cardiomegaly. Atherosclerotic calcifications of the aorta. Echocardiogram (11/24/16): EF: 15%. Left ventricle is mildly dilated. Grade IV- fixed restrictive diastolic dysfunction. Left and right atrium moderately dilated. Mitral regurgitation is moderate to severe. There is mild triscuspid regurgitation. There are multiple large loculated pericardial effusion, both anteriorly and posteriorly. - f/u repeat ECHO Pneumonia Afebrile, no leukocytosis/bands Chest X-ray (03/07/17): Right greater than left small to moderate bilateral pleural effusions and associated consolidations. Biapical pleural thickening. Linear atelectasis, left mid lung zone. Partially obscured cardiomegaly. Atherosclerotic calcifications of the aorta. ID: Dr. Landeros, help appreciated - continue Avelox 400mg IV Daily Robittussin DM 5ml PO Q4H PRN cough Blood cultures (03/07/17): no growth x 24 hrs negative for flu f/u atypicals Pericardial effusion Echocardiogram (11/24/16): EF: 15%. There are multiple large loculated pericardial effusion, both anteriorly and posteriorly. Dr. Jamil, Cardio consult help appreciated - Able to see CT Chest performed at [facility] with his interpretation being -> large pericardial effusion, small left/right pleural effusions - restart home medication Entresto 26-28mg PO BID - f/u repeat ECHO in AM Dr. Reynolds, pumonology, help appreciated: -hx of thoracentesis -f/u ECHO ESRD (end stage renal disease) Assessment and Plan: Nephrology Consult, Dr. Joyce---> help appreciated -2.2 L taken off at dialysis today HD on M, W, F Hx of right kidney transplant (2008), rejection last year Phoslo 667 mg PO ACTID Status: Acute Hypertension Well controlled Continue home medications Coreg 12.5 mg PO BID Hydralazine 25mg PO TID Status: Acute Diabetes mellitus Assessment and Plan: Accuchecks ISS Continue home medication: Tradjenta 10mg PO daily HgbA1C: 5.7 Monitor Status: Acute Prophylactic measure Assessment and Plan: SCD Heparin 5,000 units SC Q12H Pepcid 20mg PO BID Aspirin 81 mg PO daily Crestor 20mg HS Status: Acute <Xochitl Mirza V - Last Filed: 03/08/17 22:26> Objective - Vital Signs/Intake and Output Vital Signs (last 24 hours): Temp Pulse Resp BP Pulse Ox 99.5 F 87 18 116/79 100 03/08/17 16:09 03/08/17 16:09 03/08/17 16:09 03/08/17 17:42 03/08/17 16:09 Intake and Output: 03/08/17 03/09/17 18:59 06:59 Intake Total 400 Balance 400 - Medications Medications: Current Medications Benzocaine/Menthol (Cepacol Sore Throat) 1 asia MT Q4H PRN PRN Reason: Sore Throat Calcium Acetate (Phoslo) 667 mg PO ACTID [facility] Last Admin: 03/08/17 17:40 Dose: 667 mg Carvedilol (Coreg) 12.5 mg PO BID [facility] Last Admin: 03/08/17 17:42 Dose: 12.5 mg Famotidine (Pepcid) 20 mg PO BID [facility] Last Admin: 03/08/17 17:41 Dose: 20 mg Guaifenesin/Dextromethorphan (Robitussin Dm) 5 ml PO Q4H PRN PRN Reason: Cough Last Admin: 03/08/17 11:10 Dose: 5 ml Home Med (Linagliptin [Tradjenta]) 10 mg PO DAILY [facility] Hydralazine HCl (Apresoline) 25 mg PO TID [facility] Last Admin: 03/08/17 19:15 Dose: Not Given Insulin Human Regular (Novolin R) 0 unit SC ACHS [facility] PRN Reason: Protocol Last Admin: 03/08/17 21:47 Dose: Not Given Rosuvastatin Calcium (Crestor) 20 mg PO HS [facility] Last Admin: 03/08/17 21:16 Dose: 20 mg Sacubitril/Valsartan (Entresto 24 Mg-26 Mg) 1 tab PO BID [facility] Last Admin: 03/08/17 21:21 Dose: Not Given - Labs Labs: 03/08/17 07:39 03/08/17 07:39 PT 14.0 SECONDS (9.7-12.2) H 03/08/17 19:50 INR 1.2 03/08/17 19:50 APTT 35 SECONDS (21-34) H 03/08/17 19:50 Attending/Attestation - Attestation I have personally seen and examined this patient.: Yes I have fully participated in the care of the patient.: Yes I have reviewed all pertinent clinical information, including history, physical exam and plan: Yes Notes (Text): patient seen, examined, and case discussed with day-time resident. Patient seen at dialysis this morning. Patient reports he is feeling unwell, productive cough with yellow phlegm. Patient reports he completed CT Chest recently at [facility]; will attempt to get the report. Patient requesting for thoracentesis. Explained to the patient he is currently getting dialysis which should remove some of the fluid in the lungs. Resident has attempted to get copy of CT Chest; however, there appears to be some type of technological error which impairs the report to be sent over from [facility] to [facility] prior discussion with the advertising dispatch clerks supervisor. Patient was previously hospitalized at [facility] in 11/2016 for pneumonia as well. Pulmonary (Dr. Reynolds) on board Patient re-assessed in the afternoon; patient also notes he has pericardial effusion; where-in he was seeing Dr. bailey (clinical unit educator) who had recommended for CT chest which he completed yesterday at [facility] and to follow-up next week in regards to the pericardial effusion; procedure not scheduled. Patient not scheduled for procedure. Resident spoke with Dr. Veliz, cardiology covering Dr. bailey while away on vacation, who was able to have access to patient's CT chest, noting for large pericardial effusion on the scan. patient's aspirin and heparin dvt discontinued in light of pericardial effusion. Patient is ordered for repeat echocardiogram. Patient reports he is compliant on his Lifevest; reports it has not fired. Patient had low grade fever: 100.2F, WBC< 4 and suspicion for pneumonia given chest xray (03/07/17)-->patient given empiric antibiotics in light of PCN; dose of Avelox and dose of Vancomycin IV; infectious disease consult on the case; blood cultures ordered today; c/w Avelox 400mg IV q daily Assessment/Plan 1) CHF exacerbation, systolic dysfunction Assessment and Plan: * Admit to tele * Pt wears life-vest due to Low EF * Cardiology consult, Dr. Jamil (help appreciated) covering Dr. Bailey who is away * On admission: * BNP: 175,000 * Troponin 1: negative x 3 * Completed two sessions of dialysis today * Chest X-ray (03/07/17): Right greater than left small to moderate bilateral pleural effusions and associated consolidations. Biapical pleural thickening. Linear atelectasis, left mid lung zone. Partially obscured cardiomegaly. Atherosclerotic calcifications of the aorta. * Echocardiogram (11/24/16): EF: 15%. Left ventricle is mildly dilated. Grade IV- fixed restrictive diastolic dysfunction. Left and right atrium moderately dilated. Mitral regurgitation is moderate to severe. There is mild triscuspid regurgitation. There are multiple large loculated pericardial effusion, both anteriorly and posteriorly. * CT Chest completed at [facility] yesterday-->attempts to retrieve report limited secondary to technology will attempt to get report * f/u repeat ECHO in AM * ASA held secondary to pericardial effusion * Coreg 12.5mg PO BID * Crestor 20mg POqHS * Sacubitril/Valasartan 1 tab PO bid 2) Pneumonia Assessment and Plan: * Infectious disease (Dr. Landeros) on board-->help appreciated * Pulmonary (Dr. Reynolds) on board-->help appreciated * WBC< 4; Tmax: 100.2F * Chest X-ray (03/07/17): Right greater than left small to moderate bilateral pleural effusions and associated consolidations. Biapical pleural thickening. Linear atelectasis, left mid lung zone. Partially obscured cardiomegaly. Atherosclerotic calcifications of the aorta. * Patient given dose of Avelox and Vancomycin today * Robittussin DM 5ml PO Q4H PRN cough * Blood cultures (03/07/17): no growth x 24 hrs X2 * order for repeat blood cultures today, Strep, legionella, mycoplasma IgM 3) Pericardial effusion Assessment and Plan: * Dr. Jamil, Cardio consult help appreciated * Echocardiogram (11/24/16): EF: 15%. There are multiple large loculated pericardial effusion, both anteriorly and posteriorly. * Able to see CT Chest performed at [facility] with his interpretation being -> large pericardial effusion, small left/right pleural effusions * restart home medication Entresto 26-28mg PO BID * f/u repeat ECHO in AM * Dr. Reynolds, pumonology, help appreciated; f/u ECHO * Pending retrieval CT Chest report from [facility] 4) ESRD (end stage renal disease) Assessment and Plan: * Dr. Joyce, nephrology---> help appreciated * HD on M, W, F * Hx of right kidney transplant (2008) * Phoslo 667 mg PO ACTID Status: Chronic 5) Hypertension * Continue home medications * Coreg 12.5 mg PO BID * Hydralazine 25mg PO TID * Monitor vital signs Status: Chronic 6) Diabetes mellitus Assessment and Plan: * Controlled * Accuchecks QAC and HS * ISS * Continue home medication: Tradjenta 10mg PO daily-->not available on hospital formulary-->switched to renal dosed Januvia 25mg Po daily * HgbA1C: 5.7 * Monitor Status:Chronic 7) Prophylactic measure Assessment and Plan: * SCD * Pepcid 20mg PO daily for GI ppx * Held aspirin and dvt ppx given pericardial effusion Status: Acute
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
--- NOTE | 2017-03-08 18:59 | CP.PCM.CON ---
History of Present Illness - History of Present Illness History of Present Illness: 52 yo male with h/o renal transplant/ESRD on HD/dilated CM/HTN Recent echocardiogram showed dilated LV EF 15%, was given Lifevest Progressively worsening dyspnea and cough, denies associated chest pain/ palpitations/diaphoresis/syncope Was sent to [facility] [place] chest, which showed a large pericardial effusion/large right pleural effusion Developed worsening cough last night and was admitted to [facility] Review of Systems - Review of Systems Review of Systems: All others are negative except HPI Past Patient History - Past Medical History & Family History Past Medical History?: Yes - Past Social History Smoking Status: Former Smoker - CARDIAC Hx Cardiac Disorders: Yes Hx Hypertension: Yes - PULMONARY Hx Respiratory Disorders: Yes Other/Comment: pleural effusion - NEUROLOGICAL Hx Neurological Disorder: No - HEENT Hx HEENT Problems: No - RENAL Hx Chronic Kidney Disease: Yes Type of Dialysis Access: left av shunt Date of Last Dialysis Treatment: 03/07/17 - ENDOCRINE/METABOLIC Hx Endocrine Disorders: Yes Hx Diabetes Mellitus Type 2: Yes Hx Hyperthyroidism: Yes - HEMATOLOGICAL/ONCOLOGICAL Hx Blood Disorders: Yes Hx Anemia: Yes - INTEGUMENTARY Hx Dermatological Problems: No - MUSCULOSKELETAL/RHEUMATOLOGICAL Hx Musculoskeletal Disorders: Yes Hx Back Pain: Yes Hx Falls: No Hx Herniated Disk: Yes Other/Comment: TORN ROTATOR CUFF LEFT-REPAIRED - GASTROINTESTINAL Hx Gastrointestinal Disorders: No - GENITOURINARY/GYNECOLOGICAL Hx Genitourinary Disorders: Yes Other/Comment: HAD LEFT KIDNEY TRANSPLANT 2008 - PSYCHIATRIC Hx Psychophysiologic Disorder: Yes Hx Anxiety: Yes Hx Substance Use: No - SURGICAL HISTORY Hx Surgeries: Yes Hx Appendectomy: Yes - ANESTHESIA Hx Anesthesia: Yes Hx Anesthesia Reactions: No Hx Malignant Hyperthermia: No Meds Allergies/Adverse Reactions: Allergies Allergy/AdvReac Type Severity Reaction Status Date / Time Penicillins Allergy Verified 03/07/17 15:53 - Medications Medications: Current Medications Benzocaine/Menthol (Cepacol Sore Throat) 1 asia MT Q4H PRN PRN Reason: Sore Throat Calcium Acetate (Phoslo) 667 mg PO ACTID [facility] Last Admin: 03/08/17 17:40 Dose: 667 mg Carvedilol (Coreg) 12.5 mg PO BID [facility] Last Admin: 03/08/17 17:42 Dose: 12.5 mg Famotidine (Pepcid) 20 mg PO BID [facility] Last Admin: 03/08/17 17:41 Dose: 20 mg Guaifenesin/Dextromethorphan (Robitussin Dm) 5 ml PO Q4H PRN PRN Reason: Cough Last Admin: 03/08/17 11:10 Dose: 5 ml Home Med (Linagliptin [Tradjenta]) 10 mg PO DAILY [facility] Hydralazine HCl (Apresoline) 25 mg PO TID [facility] Last Admin: 03/08/17 13:29 Dose: 25 mg Vancomycin HCl/Dextrose (Vancocin) 500 mg in 100 mls @ 100 mls/hr IVPB ONCE ONE Stop: 03/08/17 19:59 Insulin Human Regular (Novolin R) 0 unit SC ACHS [facility] PRN Reason: Protocol Last Admin: 03/08/17 17:27 Dose: 1 unit Rosuvastatin Calcium (Crestor) 20 mg PO HS [facility] Last Admin: 03/07/17 23:10 Dose: 20 mg Sacubitril/Valsartan (Entresto 24 Mg-26 Mg) 1 tab PO BID [facility] Physical Exam - Constitutional Appears: Well, Non-toxic, No Acute Distress - Head Exam Head Exam: ATRAUMATIC, NORMOCEPHALIC - Eye Exam Eye Exam: EOMI Pupil Exam: PERRL - ENT Exam ENT Exam: Mucous Membranes Moist - Respiratory Exam Respiratory Exam: Clear to Auscultation Bilateral, NORMAL BREATHING PATTERN - Cardiovascular Exam Cardiovascular Exam: REGULAR RHYTHM, JVD, +S1, +S2 - GI/Abdominal Exam GI & Abdominal Exam: Soft. absent: Tenderness - Extremities Exam Extremities exam: Positive for: full ROM, normal capillary refill, normal inspection. Negative for: calf tenderness - Neurological Exam Neurological exam: Alert, CN II-XII Intact, Oriented x3 - Psychiatric Exam Psychiatric exam: Normal Affect, Normal Mood - Skin Skin Exam: Normal Color, Warm Results - Vital Signs Recent Vital Signs: Last Vital Signs Temp 99.5 F 03/08/17 16:09 Pulse 87 03/08/17 16:09 Resp 18 03/08/17 16:09 BP 116/79 03/08/17 17:42 Pulse Ox 100 03/08/17 16:09 - Labs Result Diagrams: 03/08/17 07:39 03/08/17 07:39 Labs: Laboratory Results - last 24 hr 03/07/17 03/07/17 03/08/17 18:57 21:57 00:26 WBC RBC Hgb Hct MCV MCH MCHC RDW Plt Count MPV Neut % (Auto) Lymph % (Auto) [place] % (Auto) Eos % (Auto) Baso % (Auto) Neut # Lymph # [place] # Eos # Baso # Neutrophils % (Manual) Band Neutrophils % Lymphocytes % (Manual) Monocytes % (Manual) Eosinophils % (Manual) Platelet Estimate Poikilocytosis (manual Anisocytosis (manual) Ovalocytes PT INR APTT Sodium Potassium Chloride Carbon Dioxide Anion Gap BUN Creatinine Est GFR ( Amer) Est GFR (Non-Af Amer) POC Glucose (mg/dL) 93 Random Glucose Hemoglobin A1c Calcium Phosphorus Magnesium Total Bilirubin AST ALT Alkaline Phosphatase Total Creatine Kinase 135 CK-MB (Mass) 0.97 Troponin I, Quant 0.0600 Total Protein Albumin Globulin Albumin/Globulin Ratio Influenza Typ A,B (EIA) Negative for flu a/b 03/08/17 03/08/17 03/08/17 02:10 06:14 07:39 WBC 3.7 L RBC 4.06 L Hgb 11.2 L Hct 35.3 MCV 87.0 MCH 27.7 MCHC 31.9 L RDW 19.1 H Plt Count 133 MPV 8.6 Neut % (Auto) 76.0 H Lymph % (Auto) 9.1 L [place] % (Auto) 7.4 Eos % (Auto) 6.6 H Baso % (Auto) 0.9 Neut # 2.8 Lymph # 0.3 L [place] # 0.3 Eos # 0.2 Baso # 0.0 Neutrophils % (Manual) 78 H Band Neutrophils % 1 Lymphocytes % (Manual) 5 L Monocytes % (Manual) 6 Eosinophils % (Manual) 10 H Platelet Estimate Normal Poikilocytosis (manual Slight Anisocytosis (manual) Moderate Ovalocytes Slight PT INR APTT Sodium Potassium Chloride Carbon Dioxide Anion Gap BUN Creatinine Est GFR ( Amer) Est GFR (Non-Af Amer) POC Glucose (mg/dL) 100 103 Random Glucose Hemoglobin A1c Calcium Phosphorus Magnesium Total Bilirubin AST ALT Alkaline Phosphatase Total Creatine Kinase CK-MB (Mass) Troponin I, Quant Total Protein Albumin Globulin Albumin/Globulin Ratio Influenza Typ A,B (EIA) 03/08/17 03/08/17 03/08/17 07:39 07:39 07:39 WBC RBC Hgb Hct MCV MCH MCHC RDW Plt Count MPV Neut % (Auto) Lymph % (Auto) [place] % (Auto) Eos % (Auto) Baso % (Auto) Neut # Lymph # [place] # Eos # Baso # Neutrophils % (Manual) Band Neutrophils % Lymphocytes % (Manual) Monocytes % (Manual) Eosinophils % (Manual) Platelet Estimate Poikilocytosis (manual Anisocytosis (manual) Ovalocytes PT 14.2 H INR 1.3 APTT 34 Sodium 138 Potassium 3.7 Chloride 92 L Carbon Dioxide 28 Anion Gap 22 H BUN 34 H Creatinine 7.0 H Est GFR ( Amer) 10 Est GFR (Non-Af Amer) 8 POC Glucose (mg/dL) Random Glucose 85 Hemoglobin A1c 5.7 Calcium 9.1 Phosphorus 3.7 Magnesium 2.0 Total Bilirubin 1.2 AST 25 ALT 27 Alkaline Phosphatase 147 H Total Creatine Kinase 139 CK-MB (Mass) 0.57 Troponin I, Quant 0.0740 Total Protein 7.3 Albumin 3.6 Globulin 3.7 Albumin/Globulin Ratio 1.0 Influenza Typ A,B (EIA) 03/08/17 03/08/17 11:16 16:52 WBC RBC Hgb Hct MCV MCH MCHC RDW Plt Count MPV Neut % (Auto) Lymph % (Auto) [place] % (Auto) Eos % (Auto) Baso % (Auto) Neut # Lymph # [place] # Eos # Baso # Neutrophils % (Manual) Band Neutrophils % Lymphocytes % (Manual) Monocytes % (Manual) Eosinophils % (Manual) Platelet Estimate Poikilocytosis (manual Anisocytosis (manual) Ovalocytes PT INR APTT Sodium Potassium Chloride Carbon Dioxide Anion Gap BUN Creatinine Est GFR ( Amer) Est GFR (Non-Af Amer) POC Glucose (mg/dL) 116 H 152 H Random Glucose Hemoglobin A1c Calcium Phosphorus Magnesium Total Bilirubin AST ALT Alkaline Phosphatase Total Creatine Kinase CK-MB (Mass) Troponin I, Quant Total Protein Albumin Globulin Albumin/Globulin Ratio Influenza Typ A,B (EIA) - EKG Data EKG comments: EKG my review, NSR, poor R wave progression, small voltage precordial leads Assessment & Plan (1) Pericardial effusion Assessment and Plan: No clinical picture of tamponade Normotensive Undewent two HD sessions Obtain 2D echo to assess echo evidence of tamponade/size of effusion post HD Status: Acute (2) CHF (congestive heart failure) Assessment and Plan: Clinically euvolemic Restart Entresto Cont with dennys Lopezt as outpatient Will need to be evaluated for AICD with Dr. Dunn Status: Acute (3) Hypertension Assessment and Plan: Cont with meds Restart entresto Status: Acute
[2017-03-08] MEDS ORDERED: Vancomycin 500mg/D5W 100 ml 500 MG/100 ML BAG IVPB ONE (19:00)
[2017-03-08 19:57] LABS: INR 1.2
[2017-03-08] MEDS: Sacubitril/Valsartan 24-26mg Tab PO SCH (21:21)
--- NOTE | 2017-03-09 06:22 | CP.PCM.PN ---
Subjective - Date & Time of Evaluation Date of Evaluation: 03/09/17 Time of Evaluation: 06:20 - Subjective Subjective: PGY-[address] Mirza's service: Pt seen and examined at bedside. Nursing reports no acute events overnight. He admits improved cough since admission but is still producing yellow sputum. He reports tolerating diet and moving bowels without issue. Pt reports it is still difficult for him to lay flat as he quickly becomes short of breath. He denies chest pain, palpitations, nausea, vomiting, or diarrhea. Objective - Vital Signs/Intake and Output Vital Signs (last 24 hours): Temp Pulse Resp BP Pulse Ox 99.3 F 86 18 110/63 96 03/09/17 04:00 03/09/17 04:00 03/09/17 04:00 03/09/17 04:00 03/09/17 04:00 Intake and Output: 03/08/17 03/09/17 18:59 06:59 Intake Total 400 Balance 400 - Medications Medications: Current Medications Benzocaine/Menthol (Cepacol Sore Throat) 1 asia MT Q4H PRN PRN Reason: Sore Throat Calcium Acetate (Phoslo) 667 mg PO ACTID [facility] Last Admin: 03/08/17 17:40 Dose: 667 mg Carvedilol (Coreg) 12.5 mg PO BID [facility] Last Admin: 03/08/17 17:42 Dose: 12.5 mg Famotidine (Pepcid) 20 mg PO DAILY [facility] Guaifenesin/Dextromethorphan (Robitussin Dm) 5 ml PO Q4H PRN PRN Reason: Cough Last Admin: 03/08/17 11:10 Dose: 5 ml Hydralazine HCl (Apresoline) 25 mg PO TID [facility] Last Admin: 03/08/17 19:15 Dose: Not Given Insulin Human Regular (Novolin R) 0 unit SC ACHS [facility] PRN Reason: Protocol Last Admin: 03/08/17 21:47 Dose: Not Given Rosuvastatin Calcium (Crestor) 20 mg PO HS [facility] Last Admin: 03/08/17 21:16 Dose: 20 mg Sacubitril/Valsartan (Entresto 24 Mg-26 Mg) 1 tab PO BID [facility] Last Admin: 03/08/17 21:21 Dose: Not Given Sitagliptin Phosphate (Januvia) 25 mg PO DAILY [facility] - Labs Labs: 03/08/17 07:39 03/08/17 07:39 PT 14.0 SECONDS (9.7-12.2) H 03/08/17 19:50 INR 1.2 03/08/17 19:50 APTT 35 SECONDS (21-34) H 03/08/17 19:50 - Constitutional Appears: Non-toxic, Chronically Ill - Head Exam Head Exam: ATRAUMATIC, NORMOCEPHALIC - Eye Exam Eye Exam: EOMI. absent: Scleral icterus Pupil Exam: PERRL - ENT Exam ENT Exam: Mucous Membranes Moist Additional comments: JVD - Respiratory Exam Respiratory Exam: Decreased Breath Sounds (bilateral lung bases), NORMAL BREATHING PATTERN. absent: Rales, Rhonchi, Wheezes - Cardiovascular Exam Cardiovascular Exam: REGULAR RHYTHM, +S1, +S2 Additional comments: no distant heart sounds - GI/Abdominal Exam GI & Abdominal Exam: Soft, Normal Bowel Sounds. absent: Tenderness - Extremities Exam Extremities Exam: absent: Pedal Edema - Back Exam Back Exam: absent: CVA tenderness (L), CVA tenderness (R) - Neurological Exam Neurological Exam: Alert, Awake, Oriented x3 - Skin Skin Exam: Dry, Normal Color, Warm Assessment and Plan - Assessment and Plan (Free Text) Plan: CHF exacerbation, systolic dysfunction Admit to tele Pt wears life-vest due to Low EF Cardiology consult, Dr. Jamil (help appreciated) On admission: * BNP: 175,000 * Troponin 1: negative x 3 * Emergent Dialysis (03/07/17) Chest X-ray (03/07/17): Right greater than left small to moderate bilateral pleural effusions and associated consolidations. Biapical pleural thickening. Linear atelectasis, left mid lung zone. Partially obscured cardiomegaly. Atherosclerotic calcifications of the aorta. Echocardiogram (11/24/16): EF: 15%. Left ventricle is mildly dilated. Grade IV- fixed restrictive diastolic dysfunction. Left and right atrium moderately dilated. Mitral regurgitation is moderate to severe. There is mild triscuspid regurgitation. There are multiple large loculated pericardial effusion, both anteriorly and posteriorly. - f/u repeat ECHO Pneumonia Afebrile, no leukocytosis/bands Chest X-ray (03/07/17): Right greater than left small to moderate bilateral pleural effusions and associated consolidations. Biapical pleural thickening. Linear atelectasis, left mid lung zone. Partially obscured cardiomegaly. Atherosclerotic calcifications of the aorta. ID: Dr. Landeros, help appreciated - continue Avelox 400mg IV Daily Vancomycin 500mg IV ONCE Robittussin DM 5ml PO Q4H PRN cough Blood cultures (03/07/17): no growth x 24 hrs negative for flu f/u atypicals Pericardial effusion Echocardiogram (11/24/16): EF: 15%. There are multiple large loculated pericardial effusion, both anteriorly and posteriorly. Dr. Jamil, Cardio consult help appreciated - Lifevest as outpatient, will need AICD evaluation from Dr. Webber - Able to see CT Chest performed at [facility] with his interpretation being -> large pericardial effusion, small left/right pleural effusions - restart home medication Entresto 26-28mg PO BID - f/u repeat ECHO in AM Dr. Reynolds, pumonology, help appreciated: -hx of thoracentesis -f/u ECHO ESRD (end stage renal disease) Assessment and Plan: Nephrology Consult, Dr. Joyce---> help appreciated HD on M, W, F Hx of right kidney transplant (2008), rejection last year Phoslo 667 mg PO ACTID Status: Acute Hypertension Well controlled Continue home medications Coreg 12.5 mg PO BID Hydralazine 25mg PO TID Status: Acute Diabetes mellitus Assessment and Plan: Accuchecks ISS Continue home medication: Tradjenta 10mg PO daily HgbA1C: 5.7 Monitor Status: Acute Prophylactic measure Assessment and Plan: SCD Heparin 5,000 units SC Q12H Pepcid 20mg PO BID Aspirin 81 mg PO daily Crestor 20mg HS Status: Acute
[2017-03-09] MEDS: (Novolin R) Insulin Human Regular 100 units/ml vial SC SCH ×3 (07:58→16:36)
[2017-03-09 08:35] LABS: BASO % 0.7 % (0.0-2.0); EOS # 0.3 K/uL (0.0-0.7); EOS % 9.1 % (0.0-4.0); HEMOGLOBIN 11.4 g/dL (12.0-18.0); LYMPH # 0.5 K/uL (1.0-4.3); LYMPH % 18.1 % (20.0-40.0); MEAN CORPUSCULAR HEMOGLOBIN 27.8 pg (27.0-31.0); MEAN CORPUSCULAR HGB CONC 31.6 g/dL (33.0-37.0); MONO # 0.4 K/uL (0.0-0.8); MONO % 14.3 % (0.0-10.0); NEUT # 1.7 K/uL (1.8-7.0); NEUT % 57.8 % (50.0-75.0); NRBC % 0.1 % (0.0-2.0); RBC 4.08 Mil/uL (4.40-5.90); RED CELL DISTRIBUTION WIDTH 18.1 % (11.5-14.5); WHITE BLOOD COUNT 2.9 K/uL (4.8-10.8)
[2017-03-09 08:59] LABS: ALBUMIN 3.5 g/dL (3.5-5.0)
[2017-03-09 09:03] LABS: CALCIUM 9.1 mg/dl (8.6-10.4); MAGNESIUM 2.1 mg/dL (1.6-2.3)
[2017-03-09] MEDS: Sacubitril/Valsartan 24-26mg Tab PO SCH (10:13)
--- NOTE | 2017-03-09 10:57 | CP.PCM.PN ---
Subjective - Date & Time of Evaluation Date of Evaluation: 03/09/17 Time of Evaluation: 10:55 - Subjective Subjective: s/p dialysis last 3 consecutive days; UF 2000ml on 03/08 Less dyspneic. CXR shows pleural effusions Chemistries acceptable Awaiting pulm/cardio recs about pleural/pericardial effusions Eating better No n, v, chills, fevers, diarrhea, HAs Objective - Vital Signs/Intake and Output Vital Signs (last 24 hours): Temp Pulse Resp BP Pulse Ox 99.7 F H 85 18 130/70 96 03/09/17 07:05 03/09/17 07:05 03/09/17 07:05 03/09/17 10:13 03/09/17 07:05 - Medications Medications: Current Medications Benzocaine/Menthol (Cepacol Sore Throat) 1 asia MT Q4H PRN PRN Reason: Sore Throat Calcium Acetate (Phoslo) 667 mg PO ACTID [facility] Last Admin: 03/09/17 08:11 Dose: 667 mg Carvedilol (Coreg) 12.5 mg PO BID [facility] Last Admin: 03/09/17 10:13 Dose: 12.5 mg Famotidine (Pepcid) 20 mg PO DAILY [facility] Last Admin: 03/09/17 10:13 Dose: 20 mg Guaifenesin/Dextromethorphan (Robitussin Dm) 5 ml PO Q4H PRN PRN Reason: Cough Last Admin: 03/08/17 11:10 Dose: 5 ml Hydralazine HCl (Apresoline) 25 mg PO TID [facility] Last Admin: 03/09/17 10:13 Dose: 25 mg Insulin Human Regular (Novolin R) 0 unit SC ACHS [facility] PRN Reason: Protocol Last Admin: 03/09/17 07:58 Dose: Not Given Rosuvastatin Calcium (Crestor) 20 mg PO HS [facility] Last Admin: 03/08/17 21:16 Dose: 20 mg Sacubitril/Valsartan (Entresto 24 Mg-26 Mg) 1 tab PO BID [facility] Last Admin: 03/09/17 10:13 Dose: 1 tab Sitagliptin Phosphate (Januvia) 25 mg PO DAILY [facility] Last Admin: 03/09/17 10:13 Dose: Not Given - Labs Labs: 03/09/17 08:25 03/09/17 08:25 PT 14.0 SECONDS (9.7-12.2) H 03/08/17 19:50 INR 1.2 03/08/17 19:50 APTT 35 SECONDS (21-34) H 03/08/17 19:50 - Constitutional Appears: No Acute Distress, Chronically Ill - Head Exam Head Exam: ATRAUMATIC, NORMAL INSPECTION - Eye Exam Eye Exam: EOMI, Normal appearance - Neck Exam Neck Exam: absent: Tenderness - Respiratory Exam Respiratory Exam: Rales, NORMAL BREATHING PATTERN - Cardiovascular Exam Cardiovascular Exam: REGULAR RHYTHM, +S1 - GI/Abdominal Exam GI & Abdominal Exam: Soft. absent: Tenderness - Extremities Exam Extremities Exam: Normal Inspection. absent: Tenderness - Neurological Exam Neurological Exam: Alert, CN II-XII Intact - Skin Skin Exam: Dry, Warm Assessment and Plan (1) Type 2 diabetes mellitus with diabetic nephropathy Status: Acute (2) ESRD (end stage renal disease) Status: Acute (3) Hypertension Status: Acute (4) Cardiomyopathy Status: Acute (5) ESRD (end stage renal disease) on dialysis Status: Acute - Assessment and Plan (Free Text) Plan: Aggressive UF with HD MWF Same BP meds- HTN controlled Await decision on thoracentesis/pericentesis as per cardio, pulmoary
--- NOTE | 2017-03-09 15:10 | CARD ---
APPROVED REPORT EXAM: Two-dimensional and M-mode echocardiogram with Doppler and color Doppler. Other Information Quality : GoodRhythm : NSR INDICATION Dyspnea Pleural Effusion Congestive Heart Failure ESRD RISK FACTORS Hypertension Diabetes M-Mode DIMENSIONS RVDd3.17 (2.1-3.2cm)Left Atrium (MM)4.82 (2.5-4.0cm) IVSd1.34 (0.7-1.1cm)Aortic Root3.34 (2.2-3.7cm) LVDd6.68 (4.0-5.6cm)Aortic Cusp Exc.1.82 (1.5-2.0cm) PWd1.34 (0.7-1.1cm)FS (%) 9 % LVDs6.07 (2.0-3.8cm)LVEF (%)19 (>50%) Mitral Valve MV E Kiwwmmhb184.2cm/sE/A ratio0.0 TDI E/Lateral E'0.0E/Medial E'0.0 Tricuspid Valve TR Peak [id number]/sTR Peak Gr.[id number] LEFT VENTRICLE The Left Ventricle is moderately dilated. There is normal left ventricular wall thickness. The systolic function is severely impaired. There is global hypokinesis of the left ventricle. The left ventricular diastolic function is normal. RIGHT VENTRICLE The right ventricle is normal size. ATRIA The left atrium is moderately dilated. The right atrium size is normal. AORTIC VALVE The aortic valve is normal in structure. MITRAL VALVE Mitral regurgitation is mild. TRICUSPID VALVE There is mild tricuspid regurgitation. PERICARDIAL EFFUSION There is a small-moderate circumferential pericardial effusion. <Conclusion> Severely reduced LV systolic function. Dilated LA and LV. Mild MR. Mild TR. Small to medium size pericardial effusion. No Tamponade physiology seen.
[2017-03-09 15:45] VITALS: BP 118/78; RESP 20; TEMP 98.6; O2SAT 95
--- NOTE | 2017-03-09 19:13 | CP.PCM.DIS ---
Provider - Provider Date of Admission: 03/07/17 17:37 Attending physician: Xochitl Mirza DO Primary care physician: PMD: Dr Lawrence Hospitalist service while in [facility] Consults: Cardio: Dr. Jamil Nephro: Dr. Joyce Id : Dr Landeros Time Spent in preparation of Discharge (in minutes): 40 Diagnosis - Discharge Diagnosis (1) CHF exacerbation Status: Acute Comment: ECHO: EF 19% - systolic dysfxn; dilated LA/LV. pt already on lifevest. restarted on entresto. Dr. Jamil/Dr. Veloz are cardiologists. see full hospital course (2) Chest pain Status: Acute Comment: troponins negative x 3 (3) ESRD (end stage renal disease) on dialysis Status: Acute Comment: MWF dialysis. Dr. Joyce talent associate (4) Pericardial effusion Status: Acute Hospital Course - Lab Results Lab Results: Micro Results 03/08/17 23:02 Throat Group A Strep Throat Culture - Preliminary No growth. Most Recent Lab Values WBC 2.9 K/uL (4.8-10.8) L 03/09/17 08:25 RBC 4.08 Mil/uL (4.40-5.90) L 03/09/17 08:25 Hgb 11.4 g/dL (12.0-18.0) L 03/09/17 08:25 Hct 35.9 % (35.0-51.0) 03/09/17 08:25 MCV 88.0 fL (80.0-94.0) 03/09/17 08:25 MCH 27.8 pg (27.0-31.0) 03/09/17 08:25 MCHC 31.6 g/dL (33.0-37.0) L 03/09/17 08:25 RDW 18.1 % (11.5-14.5) H 03/09/17 08:25 Plt Count 136 K/uL (130-400) 03/09/17 08:25 MPV 9.0 fL (7.2-11.7) 03/09/17 08:25 Neut % (Auto) 57.8 % (50.0-75.0) 03/09/17 08:25 Lymph % (Auto) 18.1 % (20.0-40.0) L 03/09/17 08:25 [place] % (Auto) 14.3 % (0.0-10.0) H 03/09/17 08:25 Eos % (Auto) 9.1 % (0.0-4.0) H 03/09/17 08:25 Baso % (Auto) 0.7 % (0.0-2.0) 03/09/17 08:25 Neut # 1.7 K/uL (1.8-7.0) L 03/09/17 08:25 Lymph # 0.5 K/uL (1.0-4.3) L 03/09/17 08:25 [place] # 0.4 K/uL (0.0-0.8) 03/09/17 08:25 Eos # 0.3 K/uL (0.0-0.7) 03/09/17 08:25 Baso # 0.0 K/uL (0.0-0.2) 03/09/17 08:25 Neutrophils % (Manual) 78 % (50-75) H 03/08/17 07:39 Band Neutrophils % 1 % (0-2) 03/08/17 07:39 Lymphocytes % (Manual) 5 % (20-40) L 03/08/17 07:39 Monocytes % (Manual) 6 % (0-10) 03/08/17 07:39 Eosinophils % (Manual) 10 % (0-4) H 03/08/17 07:39 Platelet Estimate Normal (NORMAL) 03/08/17 07:39 Poikilocytosis (manual Slight 03/08/17 07:39 Anisocytosis (manual) Moderate 03/08/17 07:39 Ovalocytes Slight 03/08/17 07:39 PT 14.0 SECONDS (9.7-12.2) H 03/08/17 19:50 INR 1.2 03/08/17 19:50 APTT 35 SECONDS (21-34) H 03/08/17 19:50 pO2 45 mm/Hg (30-55) 03/07/17 16:33 VBG pH 7.45 (7.32-7.43) H 03/07/17 16:33 VBG pCO2 45 mmHg (40-60) 03/07/17 16:33 VBG HCO3 29.5 mmol/L 03/07/17 16:33 VBG Total CO2 32.7 mmol/L (22-28) H 03/07/17 16:33 VBG O2 Sat (Calc) 82.6 % (40-65) H 03/07/17 16:33 VBG Base Excess 6.4 mmol/L (0.0-2.0) H 03/07/17 16:33 VBG Potassium 4.1 mmol/L (3.6-5.2) 03/07/17 16:33 Sodium 138.0 mmol/l (132-148) 03/07/17 16:33 Chloride 99.0 mmol/L (98-107) 03/07/17 16:33 Glucose 121 mg/dl (75-110) H 03/07/17 16:33 Lactate 1.2 mmol/L (0.7-2.1) 03/07/17 16:33 Sodium 138 mmol/L (132-148) 03/09/17 08:25 Potassium 3.9 mmol/L (3.6-5.2) 03/09/17 08:25 Chloride 92 mmol/L (98-107) L 03/09/17 08:25 Carbon Dioxide 29 mmol/L (22-30) 03/09/17 08:25 Anion Gap 22 (10-20) H 03/09/17 08:25 BUN 37 mg/dL (9-20) H 03/09/17 08:25 Creatinine 6.7 MG/DL (0.8-1.5) H 03/09/17 08:25 Est GFR ( Amer) 10 03/09/17 08:25 Est GFR (Non-Af Amer) 9 03/09/17 08:25 POC Glucose (mg/dL) 122 mg/dL (65-110) H 03/09/17 16:07 Random Glucose 84 mg/dL (75-110) 03/09/17 08:25 Hemoglobin A1c 5.7 % (4.2-6.5) 03/08/17 07:39 Calcium 9.1 mg/dl (8.6-10.4) 03/09/17 08:25 Phosphorus 4.1 mg/dL (2.5-4.5) 03/09/17 08:25 Magnesium 2.1 mg/dL (1.6-2.3) 03/09/17 08:25 Total Bilirubin 1.0 mg/dL (0.2-1.3) 03/09/17 08:25 AST 31 U/L (17-59) 03/09/17 08:25 ALT 28 U/L (21-72) 03/09/17 08:25 Alkaline Phosphatase 138 U/L (38-126) H 03/09/17 08:25 Total Creatine Kinase 139 U/L (55-170) 03/08/17 07:39 CK-MB (Mass) 0.57 ng/mL (0.0-3.38) 03/08/17 07:39 Troponin I 0.0570 ng/mL (0.00-0.120) 03/07/17 16:32 Troponin I, Quant 0.0740 ng/mL (0.00-0.120) 03/08/17 07:39 NT-Pro-B Natriuret Pep > 157067 pg/mL (0-900) H 03/07/17 16:32 Total Protein 7.0 g/dL (6.3-8.3) 03/09/17 08:25 Albumin 3.5 g/dL (3.5-5.0) 03/09/17 08:25 Globulin 3.6 gm/dL (2.2-3.9) 03/09/17 08:25 Albumin/Globulin Ratio 1.0 (1.0-2.1) 03/09/17 08:25 Venous Blood Potassium 4.1 mmol/L (3.6-5.2) 03/07/17 16:33 Influenza Typ A,B (EIA) Negative for flu a/b (NEGATIVE) 03/07/17 18:57 Mycoplasma pneumon IgM Negative (NEGATIVE) 03/09/17 08:25 Grp A Beta Strep Ag Negative (NEGATIVE) 03/08/17 23:02 - Hospital Course Hospital Course: On admission: CC: SOB/COUGH HPI: Patient is a 51 year old male with history of HTN, DM, ESRD on dialysis M, W, F, who presents with complaints of SOB and cough that started at 1:00am this morning. Patient reports that he has been experiencing cough attacks since 1: 00am that causes him to gag and spit up. Patient states that his symptoms are worse with strenuous activities and lying flat and sitting up provides some relief. Patient reports that he sleeps in a recliner with two pillows and with elevation of b/l lower extremity. Patient admits to sick contact with his recent cold/flu symptoms. Patient reports that he feels very congested and has been using cough drops which provides no relief. Patient admits to weakness, headache, sore throat, chest pain, SOB, nausea, cough but denies palpitations, diaphoresis, fever, chills, vomiting, abd pain, dizziness, diarrhea, facial pain and leg pain/swelling. Patient states that he is very compliant with his HD schedule. Hospital course: Pt admitted 03/07/17 for SOB/cough. BNP on admission 175,000. Troponins negative x 3. CXR done in ED showing R> L small to moderate pleural effusions with consolidations. Dr. Jamil, micropaleontologist consulted, as was pts talent associate Dr. Joyce, and sack maker Dr. Reynolds. CT Chest performed at [facility] a day prior to admission, and seen only by Dr. Wong due to technological limitations in sending study from [facility], showed moderate to large pericardial effusion. Pt restarted on home Entresto. Also given one dose of Vanc, and started on Avelox. Dr. Veloz/Dr. Jamil felt pt should be transferrred to higher care facility, [facility], where CT surgeon could evaluate pt for possible pericardial window. EMTALA form filled out with [facility] acceptance into cardiac care unit on . - Date & Time of H&P Date of H&P: 03/07/17 Time of H&P: 20:27 Discharge Exam - Additional Findings Additional findings: - Constitutional Appears: Non-toxic, Chronically Ill - Head Exam Head Exam: ATRAUMATIC, NORMOCEPHALIC - Eye Exam Eye Exam: EOMI. absent: Scleral icterus Pupil Exam: PERRL - ENT Exam ENT Exam: Mucous Membranes Moist Additional comments: JVD - Respiratory Exam Respiratory Exam: Decreased Breath Sounds (bilateral lung bases), NORMAL BREATHING PATTERN. absent: Rales, Rhonchi, Wheezes - Cardiovascular Exam Cardiovascular Exam: REGULAR RHYTHM, +S1, +S2 Additional comments: no distant heart sounds - GI/Abdominal Exam GI & Abdominal Exam: Soft, Normal Bowel Sounds. absent: Tenderness - Extremities Exam Extremities Exam: absent: Pedal Edema - Back Exam Back Exam: absent: CVA tenderness (L), CVA tenderness (R) - Neurological Exam Neurological Exam: Alert, Awake, Oriented x3 - Skin Skin Exam: Dry, Normal Color, Warm Discharge Plan - Follow Up Plan Condition: GUARDED Disposition: Trans to Other Acute Care Hosp Instructions: Heart Failure (DC), Heart Failure (GEN), Pacemaker (DC), Pacemaker (GEN), Pulmonary Edema (DC), Pulmonary Edema (GEN), Ascites (DC), Ascites (GEN) Additional Instructions: Patient for transfer to [facility] for pericardial window. Accepting physician is Dr. Jamil. Patient to continue current medical therapy. CD of ECHO sent along with patient. Clinical Quality Measures - CQM - Heart Failure Ejection Fraction: Less Than 40 % Left Ventricular Function to be assessed after discharge: Yes SOPHIE Inhibitor Prescribed: No Contraindication/Reason for not providing: on ARB (entresto) Beta-Diana Prescribed: Carvedilol Angiotensin II Receptor Diana Prescribed: Yes AnticoagulationTherapy for Atrial Fibrillation/Atrialflutter: Yes Aldosterone Antagonist Prescribed: Yes Hydralazine Nitrate Prescribed: Yes Implantable Cardioverter Defibrillator Therapy: No Contraindication/Reason for not providing: Lifevest Cardiac Resynchronization Therapy Prescribed: Yes Contraindication/Reason for not providing: Lifevest Follow Up Date (must be within 7 days from discharge): 03/09/17 (Transfer to [facility]) Follow Up Time: 09:00 - Date & Time of Discharge Summary Date of Discharge Summary: 03/09/17 Time of Discharge Summary: 19:10
[2017-03-09 23:42] VITALS: PULSE 81
== END 2017-03-09 17:22 | disposition short-term general hospital (02) | DRG 291 ==
LOC: C.ER 15:30 → C.9E 17:37 → C.6T 19:01
PROVIDERS: ADMIT Hospitalist; ATTEND Hospitalist
PROC: 5A1D00Z (ICD-10-PCS; principal; 2017-03-07)
DX: I13.2 Hypertensive heart and chronic kidney disease with heart failure and with stage 5 chronic kidney disease, or end stage renal disease (principal); N18.6 End stage renal disease; I31.3 Pericardial effusion (noninflammatory); E11.21 Type 2 diabetes mellitus with diabetic nephropathy; Z94.0 Kidney transplant status; I50.23 Acute on chronic systolic (congestive) heart failure; I42.0 Dilated cardiomyopathy; E11.22 Type 2 diabetes mellitus with diabetic chronic kidney disease; I70.0 Atherosclerosis of aorta; I34.0 Nonrheumatic mitral (valve) insufficiency; Z79.82 Long term (current) use of aspirin; Z88.0 Allergy status to penicillin; Z99.2 Dependence on renal dialysis; Z87.891 Personal history of nicotine dependence; Z79.4 Long term (current) use of insulin

== ENCOUNTER 2017-09-10 14:23 | Inpatient (IN) | payer MEDICARE, OTHER ==
[2017-09-10 14:23] VITALS: BMI 3319.7
[2017-09-10] MEDS ORDERED: Sodium Chloride 0.9% 1,000 ML IV STA (15:06)
[2017-09-10] MEDS ORDERED: Morphine 4 MG/ML VIAL ONE (15:27)
[2017-09-10] MEDS ORDERED: Sodium Chloride 0.9% 1,000 ML ONE (15:27)
[2017-09-10 15:30] LABS: BASO % 1.2 % (0.0-2.0); EOS # 0.3 K/uL (0.0-0.7); EOS % 7.9 % (0.0-4.0); HEMOGLOBIN 12.6 g/dL (12.0-18.0); LYMPH # 0.8 K/uL (1.0-4.3); MEAN CORPUSCULAR HEMOGLOBIN 31.4 pg (27.0-31.0); MEAN CORPUSCULAR HGB CONC 33.1 g/dL (33.0-37.0); MEAN PLATELET VOLUME 8.8 fL (7.2-11.7); MONO # 0.4 K/uL (0.0-0.8); MONO % 10.1 % (0.0-10.0); NEUT # 2.2 K/uL (1.8-7.0); NEUT % 58.8 % (50.0-75.0); NRBC % 0.1 % (0.0-2.0); WHITE BLOOD COUNT 3.7 K/uL (4.8-10.8)
[2017-09-10 15:40] LABS: INR 1.2; PROTHROMBIN TIME 13.8 SECONDS (9.7-12.2)
[2017-09-10 15:53] LABS: ALB/GLOB RATIO 1.1 (1.0-2.1); ALBUMIN 4.2 g/dL (3.5-5.0); CALCIUM 7.1 mg/dl (8.6-10.4); MAGNESIUM 2.1 mg/dL (1.6-2.3)
[2017-09-10] MEDS ORDERED: (Novolin R) Insulin Human Regular 100 units/ml vial IV STA (15:55)
[2017-09-10 15:56] LABS: CK-MB 1.26 ng/mL (0.0-3.38); TROPONIN I 0.058 ng/mL (0.00-0.120)
[2017-09-10] MEDS ORDERED: Naloxone 0.4 mg/ml Inj (Adult) ONE ×3 (15:57→16:07)
[2017-09-10] MEDS ORDERED: Naloxone 0.4 mg/ml Inj (Adult) IVP STA ×4 (16:00→16:29)
[2017-09-10] MEDS ORDERED: (Novolin R) Insulin Human Regular 100 units/ml vial ONE (16:02)
[2017-09-10] MEDS ORDERED: Dextrose 50% VIAL Inj (50 ml) IV ONE (16:03)
[2017-09-10] MEDS ORDERED: Calcium Gluconate 4.65 mEq/10 ml Inj ONE (16:03)
--- NOTE | 2017-09-10 16:23 | C.PDOC ---
History Of Present Illness <Renetta Mayorga - Last Filed: 09/10/17 17:24> <Azul Galloway - Last Filed: 09/10/17 18:22> 52-year-old male, PMHx includes ESRD (HD on M/W/F), presents to the emergency department with complaints of three-day duration of cramping generalized body pain associated with non-bloody/watery diarrhea. Denies vomiting, fevers, chills , chest pain, shortness of breath or any other associated symptoms. No other complaints at this time. Patient requesting pain meds for pain. Patient's last HD was done on Monday09/08/2017 and was done regular as scheduled. Patient sts he had 3 episodes of diarrhea today. (Azul Galloway) <Renetta Mayorga - Last Filed: 09/10/17 17:24> History Per: Patient History/Exam Limitations: no limitations Onset/Duration Of Symptoms: Days Current Symptoms Are (Timing): Still Present Severity: Moderate <Azul Galloway - Last Filed: 09/10/17 18:22> Time Seen by Provider: 09/10/17 14:45 Chief Complaint (Nursing): GI Problem Past Medical History Reviewed: Historical Data, Nursing Documentation, Vital Signs - Medical History PMH: Anemia, Anxiety, CHF, HTN, Hypercholesterolemia, Hyperthyroidism, Pneumothorax, End Stage Renal Disease (on Hemodialysis), Chronic Kidney Disease Surgical History: Appendectomy Family History: States: Unknown Family Hx - Social History Hx Tobacco Use: No Hx Alcohol Use: No Hx Substance Use: No - Immunization History Hx Tetanus Toxoid Vaccination: No Hx Influenza Vaccination: Yes (2016) Hx Pneumococcal Vaccination: Yes (2016) <Azul Galloway - Last Filed: 09/10/17 18:22> Vital Signs: Last Vital Signs Temp 97.7 F 09/10/17 14:28 Pulse 67 09/10/17 18:02 Resp 16 09/10/17 18:02 BP 109/65 09/10/17 18:02 Pulse Ox 97 09/10/17 18:02 - [facility] Procedures DRAINAGE OF RIGHT PLEURAL CAVITY, PERCUTANEOUS APPROACH (11/24/16) PERFORMANCE OF URINARY FILTRATION, MULTIPLE (11/24/16) PERFORMANCE OF URINARY FILTRATION, SINGLE (03/07/17) Review Of Systems Except As Marked, All Systems Reviewed And Found Negative. Constitutional: Negative for: Fever, Chills ( ) Cardiovascular: Negative for: Chest Pain, Palpitations Respiratory: Negative for: Shortness of Breath Gastrointestinal: Positive for: Abdominal Pain, Diarrhea. Negative for: Nausea , Vomiting Musculoskeletal: Negative for: Back Pain <Azul Galloway - Last Filed: 09/10/17 18:22> Physical Exam - Physical Exam Appears: Non-toxic, No Acute Distress Skin: Warm, Dry, No Rash Head: Atraumatic, Normacephalic Eye(s): bilateral: Normal Inspection, PERRL, EOMI Nose: Normal Oral Mucosa: Moist Lips: Normal Appearing Neck: Normal ROM Chest: Symmetrical Cardiovascular: Rhythm Regular, No Murmur Respiratory: Normal Breath Sounds, No Accessory Muscle Use Gastrointestinal/Abdominal: Soft, No Tenderness, No Guarding, No Rebound Extremity: Normal ROM, No Swelling, Other (left UE with AV fistula.) Neurological/Psych: Oriented x3, Normal Speech <Azul Galloway - Last Filed: 09/10/17 18:22> ED Course And Treatment - Laboratory Results Result Diagrams: 09/10/17 15:23 09/10/17 15:23 <Renetta Mayorga - Last Filed: 09/10/17 17:24> - Laboratory Results Result Diagrams: 09/10/17 15:23 09/10/17 15:23 O2 Sat by Pulse Oximetry: 99 <Azul Galloway - Last Filed: 09/10/17 18:22> Progress - Data Reviewed Data Reviewed: Lab, Diagnostic imaging, EKG, Old records - Critical Care Citical Care: Excluding Proc Time Critical Care Time: 90 minutes - Continuity of Care Discussed patient case with:: Patient, Family-HIPPA compliant, On-call PMD-pt unassigned Discussed pt. case with risk control consultant/specialty: Nephrology, Pulmonary/Crit. Care <Renetta Mayorga - Last Filed: 09/10/17 17:24> <Azul Galloway - Last Filed: 09/10/17 18:22> - Re-Evaluation Re-evaluation Note: 09/10/17 15:56 CALLED TO BEDSIDE BY RN, APNEA UNRESPONSIVE SP MORPHINE. BRADYCARDIA, AGONAL RESP, NO RESPONSE TO STERNAL RUB. NO PALP PULSE. PEA, CPR STARTED. RETURN SPONT PULSES W O2, S/P NARCAN. 09/10/17 16:20 IMPROVED MENTATION, NO FOCAL NEURO DEF. SPONT RESP WO DIFF, CO2 34 100% NRB. PENDING CALLBACK DR MARINELLI 09/10/17 16:30 IMPROVED, BACK TO BASELINE. AO3. NO SPONT NEURO DEF. 09/10/17 16:45 D/W DR RUIZ C/F ICU AWARE OF ER FINDINGS ACCEPTS FOR ICU. D/W DR GOINS C/F DR MARINELLI BY NILE GALLOWAY: WILL ARRANGE EMERGENT HD IN ICU 15:58 EKG I Rate: 76bpm Rhythm: NSR Interpret: QRS 126ms, QT/QTc 360ms 16:11 EKG II Rate 76bpm Rhythm NSR Interpret QRS 142ms, QT/QTc 495ms. T Wave inversions 1, AVL, V2 (Renetta Mayorga) NIHSS Stroke Scale - Date/Time Evaluation Performed Date Performed: 09/10/17 Time Performed: 16:15 When Was NIHSS Performed: Baseline - How Severe is the Stroke Level of Consciousness: 0=Alert LOC to Questions: 0=Both comments correct LOC to commands: 0=Obeys both correctly Best Gaze: 0=Normal Visual: 0=No visual loss Facial: 0=Normal Motor Arm - Left: 2=Falls before 10 sec Motor Arm - Right: 2=Falls before 10 sec Motor Leg - Left: 2=Falls before 5 sec Motor Leg - Right: 2=Falls before 5 sec Limb Ataxia: 0=Absent Sensory: 0=Normal Best Language: 0=No aphasia Dysarthia: 1=Mild to moderate slurring Extinction & Inattention (Neglect): 0=Normal, no object Score: 9 <Renetta Mayorga - Last Filed: 09/10/17 17:24> NIHSS Stroke Scale 2 - Date/Time Evaluation Performed Date Performed: 09/10/17 Time Performed: 16:32 When Was NIHSS Performed: Re-evaluation - How Severe is the Stroke Level of Consciousness: 0=Alert LOC to Questions: 0=Both comments correct LOC to commands: 0=Obeys both correctly Best Gaze: 0=Normal Visual: 0=No visual loss Facial: 0=Normal Motor Arm - Left: 0=No drift Motor Arm - Right: 0=No drift Motor Leg - Left: 0=No drift Motor Leg - Right: 0=No drift Limb Ataxia: 0=Absent Sensory: 0=Normal Best Language: 0=No aphasia Dysarthia: 0=Normal articulation Extinction & Inattention (Neglect): 0=Normal, no object Score: 0 <MukeshRenetta - Last Filed: 09/10/17 17:24> Supervising Attending Note - Supervising Attending Note The Documented history was done by the: Physician Collar Sewer The documented physical exam was done by the: Physician Collar Sewer The documented procedures were done by the: Physician Collar Sewer - Attestation: I have personally seen and examined this patient.: Yes I have fully participated in the care of the patient.: Yes I have reviewed all pertinent clinical information, including history, physical exam and plan: Yes <Renetta Mayorga - Last Filed: 09/10/17 17:24> <Azul Galloway - Last Filed: 09/10/17 18:22> - Notes: Notes:: CO POSSIBLE "ELECTROLYTES ARE OFF". S/P ROUTINE HD 09/08. PT W LEG CRAMPING "I KNOW MY BODY AND SOMETHING FEELING OFF". GEN PAIN. EXAM ABOVE (Renetta Mayorga) Medical Decision Making <Renetta Mayorga - Last Filed: 09/10/17 17:24> <Azul Galloway - Last Filed: 09/10/17 18:22> Medical Decision Making: Patient was given Morphine for body pain, and became unresponsive and pulseless few minutes after administration. As per family members, patient had Morphine before without any prior adverse reactions. ER attending took over case. After patient regained pulse and became responsive, case was discussed with Hospitalist Dr Mirza and ICU attending Dr. Ruiz who accepts patient to ICU. Case discussed with Guest Services Representative Dr. Goins, states patient will be emergently dialyzed in ICU. tanbark laborer Sheryl who states she will come to hospital and dialyze patient. Patient developed diaphoresis and blood sugar is below 30, given D50 with improvement. (Azul Galloway) Disposition - Disposition Disposition Time: 16:48 - POA Present On Arrival: None, Poor Glycemic Control <Renetta Mayorga - Last Filed: 09/10/17 17:24> - POA Present On Arrival: Poor Glycemic Control <Azul Galloway - Last Filed: 09/10/17 18:22> - Disposition Disposition: HOSPITALIZED Condition: SERIOUS Forms: [facility] (Welsh) - Clinical Impression Clinical Impression: Morphine overdose, PEA (Pulseless electrical activity), ESRD (end stage renal disease), Apnea, Hyperkalemia, Respiratory distress, acute <Renetta Mayorga - Last Filed: 09/10/17 17:24> - Scribe Statement The provider has reviewed the documentation as recorded by the Scribe (Dalila Mathews) <Azul Galloway - Last Filed: 09/10/17 18:22> - Scribe Statement All medical record entries made by the Scribe were at my direction and personally dictated by me. I have reviewed the chart and agree that the record accurately reflects my personal performance of the history, physical exam, medical decision making, and the department course for this patient. I have also personally directed, reviewed, and agree with the discharge instructions and disposition. (Azul Galloway) Decision To Admit - Pt Status Changed To: Hospital Disposition Of: Inpatient - Admit Certification Admit to Inpatient:: After my assessment, the patient will require hospitalization for at least two midnights. This is because of the severity of symptoms shown, intensity of services needed, and/or the medical risk in this patient being treated as an outpatient. - InPatient: Physician Admission Certification: I certify that this patient requires 2 or more midnights of care for the following reason:: SEE NOTE - . Bed Request Type: ICU Admitting Physician: Xochitl Mirza <Renetta Mayorga - Last Filed: 09/10/17 17:24> <Azul Galloway - Last Filed: 09/10/17 18:22> - . Patient Diagnosis: Morphine overdose, PEA (Pulseless electrical activity), ESRD (end stage renal disease), Apnea, Hyperkalemia, Respiratory distress, acute
[2017-09-10] MEDS ORDERED: Dextrose 50% SYRINGE Inj (50 ml) IV STA (16:26)
[2017-09-10 16:29] LABS: ABG ALLEN TEST YES; ARTERIAL BLOOD GAS O2 SAT 97.1 % (95-98); ARTERIAL BLOOD GAS PCO2 28 mm/Hg (35-45); ARTERIAL BLOOD GAS PH 7.44 (7.35-7.45); ARTERIAL BLOOD GAS PO2 218 mm/Hg (80-100); ARTERIAL BLOOD GAS TCO2 19.9 mmol/L (22-28)
--- NOTE | 2017-09-10 17:24 | CT ---
PROCEDURE: CT HEAD WITHOUT CONTRAST. HISTORY: AMS COMPARISON: 11/24/2016 TECHNIQUE: Axial computed tomography images were obtained through the head/brain without intravenous contrast. Radiation dose: Total exam DLP = 1026.17 mGy-cm. This CT exam was performed using one or more of the following dose reduction techniques: Automated exposure control, adjustment of the mA and/or kV according to patient size, and/or use of iterative reconstruction technique. FINDINGS: HEMORRHAGE: No intracranial hemorrhage. BRAIN: No mass effect or edema. Mild atrophy consistent with age. Minimal periventricular white matter lucency consistent with chronic microvascular ischemic change. VENTRICLES: Unremarkable. No hydrocephalus. CALVARIUM: Unremarkable. PARANASAL SINUSES: Unremarkable as visualized. No significant inflammatory changes. MASTOID AIR CELLS: Unremarkable as visualized. No inflammatory changes. OTHER FINDINGS: None. IMPRESSION: No intracranial hemorrhage. No evidence of acute infarct. Mild age-appropriate atrophy and minimal chronic white matter ischemic change.
--- NOTE | 2017-09-10 17:27 | RAD ---
PROCEDURE: CHEST RADIOGRAPH, 1 VIEW HISTORY: body pain COMPARISON: 03/07/2017 FINDINGS: LUNGS: Opacity at right lung base without silhouetting of right heart border. Possible pneumonia. Linear scar mid left lung unchanged from prior PLEURA: No pneumothorax or pleural fluid seen. CARDIOVASCULAR: Normal. OSSEOUS STRUCTURES: No significant abnormalities. VISUALIZED UPPER ABDOMEN: Normal. OTHER FINDINGS: None. IMPRESSION: Right lower lobe infiltrate.
[2017-09-10] MEDS ORDERED: Dextrose 50% SYRINGE Inj (50 ml) IVP STA ×2 (17:29)
--- NOTE | 2017-09-10 17:29 | RAD ---
HISTORY: repeat CXR COMPARISON: 09/10/2017 at 3:17 p.m. FINDINGS: LUNGS: Right lower lobe opacity seen earlier has partially resolved. No new infiltrate. PLEURA: No significant pleural effusion identified, no pneumothorax apparent. CARDIOVASCULAR: Normal. OSSEOUS STRUCTURES: No significant abnormalities. VISUALIZED UPPER ABDOMEN: Normal. OTHER FINDINGS: None. IMPRESSION: Improving right lower lobe opacity, possible pneumonia.
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
[2017-09-10] MEDS ORDERED: Sodium Chloride 0.9% 1,000 ML IV SCH ×2 (18:45→21:22)
[2017-09-10] MEDS ORDERED: Vancomycin 500mg/D5W 100 ml 500 MG/100 ML BAG IVPB ONE (21:30)
[2017-09-10] MEDS: (Novolin R) Insulin Human Regular 100 units/ml vial SC SCH (22:39)
[2017-09-11] MEDS: Aztreonam 1 GM in Sodium Chloride 0.9% 100 ML IVPB SCH ×3 (00:48→21:32)
[2017-09-11 06:05] LABS: BASO % 0.4 % (0.0-2.0); EOS # 0.2 K/uL (0.0-0.7); EOS % 5.3 % (0.0-4.0); LYMPH # 0.7 K/uL (1.0-4.3); LYMPH % 18.7 % (20.0-40.0); MEAN CELL VOLUME 94.5 fL (80.0-94.0); MEAN CORPUSCULAR HEMOGLOBIN 31.2 pg (27.0-31.0); MEAN PLATELET VOLUME 8.8 fL (7.2-11.7); MONO # 0.4 K/uL (0.0-0.8); MONO % 10.9 % (0.0-10.0); NEUT # 2.5 K/uL (1.8-7.0); NEUT % 64.7 % (50.0-75.0); NRBC % 0.1 % (0.0-2.0); RBC 3.52 Mil/uL (4.40-5.90); RED CELL DISTRIBUTION WIDTH 17.5 % (11.5-14.5); WHITE BLOOD COUNT 3.8 K/uL (4.8-10.8)
[2017-09-11 06:32] LABS: ALB/GLOB RATIO 1.1 (1.0-2.1); ALBUMIN 3.7 g/dL (3.5-5.0); CALCIUM 7.1 mg/dl (8.6-10.4); MAGNESIUM 1.8 mg/dL (1.6-2.3)
[2017-09-11] MEDS: (Novolin R) Insulin Human Regular 100 units/ml vial SC SCH ×4 (07:30→21:33)
--- NOTE | 2017-09-11 08:37 | CP.PCM.PN ---
Subjective - Date & Time of Evaluation Date of Evaluation: 09/11/17 Time of Evaluation: 08:10 - Subjective Subjective: Hospitalist Progress Note Patient was seen and examined at 8:10 AM 09/11/17 ICU Bed #16. Very pleasant 52 year old male who presented 09/10/17 with complaints of dehydration, abdominal cramping, and watery diarrhea (nonbloody) since his last HD session on 09/08/17. He was given Morphine in the ER and subsequently had PEA that required Narcan. He was also found to have elevated Potassium that required emergent HD. He was transferred to ICU for further treatment and evaluation. Please see individual Assessment and Plans below for details. Currently upon FULL ROS: NO chest pain NO palpitations NO SOB/Cough/Wheezing NO abdominal pain/cramping NO n/v/c Last bowel movement was 09/10/17 before he cam to the ER and it was watery/ nonbloody/nonblack but did notice small amount of bright red blood when he wiped (revealed that he has a history of Hemorrhoids and these have been " acting up" recently) Does NOT produce urine NO lightheadedness/dizziness NO headaches NO new changes in vision/eye pain NO new changes in hearing/ear pain NO paresthesias NO edema Exam: General: AAOx3, NAD HEENT: NCA, EOMI, PERRLA, Nasal Turbinates are dry/nonedematous, NO pharyngeal erythema/exudate, NO cervical/supraclavicular/submandibular lymphadenopathy, NO thyromegaly Cardio: Machine Like Murmury heard in the Right and Left Second Intercostal Space Resp: CTA B/L, NO R/R/W GI: BSx4, Soft, NT, ND, NO HSM, NO guarding/rebound tenderness Ext: NO edema, Radial Pulse on the Right UE is stronger than the Left UE, Left UE AV Fistula with +Thrill, Bilateral LE Pulses are strong and equal, Capillary Refill is 2 seconds Neuro: CN II through XII are grossly intact Assessment/Plan 1) Morphine Overdose Acute Respiratory Distress secondary to Overdose S/P PEA, ROSC 09/10/17 Assessment and Plan: * In the ED 09/11/17 , patient became unresponsive following dose of Morphine 4mg IVX1, chest compression started, at pulse check 1 minute in, palpable femoral pulses, and Morphine reversed with multiple doses of Narcan * Post ROSC, CT Head: no intracranial hemorrhage. No evidence of acute infarct, mild age-appropriate atrophy and minimal chronic white matter ischemic change. * No neurological deficits noted. * Further monitoring in the ICU; ABG completed 2) History of CHF, systolic dysfunction Assessment and Plan: * Admit to ICU * Echocardiogram (03/09/17): EF estimated at 19%, severely reduced V systolic function. Dilated LA and LV, mild MR, mild TR, and smal to medium size pericardial effusions. No tamponade physiology seen. * Will need to follow-up with cardiology regarding EF status. Patient has prior history of pericardial effusion which warranted hospitalization at [facility] in February 2017. * Hold Hypotensive medications * Gentle IV hydration 3) Pneumonia Assessment and Plan: * Afebrile, leukopenic * Chest xray (09/10/17): improving right lower lobe opacity, possible pneumonia * F/U blood cultures * Patient does not make urine-->cannot order for legionella nor mycoplasma pneumoniae IgM * Check for influenza, Mycoplasma pneumonia Igm, Rapid strep Group A * Start Aztreonam 1 gram IV Q 12H and Vancomycin 500mg IVPB X1 once post dialysis * Infectious Disease (Dr. Landeros)-->f.u recommendations 4) Abdominal Pain, Diarrhea Assessment and Plan: * Infectious Disease (Dr. Landeros)-->f.u recommendations * F/U Stool ova, parasite, culture, and C. dif toxin 5) History of Pericardial effusion Assessment and Plan: * Will need to follow-up with cardiology regarding history since hospitalization in February 2017 6) Hyperkalemia ESRD (end stage renal disease) on HD at [facility] via Left Upper Arm AV Fistula Assessment and Plan: * Dr. Joyce, nephrology---> help appreciated * Hx of right kidney transplant (2008) * Phoslo 667 mg PO ACTID * Sensipar 60 mg PO 1x/day * Patient to receive emergent dialysis tonight in light of hyperkalemia * Follow-up potassium post dialysis shows it to be normalized Status: Chronic 7) Hypertension * Held hypertension medications. * Patient has low to normal blood pressure measurements * Gentle IV hydration in light of CHF Status: Chronic 8) Diabetes mellitus Assessment and Plan: * HgbA1C: 5.7 * Will check accuchecks Q6H * Monitor * Patient revealed he is NO longer on Tradjenta and is controlling it with his diet. Status:Chronic 8) Prophylactic measure Assessment and Plan: * SCD * Lactobacillus 1 cap PO 2x/day * Eliquis 2.5mg PO BID * Pepcid 20mg PO daily * PT/OT evaluation Status: Acute I spoke with Nurse Zabrina and she informed me that Risk Management Consultant Dr. Veloz will be seeing patient later today. Oliverio Gaitan D.O. Objective - Vital Signs/Intake and Output Vital Signs (last 24 hours): Temp Pulse Resp BP Pulse Ox 97.5 F L 77 13 119/81 97 09/10/17 22:45 09/11/17 07:14 09/11/17 07:14 09/11/17 07:14 09/11/17 07:14 Intake and Output: 09/11/17 09/11/17 06:59 18:59 Intake Total 1270 50 Output Total 0 Balance 1270 50 - Medications Medications: Current Medications Apixaban (Eliquis) 2.5 mg PO BID [facility] Ascorbic Acid (Vitamin C 500 Mg Tab) 500 mg PO DAILY [facility] Famotidine (Pepcid) 20 mg PO DAILY [facility] Vancomycin HCl 600 mg/ Sodium (Chloride) 100 mls @ 100 mls/hr IVPB MWF [facility] Aztreonam 1 gm/ Sodium (Chloride) 100 mls @ 100 mls/hr IVPB Q12H [facility] Last Admin: 09/11/17 00:48 Dose: 100 mls/hr Vancomycin HCl 500 mg/ Sodium (Chloride) 100 mls @ 67 mls/hr IVPB ONCE [facility] Sodium Chloride (Sodium Chloride 0.9%) 1,000 mls @ 50 mls/hr IV .Q20H [facility] Last Admin: 09/10/17 22:37 Dose: 50 mls/hr Insulin Human Regular (Novolin R) 0 unit SC ACHS [facility] PRN Reason: Protocol Last Admin: 09/10/17 22:39 Dose: Not Given Lactobacillus Acidophilus (Bacid Acidophilus) 1 cap PO BID [facility] - Labs Labs: 09/11/17 06:00 09/11/17 06:00 PT 13.8 SECONDS (9.7-12.2) H 09/10/17 15:23 INR 1.2 09/10/17 15:23 APTT 34 SECONDS (21-34) 09/10/17 15:23
[2017-09-11] MEDS: Lactobacillus Acidophilus 500 MU Cap PO SCH ×2 (09:43→17:34)
[2017-09-11 09:46] LABS: MYCOPLASMA PNEUMONIAE IGM NEGATIVE (NEGATIVE)
--- NOTE | 2017-09-11 10:20 | CP.PCM.CON ---
History of Present Illness - History of Present Illness History of Present Illness: The pt is a 52 year old man with CKD, on dialysis, and a dilated cardiomyopathy. Pt has a history of hyperkalemia, and has been off SOPHIE/ARB. Pt; s last k level was a few weeks ago, pt says that it was over 5.o. he drank some lemonade and had some avocados. he fels strange, muscles were all stiff, he had loose BMs. he went to the ER, and received morphine for abdominal pain. As a result, he was profoundly hypotensive, blood sugar was low, and he received cpr for "PEA". Pt responded to fluids, glucose and narcan. ECG was consistent with a junctional rhythm, with peaked t waves, wide complex rhythm. Pt has a h/o of hypotension requiring midodrine during dialysis. Six months ago, the pt was in [facility]: large pericardial effusion and pleural effusions: had pericardiocentesis, and chest tube. BP was very low, needed midodrine. Has severe ischemic cardiomyopathy: has had vest, refused ICD. Pt had afib in the hospital then, and has been on eliquis. Pt had also been on hydralazine and entresto, stopped for low bp and hyperkalemia. A repeat echo this fall demonstrated no pericardial effusion and LV EF, although still reduced, had increased to the 25-30% range, an improvement. Pt has a good exercise capacity and can walk around the park several times. Review of Systems - Review of Systems All systems: reviewed and no additional remarkable complaints except (as above, otherwise negative.) Past Patient History - Past Medical History & Family History Past Medical History?: Yes - Past Social History Smoking Status: Former Smoker - CARDIAC Hx Congestive Heart Failure: Yes Hx Hypercholesterolemia: Yes Hx Hypertension: Yes - PULMONARY Hx Respiratory Disorders: Yes Other/Comment: pleural effusion - NEUROLOGICAL Hx Neurological Disorder: No - HEENT Hx HEENT Problems: No - RENAL Hx Chronic Kidney Disease: Yes - ENDOCRINE/METABOLIC Hx Hyperthyroidism: Yes - HEMATOLOGICAL/ONCOLOGICAL Hx Anemia: Yes - INTEGUMENTARY Hx Dermatological Problems: No - MUSCULOSKELETAL/RHEUMATOLOGICAL Hx Musculoskeletal Disorders: Yes Hx Back Pain: Yes Hx Falls: No Hx Herniated Disk: Yes Other/Comment: TORN ROTATOR CUFF LEFT-REPAIRED - GASTROINTESTINAL Hx Gastrointestinal Disorders: No - GENITOURINARY/GYNECOLOGICAL Hx Genitourinary Disorders: Yes Other/Comment: HAD LEFT KIDNEY TRANSPLANT 2009 - PSYCHIATRIC Hx Anxiety: Yes Hx Substance Use: No - SURGICAL HISTORY Hx Appendectomy: Yes - ANESTHESIA Hx Anesthesia: Yes Hx Anesthesia Reactions: No Hx Malignant Hyperthermia: No Meds Allergies/Adverse Reactions: Allergies Allergy/AdvReac Type Severity Reaction Status Date / Time Penicillins Allergy Verified 09/10/17 14:34 morphine AdvReac ARRHYTMIA, Verified 09/11/17 09:21 HEART RATE - CARDIAC ARREST - Medications Medications: Current Medications Apixaban (Eliquis) 2.5 mg PO BID [facility] Last Admin: 09/11/17 09:44 Dose: 2.5 mg Ascorbic Acid (Vitamin C 500 Mg Tab) 500 mg PO DAILY [facility] Last Admin: 09/11/17 09:43 Dose: 500 mg Calcium Acetate (Phoslo) 667 mg PO ACTID [facility] Cinacalcet (Sensipar) 60 mg PO DAILY [facility] Last Admin: 09/11/17 09:42 Dose: 60 mg Famotidine (Pepcid) 20 mg PO DAILY [facility] Last Admin: 09/11/17 09:49 Dose: 20 mg Vancomycin HCl 600 mg/ Sodium (Chloride) 100 mls @ 100 mls/hr IVPB MWF [facility] Aztreonam 1 gm/ Sodium (Chloride) 100 mls @ 100 mls/hr IVPB Q12H [facility] Last Admin: 09/11/17 00:48 Dose: 100 mls/hr Vancomycin HCl 500 mg/ Sodium (Chloride) 100 mls @ 67 mls/hr IVPB ONCE [facility] Sodium Chloride (Sodium Chloride 0.9%) 1,000 mls @ 50 mls/hr IV .Q20H [facility] Last Admin: 09/10/17 22:37 Dose: 50 mls/hr Insulin Human Regular (Novolin R) 0 unit SC ACHS [facility] PRN Reason: Protocol Last Admin: 09/11/17 07:30 Dose: Not Given Lactobacillus Acidophilus (Bacid Acidophilus) 1 cap PO BID [facility] Last Admin: 09/11/17 09:43 Dose: 1 cap Physical Exam - Constitutional Appears: Well - Head Exam Head Exam: ATRAUMATIC - Eye Exam Eye Exam: EOMI Pupil Exam: NORMAL ACCOMODATION - Neck Exam Neck exam: Positive for: Full Rom - Respiratory Exam Respiratory Exam: Clear to Auscultation Bilateral - Cardiovascular Exam Cardiovascular Exam: REGULAR RHYTHM - GI/Abdominal Exam GI & Abdominal Exam: Normal Bowel Sounds - Exam External exam: Erythema - Extremities Exam Extremities exam: Positive for: normal inspection - Neurological Exam Neurological exam: Alert, CN II-XII Intact, Normal Gait, Oriented x3 - Psychiatric Exam Psychiatric exam: Anxious, Normal Affect, Normal Mood - Skin Skin Exam: Normal Color, Warm Results - Vital Signs Recent Vital Signs: Last Vital Signs Temp 97.5 F L 09/10/17 22:45 Pulse 77 09/11/17 07:14 Resp 13 09/11/17 07:14 BP 119/81 09/11/17 07:14 Pulse Ox 97 09/11/17 07:14 - Labs Result Diagrams: 09/11/17 06:00 09/11/17 06:00 Labs: Laboratory Results - last 24 hr 09/10/17 09/10/17 09/10/17 15:23 15:23 15:23 WBC 3.7 L RBC 4.00 L Hgb 12.6 Hct 38.0 MCV 95.0 H D MCH 31.4 H MCHC 33.1 RDW 18.0 H Plt Count 194 MPV 8.8 Neut % (Auto) 58.8 Lymph % (Auto) 22.0 [place] % (Auto) 10.1 H Eos % (Auto) 7.9 H Baso % (Auto) 1.2 Neut # 2.2 Lymph # 0.8 L [place] # 0.4 Eos # 0.3 Baso # 0.0 PT 13.8 H INR 1.2 APTT 34 Puncture Site pCO2 pO2 HCO3 ABG pH ABG Total CO2 ABG O2 Saturation ABG Base Excess Gianluca Test ABG Potassium A-a O2 Difference Respiratory Index Glucose Lactate FiO2 Sodium 132 Potassium 7.7 H* D Chloride 91 L Carbon Dioxide 25 Anion Gap 23 H BUN 90 H Creatinine 11.7 H* Est GFR ( Amer) 6 Est GFR (Non-Af Amer) 5 POC Glucose (mg/dL) Random Glucose 96 Lactic Acid Calcium 7.1 L Phosphorus 4.6 H Magnesium 2.1 Total Bilirubin 1.1 AST 75 H D ALT 56 Alkaline Phosphatase 235 H D Total Creatine Kinase 114 CK-MB (Mass) 1.26 Troponin I 0.0580 Total Protein 8.1 Albumin 4.2 Globulin 3.9 Albumin/Globulin Ratio 1.1 Amylase 177 H Lipase 240 Procalcitonin Arterial Blood Potassium Hep Bs Antigen Mycoplasma pneumon IgM 09/10/17 09/10/17 09/10/17 15:23 16:26 17:29 WBC RBC Hgb Hct MCV MCH MCHC RDW Plt Count MPV Neut % (Auto) Lymph % (Auto) [place] % (Auto) Eos % (Auto) Baso % (Auto) Neut # Lymph # [place] # Eos # Baso # PT INR APTT Puncture Site Rra pCO2 28 L pO2 218 H HCO3 22.0 ABG pH 7.44 ABG Total CO2 19.9 L ABG O2 Saturation 97.1 ABG Base Excess -3.8 L Gianluca Test Yes ABG Potassium 5.8 H A-a O2 Difference 460.0 Respiratory Index 2.1 Glucose 227 H Lactate 2.8 H FiO2 100.0 Sodium 134.0 Potassium Chloride 101.0 Carbon Dioxide Anion Gap BUN Creatinine Est GFR ( Amer) Est GFR (Non-Af Amer) POC Glucose (mg/dL) 30 L* Random Glucose Lactic Acid 0.8 Calcium Phosphorus Magnesium Total Bilirubin AST ALT Alkaline Phosphatase Total Creatine Kinase CK-MB (Mass) Troponin I Total Protein Albumin Globulin Albumin/Globulin Ratio Amylase Lipase Procalcitonin Arterial Blood Potassium 5.8 H Hep Bs Antigen Mycoplasma pneumon IgM 09/10/17 09/10/17 09/10/17 17:32 18:03 18:16 WBC RBC Hgb Hct MCV MCH MCHC RDW Plt Count MPV Neut % (Auto) Lymph % (Auto) [place] % (Auto) Eos % (Auto) Baso % (Auto) Neut # Lymph # [place] # Eos # Baso # PT INR APTT Puncture Site pCO2 pO2 HCO3 ABG pH ABG Total CO2 ABG O2 Saturation ABG Base Excess Gianluca Test ABG Potassium A-a O2 Difference Respiratory Index Glucose Lactate FiO2 Sodium Potassium Chloride Carbon Dioxide Anion Gap BUN Creatinine Est GFR ( Amer) Est GFR (Non-Af Amer) POC Glucose (mg/dL) 30 L* 194 H 153 H Random Glucose Lactic Acid Calcium Phosphorus Magnesium Total Bilirubin AST ALT Alkaline Phosphatase Total Creatine Kinase CK-MB (Mass) Troponin I Total Protein Albumin Globulin Albumin/Globulin Ratio Amylase Lipase Procalcitonin Arterial Blood Potassium Hep Bs Antigen Mycoplasma pneumon IgM 09/10/17 09/10/17 09/10/17 18:50 19:08 20:54 WBC RBC Hgb Hct MCV MCH MCHC RDW Plt Count MPV Neut % (Auto) Lymph % (Auto) [place] % (Auto) Eos % (Auto) Baso % (Auto) Neut # Lymph # [place] # Eos # Baso # PT INR APTT Puncture Site pCO2 pO2 HCO3 ABG pH ABG Total CO2 ABG O2 Saturation ABG Base Excess Gianluca Test ABG Potassium A-a O2 Difference Respiratory Index Glucose Lactate FiO2 Sodium Potassium Chloride Carbon Dioxide Anion Gap BUN Creatinine Est GFR ( Amer) Est GFR (Non-Af Amer) POC Glucose (mg/dL) 66 93 Random Glucose Lactic Acid Calcium Phosphorus Magnesium Total Bilirubin AST ALT Alkaline Phosphatase Total Creatine Kinase CK-MB (Mass) Troponin I Total Protein Albumin Globulin Albumin/Globulin Ratio Amylase Lipase Procalcitonin Arterial Blood Potassium Hep Bs Antigen Negative Mycoplasma pneumon IgM 09/10/17 09/10/17 09/11/17 21:41 23:08 00:44 WBC RBC Hgb Hct MCV MCH MCHC RDW Plt Count MPV Neut % (Auto) Lymph % (Auto) [place] % (Auto) Eos % (Auto) Baso % (Auto) Neut # Lymph # [place] # Eos # Baso # PT INR APTT Puncture Site pCO2 pO2 HCO3 ABG pH ABG Total CO2 ABG O2 Saturation ABG Base Excess Gianluca Test ABG Potassium A-a O2 Difference Respiratory Index Glucose Lactate FiO2 Sodium Potassium 3.6 Chloride Carbon Dioxide Anion Gap BUN Creatinine Est GFR ( Amer) Est GFR (Non-Af Amer) POC Glucose (mg/dL) 99 64 L Random Glucose Lactic Acid Calcium Phosphorus Magnesium Total Bilirubin AST ALT Alkaline Phosphatase Total Creatine Kinase CK-MB (Mass) Troponin I Total Protein Albumin Globulin Albumin/Globulin Ratio Amylase Lipase Procalcitonin Arterial Blood Potassium Hep Bs Antigen Mycoplasma pneumon IgM 09/11/17 09/11/17 09/11/17 01:31 05:34 06:00 WBC RBC Hgb Hct MCV MCH MCHC RDW Plt Count MPV Neut % (Auto) Lymph % (Auto) [place] % (Auto) Eos % (Auto) Baso % (Auto) Neut # Lymph # [place] # Eos # Baso # PT INR APTT Puncture Site pCO2 pO2 HCO3 ABG pH ABG Total CO2 ABG O2 Saturation ABG Base Excess Gianluca Test ABG Potassium A-a O2 Difference Respiratory Index Glucose Lactate FiO2 Sodium Potassium Chloride Carbon Dioxide Anion Gap BUN Creatinine Est GFR ( Amer) Est GFR (Non-Af Amer) POC Glucose (mg/dL) 115 H 72 Random Glucose Lactic Acid Calcium Phosphorus Magnesium Total Bilirubin AST ALT Alkaline Phosphatase Total Creatine Kinase CK-MB (Mass) Troponin I Total Protein Albumin Globulin Albumin/Globulin Ratio Amylase Lipase Procalcitonin 0.95 H Arterial Blood Potassium Hep Bs Antigen Mycoplasma pneumon IgM Negative 09/11/17 09/11/17 09/11/17 06:00 06:00 07:45 WBC 3.8 L RBC 3.52 L Hgb 11.0 L Hct 33.2 L MCV 94.5 H MCH 31.2 H MCHC 33.0 RDW 17.5 H Plt Count 158 MPV 8.8 Neut % (Auto) 64.7 Lymph % (Auto) 18.7 L [place] % (Auto) 10.9 H Eos % (Auto) 5.3 H Baso % (Auto) 0.4 Neut # 2.5 Lymph # 0.7 L [place] # 0.4 Eos # 0.2 Baso # 0.0 PT INR APTT Puncture Site pCO2 pO2 HCO3 ABG pH ABG Total CO2 ABG O2 Saturation ABG Base Excess Gianluca Test ABG Potassium A-a O2 Difference Respiratory Index Glucose Lactate FiO2 Sodium 132 Potassium 4.5 Chloride 91 L Carbon Dioxide 28 Anion Gap 18 BUN 46 H Creatinine 7.1 H Est GFR ( Amer) 10 Est GFR (Non-Af Amer) 8 POC Glucose (mg/dL) 79 Random Glucose 74 L Lactic Acid Calcium 7.1 L Phosphorus 4.0 Magnesium 1.8 Total Bilirubin 1.1 AST 77 H ALT 72 D Alkaline Phosphatase 205 H Total Creatine Kinase CK-MB (Mass) Troponin I Total Protein 7.0 Albumin 3.7 Globulin 3.3 Albumin/Globulin Ratio 1.1 Amylase Lipase Procalcitonin Arterial Blood Potassium Hep Bs Antigen Mycoplasma pneumon IgM - EKG Data EKG Interpreted by: Myself (as above) Assessment & Plan - Assessment and Plan (Free Text) Assessment: 1. Pt has a chronic dilated cardiomyopathy. 2. Hyperkalemia, now resovled with dialyses. Repeat ecg. 3. No signs of chf or ACS. 4. "PEA" was likely not PEA, but profound hypotension as a result of dehydration , hypoglycemia, the patient's baseline low BP from cardiomyopathy, and IV morphine, 5. A pt gets better, will gradually resume hydralazine, nitrates and coreg. eliquis.
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
--- NOTE | 2017-09-11 11:01 | CP.PCM.CON ---
History of Present Illness - History of Present Illness History of Present Illness: 52-year-old male, PMHx includes ESRD (HD on M/W/F), presents to the emergency department with complaints of three-day duration of cramping generalized body pain associated with non-bloody/watery diarrhea. Denies vomiting, fevers, chills , chest pain, shortness of breath or any other associated symptoms. IN ER given Morphine then developed hypotension and PEA from qwhich he recovered Has severe cardiomyopathy but refused AICD Currently on IV Vanco/ azactam for possible sepsis and RLL infiltrate - Medical History PMH: Anemia, Anxiety, CHF, HTN, Hypercholesterolemia, Hyperthyroidism, Pneumothorax, End Stage Renal Disease (on Hemodialysis), Chronic Kidney Disease Surgical History: Appendectomy Family History: States: Unknown Family Hx Review of Systems - Review of Systems All systems: reviewed and no additional remarkable complaints except - Constitutional Constitutional: As Per HPI - EENT Eyes: absent: As Per HPI, Blind Spots, Blurred Vision, Change in Vision, Decreased Night Vision, Diplopia, Discharge, Dry Eye, Exophthalmos, Floaters, Irritation, Itchy Eyes, Loss of Peripheral Vision, Pain, Photophobia, Requires Corrective Lenses, Sees Flashes, Spots in Vision, Tunnel Vision, Other Visual Disturbances, Loss of Vision, Other Ears: absent: As Per HPI, Decreased Hearing, Ear Discharge, Ear Pain, Tinnitus, Abnormal Hearing, Disequilibrium, Dizziness, Other Nose/Mouth/Throat: absent: As Per HPI, Epistaxis, Nasal Congestion, Nasal Discharge, Nasal Obstruction, Nasal Trauma, Nose Pain, Post Nasal Drip, Sinus Pain, Sinus Pressure, Bleeding Gums, Change in Voice, Dental Pain, Dry Mouth, Dysphagia, Halitosis, Hoarsness, Lip Swelling, Mouth Lesions, Mouth Pain, Odynophagia, Sore Throat, Throat Swelling, Tongue Swelling, Facial Pain, Neck Pain, Neck Mass, Other - Cardiovascular Cardiovascular: As Per HPI - Respiratory Respiratory: absent: As Per HPI, Cough, Dyspnea, Hemoptysis, Dyspnea on Exertion , Wheezing, Snoring, Stridor, Pain on Inspiration, Chest Congestion, Excessive Mucous Production, Change in Mucous Color, Pain with Coughing, Other - Gastrointestinal Gastrointestinal: As Per HPI - Genitourinary Genitourinary: absent: As Per HPI, Change in Urinary Stream, Difficulty Urinating, Dysuria, Flank Pain, Hematuria, Pyuria, Nocturia, Urinary Incontinence, Urinary Frequency, Urinary Hesitance, Urinary Urgency, Voiding Freq/Small Amts, Freq UTI, Hx Renal/Bladder Calculi, Hx /Renal Surgery, Bladder Distension, Other - Musculoskeletal Musculoskeletal: absent: As Per HPI, Abnormal Gait, Arthralgias, Atrophy, Back Pain, Deformity, Joint Swelling, Limited Range of Motion, Loss of Height, Muscle Cramps, Muscle Weakness, Myalgias, Neck Pain, Numbness, Radiating Pain into Limb, Stiffness, Tingling, Other - Integumentary Integumentary: absent: As Per HPI, Acne, Alopecia, Bleeding Lesions, Change in Hair, Change in Nails, Change in Pigmentation, Changing Lesions, Dry Skin, Erythema, Furuncle, Hirsutism, Lesions, New Lesions, Non-Healing Lesions, Photosensitivity, Pruritus, Rash, Skin Pain, Skin Ulcer, Sores, Striae, Swelling , Unusual Bruising, Wounds, Jaundice, Other - Neurological Neurological: absent: As Per HPI, Abnormal Gait, Abnormal Hearing, Abnormal Movements, Abnormal Speech, Behavioral Changes, Burning Sensations, Confusion, Convulsions, Disequilibrium, Dizziness, Numbness, Focal Weakness, Frequent Falls , Headaches, Lack of Coordination, Loss of Vision, Memory Loss, Paresthesias, Radicular Pain, Restless Legs, Sensory Deficit, Syncope, Tingling, Tremor, Vertigo, Weakness, Other Visual Disturbances, Other - Psychiatric Psychiatric: absent: As Per HPI, Abnormal Sleep Pattern, Anhedonia, Anxiety, Auditory Hallucinations, Behavioral Changes, Change in Appetite, Change in Libido, Confusion, Depression, Difficulty Concentrating, Hallucinations, Homicidal Ideation, Hopelessness, Irritability, Memory Loss, Mood Swings, Panic Attacks, Paranoia, Suicidal Ideation, Visual Hallucinations, Tactile Hallucinations, Other - Endocrine Endocrine: absent: As Per HPI, Change in Body Appearance, Change in Libido, Cold Intolorance, Deepening of Voice, Excessive Sweating, Fatigue, Flushing, Heat Intolorance, Increase in Ring/Shoe/Hat Size, Palpitations, Polydipsia, Polyphagia, Polyuria, Other - Hematologic/Lymphatic Hematologic: absent: As Per HPI, Easy Bleeding, Easy Bruising, Lymphadenopathy, Other Past Patient History - Past Medical History & Family History Past Medical History?: Yes Past Family History: Reviewed and not pertinent - Past Social History Smoking Status: Former Smoker Chewing Tobacco Use: No Cigar Use: No Alcohol: None Drugs: Denies Home Situation {Lives}: With Family Domestic Violence: Negative - CARDIAC Hx Congestive Heart Failure: Yes Hx Hypercholesterolemia: Yes Hx Hypertension: Yes - PULMONARY Hx Respiratory Disorders: Yes Other/Comment: pleural effusion - NEUROLOGICAL Hx Neurological Disorder: No - HEENT Hx HEENT Problems: No - RENAL Hx Chronic Kidney Disease: Yes - ENDOCRINE/METABOLIC Hx Hyperthyroidism: Yes - HEMATOLOGICAL/ONCOLOGICAL Hx Anemia: Yes - INTEGUMENTARY Hx Dermatological Problems: No - MUSCULOSKELETAL/RHEUMATOLOGICAL Hx Musculoskeletal Disorders: Yes Hx Back Pain: Yes Hx Falls: No Hx Herniated Disk: Yes Other/Comment: TORN ROTATOR CUFF LEFT-REPAIRED - GASTROINTESTINAL Hx Gastrointestinal Disorders: No - GENITOURINARY/GYNECOLOGICAL Hx Genitourinary Disorders: Yes Other/Comment: HAD LEFT KIDNEY TRANSPLANT 2009 - PSYCHIATRIC Hx Anxiety: Yes Hx Substance Use: No - SURGICAL HISTORY Hx Appendectomy: Yes - ANESTHESIA Hx Anesthesia: Yes Hx Anesthesia Reactions: No Hx Malignant Hyperthermia: No Meds Allergies/Adverse Reactions: Allergies Allergy/AdvReac Type Severity Reaction Status Date / Time Penicillins Allergy Verified 09/10/17 14:34 morphine AdvReac ARRHYTMIA, Verified 09/11/17 09:21 HEART RATE - CARDIAC ARREST - Medications Medications: Current Medications Apixaban (Eliquis) 2.5 mg PO BID [facility] Last Admin: 09/11/17 09:44 Dose: 2.5 mg Ascorbic Acid (Vitamin C 500 Mg Tab) 500 mg PO DAILY [facility] Last Admin: 09/11/17 09:43 Dose: 500 mg Calcium Acetate (Phoslo) 667 mg PO ACTID [facility] Cinacalcet (Sensipar) 60 mg PO DAILY [facility] Last Admin: 09/11/17 09:42 Dose: 60 mg Famotidine (Pepcid) 20 mg PO DAILY [facility] Last Admin: 09/11/17 09:49 Dose: 20 mg Vancomycin HCl 600 mg/ Sodium (Chloride) 100 mls @ 100 mls/hr IVPB MWF [facility] Aztreonam 1 gm/ Sodium (Chloride) 100 mls @ 100 mls/hr IVPB Q12H [facility] Last Admin: 09/11/17 00:48 Dose: 100 mls/hr Vancomycin HCl 500 mg/ Sodium (Chloride) 100 mls @ 67 mls/hr IVPB ONCE [facility] Insulin Human Regular (Novolin R) 0 unit SC ACHS [facility] PRN Reason: Protocol Last Admin: 09/11/17 07:30 Dose: Not Given Lactobacillus Acidophilus (Bacid Acidophilus) 1 cap PO BID [facility] Last Admin: 09/11/17 09:43 Dose: 1 cap Physical Exam - Constitutional Appears: Non-toxic, Chronically Ill - Head Exam Head Exam: NORMOCEPHALIC - Eye Exam Eye Exam: PERRL. absent: Scleral icterus - ENT Exam ENT Exam: Mucous Membranes Dry - Neck Exam Neck exam: Negative for: Lymphadenopathy - Respiratory Exam Respiratory Exam: Decreased Breath Sounds - Cardiovascular Exam Cardiovascular Exam: REGULAR RHYTHM - GI/Abdominal Exam GI & Abdominal Exam: Diminished Bowel Sounds, Soft. absent: Tenderness - Rectal Exam Rectal Exam: Deferred - Exam Exam: NORMAL INSPECTION - Extremities Exam Extremities exam: Positive for: pedal pulses present. Negative for: calf tenderness, pedal edema, tenderness - Back Exam Back exam: absent: CVA tenderness (L), CVA tenderness (R), paraspinal tenderness - Neurological Exam Neurological exam: Alert, CN II-XII Intact, Oriented x3, Reflexes Normal - Psychiatric Exam Psychiatric exam: Depressed - Skin Skin Exam: Dry Results - Vital Signs Recent Vital Signs: Last Vital Signs Temp 98.2 F 09/11/17 10:30 Pulse 78 09/11/17 10:30 Resp 16 09/11/17 10:30 BP 117/77 09/11/17 10:56 Pulse Ox 97 09/11/17 10:16 - Labs Result Diagrams: 09/11/17 06:00 09/11/17 06:00 Labs: Laboratory Results - last 24 hr 09/10/17 09/10/17 09/10/17 15:23 15:23 15:23 WBC 3.7 L RBC 4.00 L Hgb 12.6 Hct 38.0 MCV 95.0 H D MCH 31.4 H MCHC 33.1 RDW 18.0 H Plt Count 194 MPV 8.8 Neut % (Auto) 58.8 Lymph % (Auto) 22.0 [place] % (Auto) 10.1 H Eos % (Auto) 7.9 H Baso % (Auto) 1.2 Neut # 2.2 Lymph # 0.8 L [place] # 0.4 Eos # 0.3 Baso # 0.0 PT 13.8 H INR 1.2 APTT 34 Puncture Site pCO2 pO2 HCO3 ABG pH ABG Total CO2 ABG O2 Saturation ABG Base Excess Gianluca Test ABG Potassium A-a O2 Difference Respiratory Index Glucose Lactate FiO2 Sodium 132 Potassium 7.7 H* D Chloride 91 L Carbon Dioxide 25 Anion Gap 23 H BUN 90 H Creatinine 11.7 H* Est GFR ( Amer) 6 Est GFR (Non-Af Amer) 5 POC Glucose (mg/dL) Random Glucose 96 Lactic Acid Calcium 7.1 L Phosphorus 4.6 H Magnesium 2.1 Total Bilirubin 1.1 AST 75 H D ALT 56 Alkaline Phosphatase 235 H D Total Creatine Kinase 114 CK-MB (Mass) 1.26 Troponin I 0.0580 Total Protein 8.1 Albumin 4.2 Globulin 3.9 Albumin/Globulin Ratio 1.1 Amylase 177 H Lipase 240 Procalcitonin Arterial Blood Potassium Hep Bs Antigen Mycoplasma pneumon IgM 09/10/17 09/10/17 09/10/17 15:23 16:26 17:29 WBC RBC Hgb Hct MCV MCH MCHC RDW Plt Count MPV Neut % (Auto) Lymph % (Auto) [place] % (Auto) Eos % (Auto) Baso % (Auto) Neut # Lymph # [place] # Eos # Baso # PT INR APTT Puncture Site Rra pCO2 28 L pO2 218 H HCO3 22.0 ABG pH 7.44 ABG Total CO2 19.9 L ABG O2 Saturation 97.1 ABG Base Excess -3.8 L Gianluca Test Yes ABG Potassium 5.8 H A-a O2 Difference 460.0 Respiratory Index 2.1 Glucose 227 H Lactate 2.8 H FiO2 100.0 Sodium 134.0 Potassium Chloride 101.0 Carbon Dioxide Anion Gap BUN Creatinine Est GFR ( Amer) Est GFR (Non-Af Amer) POC Glucose (mg/dL) 30 L* Random Glucose Lactic Acid 0.8 Calcium Phosphorus Magnesium Total Bilirubin AST ALT Alkaline Phosphatase Total Creatine Kinase CK-MB (Mass) Troponin I Total Protein Albumin Globulin Albumin/Globulin Ratio Amylase Lipase Procalcitonin Arterial Blood Potassium 5.8 H Hep Bs Antigen Mycoplasma pneumon IgM 09/10/17 09/10/17 09/10/17 17:32 18:03 18:16 WBC RBC Hgb Hct MCV MCH MCHC RDW Plt Count MPV Neut % (Auto) Lymph % (Auto) [place] % (Auto) Eos % (Auto) Baso % (Auto) Neut # Lymph # [place] # Eos # Baso # PT INR APTT Puncture Site pCO2 pO2 HCO3 ABG pH ABG Total CO2 ABG O2 Saturation ABG Base Excess Gianluca Test ABG Potassium A-a O2 Difference Respiratory Index Glucose Lactate FiO2 Sodium Potassium Chloride Carbon Dioxide Anion Gap BUN Creatinine Est GFR ( Amer) Est GFR (Non-Af Amer) POC Glucose (mg/dL) 30 L* 194 H 153 H Random Glucose Lactic Acid Calcium Phosphorus Magnesium Total Bilirubin AST ALT Alkaline Phosphatase Total Creatine Kinase CK-MB (Mass) Troponin I Total Protein Albumin Globulin Albumin/Globulin Ratio Amylase Lipase Procalcitonin Arterial Blood Potassium Hep Bs Antigen Mycoplasma pneumon IgM 09/10/17 09/10/17 09/10/17 18:50 19:08 20:54 WBC RBC Hgb Hct MCV MCH MCHC RDW Plt Count MPV Neut % (Auto) Lymph % (Auto) [place] % (Auto) Eos % (Auto) Baso % (Auto) Neut # Lymph # [place] # Eos # Baso # PT INR APTT Puncture Site pCO2 pO2 HCO3 ABG pH ABG Total CO2 ABG O2 Saturation ABG Base Excess Gianluca Test ABG Potassium A-a O2 Difference Respiratory Index Glucose Lactate FiO2 Sodium Potassium Chloride Carbon Dioxide Anion Gap BUN Creatinine Est GFR ( Amer) Est GFR (Non-Af Amer) POC Glucose (mg/dL) 66 93 Random Glucose Lactic Acid Calcium Phosphorus Magnesium Total Bilirubin AST ALT Alkaline Phosphatase Total Creatine Kinase CK-MB (Mass) Troponin I Total Protein Albumin Globulin Albumin/Globulin Ratio Amylase Lipase Procalcitonin Arterial Blood Potassium Hep Bs Antigen Negative Mycoplasma pneumon IgM 09/10/17 09/10/17 09/11/17 21:41 23:08 00:44 WBC RBC Hgb Hct MCV MCH MCHC RDW Plt Count MPV Neut % (Auto) Lymph % (Auto) [place] % (Auto) Eos % (Auto) Baso % (Auto) Neut # Lymph # [place] # Eos # Baso # PT INR APTT Puncture Site pCO2 pO2 HCO3 ABG pH ABG Total CO2 ABG O2 Saturation ABG Base Excess Gianluca Test ABG Potassium A-a O2 Difference Respiratory Index Glucose Lactate FiO2 Sodium Potassium 3.6 Chloride Carbon Dioxide Anion Gap BUN Creatinine Est GFR ( Amer) Est GFR (Non-Af Amer) POC Glucose (mg/dL) 99 64 L Random Glucose Lactic Acid Calcium Phosphorus Magnesium Total Bilirubin AST ALT Alkaline Phosphatase Total Creatine Kinase CK-MB (Mass) Troponin I Total Protein Albumin Globulin Albumin/Globulin Ratio Amylase Lipase Procalcitonin Arterial Blood Potassium Hep Bs Antigen Mycoplasma pneumon IgM 09/11/17 09/11/17 09/11/17 01:31 05:34 06:00 WBC RBC Hgb Hct MCV MCH MCHC RDW Plt Count MPV Neut % (Auto) Lymph % (Auto) [place] % (Auto) Eos % (Auto) Baso % (Auto) Neut # Lymph # [place] # Eos # Baso # PT INR APTT Puncture Site pCO2 pO2 HCO3 ABG pH ABG Total CO2 ABG O2 Saturation ABG Base Excess Gianluca Test ABG Potassium A-a O2 Difference Respiratory Index Glucose Lactate FiO2 Sodium Potassium Chloride Carbon Dioxide Anion Gap BUN Creatinine Est GFR ( Amer) Est GFR (Non-Af Amer) POC Glucose (mg/dL) 115 H 72 Random Glucose Lactic Acid Calcium Phosphorus Magnesium Total Bilirubin AST ALT Alkaline Phosphatase Total Creatine Kinase CK-MB (Mass) Troponin I Total Protein Albumin Globulin Albumin/Globulin Ratio Amylase Lipase Procalcitonin 0.95 H Arterial Blood Potassium Hep Bs Antigen Mycoplasma pneumon IgM Negative 09/11/17 09/11/17 09/11/17 06:00 06:00 07:45 WBC 3.8 L RBC 3.52 L Hgb 11.0 L Hct 33.2 L MCV 94.5 H MCH 31.2 H MCHC 33.0 RDW 17.5 H Plt Count 158 MPV 8.8 Neut % (Auto) 64.7 Lymph % (Auto) 18.7 L [place] % (Auto) 10.9 H Eos % (Auto) 5.3 H Baso % (Auto) 0.4 Neut # 2.5 Lymph # 0.7 L [place] # 0.4 Eos # 0.2 Baso # 0.0 PT INR APTT Puncture Site pCO2 pO2 HCO3 ABG pH ABG Total CO2 ABG O2 Saturation ABG Base Excess Gianluca Test ABG Potassium A-a O2 Difference Respiratory Index Glucose Lactate FiO2 Sodium 132 Potassium 4.5 Chloride 91 L Carbon Dioxide 28 Anion Gap 18 BUN 46 H Creatinine 7.1 H Est GFR ( Amer) 10 Est GFR (Non-Af Amer) 8 POC Glucose (mg/dL) 79 Random Glucose 74 L Lactic Acid Calcium 7.1 L Phosphorus 4.0 Magnesium 1.8 Total Bilirubin 1.1 AST 77 H ALT 72 D Alkaline Phosphatase 205 H Total Creatine Kinase CK-MB (Mass) Troponin I Total Protein 7.0 Albumin 3.7 Globulin 3.3 Albumin/Globulin Ratio 1.1 Amylase Lipase Procalcitonin Arterial Blood Potassium Hep Bs Antigen Mycoplasma pneumon IgM Assessment & Plan (1) Apnea Status: Acute (2) Cardiac arrest Status: Acute (3) Cardiomyopathy Status: Acute (4) ESRD (end stage renal disease) Status: Acute (5) Failed kidney transplant Status: Acute (6) PEA (Pulseless electrical activity) Status: Acute (7) CHF (congestive heart failure) Status: Acute (8) Cardiomyopathy Status: Acute (9) ESRD (end stage renal disease) on dialysis Status: Acute (10) HTN (hypertension) Status: Acute (11) Pneumonia Status: Acute - Assessment and Plan (Free Text) Assessment: await cultures blood and sputum cont vanco/ aztreonam
--- NOTE | 2017-09-11 11:05 | CP.CCUPN ---
<Von Taylor - Last Filed: 09/11/17 11:04> CCU Subjective - Physician Review Subjective (Free Text): 09/11/17 11:04 patient seen and examined at bedside doing well with no complaints at this time stable for transfer no need for further complaints at this time CCU Objective - Vital Signs / Intake & Output Vital Signs (Last 4 hours): Vital Signs Temp Pulse Resp BP BP Pulse Ox 09/11/17 10:56 117/77 09/11/17 10:35 121/80 09/11/17 10:30 98.2 F 78 16 111/71 09/11/17 10:20 113/74 09/11/17 10:16 77 97 09/11/17 10:05 116/23 L 09/11/17 09:50 16 109/70 98 09/11/17 07:14 77 13 119/81 97 Intake and Output (Last 8hrs): Intake & Output 09/10/17 09/11/17 09/11/17 22:59 06:59 14:59 Intake Total 700 570 50 Output Total 0 Balance 700 570 50 Weight 169 lb 1.513 oz Intake: Intake, IV Amount 400 450 50 Right Antecubital 400 450 50 Oral 300 120 Output: Emesis 0 Other: # Bowel Movements 0 - Medications Active Medications: Active Medications Generic Name Dose Route Start Last Admin Trade Name Ernesto PRN Reason Stop Dose Admin Apixaban 2.5 mg 09/11/17 10:00 09/11/17 09:44 Eliquis PO 2.5 mg BID JOSE Administration Ascorbic Acid 500 mg 09/11/17 10:00 09/11/17 09:43 Vitamin C 500 Mg Tab PO 500 mg DAILY JOSE Administration Calcium Acetate 667 mg 09/11/17 11:30 Phoslo PO ACTID JOSE Cinacalcet 60 mg 09/11/17 10:00 09/11/17 09:42 Sensipar PO 60 mg DAILY JOSE Administration Famotidine 20 mg 09/11/17 10:00 09/11/17 09:49 Pepcid PO 20 mg DAILY JOSE Administration Vancomycin HCl 600 mg/ Sodium 100 mls @ 100 mls/hr 09/11/17 12:00 Chloride IVPB MWF JOSE Aztreonam 1 gm/ Sodium 100 mls @ 100 mls/hr 09/10/17 22:30 09/11/17 00:48 Chloride IVPB 100 mls/hr Q12H JOSE Administration Vancomycin HCl 500 mg/ Sodium 100 mls @ 67 mls/hr 09/10/17 21:30 Chloride IVPB ONCE JOSE Insulin Human Regular 0 unit 09/10/17 22:00 09/11/17 07:30 Novolin R SC Not Given ACHS [facility] Protocol Lactobacillus Acidophilus 1 cap 09/11/17 10:00 09/11/17 09:43 Bacid Acidophilus PO 1 cap BID JOSE Administration - Patient Studies Lab Studies: Lab Studies 09/11/17 09/11/17 09/11/17 Range/Units 07:45 06:00 06:00 WBC 3.8 L (4.8-10.8) K/uL RBC 3.52 L (4.40-5.90) Mil/uL Hgb 11.0 L (12.0-18.0) g/dL Hct 33.2 L (35.0-51.0) % MCV 94.5 H (80.0-94.0) fL MCH 31.2 H (27.0-31.0) pg MCHC 33.0 (33.0-37.0) g/dL RDW 17.5 H (11.5-14.5) % Plt Count 158 (130-400) K/uL MPV 8.8 (7.2-11.7) fL Neut % (Auto) 64.7 (50.0-75.0) % Lymph % (Auto) 18.7 L (20.0-40.0) % [place] % (Auto) 10.9 H (0.0-10.0) % Eos % (Auto) 5.3 H (0.0-4.0) % Baso % (Auto) 0.4 (0.0-2.0) % Neut # 2.5 (1.8-7.0) K/uL Lymph # 0.7 L (1.0-4.3) K/uL [place] # 0.4 (0.0-0.8) K/uL Eos # 0.2 (0.0-0.7) K/uL Baso # 0.0 (0.0-0.2) K/uL PT (9.7-12.2) SECONDS INR APTT (21-34) SECONDS Puncture Site pCO2 (35-45) mm/Hg pO2 (80-100) mm/Hg HCO3 (21-28) mmol/L ABG pH (7.35-7.45) ABG Total CO2 (22-28) mmol/L ABG O2 Saturation (95-98) % ABG Base Excess (-2.0-3.0) mmol/L Gianluca Test ABG Potassium (3.6-5.2) mmol/L A-a O2 Difference mm/Hg Respiratory Index Glucose (75-110) mg/dl Lactate (0.7-2.1) mmol/L FiO2 % Sodium 132 (132-148) mmol/L Potassium 4.5 (3.6-5.2) mmol/L Chloride 91 L (98-107) mmol/L Carbon Dioxide 28 (22-30) mmol/L Anion Gap 18 (10-20) BUN 46 H (9-20) mg/dL Creatinine 7.1 H (0.8-1.5) mg/dL Est GFR ( Amer) 10 Est GFR (Non-Af Amer) 8 POC Glucose (mg/dL) 79 (65-110) mg/dL Random Glucose 74 L (75-110) mg/dL Lactic Acid (0.7-2.1) mmol/L Calcium 7.1 L (8.6-10.4) mg/dl Phosphorus 4.0 (2.5-4.5) mg/dL Magnesium 1.8 (1.6-2.3) mg/dL Total Bilirubin 1.1 (0.2-1.3) mg/dL AST 77 H (17-59) U/L ALT 72 D (21-72) U/L Alkaline Phosphatase 205 H (38-126) U/L Total Creatine Kinase (55-170) U/L CK-MB (Mass) (0.0-3.38) ng/mL Troponin I (0.00-0.120) ng/mL Total Protein 7.0 (6.3-8.3) g/dL Albumin 3.7 (3.5-5.0) g/dL Globulin 3.3 (2.2-3.9) gm/dL Albumin/Globulin Ratio 1.1 (1.0-2.1) Amylase (30-110) U/L Lipase (23-300) U/L Procalcitonin (0.19-0.49) NG/ML Arterial Blood Potassium (3.6-5.2) mmol/L Hep Bs Antigen (NEGATIVE) Mycoplasma pneumon IgM (NEGATIVE) 09/11/17 09/11/17 09/11/17 Range/Units 06:00 05:34 01:31 WBC (4.8-10.8) K/uL RBC (4.40-5.90) Mil/uL Hgb (12.0-18.0) g/dL Hct (35.0-51.0) % MCV (80.0-94.0) fL MCH (27.0-31.0) pg MCHC (33.0-37.0) g/dL RDW (11.5-14.5) % Plt Count (130-400) K/uL MPV (7.2-11.7) fL Neut % (Auto) (50.0-75.0) % Lymph % (Auto) (20.0-40.0) % [place] % (Auto) (0.0-10.0) % Eos % (Auto) (0.0-4.0) % Baso % (Auto) (0.0-2.0) % Neut # (1.8-7.0) K/uL Lymph # (1.0-4.3) K/uL [place] # (0.0-0.8) K/uL Eos # (0.0-0.7) K/uL Baso # (0.0-0.2) K/uL PT (9.7-12.2) SECONDS INR APTT (21-34) SECONDS Puncture Site pCO2 (35-45) mm/Hg pO2 (80-100) mm/Hg HCO3 (21-28) mmol/L ABG pH (7.35-7.45) ABG Total CO2 (22-28) mmol/L ABG O2 Saturation (95-98) % ABG Base Excess (-2.0-3.0) mmol/L Gianluca Test ABG Potassium (3.6-5.2) mmol/L A-a O2 Difference mm/Hg Respiratory Index Glucose (75-110) mg/dl Lactate (0.7-2.1) mmol/L FiO2 % Sodium (132-148) mmol/L Potassium (3.6-5.2) mmol/L Chloride (98-107) mmol/L Carbon Dioxide (22-30) mmol/L Anion Gap (10-20) BUN (9-20) mg/dL Creatinine (0.8-1.5) mg/dL Est GFR ( Amer) Est GFR (Non-Af Amer) POC Glucose (mg/dL) 72 115 H (65-110) mg/dL Random Glucose (75-110) mg/dL Lactic Acid (0.7-2.1) mmol/L Calcium (8.6-10.4) mg/dl Phosphorus (2.5-4.5) mg/dL Magnesium (1.6-2.3) mg/dL Total Bilirubin (0.2-1.3) mg/dL AST (17-59) U/L ALT (21-72) U/L Alkaline Phosphatase (38-126) U/L Total Creatine Kinase (55-170) U/L CK-MB (Mass) (0.0-3.38) ng/mL Troponin I (0.00-0.120) ng/mL Total Protein (6.3-8.3) g/dL Albumin (3.5-5.0) g/dL Globulin (2.2-3.9) gm/dL Albumin/Globulin Ratio (1.0-2.1) Amylase (30-110) U/L Lipase (23-300) U/L Procalcitonin 0.95 H (0.19-0.49) NG/ML Arterial Blood Potassium (3.6-5.2) mmol/L Hep Bs Antigen (NEGATIVE) Mycoplasma pneumon IgM Negative (NEGATIVE) 09/11/17 09/10/17 09/10/17 Range/Units 00:44 23:08 21:41 WBC (4.8-10.8) K/uL RBC (4.40-5.90) Mil/uL Hgb (12.0-18.0) g/dL Hct (35.0-51.0) % MCV (80.0-94.0) fL MCH (27.0-31.0) pg MCHC (33.0-37.0) g/dL RDW (11.5-14.5) % Plt Count (130-400) K/uL MPV (7.2-11.7) fL Neut % (Auto) (50.0-75.0) % Lymph % (Auto) (20.0-40.0) % [place] % (Auto) (0.0-10.0) % Eos % (Auto) (0.0-4.0) % Baso % (Auto) (0.0-2.0) % Neut # (1.8-7.0) K/uL Lymph # (1.0-4.3) K/uL [place] # (0.0-0.8) K/uL Eos # (0.0-0.7) K/uL Baso # (0.0-0.2) K/uL PT (9.7-12.2) SECONDS INR APTT (21-34) SECONDS Puncture Site pCO2 (35-45) mm/Hg pO2 (80-100) mm/Hg HCO3 (21-28) mmol/L ABG pH (7.35-7.45) ABG Total CO2 (22-28) mmol/L ABG O2 Saturation (95-98) % ABG Base Excess (-2.0-3.0) mmol/L Gianluca Test ABG Potassium (3.6-5.2) mmol/L A-a O2 Difference mm/Hg Respiratory Index Glucose (75-110) mg/dl Lactate (0.7-2.1) mmol/L FiO2 % Sodium (132-148) mmol/L Potassium 3.6 (3.6-5.2) mmol/L Chloride (98-107) mmol/L Carbon Dioxide (22-30) mmol/L Anion Gap (10-20) BUN (9-20) mg/dL Creatinine (0.8-1.5) mg/dL Est GFR ( Amer) Est GFR (Non-Af Amer) POC Glucose (mg/dL) 64 L 99 (65-110) mg/dL Random Glucose (75-110) mg/dL Lactic Acid (0.7-2.1) mmol/L Calcium (8.6-10.4) mg/dl Phosphorus (2.5-4.5) mg/dL Magnesium (1.6-2.3) mg/dL Total Bilirubin (0.2-1.3) mg/dL AST (17-59) U/L ALT (21-72) U/L Alkaline Phosphatase (38-126) U/L Total Creatine Kinase (55-170) U/L CK-MB (Mass) (0.0-3.38) ng/mL Troponin I (0.00-0.120) ng/mL Total Protein (6.3-8.3) g/dL Albumin (3.5-5.0) g/dL Globulin (2.2-3.9) gm/dL Albumin/Globulin Ratio (1.0-2.1) Amylase (30-110) U/L Lipase (23-300) U/L Procalcitonin (0.19-0.49) NG/ML Arterial Blood Potassium (3.6-5.2) mmol/L Hep Bs Antigen (NEGATIVE) Mycoplasma pneumon IgM (NEGATIVE) 09/10/17 09/10/17 09/10/17 Range/Units 20:54 19:08 18:50 WBC (4.8-10.8) K/uL RBC (4.40-5.90) Mil/uL Hgb (12.0-18.0) g/dL Hct (35.0-51.0) % MCV (80.0-94.0) fL MCH (27.0-31.0) pg MCHC (33.0-37.0) g/dL RDW (11.5-14.5) % Plt Count (130-400) K/uL MPV (7.2-11.7) fL Neut % (Auto) (50.0-75.0) % Lymph % (Auto) (20.0-40.0) % [place] % (Auto) (0.0-10.0) % Eos % (Auto) (0.0-4.0) % Baso % (Auto) (0.0-2.0) % Neut # (1.8-7.0) K/uL Lymph # (1.0-4.3) K/uL [place] # (0.0-0.8) K/uL Eos # (0.0-0.7) K/uL Baso # (0.0-0.2) K/uL PT (9.7-12.2) SECONDS INR APTT (21-34) SECONDS Puncture Site pCO2 (35-45) mm/Hg pO2 (80-100) mm/Hg HCO3 (21-28) mmol/L ABG pH (7.35-7.45) ABG Total CO2 (22-28) mmol/L ABG O2 Saturation (95-98) % ABG Base Excess (-2.0-3.0) mmol/L Gianluca Test ABG Potassium (3.6-5.2) mmol/L A-a O2 Difference mm/Hg Respiratory Index Glucose (75-110) mg/dl Lactate (0.7-2.1) mmol/L FiO2 % Sodium (132-148) mmol/L Potassium (3.6-5.2) mmol/L Chloride (98-107) mmol/L Carbon Dioxide (22-30) mmol/L Anion Gap (10-20) BUN (9-20) mg/dL Creatinine (0.8-1.5) mg/dL Est GFR ( Amer) Est GFR (Non-Af Amer) POC Glucose (mg/dL) 93 66 (65-110) mg/dL Random Glucose (75-110) mg/dL Lactic Acid (0.7-2.1) mmol/L Calcium (8.6-10.4) mg/dl Phosphorus (2.5-4.5) mg/dL Magnesium (1.6-2.3) mg/dL Total Bilirubin (0.2-1.3) mg/dL AST (17-59) U/L ALT (21-72) U/L Alkaline Phosphatase (38-126) U/L Total Creatine Kinase (55-170) U/L CK-MB (Mass) (0.0-3.38) ng/mL Troponin I (0.00-0.120) ng/mL Total Protein (6.3-8.3) g/dL Albumin (3.5-5.0) g/dL Globulin (2.2-3.9) gm/dL Albumin/Globulin Ratio (1.0-2.1) Amylase (30-110) U/L Lipase (23-300) U/L Procalcitonin (0.19-0.49) NG/ML Arterial Blood Potassium (3.6-5.2) mmol/L Hep Bs Antigen Negative (NEGATIVE) Mycoplasma pneumon IgM (NEGATIVE) 09/10/17 09/10/17 09/10/17 Range/Units 18:16 18:03 17:32 WBC (4.8-10.8) K/uL RBC (4.40-5.90) Mil/uL Hgb (12.0-18.0) g/dL Hct (35.0-51.0) % MCV (80.0-94.0) fL MCH (27.0-31.0) pg MCHC (33.0-37.0) g/dL RDW (11.5-14.5) % Plt Count (130-400) K/uL MPV (7.2-11.7) fL Neut % (Auto) (50.0-75.0) % Lymph % (Auto) (20.0-40.0) % [place] % (Auto) (0.0-10.0) % Eos % (Auto) (0.0-4.0) % Baso % (Auto) (0.0-2.0) % Neut # (1.8-7.0) K/uL Lymph # (1.0-4.3) K/uL [place] # (0.0-0.8) K/uL Eos # (0.0-0.7) K/uL Baso # (0.0-0.2) K/uL PT (9.7-12.2) SECONDS INR APTT (21-34) SECONDS Puncture Site pCO2 (35-45) mm/Hg pO2 (80-100) mm/Hg HCO3 (21-28) mmol/L ABG pH (7.35-7.45) ABG Total CO2 (22-28) mmol/L ABG O2 Saturation (95-98) % ABG Base Excess (-2.0-3.0) mmol/L Gianluca Test ABG Potassium (3.6-5.2) mmol/L A-a O2 Difference mm/Hg Respiratory Index Glucose (75-110) mg/dl Lactate (0.7-2.1) mmol/L FiO2 % Sodium (132-148) mmol/L Potassium (3.6-5.2) mmol/L Chloride (98-107) mmol/L Carbon Dioxide (22-30) mmol/L Anion Gap (10-20) BUN (9-20) mg/dL Creatinine (0.8-1.5) mg/dL Est GFR ( Amer) Est GFR (Non-Af Amer) POC Glucose (mg/dL) 153 H 194 H 30 L* (65-110) mg/dL Random Glucose (75-110) mg/dL Lactic Acid (0.7-2.1) mmol/L Calcium (8.6-10.4) mg/dl Phosphorus (2.5-4.5) mg/dL Magnesium (1.6-2.3) mg/dL Total Bilirubin (0.2-1.3) mg/dL AST (17-59) U/L ALT (21-72) U/L Alkaline Phosphatase (38-126) U/L Total Creatine Kinase (55-170) U/L CK-MB (Mass) (0.0-3.38) ng/mL Troponin I (0.00-0.120) ng/mL Total Protein (6.3-8.3) g/dL Albumin (3.5-5.0) g/dL Globulin (2.2-3.9) gm/dL Albumin/Globulin Ratio (1.0-2.1) Amylase (30-110) U/L Lipase (23-300) U/L Procalcitonin (0.19-0.49) NG/ML Arterial Blood Potassium (3.6-5.2) mmol/L Hep Bs Antigen (NEGATIVE) Mycoplasma pneumon IgM (NEGATIVE) 09/10/17 09/10/17 09/10/17 Range/Units 17:29 16:26 15:23 WBC (4.8-10.8) K/uL RBC (4.40-5.90) Mil/uL Hgb (12.0-18.0) g/dL Hct (35.0-51.0) % MCV (80.0-94.0) fL MCH (27.0-31.0) pg MCHC (33.0-37.0) g/dL RDW (11.5-14.5) % Plt Count (130-400) K/uL MPV (7.2-11.7) fL Neut % (Auto) (50.0-75.0) % Lymph % (Auto) (20.0-40.0) % [place] % (Auto) (0.0-10.0) % Eos % (Auto) (0.0-4.0) % Baso % (Auto) (0.0-2.0) % Neut # (1.8-7.0) K/uL Lymph # (1.0-4.3) K/uL [place] # (0.0-0.8) K/uL Eos # (0.0-0.7) K/uL Baso # (0.0-0.2) K/uL PT (9.7-12.2) SECONDS INR APTT (21-34) SECONDS Puncture Site Rra pCO2 28 L (35-45) mm/Hg pO2 218 H (80-100) mm/Hg HCO3 22.0 (21-28) mmol/L ABG pH 7.44 (7.35-7.45) ABG Total CO2 19.9 L (22-28) mmol/L ABG O2 Saturation 97.1 (95-98) % ABG Base Excess -3.8 L (-2.0-3.0) mmol/L Gianluca Test Yes ABG Potassium 5.8 H (3.6-5.2) mmol/L A-a O2 Difference 460.0 mm/Hg Respiratory Index 2.1 Glucose 227 H (75-110) mg/dl Lactate 2.8 H (0.7-2.1) mmol/L FiO2 100.0 % Sodium 134.0 (132-148) mmol/L Potassium (3.6-5.2) mmol/L Chloride 101.0 (98-107) mmol/L Carbon Dioxide (22-30) mmol/L Anion Gap (10-20) BUN (9-20) mg/dL Creatinine (0.8-1.5) mg/dL Est GFR ( Amer) Est GFR (Non-Af Amer) POC Glucose (mg/dL) 30 L* (65-110) mg/dL Random Glucose (75-110) mg/dL Lactic Acid 0.8 (0.7-2.1) mmol/L Calcium (8.6-10.4) mg/dl Phosphorus (2.5-4.5) mg/dL Magnesium (1.6-2.3) mg/dL Total Bilirubin (0.2-1.3) mg/dL AST (17-59) U/L ALT (21-72) U/L Alkaline Phosphatase (38-126) U/L Total Creatine Kinase (55-170) U/L CK-MB (Mass) (0.0-3.38) ng/mL Troponin I (0.00-0.120) ng/mL Total Protein (6.3-8.3) g/dL Albumin (3.5-5.0) g/dL Globulin (2.2-3.9) gm/dL Albumin/Globulin Ratio (1.0-2.1) Amylase (30-110) U/L Lipase (23-300) U/L Procalcitonin (0.19-0.49) NG/ML Arterial Blood Potassium 5.8 H (3.6-5.2) mmol/L Hep Bs Antigen (NEGATIVE) Mycoplasma pneumon IgM (NEGATIVE) 09/10/17 09/10/17 09/10/17 Range/Units 15:23 15:23 15:23 WBC 3.7 L (4.8-10.8) K/uL RBC 4.00 L (4.40-5.90) Mil/uL Hgb 12.6 (12.0-18.0) g/dL Hct 38.0 (35.0-51.0) % MCV 95.0 H D (80.0-94.0) fL MCH 31.4 H (27.0-31.0) pg MCHC 33.1 (33.0-37.0) g/dL RDW 18.0 H (11.5-14.5) % Plt Count 194 (130-400) K/uL MPV 8.8 (7.2-11.7) fL Neut % (Auto) 58.8 (50.0-75.0) % Lymph % (Auto) 22.0 (20.0-40.0) % [place] % (Auto) 10.1 H (0.0-10.0) % Eos % (Auto) 7.9 H (0.0-4.0) % Baso % (Auto) 1.2 (0.0-2.0) % Neut # 2.2 (1.8-7.0) K/uL Lymph # 0.8 L (1.0-4.3) K/uL [place] # 0.4 (0.0-0.8) K/uL Eos # 0.3 (0.0-0.7) K/uL Baso # 0.0 (0.0-0.2) K/uL PT 13.8 H (9.7-12.2) SECONDS INR 1.2 APTT 34 (21-34) SECONDS Puncture Site pCO2 (35-45) mm/Hg pO2 (80-100) mm/Hg HCO3 (21-28) mmol/L ABG pH (7.35-7.45) ABG Total CO2 (22-28) mmol/L ABG O2 Saturation (95-98) % ABG Base Excess (-2.0-3.0) mmol/L Gianluca Test ABG Potassium (3.6-5.2) mmol/L A-a O2 Difference mm/Hg Respiratory Index Glucose (75-110) mg/dl Lactate (0.7-2.1) mmol/L FiO2 % Sodium 132 (132-148) mmol/L Potassium 7.7 H* D (3.6-5.2) mmol/L Chloride 91 L (98-107) mmol/L Carbon Dioxide 25 (22-30) mmol/L Anion Gap 23 H (10-20) BUN 90 H (9-20) mg/dL Creatinine 11.7 H* (0.8-1.5) mg/dL Est GFR ( Amer) 6 Est GFR (Non-Af Amer) 5 POC Glucose (mg/dL) (65-110) mg/dL Random Glucose 96 (75-110) mg/dL Lactic Acid (0.7-2.1) mmol/L Calcium 7.1 L (8.6-10.4) mg/dl Phosphorus 4.6 H (2.5-4.5) mg/dL Magnesium 2.1 (1.6-2.3) mg/dL Total Bilirubin 1.1 (0.2-1.3) mg/dL AST 75 H D (17-59) U/L ALT 56 (21-72) U/L Alkaline Phosphatase 235 H D (38-126) U/L Total Creatine Kinase 114 (55-170) U/L CK-MB (Mass) 1.26 (0.0-3.38) ng/mL Troponin I 0.0580 (0.00-0.120) ng/mL Total Protein 8.1 (6.3-8.3) g/dL Albumin 4.2 (3.5-5.0) g/dL Globulin 3.9 (2.2-3.9) gm/dL Albumin/Globulin Ratio 1.1 (1.0-2.1) Amylase 177 H (30-110) U/L Lipase 240 (23-300) U/L Procalcitonin (0.19-0.49) NG/ML Arterial Blood Potassium (3.6-5.2) mmol/L Hep Bs Antigen (NEGATIVE) Mycoplasma pneumon IgM (NEGATIVE) Laboratory Results - last 24 hr 09/10/17 09/10/17 09/10/17 15:23 15:23 15:23 WBC 3.7 L RBC 4.00 L Hgb 12.6 Hct 38.0 MCV 95.0 H D MCH 31.4 H MCHC 33.1 RDW 18.0 H Plt Count 194 MPV 8.8 Neut % (Auto) 58.8 Lymph % (Auto) 22.0 [place] % (Auto) 10.1 H Eos % (Auto) 7.9 H Baso % (Auto) 1.2 Neut # 2.2 Lymph # 0.8 L [place] # 0.4 Eos # 0.3 Baso # 0.0 PT 13.8 H INR 1.2 APTT 34 Puncture Site pCO2 pO2 HCO3 ABG pH ABG Total CO2 ABG O2 Saturation ABG Base Excess Gianluca Test ABG Potassium A-a O2 Difference Respiratory Index Glucose Lactate FiO2 Sodium 132 Potassium 7.7 H* D Chloride 91 L Carbon Dioxide 25 Anion Gap 23 H BUN 90 H Creatinine 11.7 H* Est GFR ( Amer) 6 Est GFR (Non-Af Amer) 5 POC Glucose (mg/dL) Random Glucose 96 Lactic Acid Calcium 7.1 L Phosphorus 4.6 H Magnesium 2.1 Total Bilirubin 1.1 AST 75 H D ALT 56 Alkaline Phosphatase 235 H D Total Creatine Kinase 114 CK-MB (Mass) 1.26 Troponin I 0.0580 Total Protein 8.1 Albumin 4.2 Globulin 3.9 Albumin/Globulin Ratio 1.1 Amylase 177 H Lipase 240 Procalcitonin Arterial Blood Potassium Hep Bs Antigen Mycoplasma pneumon IgM 09/10/17 09/10/17 09/10/17 15:23 16:26 17:29 WBC RBC Hgb Hct MCV MCH MCHC RDW Plt Count MPV Neut % (Auto) Lymph % (Auto) [place] % (Auto) Eos % (Auto) Baso % (Auto) Neut # Lymph # [place] # Eos # Baso # PT INR APTT Puncture Site Rra pCO2 28 L pO2 218 H HCO3 22.0 ABG pH 7.44 ABG Total CO2 19.9 L ABG O2 Saturation 97.1 ABG Base Excess -3.8 L Gianluca Test Yes ABG Potassium 5.8 H A-a O2 Difference 460.0 Respiratory Index 2.1 Glucose 227 H Lactate 2.8 H FiO2 100.0 Sodium 134.0 Potassium Chloride 101.0 Carbon Dioxide Anion Gap BUN Creatinine Est GFR ( Amer) Est GFR (Non-Af Amer) POC Glucose (mg/dL) 30 L* Random Glucose Lactic Acid 0.8 Calcium Phosphorus Magnesium Total Bilirubin AST ALT Alkaline Phosphatase Total Creatine Kinase CK-MB (Mass) Troponin I Total Protein Albumin Globulin Albumin/Globulin Ratio Amylase Lipase Procalcitonin Arterial Blood Potassium 5.8 H Hep Bs Antigen Mycoplasma pneumon IgM 09/10/17 09/10/17 09/10/17 17:32 18:03 18:16 WBC RBC Hgb Hct MCV MCH MCHC RDW Plt Count MPV Neut % (Auto) Lymph % (Auto) [place] % (Auto) Eos % (Auto) Baso % (Auto) Neut # Lymph # [place] # Eos # Baso # PT INR APTT Puncture Site pCO2 pO2 HCO3 ABG pH ABG Total CO2 ABG O2 Saturation ABG Base Excess Gianluca Test ABG Potassium A-a O2 Difference Respiratory Index Glucose Lactate FiO2 Sodium Potassium Chloride Carbon Dioxide Anion Gap BUN Creatinine Est GFR ( Amer) Est GFR (Non-Af Amer) POC Glucose (mg/dL) 30 L* 194 H 153 H Random Glucose Lactic Acid Calcium Phosphorus Magnesium Total Bilirubin AST ALT Alkaline Phosphatase Total Creatine Kinase CK-MB (Mass) Troponin I Total Protein Albumin Globulin Albumin/Globulin Ratio Amylase Lipase Procalcitonin Arterial Blood Potassium Hep Bs Antigen Mycoplasma pneumon IgM 09/10/17 09/10/17 09/10/17 18:50 19:08 20:54 WBC RBC Hgb Hct MCV MCH MCHC RDW Plt Count MPV Neut % (Auto) Lymph % (Auto) [place] % (Auto) Eos % (Auto) Baso % (Auto) Neut # Lymph # [place] # Eos # Baso # PT INR APTT Puncture Site pCO2 pO2 HCO3 ABG pH ABG Total CO2 ABG O2 Saturation ABG Base Excess Gianluca Test ABG Potassium A-a O2 Difference Respiratory Index Glucose Lactate FiO2 Sodium Potassium Chloride Carbon Dioxide Anion Gap BUN Creatinine Est GFR ( Amer) Est GFR (Non-Af Amer) POC Glucose (mg/dL) 66 93 Random Glucose Lactic Acid Calcium Phosphorus Magnesium Total Bilirubin AST ALT Alkaline Phosphatase Total Creatine Kinase CK-MB (Mass) Troponin I Total Protein Albumin Globulin Albumin/Globulin Ratio Amylase Lipase Procalcitonin Arterial Blood Potassium Hep Bs Antigen Negative Mycoplasma pneumon IgM 09/10/17 09/10/17 09/11/17 21:41 23:08 00:44 WBC RBC Hgb Hct MCV MCH MCHC RDW Plt Count MPV Neut % (Auto) Lymph % (Auto) [place] % (Auto) Eos % (Auto) Baso % (Auto) Neut # Lymph # [place] # Eos # Baso # PT INR APTT Puncture Site pCO2 pO2 HCO3 ABG pH ABG Total CO2 ABG O2 Saturation ABG Base Excess Gianluca Test ABG Potassium A-a O2 Difference Respiratory Index Glucose Lactate FiO2 Sodium Potassium 3.6 Chloride Carbon Dioxide Anion Gap BUN Creatinine Est GFR ( Amer) Est GFR (Non-Af Amer) POC Glucose (mg/dL) 99 64 L Random Glucose Lactic Acid Calcium Phosphorus Magnesium Total Bilirubin AST ALT Alkaline Phosphatase Total Creatine Kinase CK-MB (Mass) Troponin I Total Protein Albumin Globulin Albumin/Globulin Ratio Amylase Lipase Procalcitonin Arterial Blood Potassium Hep Bs Antigen Mycoplasma pneumon IgM 09/11/17 09/11/17 09/11/17 01:31 05:34 06:00 WBC RBC Hgb Hct MCV MCH MCHC RDW Plt Count MPV Neut % (Auto) Lymph % (Auto) [place] % (Auto) Eos % (Auto) Baso % (Auto) Neut # Lymph # [place] # Eos # Baso # PT INR APTT Puncture Site pCO2 pO2 HCO3 ABG pH ABG Total CO2 ABG O2 Saturation ABG Base Excess Gianluca Test ABG Potassium A-a O2 Difference Respiratory Index Glucose Lactate FiO2 Sodium Potassium Chloride Carbon Dioxide Anion Gap BUN Creatinine Est GFR ( Amer) Est GFR (Non-Af Amer) POC Glucose (mg/dL) 115 H 72 Random Glucose Lactic Acid Calcium Phosphorus Magnesium Total Bilirubin AST ALT Alkaline Phosphatase Total Creatine Kinase CK-MB (Mass) Troponin I Total Protein Albumin Globulin Albumin/Globulin Ratio Amylase Lipase Procalcitonin 0.95 H Arterial Blood Potassium Hep Bs Antigen Mycoplasma pneumon IgM Negative 09/11/17 09/11/17 09/11/17 06:00 06:00 07:45 WBC 3.8 L RBC 3.52 L Hgb 11.0 L Hct 33.2 L MCV 94.5 H MCH 31.2 H MCHC 33.0 RDW 17.5 H Plt Count 158 MPV 8.8 Neut % (Auto) 64.7 Lymph % (Auto) 18.7 L [place] % (Auto) 10.9 H Eos % (Auto) 5.3 H Baso % (Auto) 0.4 Neut # 2.5 Lymph # 0.7 L [place] # 0.4 Eos # 0.2 Baso # 0.0 PT INR APTT Puncture Site pCO2 pO2 HCO3 ABG pH ABG Total CO2 ABG O2 Saturation ABG Base Excess Gianluca Test ABG Potassium A-a O2 Difference Respiratory Index Glucose Lactate FiO2 Sodium 132 Potassium 4.5 Chloride 91 L Carbon Dioxide 28 Anion Gap 18 BUN 46 H Creatinine 7.1 H Est GFR ( Amer) 10 Est GFR (Non-Af Amer) 8 POC Glucose (mg/dL) 79 Random Glucose 74 L Lactic Acid Calcium 7.1 L Phosphorus 4.0 Magnesium 1.8 Total Bilirubin 1.1 AST 77 H ALT 72 D Alkaline Phosphatase 205 H Total Creatine Kinase CK-MB (Mass) Troponin I Total Protein 7.0 Albumin 3.7 Globulin 3.3 Albumin/Globulin Ratio 1.1 Amylase Lipase Procalcitonin Arterial Blood Potassium Hep Bs Antigen Mycoplasma pneumon IgM EKG/Cardiology Studies: Cardiology / EKG Studies 09/10/17 15:58 ELECTROCARDIOGRAM Stat Comment: Mode Of Transportation: BED Reason For Exam: POST ARREST Isolation: Droplet 09/10/17 16:11 ELECTROCARDIOGRAM Stat Comment: Mode Of Transportation: BED Reason For Exam: REPEAT Isolation: Droplet Fingerstick Blood Sugar Results: 99 Critical Care Progress Note - Nutrition Nutrition: Nutrition Category Date Time Status Renal Diet [DIET] Diets 09/11/17 Breakfast Active <Jose Camarillo - Last Filed: 09/14/17 02:37> CCU Objective - Patient Studies Lab Studies: Microbiology Studies 09/12/17 16:17 MRSA Culture - Final Nose MRSA NOT DETECTED 09/10/17 Unknown Blood Culture - Preliminary Blood-During Dialysis NO GROWTH AFTER 48 HOURS 09/10/17 00:30 Blood Culture - Preliminary Blood-During Dialysis NO GROWTH AFTER 48 HOURS Lab Studies 09/12/17 09/11/17 Range/Units 06:27 06:00 PTH Intact Whole Molec 319 H (14-64) pg/mL Grp A Beta Strep Ag Cancelled Laboratory Results - last 24 hr 09/11/17 09/12/17 06:00 06:27 PTH Intact Whole Molec 319 H Grp A Beta Strep Ag Cancelled Critical Care Progress Note - Nutrition Nutrition: Nutrition Category Date Time Status Renal Diet [DIET] Diets 09/11/17 Breakfast Active Attending/Attestation - Attestation I have personally seen and examined this patient.: Yes I have fully participated in the care of the patient.: Yes I have reviewed all pertinent clinical information: Yes Notes (Text): Agree with the resident notes, discussion was made to during the rounds. Labs reviewed Continue the current treatment
[2017-09-11 14:43] LABS: INFLUENZA A B NEGATIVE FOR FLU A/B (NEGATIVE)
--- NOTE | 2017-09-12 03:57 | CARD ---
APPROVED REPORT EXAM: Two-dimensional and M-mode echocardiogram with Doppler and color Doppler. Other Information Quality : FairRhythm : INDICATION Congestive Heart Failure 2D DIMENSIONS IVSd0.7 (0.7-1.1cm)LVDd6.9 (3.9-5.9cm) PWd1.2 (0.7-1.1cm)LVDs5.5 (2.5-4.0cm) LVEF (%)20.0 (>50%) M-Mode DIMENSIONS RVDd2.06 (2.1-3.2cm)Left Atrium (MM)5.27 (2.5-4.0cm) IVSd1.02 (0.7-1.1cm)Aortic Root3.75 (2.2-3.7cm) LVDd6.91 (4.0-5.6cm)Aortic Cusp Exc.2.26 (1.5-2.0cm) PWd1.44 (0.7-1.1cm)FS (%) 18 % LVDs5.66 (2.0-3.8cm)LVEF (%)25 (>50%) Mitral Valve MV E Nhxztzll75.4cm/sE/A ratio0.0 TDI E/Lateral E'0.0E/Medial E'0.0 Tricuspid Valve TR Peak [id number]/sTR Peak Gr.[id number] LEFT VENTRICLE The Left Ventricle is moderately dilated. There is normal left ventricular wall thickness. Left ventricle systolic function is severely impaired. The Ejection Fraction is 20-25%. There is severe global hypokinesis of the left ventricle. The left ventricular diastolic function is normal. RIGHT VENTRICLE The right ventricle is normal size. There is normal right ventricular wall thickness. Systolic function is severely reduced. ATRIA The left atrium is moderately dilated. The right atrium is mildly dilated. The interatrial septum is intact with no evidence for an atrial septal defect. AORTIC VALVE The aortic valve is normal in structure. No aortic regurgitation is present. There is no aortic valvular stenosis. MITRAL VALVE The mitral valve is normal in structure. There is no evidence of mitral valve prolapse. There is no mitral valve stenosis. Mitral regurgitation is moderate. TRICUSPID VALVE The tricuspid valve is normal in structure. There is mild tricuspid regurgitation. Right ventricular systolic pressure is estimated at 50-60 mmHg. There is moderate-severe pulmonary hypertension. PULMONIC VALVE The pulmonic valve is not well visualized. There is mild pulmonic valvular regurgitation. GREAT VESSELS The aortic root is normal in size. PERICARDIAL EFFUSION There is no significant pericardial effusion. <Conclusion> Left ventricle systolic function is severely impaired. The Ejection Fraction is 20-25%. No aortic regurgitation is present. Mitral regurgitation is moderate. There is mild tricuspid regurgitation. There is moderate-severe pulmonary hypertension. There is mild pulmonic valvular regurgitation.
[2017-09-12 06:46] LABS: HEMOGLOBIN 11.2 g/dL (12.0-18.0); MEAN CORPUSCULAR HEMOGLOBIN 31.4 pg (27.0-31.0); RBC 3.56 Mil/uL (4.40-5.90); RED CELL DISTRIBUTION WIDTH 18.1 % (11.5-14.5); WHITE BLOOD COUNT 3.8 K/uL (4.8-10.8)
[2017-09-12 06:59] LABS: ALB/GLOB RATIO 1.1 (1.0-2.1); ALBUMIN 3.7 g/dL (3.5-5.0); CALCIUM 7.3 mg/dl (8.6-10.4); MAGNESIUM 1.8 mg/dL (1.6-2.3)
--- NOTE | 2017-09-12 07:27 | CP.PCM.PN ---
Objective - Vital Signs/Intake and Output Vital Signs (last 24 hours): Temp Pulse Resp BP Pulse Ox 98.8 F 81 14 115/72 97 09/12/17 00:00 09/12/17 06:18 09/12/17 06:18 09/12/17 06:18 09/12/17 06:18 Intake and Output: 09/12/17 09/12/17 06:59 18:59 Intake Total 350 Balance 350 - Medications Medications: Current Medications Apixaban (Eliquis) 2.5 mg PO BID [facility] Last Admin: 09/11/17 17:34 Dose: 2.5 mg Ascorbic Acid (Vitamin C 500 Mg Tab) 500 mg PO DAILY [facility] Last Admin: 09/11/17 09:43 Dose: 500 mg Calcium Acetate (Phoslo) 667 mg PO ACTID [facility] Last Admin: 09/11/17 15:46 Dose: 667 mg Cinacalcet (Sensipar) 60 mg PO DAILY [facility] Last Admin: 09/11/17 09:42 Dose: 60 mg Famotidine (Pepcid) 20 mg PO DAILY [facility] Last Admin: 09/11/17 09:49 Dose: 20 mg Vancomycin HCl 600 mg/ Sodium (Chloride) 100 mls @ 100 mls/hr IVPB MWF [facility] Last Admin: 09/11/17 15:20 Dose: 100 mls/hr Aztreonam 1 gm/ Sodium (Chloride) 100 mls @ 100 mls/hr IVPB Q12H [facility] Last Admin: 09/11/17 21:32 Dose: 100 mls/hr Vancomycin HCl 500 mg/ Sodium (Chloride) 100 mls @ 67 mls/hr IVPB ONCE [facility] Influenza Virus Vaccine (Fluzone (36 Months - 7 Yrs)) 45 mcg IM .ONCE ONE Stop: 09/13/17 11:47 Insulin Human Regular (Novolin R) 0 unit SC ACHS [facility] PRN Reason: Protocol Last Admin: 09/11/17 21:33 Dose: Not Given Lactobacillus Acidophilus (Bacid Acidophilus) 1 cap PO BID [facility] Last Admin: 09/11/17 17:34 Dose: 1 cap - Labs Labs: 09/12/17 06:27 09/12/17 06:27 PT 13.8 SECONDS (9.7-12.2) H 09/10/17 15:23 INR 1.2 09/10/17 15:23 APTT 34 SECONDS (21-34) 09/10/17 15:23
[2017-09-12] MEDS: (Novolin R) Insulin Human Regular 100 units/ml vial SC SCH ×3 (07:30→16:26)
[2017-09-12] MEDS: Lactobacillus Acidophilus 500 MU Cap PO SCH ×2 (10:14→17:47)
[2017-09-12] MEDS: Aztreonam 1 GM in Sodium Chloride 0.9% 100 ML IVPB SCH (10:16)
[2017-09-12 10:51] VITALS: O2SAT 100
--- NOTE | 2017-09-12 11:10 | CP.PCM.PN ---
Subjective - Date & Time of Evaluation Date of Evaluation: 09/12/17 Time of Evaluation: 11:07 - Subjective Subjective: seen and examined denies any chest pain sob palpitations dizziness cramping fevers chills sob abd pain nausea vomiting rash s/p hd yesterday, unremarkable no events\ Objective - Vital Signs/Intake and Output Vital Signs (last 24 hours): Temp Pulse Resp BP Pulse Ox 98.1 F 82 13 114/72 100 09/12/17 08:00 09/12/17 10:23 09/12/17 10:23 09/12/17 10:22 09/12/17 09:33 Intake and Output: 09/12/17 09/12/17 06:59 18:59 Intake Total 350 Balance 350 - Medications Medications: Current Medications Apixaban (Eliquis) 2.5 mg PO BID [facility] Last Admin: 09/12/17 10:14 Dose: 2.5 mg Ascorbic Acid (Vitamin C 500 Mg Tab) 500 mg PO DAILY [facility] Last Admin: 09/12/17 10:13 Dose: 500 mg Calcium Acetate (Phoslo) 667 mg PO ACTID [facility] Last Admin: 09/12/17 08:10 Dose: 667 mg Cinacalcet (Sensipar) 60 mg PO DAILY [facility] Last Admin: 09/12/17 10:14 Dose: 60 mg Famotidine (Pepcid) 20 mg PO DAILY [facility] Last Admin: 09/12/17 10:14 Dose: 20 mg Vancomycin HCl 600 mg/ Sodium (Chloride) 100 mls @ 100 mls/hr IVPB MWF [facility] Last Admin: 09/11/17 15:20 Dose: 100 mls/hr Aztreonam 1 gm/ Sodium (Chloride) 100 mls @ 100 mls/hr IVPB Q12H [facility] Last Admin: 09/12/17 10:16 Dose: 100 mls/hr Vancomycin HCl 500 mg/ Sodium (Chloride) 100 mls @ 67 mls/hr IVPB ONCE [facility] Influenza Virus Vaccine (Fluzone (36 Months - 7 Yrs)) 45 mcg IM .ONCE ONE Stop: 09/13/17 11:47 Insulin Human Regular (Novolin R) 0 unit SC [facility] PRN Reason: Protocol Last Admin: 09/12/17 07:30 Dose: Not Given Lactobacillus Acidophilus (Bacid Acidophilus) 1 cap PO BID [facility] Last Admin: 09/12/17 10:14 Dose: 1 cap - Labs Labs: 09/12/17 06:27 09/12/17 06:27 PT 13.8 SECONDS (9.7-12.2) H 09/10/17 15:23 INR 1.2 09/10/17 15:23 APTT 34 SECONDS (21-34) 09/10/17 15:23 - Constitutional Appears: Non-toxic, No Acute Distress, Chronically Ill - Head Exam Head Exam: NORMAL INSPECTION - Eye Exam Eye Exam: Normal appearance Pupil Exam: PERRL - ENT Exam ENT Exam: Mucous Membranes Moist, Normal Exam - Neck Exam Neck Exam: Normal Inspection - Respiratory Exam Respiratory Exam: Clear to Ausculation Bilateral, NORMAL BREATHING PATTERN - Cardiovascular Exam Cardiovascular Exam: REGULAR RHYTHM, RRR - GI/Abdominal Exam GI & Abdominal Exam: Soft, Normal Bowel Sounds - Extremities Exam Extremities Exam: Normal Inspection (lue avf) - Back Exam Back Exam: NORMAL INSPECTION - Neurological Exam Neurological Exam: Alert, Awake, Oriented x3 - Skin Skin Exam: Normal Color, Warm Assessment and Plan (1) Apnea Status: Acute (2) Cardiac arrest Status: Acute (3) Cardiomyopathy Status: Acute (4) ESRD (end stage renal disease) Status: Acute (5) Failed kidney transplant Status: Acute (6) Hyperkalemia Status: Acute - Assessment and Plan (Free Text) Assessment: resolved hyperkalemia. Diet discussed w/ pt electrolytes acceptable cardiology eval hd tomorrow
--- NOTE | 2017-09-12 12:29 | CP.PCM.PN ---
Subjective - Date & Time of Evaluation Date of Evaluation: 09/12/17 Time of Evaluation: 08:00 - Subjective Subjective: discussed on rounds possible DEJA cont IV antibiotics Objective - Vital Signs/Intake and Output Vital Signs (last 24 hours): Temp Pulse Resp BP Pulse Ox 98.1 F 85 13 114/72 100 09/12/17 08:00 09/12/17 11:58 09/12/17 10:23 09/12/17 10:22 09/12/17 09:33 Intake and Output: 09/12/17 09/12/17 06:59 18:59 Intake Total 350 Balance 350 - Medications Medications: Current Medications Apixaban (Eliquis) 2.5 mg PO BID [facility] Last Admin: 09/12/17 10:14 Dose: 2.5 mg Ascorbic Acid (Vitamin C 500 Mg Tab) 500 mg PO DAILY [facility] Last Admin: 09/12/17 10:13 Dose: 500 mg Calcium Acetate (Phoslo) 667 mg PO ACTID [facility] Last Admin: 09/12/17 11:39 Dose: 667 mg Cinacalcet (Sensipar) 60 mg PO DAILY [facility] Last Admin: 09/12/17 10:14 Dose: 60 mg Famotidine (Pepcid) 20 mg PO DAILY [facility] Last Admin: 09/12/17 10:14 Dose: 20 mg Vancomycin HCl 600 mg/ Sodium (Chloride) 100 mls @ 100 mls/hr IVPB MWF [facility] Last Admin: 09/11/17 15:20 Dose: 100 mls/hr Aztreonam 1 gm/ Sodium (Chloride) 100 mls @ 100 mls/hr IVPB Q12H [facility] Last Admin: 09/12/17 10:16 Dose: 100 mls/hr Vancomycin HCl 500 mg/ Sodium (Chloride) 100 mls @ 67 mls/hr IVPB ONCE [facility] Influenza Virus Vaccine (Fluzone (36 Months - 7 Yrs)) 45 mcg IM .ONCE ONE Stop: 09/13/17 11:47 Insulin Human Regular (Novolin R) 0 unit SC [facility] PRN Reason: Protocol Last Admin: 09/12/17 07:30 Dose: Not Given Lactobacillus Acidophilus (Bacid Acidophilus) 1 cap PO BID [facility] Last Admin: 09/12/17 10:14 Dose: 1 cap - Labs Labs: 09/12/17 06:27 09/12/17 06:27 PT 13.8 SECONDS (9.7-12.2) H 09/10/17 15:23 INR 1.2 09/10/17 15:23 APTT 34 SECONDS (21-34) 09/10/17 15:23 Assessment and Plan (1) Apnea Status: Acute (2) Cardiac arrest Status: Acute (3) Cardiomyopathy Status: Acute (4) ESRD (end stage renal disease) Status: Acute (5) Failed kidney transplant Status: Acute (6) PEA (Pulseless electrical activity) Status: Acute (7) CHF (congestive heart failure) Status: Acute (8) Cardiomyopathy Status: Acute (9) ESRD (end stage renal disease) on dialysis Status: Acute (10) HTN (hypertension) Status: Acute (11) Pneumonia Status: Acute
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
[2017-09-12 19:59] VITALS: BP 125/88; PULSE 81; RESP 16; TEMP 98.8
[2017-09-13] MEDS ORDERED: Influenza Virus Vaccine 45 mcg/0.5 ml Syr (36 months - 7 yrs) IM ONE (11:46)
== END 2017-09-12 18:15 | disposition home or self-care (01) | DRG 917 ==
LOC: C.ER 14:23 → C.9I 17:53
PROVIDERS: ADMIT Family Medicine; ATTEND Family Medicine
PROC: 5A12012 Performance of Cardiac Output, Single, Manual (ICD-10-PCS; principal; 2017-09-10)
PROC: 5A1D70Z Performance of Urinary Filtration, Intermittent, Less than 6 Hours Per Day (ICD-10-PCS; 2017-09-10)
PROC: 5A1D70Z Performance of Urinary Filtration, Intermittent, Less than 6 Hours Per Day (ICD-10-PCS; 2017-09-11)
DX: T40.2X1A Poisoning by other opioids, accidental (unintentional), initial encounter (principal); I46.9 Cardiac arrest, cause unspecified; I95.9 Hypotension, unspecified; E86.0 Dehydration; R19.7 Diarrhea, unspecified; J18.9 Pneumonia, unspecified organism; N18.6 End stage renal disease; E11.22 Type 2 diabetes mellitus with diabetic chronic kidney disease; E11.649 Type 2 diabetes mellitus with hypoglycemia without coma; I13.2 Hypertensive heart and chronic kidney disease with heart failure and with stage 5 chronic kidney disease, or end stage renal disease; I42.0 Dilated cardiomyopathy; J44.0 Chronic obstructive pulmonary disease with (acute) lower respiratory infection; N25.81 Secondary hyperparathyroidism of renal origin; T86.12 Kidney transplant failure; I50.22 Chronic systolic (congestive) heart failure; E87.5 Hyperkalemia; D63.8 Anemia in other chronic diseases classified elsewhere; I48.91 Unspecified atrial fibrillation; R06.03 Acute respiratory distress; I25.5 Ischemic cardiomyopathy; E78.00 Pure hypercholesterolemia, unspecified; D72.819 Decreased white blood cell count, unspecified; Y83.0 Surgical operation with transplant of whole organ as the cause of abnormal reaction of the patient, or of later complication, without mention of misadventure at the time of the procedure; Z87.891 Personal history of nicotine dependence; Z90.49 Acquired absence of other specified parts of digestive tract; Z99.2 Dependence on renal dialysis

== ENCOUNTER 2017-10-04 17:47 | Emergency (ER) | payer MEDICARE, OTHER ==
[2017-10-04 17:48] VITALS: BMI 3319.7
[2017-10-04 17:59] VITALS: O2SAT 98
--- NOTE | 2017-10-04 18:45 | C.PDOC ---
History Of Present Illness <Daksha Horta - Last Filed: 10/04/17 19:42> <Edelmira Guerrier - Last Filed: 10/04/17 20:36> CC: "My potassium is high" HPI: Patient states he saw his PMD Dr. Mckeon yesterday who did blood work and called him today stated his potassium was 7.2. Per patient Dr. Mckeon told patient to come to the ED 5 hours after dialysis to recheck his potassium. Patient states he normally has dialysis MWF and he did have it today from 5:30am -9am. Patient denies chest pain, shortness of breath, palpitations, fever, nausea, vomiting, diarrhea or constipation. PMD: Dr. Estephanie Ryan Insurance Agent: Dr. Joyce Cardiology: Dr. Veloz Past Medical History: ESRD, dialysis (MWF), HTN, DM type II, Atrial fibrillation Past Surgical History: Left arm AV fistula x2; right kidney transplant 2008; appendectomy; left shoulder surgery due to rotator cuff tear; nasal polyps Medications: Eliquis 2.5 mg BID; Phoslo 660 mg TID; Hydralazine 10 mg BID; Carvedilol 12.5 mg BID; Isosorbide Mononitrate 60 mg daily Allergies: Penicillin, Morphine, Insulin Social History: Denies smoking, denies alcohol, denies illicit drug use. 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 (Daksha Horta) Patient seen by me. States that he had routine labs drawn in Dr Veloz's office yesterday. K+ was 7.2 and he was told to have it repeated today. He did have a full dialysis this morning. (Edelmira Guerrier) History Per: Patient History/Exam Limitations: no limitations <Daksha Horta - Last Filed: 10/04/17 19:42> <Edelmira Guerrier - Last Filed: 10/04/17 20:36> Time Seen by Provider: 10/04/17 18:05 Chief Complaint (Nursing): Abnormal Labs Past Medical History - Medical History PMH: Atrial Fibrillation, Diabetes, HTN, End Stage Renal Disease (on Hemodialysis), Chronic Kidney Disease Denies: Kidney Stones Surgical History: Appendectomy Family History: States: Unknown Family Hx - Social History Hx Tobacco Use: No Hx Alcohol Use: No Hx Substance Use: No - Immunization History Hx Tetanus Toxoid Vaccination: No Hx Influenza Vaccination: Yes (2017) Hx Pneumococcal Vaccination: Yes (2016) <Daksha Horta - Last Filed: 10/04/17 19:42> Vital Signs: Last Vital Signs Temp 98.4 F 10/04/17 17:58 Pulse 78 10/04/17 17:58 Resp 18 10/04/17 17:58 BP 124/75 10/04/17 17:58 Pulse Ox 98 10/04/17 19:42 - [facility] Procedures (09/10/17) DRAINAGE OF RIGHT PLEURAL CAVITY, PERCUTANEOUS APPROACH (11/24/16) PERFORMANCE OF CARDIAC OUTPUT, SINGLE, MANUAL (09/10/17) PERFORMANCE OF URINARY FILTRATION, MULTIPLE (11/24/16) PERFORMANCE OF URINARY FILTRATION, SINGLE (03/07/17) Review Of Systems Constitutional: Negative for: Fever, Chills, Sweats Cardiovascular: Negative for: Chest Pain, Palpitations, Light Headedness Respiratory: Negative for: Cough, Shortness of Breath Gastrointestinal: Negative for: Nausea, Vomiting, Abdominal Pain, Diarrhea, Constipation Genitourinary: Negative for: Dysuria Neurological: Negative for: Weakness, Numbness <Daksha Horta - Last Filed: 10/04/17 19:42> Physical Exam - Physical Exam Appears: Well, Non-toxic Skin: Normal Color Head: Atraumatic Eye(s): bilateral: Normal Inspection, PERRL, EOMI Oral Mucosa: Moist Cardiovascular: Rhythm Regular, No Edema, No Murmur, No JVD Respiratory: Normal Breath Sounds, No Decreased Breath Sounds, No Accessory Muscle Use, No Rales, No Rhonchi, No Stridor, No Wheezing Gastrointestinal/Abdominal: Normal Exam, Bowel Sounds, Soft, No Tenderness, No Distention, No Guarding Extremity: No Tenderness, No Pedal Edema, Other (AV fistula in the left arm + pulsation ) Neurological/Psych: Oriented x3, Normal Speech, Normal Cognition <Daksha Horta - Last Filed: 10/04/17 19:42> ED Course And Treatment - Laboratory Results Result Diagrams: 10/04/17 18:53 10/04/17 18:53 O2 Sat by Pulse Oximetry: 98 <Daksha Horta - Last Filed: 10/04/17 19:42> - Laboratory Results Result Diagrams: 10/04/17 18:53 10/04/17 18:53 Lab Interpretation: Abnormal (c/w renal disease) Pulse Ox Interpretation: Normal <Edelmira Guerrier - Last Filed: 10/04/17 20:36> Medical Decision Making <Daksha Horta - Last Filed: 10/04/17 19:42> <Edelmira Guerrier - Last Filed: 10/04/17 20:36> Medical Decision Making: Hyperkalemia - f/u cmp (Daksha Horta) Disposition <Daksha Horta - Last Filed: 10/04/17 19:42> - Disposition Disposition Time: 20:35 <Edelmira Guerrier - Last Filed: 10/04/17 20:36> - Disposition Referrals: Jorge Veloz MD [Staff Provider] - Disposition: HOME/ ROUTINE Condition: IMPROVED Instructions: Hyperkalemia (ED) Forms: [employer] Connect (German) - Clinical Impression Clinical Impression: ESRD (end stage renal disease) on dialysis, Abnormal laboratory test result
[2017-10-04 19:14] LABS: BASO % 1.1 % (0.0-2.0); EOS # 0.4 K/uL (0.0-0.7); EOS % 8.1 % (0.0-4.0); HEMOGLOBIN 12.1 g/dL (12.0-18.0); LYMPH # 0.7 K/uL (1.0-4.3); LYMPH % 14.4 % (20.0-40.0); MEAN CELL VOLUME 95.3 fL (80.0-94.0); MEAN CORPUSCULAR HEMOGLOBIN 30.9 pg (27.0-31.0); MEAN CORPUSCULAR HGB CONC 32.4 g/dL (33.0-37.0); MEAN PLATELET VOLUME 9.1 fL (7.2-11.7); MONO # 0.8 K/uL (0.0-0.8); MONO % 16.1 % (0.0-10.0); NEUT # 2.8 K/uL (1.8-7.0); NEUT % 60.3 % (50.0-75.0); NRBC % 0.1 % (0.0-2.0); RBC 3.91 Mil/uL (4.40-5.90); RED CELL DISTRIBUTION WIDTH 17.3 % (11.5-14.5); WHITE BLOOD COUNT 4.6 K/uL (4.8-10.8)
[2017-10-04 19:35] LABS: ALBUMIN 4.2 g/dL (3.5-5.0); CALCIUM 8.9 mg/dl (8.6-10.4)
[2017-10-04 20:44] VITALS: BP 124/81; PULSE 81; RESP 20; TEMP 97
== END 2017-10-04 20:44 | disposition home or self-care (01) ==
LOC: C.ER 17:47
DX: I12.0 Hypertensive chronic kidney disease with stage 5 chronic kidney disease or end stage renal disease (principal); N18.6 End stage renal disease; Z99.2 Dependence on renal dialysis; E11.9 Type 2 diabetes mellitus without complications; I48.91 Unspecified atrial fibrillation; Z94.0 Kidney transplant status; R89.9 Unspecified abnormal finding in specimens from other organs, systems and tissues